=== PATIENT | female | born 1970 | race Caucasian/White ===

== ENCOUNTER 2016-12-19 22:50 | Emergency (ER) | payer MEDICAID ==
--- NOTE | 2016-12-19 23:49 | EDM.PDOC ---
ED HPI GENERAL MEDICAL PROBLEM - General Chief Complaint: General Stated Complaint: R knee pain Time Seen by Provider: 12/19/16 23:00 History Limitations: Reports: No Limitations - History of Present Illness INITIAL COMMENTS - FREE TEXT/NARRATIVE: Patient is a 46-year-old who was going to the bathroom at [facility] when she slipped and fell she can't remember what happened maybe had transient loss of consciousness but did state that she had severe pain in the inner aspect of her right knee there was an ecchymotic area around the knee with tenderness to palpation she has limited range of motion secondary to the pain and ecchymosis x -rays obtained reveal multiple fractures no dislocations Onset: Today Duration: Hour(s):, Other (Right knee pain) Location: Reports: Lower Extremity, Right Right Knee Pain Score (Numeric/FACES): 10 - Related Data Allergies Allergy/AdvReac Type Severity Reaction Status Date / Time hydrocodone Allergy Tachycardia Verified 02/26/13 20:16 Home Meds: Home Meds Lisinopril [Prinivil] 20 mg PO DAILY 02/26/13 [History] Cetirizine HCl 10 mg PO DAILY 04/29/13 [History] Propranolol HCl [Propranolol] 60 mg PO DAILY 04/29/13 [History] Triamterene/Hydrochlorothiazid [Triamterene-HCTZ 37.5-25 MG] 1 each PO 04/29/13 [History] Fluticasone Propionate [Fluticasone Propionate [place]] 1 - 2 sprays NASBOTH DAILY #1 bottle 05/22/13 [Rx] Furosemide [Furosemide] 20 mg PO DAILY 12/19/16 [History] LORazepam [LORazepam] 1 tab PO TID 12/19/16 [History] Past Medical History - Past Health History Medical/Surgical History: Denies Medical/Surgical History Cardiovascular History: Reports: Hypertension Psychiatric History: Reports: Anxiety, Depression Social & Family History - Tobacco Use Second Hand Smoke Exposure: Yes - Alcohol Use Days Per Week of Alcohol Use: 0 - Recreational Drug Use Recreational Drug Use: No ED ROS GENERAL - Review of Systems Review Of Systems: See Below Constitutional: Reports: No Symptoms HEENT: Reports: No Symptoms, Other (Headache about 4 out of 5 is middle-aged) Respiratory: Reports: No Symptoms Cardiovascular: Reports: No Symptoms Endocrine: Reports: No Symptoms GI/Abdominal: Reports: No Symptoms : Reports: No Symptoms Musculoskeletal: Reports: Other (Right knee pain with ecchymosis inner aspect and tenderness on both the medial and lateral aspects) Skin: Reports: No Symptoms, Change in Color, Other (Ecchymosis right knee inner and outer aspect) Neurological: Reports: No Symptoms Psychiatric: Reports: Anxiety, Depression ED EXAM, GENERAL - Physical Exam Exam: See Below Exam Limited By: No Limitations General Appearance: Alert, WD/WN, No Apparent Distress Ears: Normal External Exam, Normal Canal, Hearing Grossly Normal, Normal TMs Ear Exam: Bilateral Ear: Auricle Normal, Canal Normal, TM normal Nose: Normal Inspection, Normal Mucosa, No Blood Throat/Mouth: Normal Inspection, Normal Lips, Normal Teeth, Normal Gums, Normal Oropharynx, Normal Voice, No Airway Compromise Head: Atraumatic, Normocephalic, Other (Headaches possible loss of consciousness after falling neurologically appears intact) Neck: Normal Inspection, Supple, Non-Tender, Full Range of Motion Respiratory/Chest: No Respiratory Distress, Lungs Clear, Normal Breath Sounds, No Accessory Muscle Use, Chest Non-Tender Cardiovascular: Normal Peripheral Pulses, Regular Rate, Rhythm, No Edema, No Gallop, No JVD, No Murmur, No Rub GI/Abdominal: Normal Bowel Sounds, Soft, Non-Tender, No Organomegaly, No Distention, No Abnormal Bruit, No Mass Back Exam: Normal Inspection, Full Range of Motion, NT Extremities: Other (Right leg pain with flexion and extension x-ray negative for fractures ecchymotic area on the inner and outer aspect of the right knee secondary to fall) Neurological: Alert, Oriented, CN II-XII Intact, Normal Cognition, Normal Gait, Normal Reflexes, No Motor/Sensory Deficits Course - Orders/Labs/Meds Orders: Active Orders 24 hr Category Date Time Status Knee 1V or 2V Rt [CR] Stat Exams 12/19/16 23:08 Taken Departure - Departure Time of Disposition: 23:56 Disposition: Home, Self-Care 01 Condition: Good Clinical Impression: Right knee pain Qualifiers: Chronicity: acute Qualified Code(s): M25.561 - Pain in right knee - Discharge Information Referrals: Flex Singh MD [Primary Care Provider] - Care Plan Goals: Patient is to wear ice and keep the immobilizer for about a month follow-up in a month with primary care - My Orders Last 24 Hours: My Active Orders 12/19/16 23:08 Knee 1V or 2V Rt [CR] Stat - Assessment/Plan Last 24 Hours: My Active Orders 12/19/16 23:08 Knee 1V or 2V Rt [CR] Stat
== END 2016-12-19 23:55 | disposition home or self-care (01) ==
LOC: LL.ED 22:50
DX: S80.01XA Contusion of right knee, initial encounter (principal); F32.9 Major depressive disorder, single episode, unspecified; F41.9 Anxiety disorder, unspecified; I10 Essential (primary) hypertension; Z88.5 Allergy status to narcotic agent; Z79.899 Other long term (current) drug therapy
CPT/HCPCS: 73560-RT; 99283

== ENCOUNTER 2017-04-23 18:18 | Emergency (ER) | payer BC, MEDICAID, OTHER ==
[2017-04-23 18:33] VITALS: BP 143/90
--- NOTE | 2017-04-23 18:58 | EDM.PDOC ---
ED HPI GENERAL MEDICAL PROBLEM - General Chief Complaint: Abdominal Pain Stated Complaint: abd pain Time Seen by Provider: 04/23/17 18:40 Source of Information: Reports: Patient History Limitations: Reports: No Limitations - History of Present Illness INITIAL COMMENTS - FREE TEXT/NARRATIVE: Patient's 47-year-old female complained of right CVA tenderness radiating around her back into her groin pain is about an 8 out of 10 Onset: Gradual Duration: Day(s): (3 days), Getting Worse Location: Reports: Abdomen Quality: Reports: Sharp, Throbbing Severity: Moderate Improves with: Reports: None Worsens with: Reports: Other (Standing) Context: Reports: Other (Sick) Associated Symptoms: Reports: Nausea/Vomiting Treatments [employer] C[employer] AND EDGER: Reports: Acetaminophen Right Flank Pain Score (Numeric/FACES): 7 - Related Data Allergies Allergy/AdvReac Type Severity Reaction Status Date / Time hydrocodone Allergy Tachycardia Verified 04/23/17 19:13 Home Meds: Home Meds Lisinopril [Prinivil] 20 mg PO DAILY 02/26/13 [History] Triamterene/Hydrochlorothiazid [Triamterene-HCTZ 37.5-25 MG] 1 each PO DAILY [History] Fluticasone Propionate [Fluticasone Propionate [place]] 1 - 2 sprays NASBOTH DAILY #1 bottle 05/22/13 [Rx] Furosemide [Furosemide] 20 mg PO DAILY 12/19/16 [History] Sulfamethoxazole/Trimethoprim [Septra DS] 1 tab PO BID 10 Days #12 tablet [Rx] traMADol HCl [Ultram] 50 mg PO QID 5 Days #20 tablet 04/23/17 [Rx] Past Medical History - Past Health History Medical/Surgical History: Denies Medical/Surgical History Cardiovascular History: Reports: Hypertension Psychiatric History: Reports: Anxiety, Depression Social & Family History - Tobacco Use Smoking Status *Q: Unknown Ever Smoked Second Hand Smoke Exposure: Yes - Alcohol Use Days Per Week of Alcohol Use: 0 - Recreational Drug Use Recreational Drug Use: No ED ROS GENERAL - Review of Systems Review Of Systems: See Below Constitutional: Reports: Chills, Diaphoresis HEENT: Reports: No Symptoms Respiratory: Reports: No Symptoms Cardiovascular: Reports: No Symptoms Endocrine: Reports: No Symptoms GI/Abdominal: Reports: Abdominal Pain : Reports: Flank Pain Skin: Reports: No Symptoms Neurological: Reports: No Symptoms Psychiatric: Reports: No Symptoms Hematologic/Lymphatic: Reports: No Symptoms ED EXAM, GI/ABD - Physical Exam Exam: See Below Exam Limited By: No Limitations General Appearance: Alert, WD/WN, No Apparent Distress Eyes: Bilateral: Normal Appearance, EOMI Ears: Normal External Exam, Normal Canal, Hearing Grossly Normal, Normal TMs Nose: Normal Inspection, Normal Mucosa, No Blood Throat/Mouth: Normal Inspection, Normal Lips, Normal Teeth, Normal Gums, Normal Oropharynx, Normal Voice, No Airway Compromise Head: Atraumatic, Normocephalic Neck: Normal Inspection, Supple, Non-Tender, Full Range of Motion Respiratory/Chest: No Respiratory Distress, Lungs Clear, Normal Breath Sounds, No Accessory Muscle Use, Chest Non-Tender Cardiovascular: Normal Peripheral Pulses, Regular Rate, Rhythm, No Edema, No Gallop, No JVD, No Murmur, No Rub GI/Abdominal Exam: Tender (Left CVA tenderness radiating towards the hypo- gastric area) Back Exam: Normal Inspection, Full Range of Motion, NT Extremities: Normal Inspection, Normal Range of Motion, Non-Tender, Normal Capillary Refill, No Pedal Edema Neurological: Alert, Oriented, CN II-XII Intact, Normal Cognition, Normal Gait, Normal Reflexes, No Motor/Sensory Deficits Psychiatric: Normal Affect, Normal Mood Skin Exam: Warm, Dry, Intact, Normal Color, No Rash Course - Vital Signs Last Recorded V/S: Last Vital Signs Temp 98.4 F 04/23/17 18:21 Pulse 107 H 04/23/17 18:21 Resp 18 04/23/17 18:21 BP 143/90 H 04/23/17 18:21 Pulse Ox 100 04/23/17 18:21 - Orders/Labs/Meds Labs: Laboratory Tests 04/23/17 04/23/17 Range/Units 18:34 18:39 WBC 11.1 H (4.0-10.2) K/uL RBC 5.06 (3.77-5.09) M/uL Hgb 13.2 (11.7-15.5) g/dL Hct 39.2 (34.0-46.0) % MCV 77.5 L (84.0-98.0) fL MCH 26.1 L (28.2-33.3) pg MCHC 33.7 (31.7-36.0) g/dL RDW 15.1 H (11.2-14.1) % Plt Count 196 D (150-350) K/uL Neut % (Auto) 75.1 (45.0-80.0) % Lymph % (Auto) 13.3 (10.0-50.0) % [place] % (Auto) 9.0 (2.0-14.0) % Eos % (Auto) 2.4 (0.0-5.0) % Baso % (Auto) 0.2 (0.0-2.0) % Neut # (Auto) 8.31 H (1.40-7.00) K/uL Lymph # (Auto) 1.47 (0.50-3.50) K/uL [place] # (Auto) 1.00 (0.00-1.00) K/uL Eos # (Auto) 0.27 (0.00-0.50) K/uL Baso # (Auto) 0.02 (0.00-0.20) K/uL Specimen Type Urincc Urine Color Yellow Urine Appearance Clear Urine pH 5.0 (5.0-9.0) Ur Specific [place] >= 1.030 (1.005-1.030) Urine Protein Negative (NEGATIVE) mg/dL Urine Glucose (UA) Negative (NEGATIVE) mg/dL Urine Ketones Negative (NEGATIVE) mg/dL Urine Occult Blood Trace-lysed H (NEGATIVE) Urine Nitrite Negative (NEGATIVE) Urine Bilirubin Negative (NEGATIVE) Urine Urobilinogen 0.2 (0.2-1.0) E.U./dL Ur Leukocyte Esterase Negative (NEGATIVE) Urine RBC 0-5 /HPF Urine WBC 0-5 /HPF Ur Epithelial Cells Many H /LPF Urine Bacteria Moderate H (NONE TO FEW) /HPF Meds: Medications Discontinued Medications Generic Name Dose Route Start Last Admin Trade Name Freq PRN Reason Stop Dose Admin Ketorolac Tromethamine 60 mg 04/23/17 19:37 04/23/17 19:41 Toradol IM 04/23/17 19:38 60 mg ONETIME ONE Administration Ondansetron HCl 4 mg 04/23/17 20:00 04/23/17 20:03 Zofran Odt PO 04/23/17 20:01 4 mg ONETIME ONE Administration Tamsulosin HCl 0.4 mg 04/23/17 19:38 04/23/17 19:41 Flomax PO 04/23/17 19:39 0.4 mg ONETIME ONE Administration Departure - Departure Time of Disposition: 20:10 Disposition: Home, Self-Care 01 Condition: Fair Clinical Impression: UTI (urinary tract infection) Abdominal pain Qualifiers: Abdominal location: right lower quadrant Qualified Code(s): R10.31 - Right lower quadrant pain - Discharge Information Prescriptions: Sulfamethoxazole/Trimethoprim [Septra DS] 1 tab PO BID 10 Days #12 tablet traMADol HCl [Ultram] 50 mg PO QID 5 Days #20 tablet Instructions: Ondansetron oral dissolving tablet, Ketorolac injection, Tramadol tablets, Urinary Tract Infection, Adult, Tamsulosin capsules, Sulfamethoxazole; Trimethoprim, SMX-TMP tablets Referrals: PCP,Unknown [Ordering Only Provider] - Forms: ED Department Discharge Care Plan Goals: Patient was evaluated in the ER UA showed bacteria's in the urine will go ahead and treat her for UTI ultrasound also revealed left ovarian cyst 5 cm this is a possible cause of the pain I explained this to the patient she will take Motrin as needed for pain
[2017-04-23] MEDS ORDERED: Ketorolac 60 MG/2 ML SDV IM ONE (19:37)
[2017-04-23] MEDS ORDERED: Tamsulosin 0.4 MG Cap.ER PO ONE (19:38)
[2017-04-23] MEDS ORDERED: Ondansetron 4 MG Tab.DIS PO ONE (20:00)
== END 2017-04-23 20:20 | disposition home or self-care (01) ==
LOC: LL.ED 18:18
DX: N39.0 Urinary tract infection, site not specified (principal); I10 Essential (primary) hypertension; Z88.5 Allergy status to narcotic agent; Z79.899 Other long term (current) drug therapy
CPT/HCPCS: 36415; 74176; 81001; 85025; 87086; 96372; 99284; A9270; J1885

== ENCOUNTER 2017-05-27 22:42 | Emergency (ER) | payer SELFPAY ==
[2017-05-27 23:53] LABS: CHLORIDE,CL 102 mmol/L (98-107); SODIUM,NA 139 mmol/L (136-145)
--- NOTE | 2017-05-28 00:04 | EDM.PDOC ---
ED HPI GENERAL MEDICAL PROBLEM - General Chief Complaint: General Stated Complaint: chest pain Time Seen by Provider: 05/27/17 23:11 Source of Information: Reports: Patient History Limitations: Reports: No Limitations - History of Present Illness INITIAL COMMENTS - FREE TEXT/NARRATIVE: Patient complains of not feeling well since last night. Described sensation as feeling "weird". No other specific descriptions or symptoms. Today when she woke she says she felt dizzy at times. Noted that she became a bit SOB going up stairs. Took a nap. This evening noted that she had bilateral anterior chest achiness that was worse with direct pressure over her chest and with deep breaths. Pain does not radiate anywhere. Denies HEENT changes suggestive on new URI. Has had resolving recent cough which has not worsened. Was diagnosed with pneumonia by CT scan while being worked up for abdominal pain in April. Took course of antibiotics, suspects it was likely Zithromax. No fevers. No GI changes. No changes. ROS otherwise negative except for worsening fatigue today. is smoker, smokes in house. - Related Data Allergies Allergy/AdvReac Type Severity Reaction Status Date / Time hydrocodone Allergy Tachycardia Verified 05/27/17 23:00 Home Meds: Home Meds Lisinopril [Prinivil] 20 mg PO DAILY 02/26/13 [History] Fluticasone Propionate [Flonase] 1 - 2 sprays NASBOTH DAILY #1 bottle 05/22/13 [ Rx] Furosemide 20 mg PO DAILY 12/19/16 [History] Venlafaxine HCl [Venlafaxine ER] 150 mg PO DAILY 05/27/17 [History] hydrOXYzine HCl [hydrOXYzine] 1 tab PO Q12H PRN 05/27/17 [History] Doxycycline [Vibramycin] 100 mg PO BID #20 cap 05/28/17 [Rx] Past Medical History - Past Health History Medical/Surgical History: Denies Medical/Surgical History Cardiovascular History: Reports: Hypertension Respiratory History: Reports: Asthma Gastrointestinal History: Reports: Hiatal Hernia Genitourinary History: Reports: None CUT[employer] MACHINE History: Reports: Endometriosis, Musculoskeletal History: Reports: None Neurological History: Reports: Concussion Psychiatric History: Reports: Anxiety, Depression Endocrine/Metabolic History: Reports: Obesity/BMI 30+ Hematologic History: Reports: Anemia, Blood Transfusion(s) Dermatologic History: Reports: Eczema - Infectious Disease History Infectious Disease History: Reports: Chicken Pox, Influenza - Past Surgical History GI Surgical History: Reports: Cholecystectomy, Hernia, Abdominal Female Surgical History: Reports: Hysterectomy, Oophorectomy, Other (See Below) Other Female Surgeries/Procedures: only ovary remaining Neurological Surgical History: Reports: None Musculoskeletal Surgical History: Reports: None Dermatological Surgical History: Reports: None Social & Family History - Family History Endocrine/Metabolic: Reports: Diabetes, type II Oncologic: Reports: Breast Other Oncologic Family History: Mom had breast cancer - Tobacco Use Smoking Status *Q: Never Smoker Second Hand Smoke Exposure: Yes - Caffeine Use Caffeine Use: Reports: Soda Other Caffeine Use: occasionally - Alcohol Use Days Per Week of Alcohol Use: 0 - Recreational Drug Use Recreational Drug Use: No ED ROS GENERAL - Review of Systems Review Of Systems: See Below Constitutional: Reports: Fatigue. Denies: Fever, Chills, Malaise, Weakness, Night Sweats, Diaphoresis, Decreased Appetite, Weight Loss, Weight Gain HEENT: Reports: No Symptoms Respiratory: Reports: Shortness of Breath, Pleuritic Chest Pain, Cough. Denies : Wheezing, Sputum, Hemoptysis Cardiovascular: Reports: Chest Pain, Dyspnea on Exertion, Lightheadedness. Denies: Edema, Palpitations, Syncope GI/Abdominal: Reports: No Symptoms : Reports: No Symptoms Musculoskeletal: Reports: No Symptoms Skin: Reports: No Symptoms Neurological: Reports: Dizziness. Denies: Confusion, Headache, Syncope, Tingling, Trouble Speaking, Change in Speech Psychiatric: Reports: Anxiety (worse today, friend went to inpatient psych bai) Hematologic/Lymphatic: Reports: No Symptoms Immunologic: Reports: No Symptoms ED EXAM, GENERAL - Physical Exam Exam: See Below Exam Limited By: No Limitations General Appearance: Alert, WD/WN, Anxious Eye Exam: Bilateral Eye: EOMI, PERRL Ears: Normal External Exam, Normal Canal, Hearing Grossly Normal, Normal TMs Nose: Normal Inspection Throat/Mouth: Normal Inspection, Normal Lips, Normal Gums, Normal Oropharynx, Normal Voice, No Airway Compromise, Other (poor teeth, some missing) Head: Atraumatic, Normocephalic Neck: Normal Inspection, Supple, Non-Tender, Full Range of Motion. No: Lymphadenopathy (L), Lymphadenopathy (R) Respiratory/Chest: No Respiratory Distress, Lungs Clear, Normal Breath Sounds, No Accessory Muscle Use, Other (some tenderness noted with palpation pectoral areas bilaterally, partially reproduces pain complaint. ) Cardiovascular: Normal Peripheral Pulses, Regular Rate, Rhythm, No Murmur Peripheral Pulses: 2+: Radial (L) GI/Abdominal: Normal Bowel Sounds, Soft, Non-Tender, No Distention (Female) Exam: Deferred Rectal (Female) Exam: Deferred Back Exam: Normal Inspection. No: CVA Tenderness (L), CVA Tenderness (R), Muscle Spasm, Paraspinal Tenderness, Vertebral Tenderness Extremities: Normal Inspection, Normal Range of Motion, Non-Tender, No Pedal Edema, Normal Capillary Refill Neurological: Alert, Oriented, Normal Cognition, Normal Gait, No Motor/Sensory Deficits Psychiatric: Anxious Skin Exam: Warm, Dry, Intact, Normal Color EKG INTERPRETATION EKG Date: 05/27/17 Time: 22:47 Rhythm: NSR Rate (Beats/Min): 96 [place]: Normal P-Wave: Present QRS: Normal ST-T: Normal QT: Normal EKG Interpretation Comments: unremarkable EKG Course - Vital Signs Last Recorded V/S: Last Vital Signs Temp 36.7 C 05/27/17 22:45 Pulse 101 H 05/27/17 22:45 Resp 16 05/27/17 22:45 BP 154/96 H 05/27/17 22:45 Pulse Ox 98 05/27/17 22:45 - Orders/Labs/Meds Orders: Active Orders 24 hr Category Date Time Status EKG Documentation Completion [RC] ASDIRECTED Care 05/27/17 22:44 Active Chest 2V [CR] Stat Exams 05/27/17 23:13 Taken Labs: Laboratory Tests 05/27/17 05/27/17 05/27/17 Range/Units 23:13 23:35 23:35 WBC 13.4 H (4.0-10.2) K/uL RBC 5.20 H (3.77-5.09) M/uL Hgb 13.4 (11.7-15.5) g/dL Hct 39.7 (34.0-46.0) % MCV 76.3 L (84.0-98.0) fL MCH 25.8 L (28.2-33.3) pg MCHC 33.8 (31.7-36.0) g/dL RDW 14.8 H (11.2-14.1) % Plt Count 227 (150-350) K/uL Neut % (Auto) 67.5 (45.0-80.0) % Lymph % (Auto) 22.5 (10.0-50.0) % [place] % (Auto) 7.4 (2.0-14.0) % Eos % (Auto) 2.4 (0.0-5.0) % Baso % (Auto) 0.2 (0.0-2.0) % Neut # (Auto) 9.08 H (1.40-7.00) K/uL Lymph # (Auto) 3.02 (0.50-3.50) K/uL [place] # (Auto) 0.99 (0.00-1.00) K/uL Eos # (Auto) 0.32 (0.00-0.50) K/uL Baso # (Auto) 0.03 (0.00-0.20) K/uL D-Dimer, Quantitative (0-400) ng/mL Sodium 139 (136-145) mmol/L Potassium 3.5 (3.5-5.1) mmol/L Chloride 102 (98-107) mmol/L Carbon Dioxide 28.1 (21.0-32.0) mmol/L BUN 19 H (7-18) mg/dL Creatinine 0.82 (0.51-1.17) mg/dL Est Cr Clr Drug Dosing 65.54 mL/min Estimated GFR (MDRD) > 60 mL/min Glucose 139 H (74-106) mg/dL Calcium 8.6 (8.5-10.1) mg/dL Total Bilirubin 0.3 (0.2-1.0) mg/dL AST 12 L (15-37) U/L ALT 26 (12-78) U/L Alkaline Phosphatase 85 (46-116) IU/L Troponin I 0.000 (0.000-0.056) ng/mL Total Protein 7.5 (6.4-8.2) g/dL Albumin 3.7 (3.4-5.0) g/dL Specimen Type Urinblad Urine Color Yellow Urine Appearance Clear Urine pH 6.0 (5.0-9.0) Ur Specific [place] >= 1.030 (1.005-1.030) Urine Protein Negative (NEGATIVE) mg/dL Urine Glucose (UA) Negative (NEGATIVE) mg/dL Urine Ketones Trace H (NEGATIVE) mg/dL Urine Occult Blood Negative (NEGATIVE) Urine Nitrite Negative (NEGATIVE) Urine Bilirubin Negative (NEGATIVE) Urine Urobilinogen 1.0 (0.2-1.0) E.U./dL Ur Leukocyte Esterase Negative (NEGATIVE) Urine RBC Not seen /HPF Urine WBC 0-5 /HPF Ur Epithelial Cells Many H /LPF Urine Bacteria Moderate H (NONE TO FEW) /HPF Urinalysis Comment 05/27/17 Range/Units 23:35 WBC (4.0-10.2) K/uL RBC (3.77-5.09) M/uL Hgb (11.7-15.5) g/dL Hct (34.0-46.0) % MCV (84.0-98.0) fL MCH (28.2-33.3) pg MCHC (31.7-36.0) g/dL RDW (11.2-14.1) % Plt Count (150-350) K/uL Neut % (Auto) (45.0-80.0) % Lymph % (Auto) (10.0-50.0) % [place] % (Auto) (2.0-14.0) % Eos % (Auto) (0.0-5.0) % Baso % (Auto) (0.0-2.0) % Neut # (Auto) (1.40-7.00) K/uL Lymph # (Auto) (0.50-3.50) K/uL [place] # (Auto) (0.00-1.00) K/uL Eos # (Auto) (0.00-0.50) K/uL Baso # (Auto) (0.00-0.20) K/uL D-Dimer, Quantitative < 100 (0-400) ng/mL Sodium (136-145) mmol/L Potassium (3.5-5.1) mmol/L Chloride (98-107) mmol/L Carbon Dioxide (21.0-32.0) mmol/L BUN (7-18) mg/dL Creatinine (0.51-1.17) mg/dL Est Cr Clr Drug Dosing mL/min Estimated GFR (MDRD) mL/min Glucose (74-106) mg/dL Calcium (8.5-10.1) mg/dL Total Bilirubin (0.2-1.0) mg/dL AST (15-37) U/L ALT (12-78) U/L Alkaline Phosphatase (46-116) IU/L Troponin I (0.000-0.056) ng/mL Total Protein (6.4-8.2) g/dL Albumin (3.4-5.0) g/dL Specimen Type Urine Color Urine Appearance Urine pH (5.0-9.0) Ur Specific [place] (1.005-1.030) Urine Protein (NEGATIVE) mg/dL Urine Glucose (UA) (NEGATIVE) mg/dL Urine Ketones (NEGATIVE) mg/dL Urine Occult Blood (NEGATIVE) Urine Nitrite (NEGATIVE) Urine Bilirubin (NEGATIVE) Urine Urobilinogen (0.2-1.0) E.U./dL Ur Leukocyte Esterase (NEGATIVE) Urine RBC /HPF Urine WBC /HPF Ur Epithelial Cells /LPF Urine Bacteria (NONE TO FEW) /HPF Urinalysis Comment - Radiology Interpretation Free Text/Narrative:: No obvious infiltrate on Chest xray. No pneumothorax or other acute changes. - Re-Assessments/Exams Free Text/Narrative Re-Assessment/Exam: 05/28/17 00:19 WBC elevated. Troponin and DDimer normal. Discussed possible explanations of symptoms with patient. Certainly could be a stress/anxiety component. Given the recent pneumonia, elevated WBC, and new SOB going up stairs, cannot rule out recurring infection. May be new onset viral illness. Decision to cover patient for potential bacterial involvement made, she will take Doxy 100mg BID for 10 days. She is to continue to follow up as needed, including regular BP checks. Her BP was elevated tonight but she was anxious. Improving at time of discharge. Departure - Departure Time of Disposition: 00:04 Disposition: Home, Self-Care 01 Condition: Good Clinical Impression: General ill feeling - Discharge Information Prescriptions: Doxycycline [Vibramycin] 100 mg PO BID #20 cap Instructions: Community-Acquired Pneumonia, Adult, [id number] Forms: ED Department Discharge Additional Instructions: Take Doxy every 12 hours for 10 days. Watch for any other changes. Follow up with your primary provider as needed if you have problems or if symptoms have not improved within 4-5 days. - My Orders Last 24 Hours: My Active Orders 05/27/17 22:44 EKG Documentation Completion [RC] ASDIRECTED 05/27/17 23:13 Chest 2V [CR] Stat - Assessment/Plan Last 24 Hours: My Active Orders 05/27/17 22:44 EKG Documentation Completion [RC] ASDIRECTED 05/27/17 23:13 Chest 2V [CR] Stat
[2017-05-28 00:45] VITALS: BP 143/90
== END 2017-05-28 00:35 | disposition home or self-care (01) ==
LOC: LL.ED 22:42
DX: R69 Illness, unspecified (principal); F17.200 Nicotine dependence, unspecified, uncomplicated; I10 Essential (primary) hypertension; F32.9 Major depressive disorder, single episode, unspecified; E66.9 Obesity, unspecified; Z88.5 Allergy status to narcotic agent; Z79.899 Other long term (current) drug therapy
CPT/HCPCS: 36415; 71046; 80053; 81001; 84484; 85025; 85379; 93005; 99285

== ENCOUNTER 2017-06-30 18:19 | Emergency (ER) | payer BC ==
[2017-06-30] MEDS ORDERED: Famotidine 20 MG/2 ML SDV IVPUSH ONE (18:26)
[2017-06-30] MEDS ORDERED: Sodium Chloride 0.9% 10 ML Syringe FLUSH PRN (18:26)
[2017-06-30] MEDS ORDERED: Pantoprazole 40 MG Vial IVPUSH ONE (18:26)
--- NOTE | 2017-06-30 18:26 | EDM.PDOC ---
ED HPI GENERAL MEDICAL PROBLEM - General Chief Complaint: Gastrointestinal Problem Stated Complaint: RLQ pain 9 out of 10 Time Seen by Provider: 06/30/17 18:20 Source of Information: Reports: Patient, Old Records ([facility] EMR. No paper hospital chart available.) History Limitations: Reports: No Limitations - History of Present Illness INITIAL COMMENTS - FREE TEXT/NARRATIVE: The patient was brought to the emergency room via private automobile by her friend for evaluation of a one hour history of right lower quadrant abdominal pain, which she describes as 9/10 cramping sensation. Symptoms started shortly after she had a walk earlier today with no history of fall, injury, etc. She apparently had a normal bowel movement about one hour prior to arrival. She has had similar symptoms in the past, including negative CT scan in April 2017 as below. No recent history of other abdominal pain, heartburn, nausea, diarrhea , constipation, melena, gross hematochezia, or any food intolerance, including fatty foods, etc.. She has not taken any medications for her symptoms to this point. The patient denies any gross hematuria, colic, or other UTI symptoms. The patient denies any chest pain/pressure, heart flutter, dizziness, orthostasis, orthopnea, diaphoresis, paresthesias, recent decreased exercise tolerance, or any other anginal-type symptoms. The patient also denies any recent fever, cough, wheezing, dyspnea, etc.. Onset: Today, Sudden Onset Date: 06/30/17 Onset Time: 17:15 Duration: Constant, Getting Worse Location: Reports: Abdomen. Denies: Head, Face, Neck, Back, Pelvis, Upper Extremity, Left, Upper Extremity, Right, Lower Extremity, Left, Lower Extremity , Right, Generalized, Radiates to Quality: Reports: Ache, Pressure, Same as Previous Episode, Sharp Severity: Severe Improves with: Reports: None Worsens with: Reports: None Context: Reports: Other (As above) Associated Symptoms: Denies: Confusion, Chest Pain, Cough, Diaphoresis, Fever/ Chills, Headaches, Loss of Appetite, Malaise, Nausea/Vomiting, Shortness of Breath, Syncope, Weakness Treatments CLIENT RELATIONSHIP CONSULTANT: Reports: Other (see below) (None) Right Lower Abdominal Pain Score (Numeric/FACES): 9 - Related Data Allergies Allergy/AdvReac Type Severity Reaction Status Date / Time hydrocodone Allergy Tachycardia Verified 06/30/17 18:21 Home Meds: Home Meds Lisinopril [Prinivil] 20 mg PO DAILY 02/26/13 [History] Fluticasone Propionate [Flonase] 1 - 2 sprays NASBOTH DAILY #1 bottle 05/22/13 [ Rx] Furosemide 20 mg PO DAILY 12/19/16 [History] Venlafaxine HCl [Venlafaxine ER] 150 mg PO DAILY 05/27/17 [History] hydrOXYzine HCl [hydrOXYzine] 1 tab PO Q12H PRN 05/27/17 [History] Doxycycline [Vibramycin] 100 mg PO BID #20 cap 05/28/17 [Rx] Past Medical History HEENT History: Reports: Allergic Rhinitis Cardiovascular History: Reports: Arrhythmia, High Cholesterol, Hypertension, Other (See Below) Other Cardiovascular History: Fatty liver secondary to her hyperlipidemia Respiratory History: Reports: Asthma Gastrointestinal History: Reports: Hiatal Hernia, Other (See Below) Other Gastrointestinal History: Fatty liver secondary to her hyperlipidemia. Recurrent abdominal pain of unknown etiology. Genitourinary History: Reports: None FLY WINDER History: Reports: Endometriosis, : 6 LMP (Approximate): Other (See Below) Other OB/BYN History: Full term without complications during pregnancies or deliveries although she did have a borderline placental abruption and required bedrest in one of her pregnancies. Surgical menopause as below. Benign left adnexal cyst by CT scan on 04/23/17. Musculoskeletal History: Reports: Back Pain, Chronic, Osteoarthritis, Other ( See Below) Other Musculoskeletal History: Chronic low back pain with mild disc prolapse by MRI in 2017 as below Neurological History: Reports: Concussion Psychiatric History: Reports: Anxiety, Depression Endocrine/Metabolic History: Reports: Obesity/BMI 30+ Hematologic History: Reports: Anemia, Blood Transfusion(s) Dermatologic History: Reports: Eczema - Infectious Disease History Infectious Disease History: Reports: Chicken Pox, Influenza - Past Surgical History GI Surgical History: Reports: Cholecystectomy, Hernia, Abdominal, Other (See Below) Other GI Surgeries/Procedures: Umbilical hernia repair in May 2013. Laparoscopic cholecystectomy in 2015. Female Surgical History: Reports: Hysterectomy, Oophorectomy, Other (See Below) Other Female Surgeries/Procedures: Complete hysterectomy with right-sided salpingo-oophorectomy in her 40s secondary to endometriosis. Neurological Surgical History: Reports: None Musculoskeletal Surgical History: Reports: None Dermatological Surgical History: Reports: None - Past Imaging History Past Imaging History: Reports: CAT Scan (CT scan of the abdomen and pelvis on 04/23/17), MRI (MRI of the lumbar spine on 09/08/16), Venous Doppler (Negative venous Doppler studies of the right leg on 07/17/16) Social & Family History - Family History Endocrine/Metabolic: Reports: Diabetes, type II Oncologic: Reports: Breast Other Oncologic Family History: Mom had breast cancer - Tobacco Use Smoking Status *Q: Never Smoker Used Tobacco, but Quit: No Smoking Cessation Information Provided To Patient: No Second Hand Smoke Exposure: Yes Source of Second Hand Smoke Exposure: smokes Second Hand Smoke Education Provided: Yes - Caffeine Use Caffeine Use: Reports: Soda Other Caffeine Use: occasionally - Alcohol Use Days Per Week of Alcohol Use: 0 - Recreational Drug Use Recreational Drug Use: No - Living Situation & Occupation Living situation: Reports: , with Family Occupation: Unemployed ED ROS GENERAL - Review of Systems Review Of Systems: ROS reveals no pertinent complaints other than HPI. ED EXAM, GI/ABD - Physical Exam Exam: See Below Exam Limited By: No Limitations General Appearance: Alert, WD/WN, No Apparent Distress, Anxious (Moderate) Eyes: Bilateral: Normal Appearance (No nystagmus), EOMI (PERRLA) Ears: Normal External Exam, Normal Canal, Hearing Grossly Normal, Normal TMs Nose: Normal Inspection, Normal Mucosa, No Blood Throat/Mouth: Normal Lips. No: Normal Teeth (Multiple missing teeth and caries) , Normal Gums, Normal Oropharynx, Normal Voice Head: Atraumatic, Normocephalic. No: Facial Swelling, Facial Tenderness, Sinus Tenderness Neck: Normal Inspection, Supple, Non-Tender, Full Range of Motion. No: Lymphadenopathy (L), Lymphadenopathy (R), Thyromegaly Respiratory/Chest: No Respiratory Distress, Lungs Clear, Normal Breath Sounds, No Accessory Muscle Use, Chest Non-Tender. No: Pleural Rub, Retractions Cardiovascular: Normal Peripheral Pulses, Regular Rate, Rhythm, No Edema, No Gallop, No JVD, No Murmur, No Rub. No: Gallop/S3, Gallop/S4, Friction Rub GI/Abdominal Exam: Normal Bowel Sounds, Soft, No Organomegaly, No Distention, No Abnormal Bruit, No Mass, Tender (Borderline right lower quadrant palpation pain). No: Guarding, Rebound, Hernia (Female) Exam: Deferred Rectal (Female) Exam: Deferred Back Exam: Normal Inspection, Full Range of Motion. No: CVA Tenderness (L), CVA Tenderness (R), Muscle Spasm Extremities: Normal Inspection, Normal Range of Motion, Non-Tender, No Pedal Edema, Normal Capillary Refill. No: Juliet's Sign Neurological: Alert, Oriented, CN II-XII Intact, Normal Cognition, Normal Gait, No Motor/Sensory Deficits Psychiatric: Anxious (Moderate). No: Depressed Mood (Adequate eye contact) Skin Exam: Warm, Dry, Intact, Normal Color, No Rash. No: Diaphoretic, Jaundice , Pallor, Wound/Incision Lymphatic: No Adenopathy Course - Vital Signs Last Recorded V/S: Last Vital Signs Temp 36.6 C 06/30/17 18:20 Pulse 94 06/30/17 18:20 Resp 20 06/30/17 18:20 BP 183/106 H 06/30/17 18:20 Pulse Ox 98 06/30/17 18:20 Vital Signs - 24 hr 06/30/17 18:20 Temperature [ 36.6 C Oral] Pulse, 94 Peripheral [ Left Pulse Oximetry] Respiratory 20 Rate Blood Pressure 183/106 H [Left Upper Arm ] O2 Sat by Pulse 98 Oximetry - Orders/Labs/Meds Orders: Active Orders 24 hr Category Date Time Status Peripheral IV Care [RC] . DIRECTED Care 06/30/17 18:27 Active Nothing Per Oral Diet [DIET] Diet 06/30/17 Breakfast Active Abdomen Series w Chest 1V [CR] Stat Exams 06/30/17 18:26 Taken CULTURE URINE [RM] Stat Lab 06/30/17 18:30 Received Sodium Chloride 0.9% [Saline Flush] Med 06/30/17 18:26 Active 10 ml FLUSH ASDIRECTED PRN Obtain Past Medical Record [OM.PC] Urgent Oth 06/30/17 18:26 Active Peripheral IV Insertion Adult [OM.PC] Stat Oth 06/30/17 18:26 Ordered Resuscitation Status Stat Resus Stat 06/30/17 18:26 Ordered Medication Orders Sodium Chloride (Saline Flush) 10 ml FLUSH ASDIRECTED PRN PRN Reason: Keep Vein Open Labs: Laboratory Tests 06/30/17 06/30/1718 Range/Units 18:30 18:45 18:45 WBC 12.2 H (4.0-10.2) K/uL RBC 4.70 (3.77-5.09) M/uL Hgb 12.2 (11.7-15.5) g/dL Hct 36.4 (34.0-46.0) % MCV 77.4 L (84.0-98.0) fL MCH 26.0 L (28.2-33.3) pg MCHC 33.5 (31.7-36.0) g/dL RDW 15.4 H (11.2-14.1) % Plt Count 239 (150-350) K/uL Neut % (Auto) 67.5 (45.0-80.0) % Lymph % (Auto) 20.7 (10.0-50.0) % Hughes % (Auto) 8.6 (2.0-14.0) % Eos % (Auto) 3.0 (0.0-5.0) % Baso % (Auto) 0.2 (0.0-2.0) % Neut # (Auto) 8.20 H (1.40-7.00) K/uL Lymph # (Auto) 2.52 (0.50-3.50) K/uL Hughes # (Auto) 1.04 H (0.00-1.00) K/uL Eos # (Auto) 0.36 (0.00-0.50) K/uL Baso # (Auto) 0.03 (0.00-0.20) K/uL PT (9.8-11.7) SEC INR APTT (22.1-29.8) SEC Sodium (136-145) mmol/L Potassium (3.5-5.1) mmol/L Chloride (98-107) mmol/L Carbon Dioxide (21.0-32.0) mmol/L BUN (7-18) mg/dL Creatinine (0.51-1.17) mg/dL Est Cr Clr Drug Dosing Estimated GFR (MDRD) mL/min Glucose (74-106) mg/dL Lactic Acid (0.4-2.0) mmol/L Uric Acid (2.6-7.2) mg/dL Calcium (8.5-10.1) mg/dL Magnesium (1.8-2.4) mg/dL Total Bilirubin (0.2-1.0) mg/dL AST (15-37) U/L ALT (12-78) U/L Alkaline Phosphatase (46-116) IU/L Total Protein (6.4-8.2) g/dL Albumin (3.4-5.0) g/dL Amylase 39 (25-115) U/L Lipase (73-393) U/L Specimen Type Urincc Urine Color Yellow Urine Appearance Clear Urine pH 5.0 (5.0-9.0) Ur Specific [place] 1.020 (1.005-1.030) Urine Protein Negative (NEGATIVE) mg/dL Urine Glucose (UA) Negative (NEGATIVE) mg/dL Urine Ketones Negative (NEGATIVE) mg/dL Urine Occult Blood Negative (NEGATIVE) Urine Nitrite Negative (NEGATIVE) Urine Bilirubin Negative (NEGATIVE) Urine Urobilinogen 0.2 (0.2-1.0) E.U./dL Ur Leukocyte Esterase Negative (NEGATIVE) Urine RBC 0-5 /HPF Urine WBC 0-5 /HPF Ur Epithelial Cells Many H /LPF Urine Bacteria Few (NONE TO FEW) /HPF Urinalysis Comment 06/30/17 06/30/17 06/30/17 Range/Units 18:45 18:45 18:45 WBC (4.0-10.2) K/uL RBC (3.77-5.09) M/uL Hgb (11.7-15.5) g/dL Hct (34.0-46.0) % MCV (84.0-98.0) fL MCH (28.2-33.3) pg MCHC (31.7-36.0) g/dL RDW (11.2-14.1) % Plt Count (150-350) K/uL Neut % (Auto) (45.0-80.0) % Lymph % (Auto) (10.0-50.0) % Hughes % (Auto) (2.0-14.0) % Eos % (Auto) (0.0-5.0) % Baso % (Auto) (0.0-2.0) % Neut # (Auto) (1.40-7.00) K/uL Lymph # (Auto) (0.50-3.50) K/uL Hughes # (Auto) (0.00-1.00) K/uL Eos # (Auto) (0.00-0.50) K/uL Baso # (Auto) (0.00-0.20) K/uL PT 10.0 (9.8-11.7) SEC INR 0.9 APTT 24.2 (22.1-29.8) SEC Sodium 138 (136-145) mmol/L Potassium 3.7 (3.5-5.1) mmol/L Chloride 102 (98-107) mmol/L Carbon Dioxide 28.0 (21.0-32.0) mmol/L BUN 20 H (7-18) mg/dL Creatinine 0.82 (0.51-1.17) mg/dL Est Cr Clr Drug Dosing TNP Estimated GFR (MDRD) > 60 mL/min Glucose 123 H (74-106) mg/dL Lactic Acid 1.0 (0.4-2.0) mmol/L Uric Acid 4.7 (2.6-7.2) mg/dL Calcium 8.4 L (8.5-10.1) mg/dL Magnesium 1.6 L (1.8-2.4) mg/dL Total Bilirubin 0.3 (0.2-1.0) mg/dL AST 15 (15-37) U/L ALT 19 (12-78) U/L Alkaline Phosphatase 80 (46-116) IU/L Total Protein 6.8 (6.4-8.2) g/dL Albumin 3.2 L (3.4-5.0) g/dL Amylase (25-115) U/L Lipase 205 (73-393) U/L Specimen Type Urine Color Urine Appearance Urine pH (5.0-9.0) Ur Specific [place] (1.005-1.030) Urine Protein (NEGATIVE) mg/dL Urine Glucose (UA) (NEGATIVE) mg/dL Urine Ketones (NEGATIVE) mg/dL Urine Occult Blood (NEGATIVE) Urine Nitrite (NEGATIVE) Urine Bilirubin (NEGATIVE) Urine Urobilinogen (0.2-1.0) E.U./dL Ur Leukocyte Esterase (NEGATIVE) Urine RBC /HPF Urine WBC /HPF Ur Epithelial Cells /LPF Urine Bacteria (NONE TO FEW) /HPF Urinalysis Comment Urine specimen set up for culture and sensitivity Meds: Medications Generic Name Dose Route Start Last Admin Trade Name Freq PRN Reason Stop Dose Admin Sodium Chloride 10 ml 06/30/17 18:26 Saline Flush FLUSH ASDIRECTED PRN Keep Vein Open Discontinued Medications Generic Name Dose Route Start Last Admin Trade Name Freq PRN Reason Stop Dose Admin Famotidine 40 mg 06/30/17 18:26 06/30/17 18:50 Pepcid IVPUSH 06/30/17 18:27 40 mg ONETIME ONE Administration Pantoprazole Sodium 40 mg 06/30/17 18:26 06/30/17 18:50 Protonix Iv IVPUSH 06/30/17 18:27 40 mg ONETIME ONE Administration - Radiology Interpretation Free Text/Narrative:: Acute abdominal x-rays showed evidence of moderate diffuse stool with nonspecific bowel gaseous pattern, however no free air, ileus, obstruction, fluid levels, megaly, CHF, pulmonary infiltrates, etc. Surgical clips noted. Note history of asthma and likely stable pulmonary obstructive disease. Departure - Departure Time of Disposition: 19:50 Disposition: Home, Self-Care 01 Condition: Good Clinical Impression: Abdominal pain, Hypomagnesemia, Hypoalbuminemia, Tobacco abuse counseling, Mixed anxiety depressive disorder, Caries Hypertension Qualifiers: Hypertension type: essential hypertension Qualified Code(s): I10 - Essential ( primary) hypertension Asthma Qualifiers: Asthma severity: mild Asthma persistence: intermittent Asthma complication type : uncomplicated Qualified Code(s): J45.20 - Mild intermittent asthma, uncomplicated - Discharge Information Instructions: Pantoprazole injection, Abdominal Pain, Adult, [id number], Famotidine injection Forms: ED Department Discharge Additional Instructions: 1. Follow up with your regular provider in 2 days for reevaluation and recommended repeat CBC and magnesium level with further blood work and x-rays depending on your symptoms at that time 2. Tylenol 650 mg by mouth every 4 hours when necessary as directed. 3. Gladys diet including encouragement of oral fluids such as sports drinks, etc. for 24-48 hours as directed. Advance to heart healthy, high-fiber diet as tolerated thereafter. 4. Stop all tobacco exposure LUISITO as directed with counselling, information, etc. given - Problem List & Annotations (1) Abdominal pain SNOMED Code(s): 98938710 Code(s): R10.9 - UNSPECIFIED ABDOMINAL PAIN Status: Acute Priority: High Current Visit: Yes Onset Date: 06/30/17 Annotation/Comment:: Long history of intermittent nonspecific abdominal pain as above. Various therapeutic options were discussed with the patient, who agrees that CT scan of the abdomen and pelvis should not be repeated at this time secondary to recent evaluation on 04/23/17. No direct indication of appendicitis at this time despite mild leukocytosis with extensive precautions given to the patient. Very close follow-up by her regular provider as per discharge instructions. Significant stool and today's x-rays. She plans to take a laxative at home shortly after discharge. Further GI workup depending on her clinical course, including possible colonoscopy, EGD, repeat CT scans, etc.. Note microcytosis without anemia with consideration of iron studies depending on her clinical course. In addition, note no fever today. (2) Hypertension SNOMED Code(s): 49533876 Code(s): I10 - ESSENTIAL (PRIMARY) HYPERTENSION Status: Chronic Priority : Medium Current Visit: Yes Annotation/Comment:: Blood pressure somewhat elevated initially on arrival likely secondary to her significant anxiety. Unfortunately repeat blood pressures were not taken today. Close follow-up by her regular provider with next visit in 2 days as per discharge instructions. Qualifiers: Hypertension type: essential hypertension Qualified Code(s): I10 - Essential (primary) hypertension (3) Hypomagnesemia SNOMED Code(s): 369243437 Code(s): E83.42 - HYPOMAGNESEMIA Status: Acute Priority: Medium Current Visit: Yes Onset Date: 06/30/17 Annotation/Comment:: Patient wishes to consider magnesium oxide therapy (4) Hypoalbuminemia SNOMED Code(s): 155699281 Code(s): E88.09 - OTH DISORDERS OF PLASMA-PROTEIN METABOLISM, NEC Status: Acute Priority: Medium Current Visit: Yes Onset Date: 06/30/17 Annotation/Comment:: Consider high-protein Glucerna supplements as snacks (5) Tobacco abuse counseling SNOMED Code(s): 469082046, 113800945, 860797930 Code(s): Z71.6 - TOBACCO ABUSE COUNSELING Status: Chronic Priority: Medium Current Visit: Yes Annotation/Comment:: Tobacco cessation strongly encouraged with information provided at discharge (6) Mixed anxiety depressive disorder SNOMED Code(s): 395835980 Code(s): F41.8 - OTHER SPECIFIED ANXIETY DISORDERS Status: Chronic Priority: Medium Current Visit: Yes Annotation/Comment:: Moderate control by today's evaluation. Continue to observe closely by her regular provider. (7) Asthma SNOMED Code(s): 842950705 Code(s): J45.909 - UNSPECIFIED ASTHMA, UNCOMPLICATED Status: Chronic Priority: Medium Current Visit: Yes Annotation/Comment:: Stable by patient history with no recent fever or bronchitic type symptoms. Qualifiers: Asthma severity: mild Asthma persistence: intermittent Asthma complication type: uncomplicated Qualified Code(s): J45.20 - Mild intermittent asthma, uncomplicated (8) Caries SNOMED Code(s): 68133869 Code(s): K02.9 - DENTAL CARIES, UNSPECIFIED Status: Chronic Priority: Medium Current Visit: Yes Annotation/Comment:: Patient once again strongly encouraged to follow-up with her dentist LUISITO - Problem List Review Problem List Initiated/Reviewed/Updated: Yes - My Orders Last 24 Hours: My Active Orders 06/30/17 18:26 Abdomen Series w Chest 1V [CR] Stat Sodium Chloride 0.9% [Saline Flush] 10 ml FLUSH ASDIRECTED PRN Obtain Past Medical Record [OM.PC] Urgent Peripheral IV Insertion Adult [OM.PC] Stat Resuscitation Status Stat 06/30/17 18:27 Peripheral IV Care [RC] . DIRECTED 06/30/17 18:30 CULTURE URINE [RM] Stat 06/30/17 Breakfast Nothing Per Oral Diet [DIET] - Assessment/Plan Last 24 Hours: My Active Orders 06/30/17 18:26 Abdomen Series w Chest 1V [CR] Stat Sodium Chloride 0.9% [Saline Flush] 10 ml FLUSH ASDIRECTED PRN Obtain Past Medical Record [OM.PC] Urgent Peripheral IV Insertion Adult [OM.PC] Stat Resuscitation Status Stat 06/30/17 18:27 Peripheral IV Care [RC] . DIRECTED 06/30/17 18:30 CULTURE URINE [RM] Stat 06/30/17 Breakfast Nothing Per Oral Diet [DIET] Assessment:: As above Plan: As above. Extensive precautions were given to the patient, who is in agreement with the treatment plan. See Patient Instructions for further treatment and plan.
[2017-06-30 19:04] LABS: CHLORIDE,CL 102 mmol/L (98-107); SODIUM,NA 138 mmol/L (136-145)
[2017-06-30 19:08] VITALS: BP 183/106
== END 2017-06-30 19:50 | disposition home or self-care (01) ==
LOC: LL.ED 18:19
DX: R10.31 Right lower quadrant pain (principal); E83.42 Hypomagnesemia; F41.8 Other specified anxiety disorders; K02.9 Dental caries, unspecified; J45.20 Mild intermittent asthma, uncomplicated; E78.00 Pure hypercholesterolemia, unspecified; I10 Essential (primary) hypertension; Z88.5 Allergy status to narcotic agent; Z79.899 Other long term (current) drug therapy; Z71.6 Tobacco abuse counseling
CPT/HCPCS: 36415; 74022; 80053; 81001; 82150; 83605; 83690; 83735; 84550; 85025; 85610; 85730; 87086; 96374; 96375; 99284; C9113; S0028

== ENCOUNTER 2018-04-06 19:51 | Emergency (ER) | payer BC ==
--- NOTE | 2018-04-06 21:05 | EDM.PDOC ---
ED HPI GENERAL MEDICAL PROBLEM - General Chief Complaint: Gastrointestinal Problem Stated Complaint: left to right abd pain, right flank pain Time Seen by Provider: 04/06/18 20:00 Source of Information: Reports: Patient History Limitations: Reports: No Limitations - History of Present Illness INITIAL COMMENTS - FREE TEXT/NARRATIVE: Patient is a 47-year-old who came into the ER with chief complaint of abdominal pain pain started yesterday and progressively got worse came in for evaluation patient describes the pain as periumbilical going denies diarrhea feels nauseous but no vomiting Onset: Sudden Duration: Hour(s):, Getting Worse Location: Reports: Abdomen Quality: Reports: Burning Severity: Moderate Improves with: Reports: None Worsens with: Reports: Rest, Movement Context: Reports: Other (Abdominal pain) Associated Symptoms: Reports: Nausea/Vomiting lower/mid abd pain, right flank Pain Score (Numeric/FACES): 9 - Related Data Allergies Allergy/AdvReac Type Severity Reaction Status Date / Time hydrocodone Allergy Tachycardia Verified 04/06/18 20:00 Home Meds: Home Meds Lisinopril [Prinivil] 20 mg PO DAILY 02/26/13 [History] Fluticasone Propionate [Flonase] 1 - 2 sprays NASBOTH DAILY #1 bottle 05/22/13 [ Rx] Furosemide 20 mg PO DAILY 12/19/16 [History] Venlafaxine HCl [Venlafaxine ER] 150 mg PO DAILY 05/27/17 [History] hydrOXYzine HCl [hydrOXYzine] 1 tab PO Q12H PRN 05/27/17 [History] Doxycycline [Vibramycin] 100 mg PO BID #20 cap 05/28/17 [Rx] Gabapentin [Neurontin] 300 mg PO BEDTIME 04/06/18 [History] Metoprolol Tartrate 25 mg PO DAILY 04/06/18 [History] Past Medical History - Past Health History Medical/Surgical History: Denies Medical/Surgical History HEENT History: Reports: Allergic Rhinitis Cardiovascular History: Reports: Arrhythmia, High Cholesterol, Hypertension, Other (See Below) Other Cardiovascular History: Fatty liver secondary to her hyperlipidemia Respiratory History: Reports: Asthma Gastrointestinal History: Reports: Hiatal Hernia, Other (See Below) Other Gastrointestinal History: Fatty liver secondary to her hyperlipidemia. Recurrent abdominal pain of unknown etiology. Genitourinary History: Reports: None [employer] History: Reports: Endometriosis, Other [employer]PER[employer]OR History: Full term without complications during pregnancies or deliveries although she did have a borderline placental abruption and required bedrest in one of her pregnancies. Surgical menopause as below. Benign left adnexal cyst by CT scan on 04/23/17. Musculoskeletal History: Reports: Back Pain, Chronic, Osteoarthritis, Other ( See Below) Other Musculoskeletal History: Chronic low back pain with mild disc prolapse by MRI in 2017 as below Neurological History: Reports: Concussion Psychiatric History: Reports: Anxiety, Depression Endocrine/Metabolic History: Reports: Obesity/BMI 30+ Hematologic History: Reports: Anemia, Blood Transfusion(s) Dermatologic History: Reports: Eczema - Infectious Disease History Infectious Disease History: Reports: Chicken Pox, Influenza - Past Surgical History GI Surgical History: Reports: Cholecystectomy, Hernia, Abdominal, Other (See Below) Other GI Surgeries/Procedures: Umbilical hernia repair in May 2013. Laparoscopic cholecystectomy in 2015. Female Surgical History: Reports: Hysterectomy, Oophorectomy, Other (See Below) Other Female Surgeries/Procedures: Complete hysterectomy with right-sided salpingo-oophorectomy in her 40s secondary to endometriosis. Neurological Surgical History: Reports: None Musculoskeletal Surgical History: Reports: None Dermatological Surgical History: Reports: None - Past Imaging History Past Imaging History: Reports: CAT Scan (CT scan of the abdomen and pelvis on 04/23/17), MRI (MRI of the lumbar spine on 09/08/16), Venous Doppler (Negative venous Doppler studies of the right leg on 07/17/16) Social & Family History - Family History Endocrine/Metabolic: Reports: Diabetes, type II Oncologic: Reports: Breast Other Oncologic Family History: Mom had breast cancer - Caffeine Use Caffeine Use: Reports: Soda Other Caffeine Use: occasionally - Living Situation & Occupation Living situation: Reports: , with Family Occupation: Unemployed ED ROS GENERAL - Review of Systems Review Of Systems: See Below Constitutional: Reports: No Symptoms HEENT: Reports: No Symptoms Respiratory: Reports: No Symptoms Cardiovascular: Reports: No Symptoms Endocrine: Reports: No Symptoms GI/Abdominal: Reports: Abdominal Pain, Nausea : Reports: No Symptoms Musculoskeletal: Reports: No Symptoms Skin: Reports: No Symptoms Neurological: Reports: No Symptoms Psychiatric: Reports: No Symptoms Hematologic/Lymphatic: Reports: No Symptoms Immunologic: Reports: No Symptoms ED EXAM, GENERAL - Physical Exam Exam: See Below Exam Limited By: No Limitations General Appearance: Alert, WD/WN, Mild Distress Ears: Normal External Exam, Normal Canal, Hearing Grossly Normal, Normal TMs Nose: Normal Inspection, Normal Mucosa, No Blood Throat/Mouth: Normal Inspection, Normal Lips, Normal Teeth, Normal Gums, Normal Oropharynx, Normal Voice, No Airway Compromise Head: Atraumatic, Normocephalic Neck: Normal Inspection, Supple, Non-Tender, Full Range of Motion Respiratory/Chest: No Respiratory Distress, Lungs Clear, Normal Breath Sounds, No Accessory Muscle Use, Chest Non-Tender Cardiovascular: Normal Peripheral Pulses, Regular Rate, Rhythm, No Edema, No Gallop, No JVD, No Murmur, No Rub GI/Abdominal: Soft, No Organomegaly, No Distention, No Mass, Abnormal Bowel Sounds (Hyperactive) (Female) Exam: Normal External Exam, Normal Speculum Exam, Normal Bimanual Exam Rectal (Female) Exam: Deferred Extremities: Normal Inspection, Normal Range of Motion, Non-Tender, Normal Capillary Refill, No Pedal Edema Psychiatric: Normal Affect, Normal Mood Skin Exam: Warm, Dry, Intact, Normal Color, No Rash Lymphatic: No Adenopathy Course - Vital Signs Last Recorded V/S: Last Vital Signs Temp 98.0 F 04/06/18 20:08 Pulse 88 04/06/18 20:08 Resp 14 04/06/18 20:08 BP 171/89 H 04/06/18 20:08 Pulse Ox 98 04/06/18 20:08 - Orders/Labs/Meds Orders: Active Orders 24 hr Category Date Time Status Pantoprazole [ProTONIX IV] Med 04/06/18 22:00 Active 40 mg IVPUSH DAILY Sodium Chloride 0.9% [Saline Flush] Med 04/06/18 20:40 Active 10 ml FLUSH ASDIRECTED PRN Saline Lock Insert [OM.PC] Stat Oth 04/06/18 20:40 Ordered Medication Orders Pantoprazole Sodium (Protonix Iv) 40 mg IVPUSH DAILY [facility] Last Admin: 04/06/18 21:55 Dose: 40 mg Sodium Chloride (Saline Flush) 10 ml FLUSH ASDIRECTED PRN PRN Reason: Keep Vein Open Last Admin: 04/06/18 21:55 Dose: 10 ml Labs: Laboratory Tests 04/06/18 04/06/18 04/06/18 Range/Units 20:00 20:50 20:50 WBC 12.8 H (4.0-10.2) K/uL RBC 5.39 H (3.77-5.09) M/uL Hgb 13.7 D (11.7-15.5) g/dL Hct 40.9 (34.0-46.0) % MCV 75.9 L (84.0-98.0) fL MCH 25.4 L (28.2-33.3) pg MCHC 33.5 (31.7-36.0) g/dL RDW 15.2 H (11.2-14.1) % Plt Count 235 (150-350) K/uL Neut % (Auto) 70.8 (45.0-80.0) % Lymph % (Auto) 19.2 (10.0-50.0) % [place] % (Auto) 7.7 (2.0-14.0) % Eos % (Auto) 2.0 (0.0-5.0) % Baso % (Auto) 0.3 (0.0-2.0) % Neut # (Auto) 9.05 H (1.40-7.00) K/uL Lymph # (Auto) 2.45 (0.50-3.50) K/uL [place] # (Auto) 0.98 (0.00-1.00) K/uL Eos # (Auto) 0.26 (0.00-0.50) K/uL Baso # (Auto) 0.04 (0.00-0.20) K/uL Sodium 135 L (136-145) mmol/L Potassium 4.5 (3.5-5.1) mmol/L Chloride 100 (98-107) mmol/L Carbon Dioxide 28.1 (21.0-32.0) mmol/L BUN 18 (7-18) mg/dL Creatinine 0.82 (0.51-1.17) mg/dL Est Cr Clr Drug Dosing 65.54 mL/min Estimated GFR (MDRD) > 60 mL/min Glucose 144 H (74-106) mg/dL Calcium 8.8 (8.5-10.1) mg/dL Total Bilirubin 0.5 (0.2-1.0) mg/dL AST 44 H (15-37) U/L ALT 37 (12-78) U/L Alkaline Phosphatase 83 (46-116) IU/L Total Protein 7.5 (6.4-8.2) g/dL Albumin 3.7 (3.4-5.0) g/dL Amylase 36 (25-115) U/L Lipase 208 (73-393) U/L Specimen Type Urinvoid Urine Color Yellow Urine Appearance Clear Urine pH 5.5 (5.0-9.0) Ur Specific [place] 1.010 (1.005-1.030) Urine Protein Negative (NEGATIVE) mg/dL Urine Glucose (UA) Negative (NEGATIVE) mg/dL Urine Ketones Negative (NEGATIVE) mg/dL Urine Occult Blood Trace-intact H (NEGATIVE) Urine Nitrite Negative (NEGATIVE) Urine Bilirubin Negative (NEGATIVE) Urine Urobilinogen 0.2 (0.2-1.0) E.U./dL Ur Leukocyte Esterase Trace H (NEGATIVE) Urine RBC 0-5 /HPF Urine WBC 0-5 /HPF Ur Epithelial Cells Moderate H /LPF Urine Bacteria Few (NONE TO FEW) /HPF Meds: Medications Generic Name Dose Route Start Last Admin Trade Name Freq PRN Reason Stop Dose Admin Pantoprazole Sodium 40 mg 04/06/18 22:00 04/06/18 21:55 Protonix Iv IVPUSH 40 mg DAILY TRAN Administration Sodium Chloride 10 ml 04/06/18 20:40 04/06/18 21:55 Saline Flush FLUSH 10 ml ASDIRECTED PRN Administration Keep Vein Open Discontinued Medications Generic Name Dose Route Start Last Admin Trade Name Freq PRN Reason Stop Dose Admin Ondansetron HCl 4 mg 04/06/18 21:45 04/06/18 21:55 Zofran IVPUSH 04/06/18 21:46 4 mg ONETIME ONE Administration Departure - Departure Time of Disposition: 22:36 Disposition: Home, Self-Care 01 Condition: Good, Fair Clinical Impression: Gastroenteritis - Discharge Information Instructions: Viral Gastroenteritis, Adult Forms: ED Department Discharge Care Plan Goals: Patient is to return if not better to the clinic or ER she will be sent home on Zofran 4 mg by mouth every 6 hours plus omeprazole 20 mg twice a day - My Orders Last 24 Hours: My Active Orders 04/06/18 20:40 Sodium Chloride 0.9% [Saline Flush] 10 ml FLUSH ASDIRECTED PRN Saline Lock Insert [OM.PC] Stat 04/06/18 22:00 Pantoprazole [ProTONIX IV] 40 mg IVPUSH DAILY - Assessment/Plan Last 24 Hours: My Active Orders 04/06/18 20:40 Sodium Chloride 0.9% [Saline Flush] 10 ml FLUSH ASDIRECTED PRN Saline Lock Insert [OM.PC] Stat 04/06/18 22:00 Pantoprazole [ProTONIX IV] 40 mg IVPUSH DAILY
[2018-04-06 21:06] LABS: CHLORIDE,CL 100 mmol/L (98-107); SODIUM,NA 135 mmol/L (136-145)
[2018-04-06] MEDS: Pantoprazole 40 MG Vial IVPUSH SCH (21:55)
[2018-04-06] MEDS: Sodium Chloride 0.9% 10 ML Syringe FLUSH PRN (21:55)
[2018-04-06] MEDS: Ondansetron 4 MG/2 ML SDV IVPUSH ONE (21:55)
[2018-04-07 17:04] VITALS: BP 143/88
== END 2018-04-06 22:45 | disposition home or self-care (01) ==
LOC: LL.ED 19:51
DX: K52.9 Noninfective gastroenteritis and colitis, unspecified (principal); E78.00 Pure hypercholesterolemia, unspecified; I10 Essential (primary) hypertension; J45.909 Unspecified asthma, uncomplicated; F41.9 Anxiety disorder, unspecified; F32.9 Major depressive disorder, single episode, unspecified; Z88.5 Allergy status to narcotic agent; Z79.899 Other long term (current) drug therapy
CPT/HCPCS: 36000; 36415; 80053; 81001; 82150; 83690; 85025; 99284; C9113; J2405

== ENCOUNTER 2018-10-09 19:05 | Inpatient (IN) | payer BC, MEDICAID, OTHER ==
[2018-10-09] MEDS ORDERED: Sodium Chloride 0.9% 10 ML Syringe FLUSH PRN (19:11)
[2018-10-09 19:51] LABS: CHLORIDE,CL 96 mmol/L (98-107); SODIUM,NA 135 mmol/L (136-145)
[2018-10-09] MEDS ORDERED: Sodium Chloride 0.9% 1,000 ML IV ONE (20:03)
[2018-10-09] MEDS ORDERED: Potassium Chloride 20 MEQ Tab.ER PO ONE (20:04)
[2018-10-09] MEDS ORDERED: LORazepam 1 MG Tab PO ONE (20:05)
--- NOTE | 2018-10-09 20:08 | EDM.PDOC ---
ED HPI GENERAL MEDICAL PROBLEM - General Chief Complaint: Chest Pain Stated Complaint: Chest Pain Time Seen by Provider: 10/09/18 19:08 Source of Information: Reports: Patient History Limitations: Reports: No Limitations - History of Present Illness INITIAL COMMENTS - FREE TEXT/NARRATIVE: Patient comes to ER with main complaint of "not feeling good". Symptoms started today. They include having a mild headache, achy chest and right shoulder, tingly fingers, decreased appetite, mild lightheadedness, and fatigue. She ran out of her Metoprolol a few days ago, but reports no other recent med change or supplement change. Is also anxious and has history of anxiety. Denies fevers/chills. No URI complaints such as ear pain, runny nose/sore throat. She felt short of breath with activity today. No cough/wheezing. Chest discomfort is not made worse with breathing or movement. Denies nausea/emesis/stool changes. No constipation/diarrhea. Denies UTI symptoms/hematuria. No focal weakness in arms/legs. No other tingling other than fingers reported. Chest Pain Score (Numeric/FACES): 8 - Related Data Allergies Allergy/AdvReac Type Severity Reaction Status Date / Time hydrocodone Allergy Tachycardia Verified 10/09/18 19:24 Iodinated Contrast- Oral and Allergy Other Verified 10/09/18 19:24 IV Dye Home Meds: Home Meds Lisinopril [Prinivil] 40 mg PO DAILY 02/26/13 [History] Furosemide 20 mg PO DAILY 12/19/16 [History] hydrOXYzine HCl [hydrOXYzine] 1 tab PO Q12H PRN 05/27/17 [History] Gabapentin [Neurontin] 300 mg PO BEDTIME PRN 04/06/18 [History] Metoprolol Tartrate 25 mg PO DAILY 04/06/18 [History] Escitalopram Oxalate 1 tab PO DAILY 10/09/18 [History] Fluticasone Propionate [Flonase] 1 - 2 sprays NASBOTH DAILY PRN 10/09/18 [ History] Past Medical History HEENT History: Reports: Allergic Rhinitis Cardiovascular History: Reports: Arrhythmia, High Cholesterol, Hypertension, Other (See Below) Other Cardiovascular History: Fatty liver secondary to her hyperlipidemia Respiratory History: Reports: Asthma Gastrointestinal History: Reports: Hiatal Hernia, Other (See Below) Other Gastrointestinal History: Fatty liver secondary to her hyperlipidemia. Recurrent abdominal pain of unknown etiology. 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 Surgical menopause as below. Benign left adnexal cyst by CT scan on 04/23/17. Musculoskeletal History: Reports: Back Pain, Chronic, Osteoarthritis, Other ( See Below) Other Musculoskeletal History: Chronic low back pain with mild disc prolapse by MRI in 2017 as below Neurological History: Reports: Concussion Psychiatric History: Reports: Anxiety, Depression Endocrine/Metabolic History: Reports: Obesity/BMI 30+ Hematologic History: Reports: Anemia, Blood Transfusion(s), Other (See Below) ( chronically low magnesium) Oncologic (Cancer) History: Reports: None Dermatologic History: Reports: Eczema - Infectious Disease History Infectious Disease History: Reports: Chicken Pox, Influenza - Past Surgical History GI Surgical History: Reports: Cholecystectomy, Hernia, Abdominal, Other (See Below) Other GI Surgeries/Procedures: Umbilical hernia repair in May 2013. Laparoscopic cholecystectomy in 2015. Female Surgical History: Reports: Hysterectomy, Oophorectomy, Other (See Below) Other Female Surgeries/Procedures: Complete hysterectomy with right-sided salpingo-oophorectomy in her 40s secondary to endometriosis. Neurological Surgical History: Reports: None Musculoskeletal Surgical History: Reports: None Dermatological Surgical History: Reports: None - Past Imaging History Past Imaging History: Reports: CAT Scan (CT scan of the abdomen and pelvis on 04/23/17), MRI (MRI of the lumbar spine on 09/08/16), Venous Doppler (Negative venous Doppler studies of the right leg on 07/17/16) Social & Family History - Family History Endocrine/Metabolic: Reports: Diabetes, type II Oncologic: Reports: Breast Other Oncologic Family History: Mom had breast cancer - Tobacco Use Smoking Status *Q: Never Smoker - Caffeine Use Caffeine Use: Reports: Soda Other Caffeine Use: occasionally - Alcohol Use Alcohol Use History: No - Recreational Drug Use Recreational Drug Use: No - Living Situation & Occupation Living situation: Reports: , with Family Occupation: Unemployed ED ROS GENERAL - Review of Systems Review Of Systems: ROS reveals no pertinent complaints other than HPI. ED EXAM, GENERAL - Physical Exam Exam: See Below Exam Limited By: No Limitations General Appearance: Alert, No Apparent Distress, Obese Eye Exam: Bilateral Eye: EOMI, PERRL Ears: Normal External Exam Nose: Normal Inspection Throat/Mouth: Normal Lips, Normal Voice, No Airway Compromise Head: Atraumatic, Normocephalic Neck: Normal Inspection, Supple, Non-Tender, Full Range of Motion Respiratory/Chest: No Respiratory Distress, Lungs Clear, Normal Breath Sounds, No Accessory Muscle Use, Other (mild tenderness with palpation of entire anterior chest) Cardiovascular: No Murmur, Tachycardia Peripheral Pulses: 2+: Radial (L), Radial (R) GI/Abdominal: Normal Bowel Sounds, Soft, No Distention, Tender (mild diffuse tenderness with palpation of abdomen, non-focal, in addition to noted mild chest tenderness. ) (Female) Exam: Deferred Rectal (Female) Exam: Deferred Back Exam: Normal Inspection. No: CVA Tenderness (L), Muscle Spasm, Paraspinal Tenderness, Vertebral Tenderness Extremities: Normal Inspection, Normal Range of Motion, Non-Tender, No Pedal Edema, Normal Capillary Refill Neurological: Alert, Oriented, Normal Cognition, Normal Gait, Other (equal tone and strength bilaterally) Psychiatric: Normal Affect, Normal Mood Skin Exam: Warm, Dry, Intact, Normal Color EKG INTERPRETATION EKG Date: 10/09/18 Time: 19:10 Rhythm: Other (Sinus Tach) Rate (Beats/Min): 109 [place]: Normal P-Wave: Present QRS: Normal ST-T: Normal QT: Normal Comparison: No Change Course - Vital Signs Last Recorded V/S: Last Vital Signs Temp 36.9 C 10/09/18 19:14 Pulse 104 H 10/09/18 19:37 Resp 18 10/09/18 19:37 BP 110/78 10/09/18 19:37 Pulse Ox 96 10/09/18 19:37 - Orders/Labs/Meds Orders: Active Orders 24 hr Category Date Time Status Cardiac Monitoring [RC] . DIRECTED Care 10/09/18 19:08 Active EKG Documentation Completion [RC] ASDIRECTED Care 10/09/18 19:08 Active Lab Instructions for Nurse [RC] Click to Edit Care 10/09/18 20:08 Ordered Chest 2V [CR] Stat Exams 10/09/18 19:09 Taken Magnesium Sulfate/D5W [Magnesium Sulfate in D5W 100 Med 10/09/18 20:03 Ordered Premix] 1 gm Premix Bag 1 bag IV ONETIME Sodium Chloride 0.9% [Normal Saline] 1,000 ml Med 10/09/18 20:03 Ordered IV .BOLUS Sodium Chloride 0.9% [Saline Flush] Med 10/09/18 19:11 Active 10 ml FLUSH ASDIRECTED PRN Saline Lock Insert [OM.PC] Routine Oth 10/09/18 19:11 Ordered Medication Orders Magnesium Sulfate/Dextrose 1 (gm/ Premix) 100 mls @ 100 mls/hr IV ONETIME ONE Stop: 10/09/18 21:02 Sodium Chloride (Normal Saline) 1,000 mls @ 250 mls/hr IV .BOLUS ONE Stop: 10/10/18 00:02 Sodium Chloride (Saline Flush) 10 ml FLUSH ASDIRECTED PRN PRN Reason: Keep Vein Open Labs: Laboratory Tests 10/09/18 10/09/18 10/09/18 Range/Units 19:20 19:20 19:20 WBC 15.9 H (4.0-10.2) K/uL RBC 5.15 H (3.77-5.09) M/uL Hgb 13.7 (11.7-15.5) g/dL Hct 39.8 (34.0-46.0) % MCV 77.3 L (84.0-98.0) fL MCH 26.6 L (28.2-33.3) pg MCHC 34.4 (31.7-36.0) g/dL RDW 15.4 H (11.2-14.1) % Plt Count 249 (150-350) K/uL Neut % (Auto) 78.2 (45.0-80.0) % Lymph % (Auto) 14.2 (10.0-50.0) % [place] % (Auto) 6.3 (2.0-14.0) % Eos % (Auto) 1.1 (0.0-5.0) % Baso % (Auto) 0.2 (0.0-2.0) % Neut # (Auto) 12.43 H (1.40-7.00) K/uL Lymph # (Auto) 2.26 (0.50-3.50) K/uL [place] # (Auto) 1.00 (0.00-1.00) K/uL Eos # (Auto) 0.18 (0.00-0.50) K/uL Baso # (Auto) 0.03 (0.00-0.20) K/uL PT (9.5-12.0) SEC INR APTT (21.0-31.3) SEC D-Dimer, Quantitative (0-400) ng/mL Sodium 135 L (136-145) mmol/L Potassium 3.2 L (3.5-5.1) mmol/L Chloride 96 L (98-107) mmol/L Carbon Dioxide 26.5 (21.0-32.0) mmol/L BUN 20 H (7-18) mg/dL Creatinine 0.87 (0.51-1.17) mg/dL Est Cr Clr Drug Dosing 59.67 mL/min Estimated GFR (MDRD) > 60 mL/min Glucose 186 H (74-106) mg/dL Lactic Acid 2.9 H (0.4-2.0) mmol/L Calcium 8.7 (8.5-10.1) mg/dL Magnesium 1.3 L (1.8-2.4) mg/dL Total Bilirubin 0.6 (0.2-1.0) mg/dL AST 28 (15-37) U/L ALT 37 (12-78) U/L Alkaline Phosphatase 76 (46-116) IU/L Creatine Kinase 38 (26-308) U/L Creatine Kinase Index 0.5 (0.0-2.5) % CK-MB (CK-2) 0.20 (0.00-3.60) ng/mL Troponin I 0.008 (0.000-0.056) ng/mL NT-Pro-B Natriuret Pep 86 (0-125) pg/mL Total Protein 7.4 (6.4-8.2) g/dL Albumin 3.7 (3.4-5.0) g/dL TSH, Ultra Sensitive 2.336 (0.358-3.740) mIU/mL Specimen Type Urine Color Urine Appearance Urine pH (5.0-9.0) Ur Specific [place] (1.005-1.030) Urine Protein (NEGATIVE) mg/dL Urine Glucose (UA) (NEGATIVE) mg/dL Urine Ketones (NEGATIVE) mg/dL Urine Occult Blood (NEGATIVE) Urine Nitrite (NEGATIVE) Urine Bilirubin (NEGATIVE) Urine Urobilinogen (0.2-1.0) E.U./dL Ur Leukocyte Esterase (NEGATIVE) Urine RBC Urine WBC Ur Epithelial Cells Other Crystals Amorphous Sediment Urine Bacteria Hyaline Casts Granular Casts Urine Mucus Urine Other Urine Yeast Urinalysis Comment 10/09/18 10/09/18 10/09/18 Range/Units 19:20 19:20 19:20 WBC (4.0-10.2) K/uL RBC (3.77-5.09) M/uL Hgb (11.7-15.5) g/dL Hct (34.0-46.0) % MCV (84.0-98.0) fL MCH (28.2-33.3) pg MCHC (31.7-36.0) g/dL RDW (11.2-14.1) % Plt Count (150-350) K/uL Neut % (Auto) (45.0-80.0) % Lymph % (Auto) (10.0-50.0) % [place] % (Auto) (2.0-14.0) % Eos % (Auto) (0.0-5.0) % Baso % (Auto) (0.0-2.0) % Neut # (Auto) (1.40-7.00) K/uL Lymph # (Auto) (0.50-3.50) K/uL [place] # (Auto) (0.00-1.00) K/uL Eos # (Auto) (0.00-0.50) K/uL Baso # (Auto) (0.00-0.20) K/uL PT 10.7 (9.5-12.0) SEC INR 1.0 APTT 26.7 (21.0-31.3) SEC D-Dimer, Quantitative < 100 (0-400) ng/mL Sodium (136-145) mmol/L Potassium (3.5-5.1) mmol/L Chloride (98-107) mmol/L Carbon Dioxide (21.0-32.0) mmol/L BUN (7-18) mg/dL Creatinine (0.51-1.17) mg/dL Est Cr Clr Drug Dosing mL/min Estimated GFR (MDRD) mL/min Glucose (74-106) mg/dL Lactic Acid (0.4-2.0) mmol/L Calcium (8.5-10.1) mg/dL Magnesium (1.8-2.4) mg/dL Total Bilirubin (0.2-1.0) mg/dL AST (15-37) U/L ALT (12-78) U/L Alkaline Phosphatase (46-116) IU/L Creatine Kinase (26-308) U/L Creatine Kinase Index (0.0-2.5) % CK-MB (CK-2) (0.00-3.60) ng/mL Troponin I (0.000-0.056) ng/mL NT-Pro-B Natriuret Pep (0-125) pg/mL Total Protein (6.4-8.2) g/dL Albumin (3.4-5.0) g/dL TSH, Ultra Sensitive (0.358-3.740) mIU/mL Specimen Type Urinvoid Urine Color Yellow Urine Appearance Clear Urine pH 5.0 (5.0-9.0) Ur Specific [place] >= 1.030 (1.005-1.030) Urine Protein Negative (NEGATIVE) mg/dL Urine Glucose (UA) Negative (NEGATIVE) mg/dL Urine Ketones Negative (NEGATIVE) mg/dL Urine Occult Blood Negative (NEGATIVE) Urine Nitrite Negative (NEGATIVE) Urine Bilirubin Small H (NEGATIVE) Urine Urobilinogen 0.2 (0.2-1.0) E.U./dL Ur Leukocyte Esterase Negative (NEGATIVE) Urine RBC Cancelled Urine WBC Cancelled Ur Epithelial Cells Cancelled Other Crystals Cancelled Amorphous Sediment Cancelled Urine Bacteria Cancelled Hyaline Casts Cancelled Granular Casts Cancelled Urine Mucus Cancelled Urine Other Cancelled Urine Yeast Cancelled Urinalysis Comment Cancelled Meds: Medications Generic Name Dose Route Start Last Admin Trade Name Freq PRN Reason Stop Dose Admin Magnesium Sulfate/Dextrose 1 100 mls @ 100 mls/hr 10/09/18 20:03 gm/ Premix IV 10/09/18 21:02 ONETIME ONE Sodium Chloride 1,000 mls @ 250 mls/hr 10/09/18 20:03 Normal Saline IV 10/10/18 00:02 .BOLUS ONE Sodium Chloride 10 ml 10/09/18 19:11 Saline Flush FLUSH ASDIRECTED PRN Keep Vein Open Discontinued Medications Generic Name Dose Route Start Last Admin Trade Name Lopez PRN Reason Stop Dose Admin Lorazepam 1 mg 10/09/18 20:05 Ativan PO 10/09/18 20:06 ONETIME ONE Potassium Chloride 40 meq 10/09/18 20:04 Klor-Con M20 PO 10/09/18 20:05 ONETIME ONE - Radiology Interpretation Free Text/Narrative:: Chest xray unremarkable for acute changes - Re-Assessments/Exams Free Text/Narrative Re-Assessment/Exam: 10/09/18 20:20 Exam revealed mild diffuse tenderness across patient's chest muscles in addition to diffuse mild discomfort with palpation of general abdomen. EKG and chest xray unremarkable. Given the variety of symptoms reported by patient, this was felt to be unlikely due to [facility], however chest pain protocol requested for formal rule given the complaint of chest discomfort. Troponin negative as was DDimer. WBC elevated at 15.9 It was noted upon chart review that WBC has always been elevated when patient has had blood work performed, uncertain as to usual baseline level. Na 135, Cl 96, slightly decreased. K 3.2 Patient is on Lasix. Mag was significantly low at 1.3 Patient noted to be low in past and was recommended to take a magnesium supplement, however she not taking one at this time. UA did not reveal signs of UTI, however specific gravity was elevated which likely reflects dehydration. Lactic acid also increased at 2.9 It was elected to admit the patient to the floor for rehydration, Magnesium replacement, and serial troponins to more fully rule out any involvement of cardiac ischemia. Departure - Departure Time of Disposition: 20:45 Disposition: Admitted As Inpatient 66 Condition: Good Clinical Impression: General ill feeling, Hypomagnesemia, Dehydration - Discharge Information *PRESCRIPTION DRUG MONITORING PROGRAM REVIEWED*: Not Applicable *COPY OF PRESCRIPTION DRUG MONITORING REPORT IN PATIENT CHANNING: Not Applicable Referrals: Jose Ramon Merino PA-C [Primary Care Provider] - Forms: ED Department Discharge - Problem List & Annotations (1) General ill feeling SNOMED Code(s): 896039871 Code(s): R68.89 - OTHER GENERAL SYMPTOMS AND SIGNS Status: Acute Priority : High Onset Date: 10/09/18 Annotation/Comment:: Uncertain as to specific cause. May be combination of dehydration/low magnesium. Cannot rule out viral component or other infectious cause. (2) Hypomagnesemia SNOMED Code(s): 179777779 Code(s): E83.42 - HYPOMAGNESEMIA Status: Chronic Priority: High Onset Date: 06/30/17 Annotation/Comment:: Significantly low Magnesium level. Has been low in past. Patient will need to be continued on Magnesium supplementation after discharge. (3) Hypokalemia SNOMED Code(s): 80012801 Code(s): E87.6 - HYPOKALEMIA Status: Acute Priority: Medium Annotation/ Comment:: Potassium level 3.2 Replacement potassium given. Recheck level in AM. (4) Dehydration SNOMED Code(s): 40669265 Code(s): E86.0 - DEHYDRATION Status: Acute Priority: High Annotation/ Comment:: Suspect mild dehydration. IV NS ordered. (5) Lactic acid increased SNOMED Code(s): 45846052 Code(s): E87.2 - ACIDOSIS Status: Acute Priority: Medium Annotation/ Comment:: Lactic acid level increased to 2.9 No focal infection identified, however cannot rule out viral syndrome given patient's generalized complaints in addition to mild dehydration and magnesium deficiency. Recheck level in AM (6) Mixed anxiety depressive disorder SNOMED Code(s): 886630116 Code(s): F41.8 - OTHER SPECIFIED ANXIETY DISORDERS Status: Chronic Priority: Medium Annotation/Comment:: Moderate control by today's evaluation. Continue to observe closely by her regular provider. (7) Hypertension SNOMED Code(s): 29502156 Code(s): I10 - ESSENTIAL (PRIMARY) HYPERTENSION Status: Chronic Priority : Medium Annotation/Comment:: Has been stable per patient. Will monitor for trends. Qualifiers: Hypertension type: essential hypertension Qualified Code(s): I10 - Essential (primary) hypertension (8) Asthma SNOMED Code(s): 696697323 Code(s): J45.909 - UNSPECIFIED ASTHMA, UNCOMPLICATED Status: Chronic Priority: Medium Annotation/Comment:: Stable by patient history with no recent fever or bronchitic type symptoms. Qualifiers: Asthma severity: mild Asthma persistence: intermittent Asthma complication type: uncomplicated Qualified Code(s): J45.20 - Mild intermittent asthma, uncomplicated - Problem List Review Problem List Initiated/Reviewed/Updated: Yes - My Orders Last 24 Hours: My Active Orders 10/09/18 19:08 Cardiac Monitoring [RC] . DIRECTED EKG Documentation Completion [RC] ASDIRECTED 10/09/18 19:09 Chest 2V [CR] Stat 10/09/18 19:11 Sodium Chloride 0.9% [Saline Flush] 10 ml FLUSH ASDIRECTED PRN Saline Lock Insert [OM.PC] Routine 10/09/18 20:03 Magnesium Sulfate/D5W [Magnesium Sulfate in D5W 100 Premix] 1 gm Premix Bag 1 bag IV ONETIME Sodium Chloride 0.9% [Normal Saline] 1,000 ml IV .BOLUS 10/09/18 20:08 Lab Instructions for Nurse [RC] Click to Edit - Assessment/Plan Admission H&P: Please use this note as an admission H&P Last 24 Hours: My Active Orders 10/09/18 19:08 Cardiac Monitoring [RC] . DIRECTED EKG Documentation Completion [RC] ASDIRECTED 10/09/18 19:09 Chest 2V [CR] Stat 10/09/18 19:11 Sodium Chloride 0.9% [Saline Flush] 10 ml FLUSH ASDIRECTED PRN Saline Lock Insert [OM.PC] Routine 10/09/18 20:03 Magnesium Sulfate/D5W [Magnesium Sulfate in D5W 100 Premix] 1 gm Premix Bag 1 bag IV ONETIME Sodium Chloride 0.9% [Normal Saline] 1,000 ml IV .BOLUS 10/09/18 20:08 Lab Instructions for Nurse [RC] Click to Edit Assessment:: as above Plan: as above
[2018-10-09] MEDS ORDERED: Gabapentin 300 MG Cap PO PRN (21:45)
[2018-10-09] MEDS ORDERED: hydrOXYzine HCl 25 MG Tab PO PRN (21:45)
[2018-10-09] MEDS ORDERED: LORazepam 2 MG/ML SDV IVPUSH PRN (23:26)
[2018-10-10] MEDS ORDERED: Potassium Chloride 10 MEQ Tab.ER PO ONE (01:00)
[2018-10-10] MEDS ORDERED: Sodium Chloride 0.9% 1,000 ML IV SCH (01:00)
[2018-10-10] MEDS ORDERED: Escitalopram 20 MG Tab PO SCH (08:00)
[2018-10-10] MEDS ORDERED: Furosemide 20 MG Tab PO SCH (08:00)
[2018-10-10] MEDS ORDERED: Metoprolol Tartrate 25 MG Tab PO SCH (08:00)
[2018-10-10] MEDS ORDERED: Lisinopril 10 MG Tab PO SCH (08:00)
[2018-10-10 09:42] LABS: CHLORIDE,CL 104 mmol/L (98-107); SODIUM,NA 137 mmol/L (136-145)
[2018-10-10 09:44] LABS: HEMOGLOBIN A1C 6.9 % (4.3-5.7)
[2018-10-10 12:32] VITALS: BP 126/69; PULSE 69
[2018-10-10] MEDS ORDERED: Benzonatate 100 MG Cap PO ONE (13:38)
--- NOTE | 2018-10-10 13:50 | PCM.DCSUM1 ---
Discharge Summary - Hospital Course Brief History: Patient admitted for chest pain rule out and treatment of dehydration/hypomagnesemia/hypokalemia/tachycardia/anxiety and elevated lactic acid after presenting to the ER with vague generalized complain of not feeling well that included chest discomfort. Diagnosis: Stroke: No - Discharge Data Discharge Date: 10/10/18 Discharge Disposition: Home, Self-Care 01 Condition: Good - Discharge Diagnosis/Problem(s) (1) General ill feeling SNOMED Code(s): 157681695 ICD Code: R68.89 - OTHER GENERAL SYMPTOMS AND SIGNS Status: Acute Priority: High Current Visit: Yes Onset Date: 10/09/18 Problem Details: Uncertain as to specific cause. May be combination of dehydration/low magnesium. These were corrected overnight. Cannot rule out viral component or other infectious cause. Patient reports feeling much improved today and says that yesterday's complaints have resolved. Serial troponins negative. (2) Hypomagnesemia SNOMED Code(s): 756311320 ICD Code: E83.42 - HYPOMAGNESEMIA Status: Chronic Priority: High Current Visit: Yes Onset Date: 06/30/17 Problem Details: Significantly low Magnesium level. Has been low in past. Corrected overnight. Patient will need to be continued on Magnesium supplementation after discharge. (3) Hypokalemia SNOMED Code(s): 70249891 ICD Code: E87.6 - HYPOKALEMIA Status: Acute Priority: Medium Current Visit: Yes Problem Details: Potassium level 3.2 Replacement potassium given. Normalized level noted on this mornings labs. May need to initiate replacement therapy with primary provider. (4) Diabetes SNOMED Code(s): 69549056 ICD Code: E11.9 - TYPE 2 DIABETES MELLITUS WITHOUT COMPLICATIONS Status: Chronic Priority: Medium Current Visit: Yes Problem Details: Patient noted to have elevated blood sugars during stay. A1c 6.0 today. To follow up with primary provider and be started on therapy. 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 Tachycardia noted yesterday, which may have reflected dehydration (in addition to concentrated urine), has now resolved. (6) Lactic acid increased SNOMED Code(s): 72374295 ICD Code: E87.2 - ACIDOSIS Status: Acute Priority: Medium Current Visit : Yes Problem Details: Lactic acid level increased to 2.9 No focal infection identified during initial evaluation. Has now normalized to 1.1 since receiving IV fluids. (7) Mixed anxiety depressive disorder SNOMED Code(s): 170416311 ICD Code: F41.8 - OTHER SPECIFIED ANXIETY DISORDERS Status: Chronic Priority: Medium Current Visit: No Problem Details: Moderate control. Patient became very anxious last night after admission and wanted her evening "anxiety meds" of Gabapentin and Hydroxizine. Wanted her "pillow pet" to be delivered to her by family members so that she could sleep better. (8) Hypertension SNOMED Code(s): 99480229 ICD Code: I10 - ESSENTIAL (PRIMARY) HYPERTENSION Status: Chronic Priority : Medium Current Visit: No Problem Details: Has been stable per patient and during admission Qualifiers: Hypertension type: essential hypertension Qualified Code(s): I10 - Essential (primary) hypertension (9) Asthma SNOMED Code(s): 117432826 ICD Code: J45.909 - UNSPECIFIED ASTHMA, UNCOMPLICATED Status: Chronic Priority: Medium Current Visit: No Problem Details: Stable by patient history with no recent fever or bronchitic type symptoms. Qualifiers: Asthma severity: mild Asthma persistence: intermittent Asthma complication type: uncomplicated Qualified Code(s): J45.20 - Mild intermittent asthma, uncomplicated - Patient Summary/Data Complications: none Hospital Course: Patient admitted to inpatient given the multiple complaints, elevated lactic acid, and findings of low Mg, Na, CL, K, and dehydration. As of this morning she has been noted to quickly respond to the above interventions given overnight. Morning labs show that the above levels have normalized. Tachycardia resolved as did elevated lactic acid. Patient says that all of her symptoms have resolved, and is asking to go home. Suspect anxiety component also after patient observed by staff to become extremely unhappy and agitated last night when she wanted her anxiety meds and her 'pillow pet' that she normally sleeps with. She is noted to have an immature level of conversation and understanding when having conversations with staff. Uncertain if this is purely psychiatric in nature or if patient has some form of developmental delay. Also noted to have elevated glycosylated HGB A1C in addition to elevated bedside glucose checks which indicated diabetes. Given the quick turnaround of the above complaints, discharge home is reasonable. Precautions reviewed with patient. She is to follow up this week with her primary provider and discuss being started on therapy for her diabetes , and also initiate Magnesium replacement therapy. She needs a recheck of Mag level in about 1 week. - Patient Instructions Diet: Diabetic Diet Activity: As Tolerated Showering/Bathing: May Shower Other/Special Instructions: Make an appointment to see your primary provider this week. You need to discuss treatment for diabetes. You need to have your magnesium level rechecked. 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 Stay hydrated! You may also need to be taking supplmental potassium as it was also low. Do not take the magnesium within two hours of your gabapentin. - Discharge Plan *PRESCRIPTION DRUG MONITORING PROGRAM REVIEWED*: Not Applicable *COPY OF PRESCRIPTION DRUG MONITORING REPORT IN PATIENT CHANNING: Not Applicable Prescriptions/Med Rec: Magnesium Oxide [Magnesium] 500 mg PO DAILY #90 capsule Home Medications: Home Meds Lisinopril [Prinivil] 40 mg PO DAILY 02/26/13 [History] Furosemide 20 mg PO DAILY 12/19/16 [History] hydrOXYzine HCl [hydrOXYzine] 1 tab PO Q12H PRN 05/27/17 [History] Gabapentin [Neurontin] 300 mg PO BEDTIME PRN 04/06/18 [History] Metoprolol Tartrate 25 mg PO DAILY 04/06/18 [History] Escitalopram Oxalate 1 tab PO DAILY 10/09/18 [History] Fluticasone Propionate [Flonase] 1 - 2 sprays NASBOTH DAILY PRN 10/09/18 [ History] Magnesium Oxide [Magnesium] 500 mg PO DAILY #90 capsule 10/10/18 [Rx] Patient Handouts: Hypomagnesemia, Diabetes Mellitus and Nutrition, Adult Forms: ED Department Discharge Referrals: Jose Ramon Merino PA-C [Primary Care Provider] - - Discharge Summary/Plan Comment DC Time >30 min.: No - General Info Date of Service: 10/10/18 Admission Dx/Problem (Free Text: Multiple complaints, incuding chest pain. Noted to have dehydration, low Mg/K/ Na/Cl, elevated Lactic Acid and blood sugar, anxiety. Subjective Update: Patient says she feels tired, but otherwise feels like normal self. Functional Status: Reports: Pain Controlled, Tolerating Diet, Ambulating, Urinating. Denies: New Symptoms - Review of Systems General: Reports: Fatigue. Denies: Fever, Weakness, Malaise, Chills, Night Sweats HEENT: Denies: Headaches, Post Nasal Drip, Sinus Congestion, Sore Throat, Rhinitis, Visual Changes Pulmonary: Reports: No Symptoms. Denies: Shortness of Breath, Cough Cardiovascular: Reports: No Symptoms. Denies: Chest Pain, Palpitations Gastrointestinal: Reports: No Symptoms. Denies: Abdominal Pain, Nausea, Vomiting Genitourinary: Reports: No Symptoms Musculoskeletal: Reports: Other (no acute changes from baseline) Skin: Reports: No Symptoms Neurological: Reports: No Symptoms. Denies: Dizziness, Headache, Gait Disturbance Psychiatric: Reports: No Symptoms - Patient Data Vitals - Most Recent: Last Vital Signs Temp 36.3 C 10/10/18 12:00 Pulse 69 10/10/18 12:00 Resp 15 10/10/18 12:00 BP 126/69 10/10/18 12:00 Pulse Ox 99 10/10/18 12:00 Weight - Most Recent: 71.577 kg I&O - Last 24 hours: Intake & Output 10/09/18 10/10/18 10/10/18 22:59 06:59 14:59 Intake Total 1525 520 Balance 1525 520 Lab Results - Last 24 hrs: Laboratory Results - last 24 hr 10/09/18 10/09/18 10/09/18 Range/Units 19:20 19:20 19:20 WBC 15.9 H (4.0-10.2) K/uL RBC 5.15 H (3.77-5.09) M/uL Hgb 13.7 (11.7-15.5) g/dL Hct 39.8 (34.0-46.0) % MCV 77.3 L (84.0-98.0) fL MCH 26.6 L (28.2-33.3) pg MCHC 34.4 (31.7-36.0) g/dL RDW 15.4 H (11.2-14.1) % Plt Count 249 (150-350) K/uL Neut % (Auto) 78.2 (45.0-80.0) % Lymph % (Auto) 14.2 (10.0-50.0) % [place] % (Auto) 6.3 (2.0-14.0) % Eos % (Auto) 1.1 (0.0-5.0) % Baso % (Auto) 0.2 (0.0-2.0) % Neut # (Auto) 12.43 H (1.40-7.00) K/uL Lymph # (Auto) 2.26 (0.50-3.50) K/uL [place] # (Auto) 1.00 (0.00-1.00) K/uL Eos # (Auto) 0.18 (0.00-0.50) K/uL Baso # (Auto) 0.03 (0.00-0.20) K/uL PT (9.5-12.0) SEC INR APTT (21.0-31.3) SEC D-Dimer, Quantitative (0-400) ng/mL Sodium 135 L (136-145) mmol/L Potassium 3.2 L (3.5-5.1) mmol/L Chloride 96 L (98-107) mmol/L Carbon Dioxide 26.5 (21.0-32.0) mmol/L BUN 20 H (7-18) mg/dL Creatinine 0.87 (0.51-1.17) mg/dL Est Cr Clr Drug Dosing 59.67 mL/min Estimated GFR (MDRD) > 60 mL/min Glucose 186 H (74-106) mg/dL POC Glucose (65-110) mg/dl Hemoglobin A1c (4.3-5.7) % Lactic Acid 2.9 H (0.4-2.0) mmol/L Calcium 8.7 (8.5-10.1) mg/dL Magnesium 1.3 L (1.8-2.4) mg/dL Total Bilirubin 0.6 (0.2-1.0) mg/dL AST 28 (15-37) U/L ALT 37 (12-78) U/L Alkaline Phosphatase 76 (46-116) IU/L Creatine Kinase 38 (26-308) U/L Creatine Kinase Index 0.5 (0.0-2.5) % CK-MB (CK-2) 0.20 (0.00-3.60) ng/mL Troponin I 0.008 (0.000-0.056) ng/mL NT-Pro-B Natriuret Pep 86 (0-125) pg/mL Total Protein 7.4 (6.4-8.2) g/dL Albumin 3.7 (3.4-5.0) g/dL TSH, Ultra Sensitive 2.336 (0.358-3.740) mIU/mL Specimen Type Urine Color Urine Appearance Urine pH (5.0-9.0) Ur Specific [place] (1.005-1.030) Urine Protein (NEGATIVE) mg/dL Urine Glucose (UA) (NEGATIVE) mg/dL Urine Ketones (NEGATIVE) mg/dL Urine Occult Blood (NEGATIVE) Urine Nitrite (NEGATIVE) Urine Bilirubin (NEGATIVE) Urine Urobilinogen (0.2-1.0) E.U./dL Ur Leukocyte Esterase (NEGATIVE) Urine RBC Urine WBC Ur Epithelial Cells Other Crystals Amorphous Sediment Urine Bacteria Hyaline Casts Granular Casts Urine Mucus Urine Other Urine Yeast Urinalysis Comment 10/09/18 10/09/18 10/09/18 Range/Units 19:20 19:20 19:20 WBC (4.0-10.2) K/uL RBC (3.77-5.09) M/uL Hgb (11.7-15.5) g/dL Hct (34.0-46.0) % MCV (84.0-98.0) fL MCH (28.2-33.3) pg MCHC (31.7-36.0) g/dL RDW (11.2-14.1) % Plt Count (150-350) K/uL Neut % (Auto) (45.0-80.0) % Lymph % (Auto) (10.0-50.0) % [place] % (Auto) (2.0-14.0) % Eos % (Auto) (0.0-5.0) % Baso % (Auto) (0.0-2.0) % Neut # (Auto) (1.40-7.00) K/uL Lymph # (Auto) (0.50-3.50) K/uL [place] # (Auto) (0.00-1.00) K/uL Eos # (Auto) (0.00-0.50) K/uL Baso # (Auto) (0.00-0.20) K/uL PT 10.7 (9.5-12.0) SEC INR 1.0 APTT 26.7 (21.0-31.3) SEC D-Dimer, Quantitative < 100 (0-400) ng/mL Sodium (136-145) mmol/L Potassium (3.5-5.1) mmol/L Chloride (98-107) mmol/L Carbon Dioxide (21.0-32.0) mmol/L BUN (7-18) mg/dL Creatinine (0.51-1.17) mg/dL Est Cr Clr Drug Dosing mL/min Estimated GFR (MDRD) mL/min Glucose (74-106) mg/dL POC Glucose (65-110) mg/dl Hemoglobin A1c (4.3-5.7) % Lactic Acid (0.4-2.0) mmol/L Calcium (8.5-10.1) mg/dL Magnesium (1.8-2.4) mg/dL Total Bilirubin (0.2-1.0) mg/dL AST (15-37) U/L ALT (12-78) U/L Alkaline Phosphatase (46-116) IU/L Creatine Kinase (26-308) U/L Creatine Kinase Index (0.0-2.5) % CK-MB (CK-2) (0.00-3.60) ng/mL Troponin I (0.000-0.056) ng/mL NT-Pro-B Natriuret Pep (0-125) pg/mL Total Protein (6.4-8.2) g/dL Albumin (3.4-5.0) g/dL TSH, Ultra Sensitive (0.358-3.740) mIU/mL Specimen Type Urinvoid Urine Color Yellow Urine Appearance Clear Urine pH 5.0 (5.0-9.0) Ur Specific [place] >= 1.030 (1.005-1.030) Urine Protein Negative (NEGATIVE) mg/dL Urine Glucose (UA) Negative (NEGATIVE) mg/dL Urine Ketones Negative (NEGATIVE) mg/dL Urine Occult Blood Negative (NEGATIVE) Urine Nitrite Negative (NEGATIVE) Urine Bilirubin Small H (NEGATIVE) Urine Urobilinogen 0.2 (0.2-1.0) E.U./dL Ur Leukocyte Esterase Negative (NEGATIVE) Urine RBC Cancelled Urine WBC Cancelled Ur Epithelial Cells Cancelled Other Crystals Cancelled Amorphous Sediment Cancelled Urine Bacteria Cancelled Hyaline Casts Cancelled Granular Casts Cancelled Urine Mucus Cancelled Urine Other Cancelled Urine Yeast Cancelled Urinalysis Comment Cancelled 10/09/18 10/10/18 10/10/18 Range/Units 23:37 03:08 07:29 WBC (4.0-10.2) K/uL RBC (3.77-5.09) M/uL Hgb (11.7-15.5) g/dL Hct (34.0-46.0) % MCV (84.0-98.0) fL MCH (28.2-33.3) pg MCHC (31.7-36.0) g/dL RDW (11.2-14.1) % Plt Count (150-350) K/uL Neut % (Auto) (45.0-80.0) % Lymph % (Auto) (10.0-50.0) % [place] % (Auto) (2.0-14.0) % Eos % (Auto) (0.0-5.0) % Baso % (Auto) (0.0-2.0) % Neut # (Auto) (1.40-7.00) K/uL Lymph # (Auto) (0.50-3.50) K/uL [place] # (Auto) (0.00-1.00) K/uL Eos # (Auto) (0.00-0.50) K/uL Baso # (Auto) (0.00-0.20) K/uL PT (9.5-12.0) SEC INR APTT (21.0-31.3) SEC D-Dimer, Quantitative (0-400) ng/mL Sodium (136-145) mmol/L Potassium (3.5-5.1) mmol/L Chloride (98-107) mmol/L Carbon Dioxide (21.0-32.0) mmol/L BUN (7-18) mg/dL Creatinine (0.51-1.17) mg/dL Est Cr Clr Drug Dosing mL/min Estimated GFR (MDRD) mL/min Glucose (74-106) mg/dL POC Glucose 165 H 143 H (65-110) mg/dl Hemoglobin A1c (4.3-5.7) % Lactic Acid (0.4-2.0) mmol/L Calcium (8.5-10.1) mg/dL Magnesium (1.8-2.4) mg/dL Total Bilirubin (0.2-1.0) mg/dL AST (15-37) U/L ALT (12-78) U/L Alkaline Phosphatase (46-116) IU/L Creatine Kinase (26-308) U/L Creatine Kinase Index (0.0-2.5) % CK-MB (CK-2) (0.00-3.60) ng/mL Troponin I 0.011 (0.000-0.056) ng/mL NT-Pro-B Natriuret Pep (0-125) pg/mL Total Protein (6.4-8.2) g/dL Albumin (3.4-5.0) g/dL TSH, Ultra Sensitive (0.358-3.740) mIU/mL Specimen Type Urine Color Urine Appearance Urine pH (5.0-9.0) Ur Specific [place] (1.005-1.030) Urine Protein (NEGATIVE) mg/dL Urine Glucose (UA) (NEGATIVE) mg/dL Urine Ketones (NEGATIVE) mg/dL Urine Occult Blood (NEGATIVE) Urine Nitrite (NEGATIVE) Urine Bilirubin (NEGATIVE) Urine Urobilinogen (0.2-1.0) E.U./dL Ur Leukocyte Esterase (NEGATIVE) Urine RBC Urine WBC Ur Epithelial Cells Other Crystals Amorphous Sediment Urine Bacteria Hyaline Casts Granular Casts Urine Mucus Urine Other Urine Yeast Urinalysis Comment 10/10/18 10/10/18 10/10/18 Range/Units 09:10 09:10 09:10 WBC 11.2 H (4.0-10.2) K/uL RBC 4.60 (3.77-5.09) M/uL Hgb 12.1 D (11.7-15.5) g/dL Hct 36.3 (34.0-46.0) % MCV 78.9 L (84.0-98.0) fL MCH 26.3 L (28.2-33.3) pg MCHC 33.3 (31.7-36.0) g/dL RDW 15.5 H (11.2-14.1) % Plt Count 221 (150-350) K/uL Neut % (Auto) 74.1 (45.0-80.0) % Lymph % (Auto) 16.4 (10.0-50.0) % [place] % (Auto) 7.3 (2.0-14.0) % Eos % (Auto) 1.9 (0.0-5.0) % Baso % (Auto) 0.3 (0.0-2.0) % Neut # (Auto) 8.31 H (1.40-7.00) K/uL Lymph # (Auto) 1.84 (0.50-3.50) K/uL [place] # (Auto) 0.82 (0.00-1.00) K/uL Eos # (Auto) 0.21 (0.00-0.50) K/uL Baso # (Auto) 0.03 (0.00-0.20) K/uL PT (9.5-12.0) SEC INR APTT (21.0-31.3) SEC D-Dimer, Quantitative (0-400) ng/mL Sodium (136-145) mmol/L Potassium (3.5-5.1) mmol/L Chloride (98-107) mmol/L Carbon Dioxide (21.0-32.0) mmol/L BUN (7-18) mg/dL Creatinine (0.51-1.17) mg/dL Est Cr Clr Drug Dosing mL/min Estimated GFR (MDRD) mL/min Glucose (74-106) mg/dL POC Glucose (65-110) mg/dl Hemoglobin A1c (4.3-5.7) % Lactic Acid 1.1 (0.4-2.0) mmol/L Calcium (8.5-10.1) mg/dL Magnesium 2.5 H (1.8-2.4) mg/dL Total Bilirubin (0.2-1.0) mg/dL AST (15-37) U/L ALT (12-78) U/L Alkaline Phosphatase (46-116) IU/L Creatine Kinase (26-308) U/L Creatine Kinase Index (0.0-2.5) % CK-MB (CK-2) (0.00-3.60) ng/mL Troponin I 0.001 (0.000-0.056) ng/mL NT-Pro-B Natriuret Pep (0-125) pg/mL Total Protein (6.4-8.2) g/dL Albumin (3.4-5.0) g/dL TSH, Ultra Sensitive (0.358-3.740) mIU/mL Specimen Type Urine Color Urine Appearance Urine pH (5.0-9.0) Ur Specific [place] (1.005-1.030) Urine Protein (NEGATIVE) mg/dL Urine Glucose (UA) (NEGATIVE) mg/dL Urine Ketones (NEGATIVE) mg/dL Urine Occult Blood (NEGATIVE) Urine Nitrite (NEGATIVE) Urine Bilirubin (NEGATIVE) Urine Urobilinogen (0.2-1.0) E.U./dL Ur Leukocyte Esterase (NEGATIVE) Urine RBC Urine WBC Ur Epithelial Cells Other Crystals Amorphous Sediment Urine Bacteria Hyaline Casts Granular Casts Urine Mucus Urine Other Urine Yeast Urinalysis Comment 10/10/18 10/10/18 10/10/18 Range/Units 09:10 09:10 11:24 WBC (4.0-10.2) K/uL RBC (3.77-5.09) M/uL Hgb (11.7-15.5) g/dL Hct (34.0-46.0) % MCV (84.0-98.0) fL MCH (28.2-33.3) pg MCHC (31.7-36.0) g/dL RDW (11.2-14.1) % Plt Count (150-350) K/uL Neut % (Auto) (45.0-80.0) % Lymph % (Auto) (10.0-50.0) % [place] % (Auto) (2.0-14.0) % Eos % (Auto) (0.0-5.0) % Baso % (Auto) (0.0-2.0) % Neut # (Auto) (1.40-7.00) K/uL Lymph # (Auto) (0.50-3.50) K/uL [place] # (Auto) (0.00-1.00) K/uL Eos # (Auto) (0.00-0.50) K/uL Baso # (Auto) (0.00-0.20) K/uL PT (9.5-12.0) SEC INR APTT (21.0-31.3) SEC D-Dimer, Quantitative (0-400) ng/mL Sodium 137 (136-145) mmol/L Potassium 4.3 (3.5-5.1) mmol/L Chloride 104 (98-107) mmol/L Carbon Dioxide 26.7 (21.0-32.0) mmol/L BUN 18 (7-18) mg/dL Creatinine 0.73 (0.51-1.17) mg/dL Est Cr Clr Drug Dosing 72.83 mL/min Estimated GFR (MDRD) > 60 mL/min Glucose 148 H (74-106) mg/dL POC Glucose 150 H (65-110) mg/dl Hemoglobin A1c 6.9 H (4.3-5.7) % Lactic Acid (0.4-2.0) mmol/L Calcium 7.7 L (8.5-10.1) mg/dL Magnesium (1.8-2.4) mg/dL Total Bilirubin (0.2-1.0) mg/dL AST (15-37) U/L ALT (12-78) U/L Alkaline Phosphatase (46-116) IU/L Creatine Kinase (26-308) U/L Creatine Kinase Index (0.0-2.5) % CK-MB (CK-2) (0.00-3.60) ng/mL Troponin I (0.000-0.056) ng/mL NT-Pro-B Natriuret Pep (0-125) pg/mL Total Protein (6.4-8.2) g/dL Albumin (3.4-5.0) g/dL TSH, Ultra Sensitive (0.358-3.740) mIU/mL Specimen Type Urine Color Urine Appearance Urine pH (5.0-9.0) Ur Specific [place] (1.005-1.030) Urine Protein (NEGATIVE) mg/dL Urine Glucose (UA) (NEGATIVE) mg/dL Urine Ketones (NEGATIVE) mg/dL Urine Occult Blood (NEGATIVE) Urine Nitrite (NEGATIVE) Urine Bilirubin (NEGATIVE) Urine Urobilinogen (0.2-1.0) E.U./dL Ur Leukocyte Esterase (NEGATIVE) Urine RBC Urine WBC Ur Epithelial Cells Other Crystals Amorphous Sediment Urine Bacteria Hyaline Casts Granular Casts Urine Mucus Urine Other Urine Yeast Urinalysis Comment Med Orders - Current: Current Medications Escitalopram Oxalate (Lexapro) 20 mg PO DAILY [facility] Last Admin: 10/10/18 07:55 Dose: 20 mg Furosemide (Lasix) 20 mg PO DAILY [facility] Last Admin: 10/10/18 07:55 Dose: 20 mg Gabapentin (Neurontin) 300 mg PO BEDTIME PRN PRN Reason: Pain Last Admin: 10/09/18 23:22 Dose: 300 mg Hydroxyzine HCl (Atarax) 25 mg PO Q12H PRN PRN Reason: Anxiety Last Admin: 10/10/18 12:14 Dose: 25 mg Sodium Chloride (Normal Saline) 1,000 mls @ 125 mls/hr IV ASDIRECTED [facility] Last Admin: 10/10/18 02:45 Dose: 125 mls/hr Lisinopril (Prinivil) 40 mg PO DAILY [facility] Last Admin: 10/10/18 07:55 Dose: 40 mg Lorazepam (Ativan) 1 mg IVPUSH Q8H PRN PRN Reason: Anxiety Metoprolol Tartrate (Lopressor) 25 mg PO DAILY [facility] Last Admin: 10/10/18 07:55 Dose: 25 mg Sodium Chloride (Saline Flush) 10 ml FLUSH ASDIRECTED PRN PRN Reason: Keep Vein Open Discontinued Medications Benzonatate (Tessalon Perles) 200 mg PO ONETIME ONE Stop: 10/10/18 13:39 Magnesium Sulfate/Dextrose 1 (gm/ Premix) 100 mls @ 100 mls/hr IV ONETIME ONE Stop: 10/09/18 21:02 Last Admin: 10/09/18 20:28 Dose: 100 mls/hr Sodium Chloride (Normal Saline) 1,000 mls @ 250 mls/hr IV .BOLUS ONE Stop: 10/10/18 00:02 Last Admin: 10/09/18 20:26 Dose: 250 mls/hr Magnesium Sulfate/Dextrose 1 (gm/ Premix) 100 mls @ 100 mls/hr IV ONETIME ONE Stop: 10/09/18 23:59 Last Admin: 10/09/18 23:22 Dose: 100 mls/hr Magnesium Sulfate/Dextrose 1 (gm/ Premix) 100 mls @ 100 mls/hr IV ONETIME ONE Stop: 10/10/18 04:59 Last Admin: 10/10/18 03:15 Dose: 100 mls/hr Lorazepam (Ativan) 1 mg PO ONETIME ONE Stop: 10/09/18 20:06 Last Admin: 10/09/18 20:33 Dose: 1 mg Potassium Chloride (Klor-Con M20) 40 meq PO ONETIME ONE Stop: 10/09/18 20:05 Last Admin: 10/09/18 20:31 Dose: 40 meq Potassium Chloride (Klor-Con 10) 20 meq PO ONETIME ONE Stop: 10/10/18 01:01 Last Admin: 10/10/18 00:32 Dose: 20 meq - Exam General: Reports: Alert, Oriented, Cooperative, No Acute Distress HEENT: Reports: Pupils Equal, Pupils Reactive, EOMI, Mucous Membr. Moist/Ava Neck: Reports: Supple Lungs: Reports: Clear to Auscultation, Normal Respiratory Effort Cardiovascular: Reports: Regular Rate, Regular Rhythm GI/Abdominal Exam: Normal Bowel Sounds, Soft, Non-Tender, No Distention (Female) Exam: Deferred Rectal (Female) Exam: Deferred Back Exam: Denies: CVA Tenderness (L), CVA Tenderness (R), Muscle Spasm Extremities: Non-Tender, Normal Capillary Refill Skin: Reports: Warm, Dry Neurological: Reports: No New Focal Deficit Psy/Mental Status: Reports: Alert, Normal Affect, Normal Mood EKG INTERPRETATION EKG Date: 10/10/18 Time: 13:51 Rhythm: NSR Rate (Beats/Min): 66 [place]: Normal P-Wave: Present QRS: Normal ST-T: Normal QT: Normal Comparison: Change From Previous EKG (no longer tachycardic)
== END 2018-10-10 17:40 | disposition home or self-care (01) | DRG 422 ==
LOC: LL.ED 19:05 → LL.MS 20:00
PROVIDERS: ADMIT Emergency Medicine; ATTEND Emergency Medicine
DX: E86.0 Dehydration (principal); E87.2 Acidosis; E11.65 Type 2 diabetes mellitus with hyperglycemia; K76.0 Fatty (change of) liver, not elsewhere classified; E83.42 Hypomagnesemia; E87.6 Hypokalemia; F41.8 Other specified anxiety disorders; J45.20 Mild intermittent asthma, uncomplicated; E78.00 Pure hypercholesterolemia, unspecified; E78.5 Hyperlipidemia, unspecified; G89.29 Other chronic pain; M51.26 Other intervertebral disc displacement, lumbar region; E66.9 Obesity, unspecified; Z90.49 Acquired absence of other specified parts of digestive tract; Z90.710 Acquired absence of both cervix and uterus; Z68.29 Body mass index [BMI] 29.0-29.9, adult; Z91.041 Radiographic dye allergy status; Z88.5 Allergy status to narcotic agent; Z79.899 Other long term (current) drug therapy
CPT/HCPCS: 36415; 71046; 80048; 80053; 81003; 82550; 82553; 82962; 83036; 83605; 83735; 83880; 84443; 84484; 85025; 85379; 85610; 85730; 93005; 96365; 99285-25; A9270-GY; J3475; J7030

== ENCOUNTER 2018-11-24 23:07 | Observation (INO) | payer BC ==
[2018-11-24] MEDS ORDERED: Ticagrelor 90 MG Tab PO ONE (23:11)
[2018-11-24] MEDS ORDERED: Famotidine 20 MG/2 ML SDV IVPUSH ONE (23:11)
--- NOTE | 2018-11-24 23:11 | EDM.PDOC ---
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 Patient apparently ran out of lisinopril this morning and did not take this medication today. Secondary to her anxiety, medication noncompliance, etc. 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 Continue to observe closely by her provider with medication compliance strongly encouraged. Qualifiers: Hypertension type: essential hypertension Qualified Code(s): I10 - Essential (primary) hypertension (4) Fe deficiency anemia SNOMED Code(s): 87119735 Code(s): D50.9 - IRON DEFICIENCY ANEMIA, UNSPECIFIED Status: Chronic Priority: Medium Current Visit: Yes Annotation/Comment:: Known history of chronic iron deficiency with patient apparently not tolerating iron tablets. No significant anemia at this time with TIBC/iron panel conducted on 11/23/18 by her regular provider with results in our system. Continue to observe closely by her regular provider. Qualifiers: Iron deficiency anemia type: other iron deficiency Qualified Code(s): D50.8 - Other iron deficiency anemias (5) Hyperlipidemia SNOMED Code(s): 89852085 Code(s): E78.5 - HYPERLIPIDEMIA, UNSPECIFIED Status: Chronic Priority: Medium Current Visit: Yes Annotation/Comment:: Currently diet controlled. Lipid panel will not be repeated since recently conducted on 11/23/18 with results in our system. Qualifiers: Hyperlipidemia type: mixed hyperlipidemia Qualified Code(s): E78.2 - Mixed hyperlipidemia (6) Peptic reflux disease SNOMED Code(s): 125263141 Code(s): K21.9 - GASTRO-ESOPHAGEAL REFLUX DISEASE WITHOUT ESOPHAGITIS Status: Chronic Priority: Medium Current Visit: Yes Annotation/Comment:: Recent initiation of Carafate by her regular provider, Suzan Marks PA-C, at [facility] in [place]. High-dose IV Pepcid given as GI prophylaxis. Her regular provider is apparently planning an EGD after her cardiac status has been determined as above. (7) Asthma SNOMED Code(s): 253364727 Code(s): J45.909 - UNSPECIFIED ASTHMA, UNCOMPLICATED Status: Chronic Priority: Medium Current Visit: Yes Annotation/Comment:: Stable by patient history with no recent fever or bronchitic type symptoms. Qualifiers: Asthma severity: mild Asthma persistence: intermittent Asthma complication type: uncomplicated Qualified Code(s): J45.20 - Mild intermittent asthma, uncomplicated (8) Caries SNOMED Code(s): 44584424 Code(s): K02.9 - DENTAL CARIES, UNSPECIFIED Status: Chronic Priority: Medium Current Visit: Yes Annotation/Comment:: Patient once again strongly encouraged to follow-up with her dentist LUISITO (9) Hypomagnesemia SNOMED Code(s): 748852414 Code(s): E83.42 - HYPOMAGNESEMIA Status: Chronic Priority: High Current Visit: Yes Onset Date: 06/30/17 Annotation/Comment:: Significantly low Magnesium level once again today, although this has been closely followed by her regular provider with apparent recent discontinuation of her magnesium oxide by patient history. IV magnesium sulfate to be given on admission with additional close observation by her regular provider on an outpatient basis. (10) Mixed anxiety depressive disorder SNOMED Code(s): 818010936 Code(s): F41.8 - OTHER SPECIFIED ANXIETY DISORDERS Status: Chronic Priority: Medium Current Visit: Yes Annotation/Comment:: Moderate control. Note current stressors as per history of present illness. Continue to observe closely by her regular provider. (11) Tobacco abuse counseling SNOMED Code(s): 232121958, 694479645, 970813804 Code(s): Z71.6 - TOBACCO ABUSE COUNSELING Status: Chronic Priority: Medium Current Visit: Yes Annotation/Comment:: Tobacco exposure once again discussed with the patient with tobacco cessation information provided at discharge - Problem List Review Problem List Initiated/Reviewed/Updated: Yes - My Orders Last 24 Hours: My Active Orders 11/24/18 23:11 Cardiac Monitoring [RC] . DIRECTED EKG Documentation Completion [RC] ASDIRECTED Oxygen Therapy, ED [RC] CONTINUOUS Peripheral IV Care [RC] . DIRECTED Pulse Oximetry [RC] CONTINUOUS Up With Assistance [RC] PFP Vital Signs [RC] PFP Chest 1V Frontal [CR] Stat Sodium Chloride 0.9% [Saline Flush] 10 ml FLUSH ASDIRECTED PRN Obtain Past Medical Record [OM.PC] Urgent Peripheral IV Insertion Adult [OM.PC] Stat Resuscitation Status Stat 11/24/18 Breakfast Nothing per Oral Now Diet [DIET] - Assessment/Plan Admission H&P: Please use this note as an admission H&P Last 24 Hours: My Active Orders 11/24/18 23:11 Cardiac Monitoring [RC] . DIRECTED EKG Documentation Completion [RC] ASDIRECTED Oxygen Therapy, ED [RC] CONTINUOUS Peripheral IV Care [RC] . DIRECTED Pulse Oximetry [RC] CONTINUOUS Up With Assistance [RC] PFP Vital Signs [RC] PFP Chest 1V Frontal [CR] Stat Sodium Chloride 0.9% [Saline Flush] 10 ml FLUSH ASDIRECTED PRN Obtain Past Medical Record [OM.PC] Urgent Peripheral IV Insertion Adult [OM.PC] Stat Resuscitation Status Stat 11/24/18 Breakfast Nothing per Oral Now Diet [DIET] Assessment:: As above Plan: As above. Extensive precautions were given to the patient and her , who are in agreement with the treatment plan. The patient's condition is stable enough for observation status and general supervision.
[2018-11-24] MEDS ORDERED: Aspirin 81 MG Tab.Chew CHEW ONE (23:35)
[2018-11-25] MEDS ORDERED: Furosemide 40 MG/4 ML VIAL IVPUSH ONE (01:11)
[2018-11-25] MEDS ORDERED: Potassium Chloride 20 MEQ Tab.ER PO ONE (01:12)
[2018-11-25] MEDS ORDERED: Magnesium Sulfate/Water 2 GM in Premix Bag 1 BAG IV ONE (01:12)
[2018-11-25] MEDS ORDERED: Sodium Chloride 0.9% 10 ML Syringe FLUSH PRN (01:13)
[2018-11-25] MEDS ORDERED: Temazepam 15 MG Cap PO PRN (01:13)
[2018-11-25] MEDS ORDERED: Acetaminophen 325 MG Tab PO PRN (01:13)
[2018-11-25] MEDS ORDERED: Gabapentin 300 MG Cap PO SCH ×2 (01:18→20:00)
[2018-11-25] MEDS: Sodium Chloride 0.9% 10 ML Syringe FLUSH PRN ×2 (01:56→03:34)
[2018-11-25] MEDS ORDERED: Ondansetron 4 MG/2 ML SDV IVPUSH PRN (03:20)
[2018-11-25 06:33] LABS: HEMOGLOBIN A1C 6.7 % (4.3-5.7)
[2018-11-25] MEDS ORDERED: Lisinopril 10 MG Tab PO SCH (08:00)
[2018-11-25] MEDS ORDERED: Escitalopram 20 MG Tab PO SCH (08:00)
[2018-11-25] MEDS ORDERED: Metoprolol Tartrate 25 MG Tab PO SCH (08:00)
[2018-11-25] MEDS: busPIRone 15 MG Tab PO SCH ×2 (08:47→12:04)
--- NOTE | 2018-11-25 08:47 | PCM.DCSUM1 ---
Discharge Summary - Hospital Course HPI Initial Comments: See emergency room note/admission H&P Brief History: See emergency room note/admission H&P Diagnosis: Stroke: No Modified Sherrill Scale: No Symptoms at All Modified Sherrill Scale Score: 0 - Discharge Data Discharge Date: 11/25/18 Discharge Disposition: Home, Self-Care 01 Condition: Good - Referral to Home Health Primary Care Physician: Suzan Leung PA-C - Discharge Diagnosis/Problem(s) (1) Chest pain SNOMED Code(s): 37828737 ICD Code: R07.9 - CHEST PAIN, UNSPECIFIED Status: Acute Priority: High Current Visit: Yes Onset Date: 11/24/18 Problem Details: No return of patient's chest pain throughout this hospitalization. Vital signs and clinical exam also stable at time of discharge. Telephone consultation at 12:[address] Smiley, charge histotechnologist at [facility] in [place], discussing patient's admission in our facility today. No further instructions given. She is in agreement with discharge of the patient from our facility today with private automobile transferred to [facility] for scheduled stress echocardiogram with her in their facility at 15:00 hours later today. Chest pain protocol initiated by the furnace liner and also upon arrival of the patient in the emergency room. Note an additional baby aspirin was given secondary to only 3 tablets administered by the furnace liner. The patient apparently already has a stress echocardiogram test scheduled at [facility] in [place] on 11/25 at 15:00 hours. Initiated standard rule out DC orders on admission with negative workup for acute DC. Note chest pain completely resolved on admission without any additional therapy required. In addition, mild stable leukocytosis at time of discharge likely secondary to stress reaction. No fever or clinical symptoms of infection. Close follow-up by regular provider as per discharge instructions. Qualifiers: Chest pain type: precordial pain Qualified Code(s): R07.2 - Precordial pain (2) CHF (congestive heart failure) SNOMED Code(s): 55438692 ICD Code: I50.9 - HEART FAILURE, UNSPECIFIED Status: Acute Priority: High Current Visit: Yes Onset Date: 11/24/18 Problem Details: Note noncompliance with her lisinopril on 11/24 secondary to running out of medications today. IV Lasix and additional potassium chloride given on admission. Stress echocardiogram already scheduled as above with more detailed echocardiogram per the discretion of the charge histotechnologist. BNP mildly elevated on admission with no significant CHF by clinical exam and/or chest x-ray. Mild change in troponin I secondary to her CHF with otherwise normal EKGs and cardiac enzymes. BNP significantly improved at discharge after only one dose of IV Lasix as above. No further change in medical therapy for the time being with continuation of previous oral Lasix therapy. Qualifiers: Heart failure type: unspecified Heart failure chronicity: acute Qualified Code(s): I50.9 - Heart failure, unspecified (3) Hypertension SNOMED Code(s): 62486093 ICD Code: I10 - ESSENTIAL (PRIMARY) HYPERTENSION Status: Chronic Priority : Medium Current Visit: Yes Problem Details: Blood pressure still somewhat elevated during this hospitalization. Continue to observe blood pressures closely by her regular provider. Patient apparently ran out of lisinopril on and did not take this medication on that morning. She is somewhat certain about her current medical therapy with medication list given at time of discharge and medication compliance strongly encouraged. Secondary to her anxiety, medication noncompliance, etc. her blood pressures were significantly elevated at time of arrival of the furnace liner, although blood pressures were under good control on arrival and in the emergency room likely secondary to previously given sublingual nitroglycerin tablet. Qualifiers: Hypertension type: essential hypertension Qualified Code(s): I10 - Essential (primary) hypertension (4) Fe deficiency anemia SNOMED Code(s): 81342236 ICD Code: D50.9 - IRON DEFICIENCY ANEMIA, UNSPECIFIED Status: Chronic Priority: Medium Current Visit: Yes Problem Details: Known history of chronic iron deficiency with patient apparently not tolerating iron tablets. No significant anemia at this time with TIBC/iron panel conducted on 11/23/18 by her regular provider with results in our system. Continue to observe closely by her regular provider. Qualifiers: Iron deficiency anemia type: other iron deficiency Qualified Code(s): D50.8 - Other iron deficiency anemias (5) Hyperlipidemia SNOMED Code(s): 00494179 ICD Code: E78.5 - HYPERLIPIDEMIA, UNSPECIFIED Status: Chronic Priority: Medium Current Visit: Yes Problem Details: Currently diet controlled. Lipid panel will not be repeated since recently conducted on 11/23/18 with results in our system. Weight loss in moderation advised. Patient placed on a fluid restricted, ADA, heart healthy diet this morning. Continue to observe closely by her regular provider with consideration of statin therapy depending on her cardiology workup, success with weight loss, etc. Qualifiers: Hyperlipidemia type: mixed hyperlipidemia Qualified Code(s): E78.2 - Mixed hyperlipidemia (6) Peptic reflux disease SNOMED Code(s): 735590990 ICD Code: K21.9 - GASTRO-ESOPHAGEAL REFLUX DISEASE WITHOUT ESOPHAGITIS Status: Chronic Priority: Medium Current Visit: Yes Problem Details: Recent initiation of Carafate by her regular provider, Suzan Marks PA-C, at [facility] in [place]. High-dose IV Pepcid given as GI prophylaxis in the ER. Her regular provider is apparently already planning an EGD after her cardiac status has been determined as above. (7) Asthma SNOMED Code(s): 037162964 ICD Code: J45.909 - UNSPECIFIED ASTHMA, UNCOMPLICATED Status: Chronic Priority: Medium Current Visit: Yes Problem Details: Stable by patient history with no recent fever or bronchitic type symptoms. Qualifiers: Asthma severity: mild Asthma persistence: intermittent Asthma complication type: uncomplicated Qualified Code(s): J45.20 - Mild intermittent asthma, uncomplicated (8) Caries SNOMED Code(s): 15052812 ICD Code: K02.9 - DENTAL CARIES, UNSPECIFIED Status: Chronic Priority: Medium Current Visit: Yes Problem Details: Patient once again strongly encouraged to follow-up with her dentist [place] (9) Hypomagnesemia SNOMED Code(s): 268375832 ICD Code: E83.42 - HYPOMAGNESEMIA Status: Chronic Priority: High Current Visit: Yes Onset Date: 06/30/17 Problem Details: Normal magnesium level today after loading with 2 g of IV magnesium sulfate. Significantly low Magnesium level once again on admission, although this has been closely followed by her regular provider with apparent recent discontinuation of her magnesium oxide by patient history secondary to some mild hypermagnesemia. Resume her previous magnesium oxide therapy at a lower dose at discharge with additional close observation by her regular provider on an outpatient basis as per discharge instructions. (10) Mixed anxiety depressive disorder SNOMED Code(s): 021045324 ICD Code: F41.8 - OTHER SPECIFIED ANXIETY DISORDERS Status: Chronic Priority: Medium Current Visit: Yes Problem Details: Moderate control. Note current stressors as per emergency room note. Continue to observe closely by her regular provider. Emotional support provided. (11) Tobacco abuse counseling SNOMED Code(s): 192947525, 970808202, 313167010 ICD Code: Z71.6 - TOBACCO ABUSE COUNSELING Status: Chronic Priority: Medium Current Visit: Yes Problem Details: Tobacco exposure once again discussed with the patient with tobacco cessation information provided at discharge (12) Diabetes mellitus SNOMED Code(s): 99989055 ICD Code: E11.9 - TYPE 2 DIABETES MELLITUS WITHOUT COMPLICATIONS Status: Chronic Priority: High Current Visit: Yes Problem Details: Prediabetes versus beginning AODM with glycosylated hemoglobin still borderline high at 6.7 % today. Weight loss and dietary changes as above with dietary information provided at discharge. 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 Note stool specimen could not be collected for ordered Hemoccult and H. pylori antigen Recommended Follow-up Testing/Procedures: As per discharge instructions Planned Operative Procedure(s) after DC: None Hospital Course: The patient was placed in observation status on telemetry with negative workup for acute DC as above. Note cardiology consultation prior to discharge with further cardiac workup already scheduled at [facility] later today. Otherwise therapy as above with no complications during this hospitalization. - Patient Instructions Diet: Fluid Restriction Diet, Other: 1500-calorie ADA, heart healthy Fluid Restriction: 2000 mL Activity: No Strenuous Activities (50% maximum exercise restriction until released by your regular providers) Driving: May Drive Today Showering/Bathing: May Shower Notify Provider of: Increased Pain, Nausea and/or Vomiting Other/Special Instructions: 1. Follow-up at the cardiology clinic at [facility] in [place] as already scheduled at 15:00 hours this afternoon for scheduled stress echocardiogram. 2. Otherwise, Followup with your regular provider in 7 days as directed for reevaluation and recommended repeat CBC, basic metabolic panel, BNP, troponin I, CK, and magnesium level. Bring these discharge instructions with you to that visit. 3. Discuss possible future EGD and/or further GI/cardiac workup with your regular provider at the above follow- up visit. 4. Strict compliance with all medical therapy and diet with weight loss in moderation as discussed. 5. Stop all tobacco exposure [place] as directed /per provided information and consider contacting [employer], etc.. 6. Immediately after this visit verify that your cellular telephone's voicemail has been activated and is empty. Also verify that your home telephone's answering machine is operating properly and has space to receive messages. Note that it is sometimes necessary for us to be able to contact you at a later date to discuss your medical care. 7. Please remember that we are ALWAYS here for you and want to answer any questions you may have. Feel free to call the hospital any time and we call you back [place]. - Discharge Plan *PRESCRIPTION DRUG MONITORING PROGRAM REVIEWED*: Not Applicable *COPY OF PRESCRIPTION DRUG MONITORING REPORT IN PATIENT CHANNING: Not Applicable Prescriptions/Med Rec: Magnesium Oxide 250 mg PO DAILY #30 tablet Home Medications: Home Meds Lisinopril [Prinivil] 40 mg PO DAILY 02/26/13 [History] Furosemide 40 mg PO DAILY 12/19/16 [History] hydrOXYzine HCl [hydrOXYzine] 25 mg PO Q12HR PRN 05/27/17 [History] Escitalopram Oxalate 20 mg PO DAILY 10/09/18 [History] Fluticasone Propionate [Flonase] 1 - 2 sprays NASBOTH DAILY PRN 10/09/18 [ History] Acetaminophen [Tylenol] 650 mg PO Q4H PRN 11/25/18 [History] Albuterol [Proventil HFA] 2 puff INH Q4H PRN 11/25/18 [History] Aspirin [Halfprin] 81 mg PO DAILY 11/25/18 [History] Gabapentin [Neurontin] 300 mg PO BEDTIME 11/25/18 [History] Magnesium Oxide 250 mg PO DAILY #30 tablet 11/25/18 [Rx] Metoprolol Tartrate 25 mg PO DAILY 11/25/18 [History] Sucralfate 1 gm PO QID 11/25/18 [History] busPIRone HCl [Buspirone HCl] 15 mg PO TID 11/25/18 [History] Oxygen Therapy Mode: Room Air Patient Handouts: Prediabetes, Heart-Healthy Eating Plan, Ivmh-[id number], Nonspecific Chest Pain, Gastroesophageal Reflux Disease, Adult, [id number], Heart Failure, [id number], Type 2 Diabetes Mellitus, Diagnosis, Adult, Easy-to -Read, Diabetes Mellitus and Nutrition, Adult, Health Risks of Smoking, Smoking Tobacco Information, Adult Forms: ED Department Discharge Referrals: PCP,Unknown [Ordering Only Provider] - - Discharge Summary/Plan Comment DC Time >30 min.: Yes (Coordination of care ) Discharge Summary/Plan Comment: As above. Extensive precautions were given to the patient, who is in agreement with the treatment plan. See Patient Instructions for further treatment and plan. - General Info Date of Service: 11/25/18 Functional Status: Reports: Pain Controlled, Tolerating Diet, Ambulating, Urinating. Denies: New Symptoms, Incentive Spirometry Numeric/FACES Score: 0 - Review of Systems General: Reports: No Symptoms. Denies: Fever, Weakness, Fatigue, Malaise, Chills, Night Sweats, Appetite (Good) HEENT: Denies: Dysphasia, Ear Pain, Eye Pain, Glasses, Headaches, Post Nasal Drip, Sinus Congestion, Sore Throat, Rhinitis, Visual Changes Pulmonary: Reports: No Symptoms. Denies: Shortness of Breath, Pleuritic Chest Pain, Cough, Sputum, Hemoptysis, Wheezing Cardiovascular: Reports: No Symptoms. Denies: Chest Pain, Palpitations, Dyspnea on Exertion, Orthopnea, PND, Edema, Lightheadedness Gastrointestinal: Reports: No Symptoms, Other (No bowel movement during this hospitalization). Denies: Abdominal Pain, Constipation, Decreased Appetite, Diarrhea, Flatus, Hematochezia, Melena, Nausea, Vomiting Genitourinary: Reports: No Symptoms. Denies: Dysuria, Frequency, Burning, Pain , Urgency, Incontinence, Hematuria, Retention, Flank Pain Musculoskeletal: Reports: No Symptoms. Denies: Neck Pain, Shoulder Pain, Arm Pain, Back Pain, Leg Pain Skin: Reports: No Symptoms. Denies: Diaphoresis, Bruising Neurological: Reports: No Symptoms. Denies: Confusion, Dizziness, Headache, Numbness, Paresthesia, Syncope, Tingling, Weakness Psychiatric: Reports: Depression (Mild), Anxiety (Moderate but stable). Denies : Agitation, Cravings, Hallucinations, Suicidal Ideation, Homicidal Ideation - Patient Data Vitals - Most Recent: Last Vital Signs Temp 36.3 C 11/25/18 07:37 Pulse 65 11/25/18 07:37 Resp 12 11/25/18 07:37 BP 140/84 11/25/18 07:37 Pulse Ox 98 11/25/18 07:37 Weight - Most Recent: 70.171 kg I&O - Last 24 hours: Intake & Output 11/24/18 11/25/18 11/25/18 22:59 06:59 14:59 Intake Total 250 Output Total 1050 Balance -800 Imaging Impressions - Last 24 hrs: telemetry monitor shows normal sinus rhythm in the 70s with no ectopy or arrhythmia. Chest X-ray, portable, on 11/24/18 shows no evidence of cardiomegaly, CHF, pulmonary infiltrates, pneumothorax, etc. Borderline pulmonary obstructive disease with mildly prominent proximal aortic arch. Lab Results - Last 24 hrs: Laboratory Results - last 24 hr 11/24/18 11/24/18 11/24/18 Range/Units 23:25 23:25 23:25 WBC 11.8 H (4.0-10.2) K/uL RBC 4.99 (3.77-5.09) M/uL Hgb 12.9 (11.7-15.5) g/dL Hct 38.4 (34.0-46.0) % MCV 77.0 L (84.0-98.0) fL MCH 25.9 L (28.2-33.3) pg MCHC 33.6 (31.7-36.0) g/dL RDW 14.7 H (11.2-14.1) % Plt Count 265 (150-350) K/uL Neut % (Auto) 63.8 (45.0-80.0) % Lymph % (Auto) 24.7 (10.0-50.0) % [place] % (Auto) 8.2 (2.0-14.0) % Eos % (Auto) 3.0 (0.0-5.0) % Baso % (Auto) 0.3 (0.0-2.0) % Neut # (Auto) 7.53 H (1.40-7.00) K/uL Lymph # (Auto) 2.91 (0.50-3.50) K/uL [place] # (Auto) 0.97 (0.00-1.00) K/uL Eos # (Auto) 0.35 (0.00-0.50) K/uL Baso # (Auto) 0.03 (0.00-0.20) K/uL PT 10.1 (9.5-12.0) SEC INR 0.9 APTT 27.1 (21.0-31.3) SEC D-Dimer, Quantitative < 100 (0-400) ng/mL Sodium (136-145) mmol/L Potassium (3.5-5.1) mmol/L Chloride (98-107) mmol/L Carbon Dioxide (21.0-32.0) mmol/L BUN (7-18) mg/dL Creatinine (0.51-1.17) mg/dL Est Cr Clr Drug Dosing mL/min Estimated GFR (MDRD) mL/min Glucose (74-106) mg/dL Hemoglobin A1c (4.3-5.7) % Lactic Acid (0.4-2.0) mmol/L Uric Acid (2.6-7.2) mg/dL Calcium (8.5-10.1) mg/dL Magnesium (1.8-2.4) mg/dL Total Bilirubin (0.2-1.0) mg/dL AST (15-37) U/L ALT (12-78) U/L Alkaline Phosphatase (46-116) IU/L Creatine Kinase (26-308) U/L Creatine Kinase Index (0.0-2.5) % CK-MB (CK-2) (0.00-3.60) ng/mL Troponin I (0.000-0.056) ng/mL NT-Pro-B Natriuret Pep (0-125) pg/mL Total Protein (6.4-8.2) g/dL Albumin (3.4-5.0) g/dL TSH, Ultra Sensitive (0.358-3.740) mIU/mL 11/24/18 11/24/18 11/25/18 Range/Units 23:25 23:25 06:20 WBC (4.0-10.2) K/uL RBC (3.77-5.09) M/uL Hgb (11.7-15.5) g/dL Hct (34.0-46.0) % MCV (84.0-98.0) fL MCH (28.2-33.3) pg MCHC (31.7-36.0) g/dL RDW (11.2-14.1) % Plt Count (150-350) K/uL Neut % (Auto) (45.0-80.0) % Lymph % (Auto) (10.0-50.0) % [place] % (Auto) (2.0-14.0) % Eos % (Auto) (0.0-5.0) % Baso % (Auto) (0.0-2.0) % Neut # (Auto) (1.40-7.00) K/uL Lymph # (Auto) (0.50-3.50) K/uL [place] # (Auto) (0.00-1.00) K/uL Eos # (Auto) (0.00-0.50) K/uL Baso # (Auto) (0.00-0.20) K/uL PT (9.5-12.0) SEC INR APTT (21.0-31.3) SEC D-Dimer, Quantitative (0-400) ng/mL Sodium 141 (136-145) mmol/L Potassium 3.5 (3.5-5.1) mmol/L Chloride 103 (98-107) mmol/L Carbon Dioxide 25.8 (21.0-32.0) mmol/L BUN 18 (7-18) mg/dL Creatinine 1.04 (0.51-1.17) mg/dL Est Cr Clr Drug Dosing 49.92 mL/min Estimated GFR (MDRD) 57 mL/min Glucose 165 H (74-106) mg/dL Hemoglobin A1c (4.3-5.7) % Lactic Acid 1.5 (0.4-2.0) mmol/L Uric Acid 6.1 (2.6-7.2) mg/dL Calcium 8.8 (8.5-10.1) mg/dL Magnesium 1.5 L 2.2 (1.8-2.4) mg/dL Total Bilirubin 0.4 (0.2-1.0) mg/dL AST 17 (15-37) U/L ALT 29 (12-78) U/L Alkaline Phosphatase 74 (46-116) IU/L Creatine Kinase 63 62 (26-308) U/L Creatine Kinase Index 0.3 0.5 (0.0-2.5) % CK-MB (CK-2) 0.20 0.30 (0.00-3.60) ng/mL Troponin I 0.010 0.003 (0.000-0.056) ng/mL NT-Pro-B Natriuret Pep 466 H (0-125) pg/mL Total Protein 7.1 (6.4-8.2) g/dL Albumin 3.5 (3.4-5.0) g/dL TSH, Ultra Sensitive 3.429 (0.358-3.740) mIU/mL 11/25/18 Range/Units 06:20 WBC (4.0-10.2) K/uL RBC (3.77-5.09) M/uL Hgb (11.7-15.5) g/dL Hct (34.0-46.0) % MCV (84.0-98.0) fL MCH (28.2-33.3) pg MCHC (31.7-36.0) g/dL RDW (11.2-14.1) % Plt Count (150-350) K/uL Neut % (Auto) (45.0-80.0) % Lymph % (Auto) (10.0-50.0) % [place] % (Auto) (2.0-14.0) % Eos % (Auto) (0.0-5.0) % Baso % (Auto) (0.0-2.0) % Neut # (Auto) (1.40-7.00) K/uL Lymph # (Auto) (0.50-3.50) K/uL [place] # (Auto) (0.00-1.00) K/uL Eos # (Auto) (0.00-0.50) K/uL Baso # (Auto) (0.00-0.20) K/uL PT (9.5-12.0) SEC INR APTT (21.0-31.3) SEC D-Dimer, Quantitative (0-400) ng/mL Sodium (136-145) mmol/L Potassium (3.5-5.1) mmol/L Chloride (98-107) mmol/L Carbon Dioxide (21.0-32.0) mmol/L BUN (7-18) mg/dL Creatinine (0.51-1.17) mg/dL Est Cr Clr Drug Dosing mL/min Estimated GFR (MDRD) mL/min Glucose (74-106) mg/dL Hemoglobin A1c 6.7 H (4.3-5.7) % Lactic Acid (0.4-2.0) mmol/L Uric Acid (2.6-7.2) mg/dL Calcium (8.5-10.1) mg/dL Magnesium (1.8-2.4) mg/dL Total Bilirubin (0.2-1.0) mg/dL AST (15-37) U/L ALT (12-78) U/L Alkaline Phosphatase (46-116) IU/L Creatine Kinase (26-308) U/L Creatine Kinase Index (0.0-2.5) % CK-MB (CK-2) (0.00-3.60) ng/mL Troponin I (0.000-0.056) ng/mL NT-Pro-B Natriuret Pep (0-125) pg/mL Total Protein (6.4-8.2) g/dL Albumin (3.4-5.0) g/dL TSH, Ultra Sensitive (0.358-3.740) mIU/mL JUAN Results - Last 24 hrs: None Med Orders - Current: Current Medications Acetaminophen (Tylenol) 650 mg PO Q4H PRN PRN Reason: Pain Buspirone HCl (Buspar) 15 mg PO TID [facility] Escitalopram Oxalate (Lexapro) 20 mg PO DAILY [facility] Gabapentin (Neurontin) 300 mg PO BEDTIME TRAN Last Admin: 11/25/18 02:04 Dose: 300 mg Lisinopril (Prinivil) 40 mg PO DAILY [facility] Metoprolol Tartrate (Lopressor) 25 mg PO DAILY [facility] Ondansetron HCl (Zofran) 4 mg IVPUSH Q4H PRN PRN Reason: Nausea/Vomiting Last Admin: 11/25/18 03:34 Dose: 4 mg Sodium Chloride (Saline Flush) 10 ml FLUSH ASDIRECTED PRN PRN Reason: Keep Vein Open Last Admin: 11/25/18 03:34 Dose: 10 ml Sodium Chloride (Saline Flush) 10 ml FLUSH Q12HR PRN PRN Reason: Keep Vein Open Sucralfate (Carafate) 1 gm PO QID TRAN Temazepam (Restoril) 15 mg PO BEDTIME PRN PRN Reason: Insomnia Last Admin: 11/25/18 02:05 Dose: 15 mg Discontinued Medications Aspirin (Aspirin) 81 mg CHEW ONETIME ONE Stop: 11/24/18 23:36 Last Admin: 11/24/18 23:38 Dose: 81 mg Famotidine (Pepcid) 40 mg IVPUSH ONETIME ONE Stop: 11/24/18 23:12 Last Admin: 11/24/18 23:33 Dose: 40 mg Furosemide (Lasix) 60 mg IVPUSH NOW ONE Stop: 11/25/18 01:12 Last Admin: 11/25/18 01:50 Dose: 60 mg Gabapentin (Neurontin) 300 mg PO BEDTIME TRAN Magnesium Sulfate 2 gm/ Premix 50 mls @ 50 mls/hr IV ONETIME ONE Stop: 11/25/18 02:11 Last Admin: 11/25/18 01:59 Dose: 50 mls/hr Potassium Chloride (Klor-Con M20) 40 meq PO ONETIME ONE Stop: 11/25/18 01:13 Last Admin: 11/25/18 02:03 Dose: 40 meq Ticagrelor (Brilinta) 180 mg PO ONETIME ONE Stop: 11/24/18 23:12 Last Admin: 11/24/18 23:33 Dose: 180 mg - Exam Quality Assessment: Reports: DVT Prophylaxis. Denies: Supplemental Oxygen, Central Line/PICC, Urine Catheter, Skin Breakdown, Restraints General: Reports: Alert, Oriented, Cooperative, No Acute Distress HEENT: Reports: Pupils Equal, Pupils Reactive, EOMI, Mucous Membr. Moist/[place], Other (Dentition in poor repair with multiple caries and broken teeth but no acute abscesses or drainage) Neck: Reports: Supple, Trachea Midline, No JVD, No Thyromegaly, +2 Carotid Pulse wo Bruit. Denies: Lymphadenopathy Lungs: Reports: Clear to Auscultation, Normal Respiratory Effort. Denies: Rub Cardiovascular: Reports: Regular Rate, Regular Rhythm, No Murmurs. Denies: Gallops, Rubs GI/Abdominal Exam: Normal Bowel Sounds, Soft, Non-Tender, No Organomegaly, No Distention, No Abnormal Bruit, No Mass, Other (Obese). No: Guarding (Female) Exam: Deferred Rectal (Female) Exam: Deferred Back Exam: Reports: Normal Inspection, Full Range of Motion. Denies: CVA Tenderness (L), CVA Tenderness (R), Muscle Spasm Extremities: Normal Inspection, Normal Range of Motion, Non-Tender, No Pedal Edema, Normal Capillary Refill. No: Juliet's Sign Skin: Reports: Warm, Dry, Intact. Denies: Ecchymosis Neurological: Reports: No New Focal Deficit Psy/Mental Status: Reports: Alert, Anxious (Moderatestable), Depressed (Mild). Denies: Agitated, Suicidal Ideation, Homicidal Ideation, Hallucinations, Withdrawal Symptoms EKG INTERPRETATION EKG Date: 11/25/18 Time: 07:09 Rhythm: NSR Rate (Beats/Min): 73 [place]: Normal (Left) P-Wave: Present (Mild diffuse biphasic P waves with poor R-wave progression in the anterior leads) QRS: Normal (0.08 seconds with stable T-wave inversion in leads 3 and V1) ST-T: Normal QT: Normal GA/PQ Interval: 0.15 seconds Comparison: No Change (Since 11/24/18)
[2018-11-25] MEDS: Sucralfate 1 GM Tab PO SCH ×2 (08:48→12:04)
[2018-11-25 12:03] VITALS: BP 106/54; PULSE 68
== END 2018-11-25 14:27 | disposition home or self-care (01) ==
LOC: LL.ED 23:07 → LL.MS 11-25 00:25 → UNDOADMOB 11-25 00:25
PROVIDERS: ADMIT Family Medicine; ATTEND Family Medicine
DX: R07.2 Precordial pain (principal); I11.0 Hypertensive heart disease with heart failure; I50.9 Heart failure, unspecified; E11.9 Type 2 diabetes mellitus without complications; E78.2 Mixed hyperlipidemia; E83.42 Hypomagnesemia; D50.8 Other iron deficiency anemias; J45.20 Mild intermittent asthma, uncomplicated; F41.8 Other specified anxiety disorders; K21.9 Gastro-esophageal reflux disease without esophagitis; K02.9 Dental caries, unspecified; Z88.0 Allergy status to penicillin; Z88.1 Allergy status to other antibiotic agents; Z88.5 Allergy status to narcotic agent; Z88.8 Allergy status to other drugs, medicaments and biological substances; Z91.041 Radiographic dye allergy status; Z91.14 Patient's other noncompliance with medication regimen; Z79.51 Long term (current) use of inhaled steroids; Z79.82 Long term (current) use of aspirin; Z79.899 Other long term (current) drug therapy
CPT/HCPCS: 36415; 71045; 80048; 80053; 82550; 82553; 83036; 83605; 83735; 83880; 84443; 84484; 84550; 85025; 85379; 85610; 85730; 93005; 96365; 96374; 96375; 99285-25; A9270-GY; G0378; J1940; J2405; J3475; J3490

== ENCOUNTER 2019-01-10 14:55 | Emergency (ER) | payer BC ==
[2019-01-10] MEDS ORDERED: Sodium Chloride 0.9% 1,000 ML IV ONE ×2 (15:32→16:33)
[2019-01-10] MEDS ORDERED: Albuterol/Ipratropium 3.0-0.5 MG/3 ML Neb Soln NEB ONE ×2 (15:32→18:30)
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
[2019-01-10 15:54] LABS: CHLORIDE,CL 99 mmol/L (98-107); SODIUM,NA 138 mmol/L (136-145)
[2019-01-10] MEDS ORDERED: Ketorolac 30 MG/ML SDV IVPUSH ONE (16:07)
[2019-01-10] MEDS ORDERED: traMADol 50 MG Tab PO ONE ×2 (16:17→20:12)
[2019-01-10] MEDS ORDERED: predniSONE 20 MG Tab PO ONE (16:32)
[2019-01-10] MEDS ORDERED: Benzonatate 100 MG Cap PO ONE (20:12)
[2019-01-10 20:44] VITALS: BP 133/76; PULSE 98
== END 2019-01-10 20:30 | disposition home or self-care (01) ==
LOC: LL.ED 14:55
DX: J98.8 Other specified respiratory disorders (principal); M94.0 Chondrocostal junction syndrome [Tietze]; E83.42 Hypomagnesemia; I10 Essential (primary) hypertension; J45.909 Unspecified asthma, uncomplicated; E11.9 Type 2 diabetes mellitus without complications; E66.9 Obesity, unspecified; Z88.8 Allergy status to other drugs, medicaments and biological substances; Z88.1 Allergy status to other antibiotic agents; Z88.5 Allergy status to narcotic agent; Z91.041 Radiographic dye allergy status; Z79.899 Other long term (current) drug therapy; Z79.82 Long term (current) use of aspirin; Z79.51 Long term (current) use of inhaled steroids; Z79.84 Long term (current) use of oral hypoglycemic drugs; Z68.29 Body mass index [BMI] 29.0-29.9, adult
CPT/HCPCS: 36415; 71046; 80053; 81001; 82550; 82553; 83605; 83735; 83880; 84484; 85025; 85379; 85610; 85730; 87804; 93005; 96361; 96365; 96375; 99284-25; A9270-GY; J1885; J3475; J7030; J7620-GY

== ENCOUNTER 2019-05-12 20:19 | Emergency (ER) | payer BC ==
[2019-05-12 20:30] VITALS: BP 164/87; PULSE 68
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
== END 2019-05-12 20:55 | disposition home or self-care (01) ==
LOC: LL.ED 20:19
DX: H57.11 Ocular pain, right eye (principal); I10 Essential (primary) hypertension; J45.909 Unspecified asthma, uncomplicated; K21.9 Gastro-esophageal reflux disease without esophagitis; M19.90 Unspecified osteoarthritis, unspecified site; E11.9 Type 2 diabetes mellitus without complications; E78.5 Hyperlipidemia, unspecified; E13.9 Other specified diabetes mellitus without complications; E66.9 Obesity, unspecified; G25.81 Restless legs syndrome; Z79.82 Long term (current) use of aspirin; Z79.84 Long term (current) use of oral hypoglycemic drugs; Z79.899 Other long term (current) drug therapy; Z88.5 Allergy status to narcotic agent; Z91.041 Radiographic dye allergy status; Z88.0 Allergy status to penicillin; Z88.8 Allergy status to other drugs, medicaments and biological substances
CPT/HCPCS: 99283

== ENCOUNTER 2019-09-05 20:30 | Observation (INO) | payer BC ==
[2019-09-05] MEDS ORDERED: Nitroglycerin 0.4 MG Tab.SL SL ONE (20:36)
[2019-09-05] MEDS ORDERED: LORazepam 0.5 MG Tab PO ONE (21:17)
[2019-09-05 21:20] LABS: CHLORIDE,CL 103 mmol/L (98-107); SODIUM,NA 138 mmol/L (136-145)
[2019-09-05 21:22] LABS: PTT,PARTIAL THROMBOPLSTIN TIME 25.4 SEC (24.5-32.8)
[2019-09-05] MEDS ORDERED: Pantoprazole 40 MG Vial IVPUSH ONE (22:08)
[2019-09-05] MEDS ORDERED: Famotidine 20 MG/2 ML SDV IVPUSH ONE (22:09)
--- NOTE | 2019-09-05 22:21 | EDM.PDOC ---
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 ASDIRECTED PRN Peripheral IV Insertion Adult [OM.PC] Routine 09/05/19 22:06 Patient Status [ADT] Routine Height and Weight [RC] DAILY Up ad Nata [RC] ASDIRECTED Vital Signs [RC] Q4H 09/05/19 22:07 Intake and Output [RC] QSHIFT Pulse Oximetry [RC] PRN 09/05/19 22:08 Magnesium Sulfate/D5W [Magnesium Sulfate in D5W 100 Premix] 1 gm Premix Bag 1 bag IV ONETIME Pantoprazole [ProTONIX IV] 40 mg IVPUSH ONETIME ONE Code Status [Resuscitation Status] Routine 09/05/19 22:09 Famotidine [Pepcid] 20 mg IVPUSH ONETIME ONE 09/05/19 22:12 EKG Documentation Completion [RC] ASDIRECTED 09/05/19 22:15 Sodium Chloride 0.9% [Normal Saline] 1,000 ml IV ASDIRECTED 09/06/19 01:00 Magnesium Sulfate/D5W [Magnesium Sulfate in D5W 100 Premix] 1 gm Premix Bag 1 bag IV ONETIME 09/06/19 07:00 Famotidine [Pepcid] 20 mg IVPUSH ONETIME ONE Pantoprazole [ProTONIX IV] 40 mg IVPUSH ONETIME ONE 09/06/19 08:00 BASIC METABOLIC PANEL,BMP [CHEM] Timed CBC WITH AUTO DIFF [HEME] Timed LACTIC ACID [CHEM] Timed MAGNESIUM [CHEM] Timed TROPONIN I [CHEM] Timed 09/06/19 09:00 EKG 12 Lead [EK] Routine Assessment:: as above. Stable and suitable for general supervision Plan: As above. Anticipate discharge home tomorrow if morning labs unremarkable and pain remains improved. to take over patient's care in AM
[2019-09-05] MEDS ORDERED: Acetaminophen 325 MG Tab PO PRN (22:44)
[2019-09-05] MEDS: Sodium Chloride 0.9% 1,000 ML IV SCH (22:47)
[2019-09-05] MEDS: Sodium Chloride 0.9% 10 ML Syringe FLUSH PRN (22:48)
[2019-09-05] MEDS ORDERED: hydrOXYzine Pamoate 25 MG Cap PO SCH (23:00)
[2019-09-05] MEDS ORDERED: busPIRone 15 MG Tab PO SCH (23:00)
[2019-09-06] MEDS ORDERED: Metoprolol Tartrate 25 MG Tab PO ONE (00:03)
[2019-09-06] MEDS ORDERED: hydrOXYzine Pamoate 25 MG Cap PO PRN (00:06)
[2019-09-06] MEDS: Sodium Chloride 0.9% 1,000 ML IV SCH (06:51)
[2019-09-06] MEDS ORDERED: Famotidine 20 MG/2 ML SDV IVPUSH ONE (07:00)
[2019-09-06] MEDS ORDERED: Pantoprazole 40 MG Vial IVPUSH ONE (07:00)
[2019-09-06] MEDS: Sucralfate 1 GM Tab PO SCH ×4 (07:56→20:12)
[2019-09-06] MEDS: busPIRone 15 MG Tab PO SCH ×3 (07:56→20:12)
[2019-09-06] MEDS: metFORMIN 500 MG Tab PO SCH ×2 (07:57→17:41)
[2019-09-06] MEDS: Metoprolol Tartrate 25 MG Tab PO SCH ×2 (07:57→20:11)
[2019-09-06] MEDS: Escitalopram 20 MG Tab PO SCH (07:58)
[2019-09-06] MEDS: Sodium Chloride 0.9% 10 ML Syringe FLUSH PRN ×5 (07:59→23:12)
[2019-09-06 08:00] LABS: CHLORIDE,CL 107 mmol/L (98-107); SODIUM,NA 140 mmol/L (136-145)
[2019-09-06] MEDS ORDERED: Furosemide 20 MG Tab PO SCH (08:00)
[2019-09-06] MEDS ORDERED: Metoprolol Tartrate 25 MG Tab PO SCH (08:00)
[2019-09-06] MEDS ORDERED: Lisinopril 10 MG Tab PO SCH (08:00)
[2019-09-06] MEDS ORDERED: Sodium Chloride 0.9% 10 ML Syringe FLUSH PRN (09:18)
[2019-09-06] MEDS ORDERED: Temazepam 15 MG Cap PO PRN (09:18)
[2019-09-06] MEDS: Magnesium Oxide 400 MG Tab PO SCH ×2 (10:27→17:40)
[2019-09-06] MEDS: Furosemide 40 MG/4 ML VIAL IVPUSH SCH ×2 (10:27→17:41)
--- NOTE | 2019-09-06 10:52 | PCM.PN ---
- General Info Date of Service: 09/06/19 Admission Dx/Problem (Free Text): Chest pain Functional Status: Reports: Pain Controlled, Tolerating Diet, Ambulating, Urinating, New Symptoms Pain Score: 3 (Right calf) - Review of Systems General: Reports: No Symptoms. Denies: Fever, Weakness, Fatigue, Malaise, Chills, Night Sweats, Appetite HEENT: Reports: No Symptoms. Denies: Dysphasia, Ear Pain, Eye Pain, Headaches, Post Nasal Drip, Sinus Congestion, Sore Throat, Rhinitis, Visual Changes Pulmonary: Reports: No Symptoms. Denies: Shortness of Breath, Pleuritic Chest Pain, Cough, Sputum, Hemoptysis, Wheezing Cardiovascular: Reports: No Symptoms. Denies: Chest Pain, Palpitations, Dyspnea on Exertion, Orthopnea, PND, Edema Gastrointestinal: Reports: No Symptoms, Other (Normal bowel movement today). Denies: Abdominal Pain, Constipation, Decreased Appetite, Diarrhea, Difficulty Swallowing, Flatus, Hematochezia, Melena, Nausea, Vomiting Genitourinary: Reports: No Symptoms. Denies: Dysuria, Frequency, Burning, Pain, Urgency, Incontinence, Hematuria, Retention, Flank Pain Musculoskeletal: Reports: Leg Pain (Right calf). Denies: Neck Pain, Shoulder Pain, Arm Pain, Hand Pain, Back Pain, Foot Pain, Joint Pain, Joint Swelling Skin: Reports: No Symptoms. Denies: Diaphoresis, Bruising, Pruritis, Rash Neurological: Reports: No Symptoms. Denies: Confusion, Dizziness, Headache, Numbness, Paresthesia, Syncope, Tingling, Difficulty Walking, Weakness Psychiatric: Reports: Depression (Mild), Anxiety (Moderate). Denies: Confusion, Mood Lability, Agitation, Cravings, Hallucinations, Suicidal Ideation - Patient Data Vitals - Most Recent: Last Vital Signs Temp 37.1 C 09/06/19 08:00 Pulse 68 09/06/19 08:00 Resp 16 09/06/19 08:00 BP 156/92 H 09/06/19 08:00 Pulse Ox 98 09/06/19 08:00 Vital Signs - 24 hr 09/05/19 09/05/19 09/05/19 20:32 20:38 20:45 Temperature [ Oral] Temperature [ 36.8 C Temporal] Pulse, Peripheral Pulse, 82 74 Peripheral [ Pulse Oximetry] Respiratory 18 18 Rate Blood Pressure 169/108 H Blood Pressure 169/108 H 152/85 H [Left Upper Arm ] O2 Sat by Pulse 96 96 Oximetry 09/05/19 09/05/19 09/05/19 21:00 21:15 21:30 Temperature [ Oral] Temperature [ Temporal] Pulse, Peripheral Pulse, 78 75 74 Peripheral [ Pulse Oximetry] Respiratory 18 16 16 Rate Blood Pressure Blood Pressure 146/81 H 159/84 H 146/74 H [Left Upper Arm ] O2 Sat by Pulse 96 98 98 Oximetry 09/05/19 09/05/19 09/05/19 21:45 22:07 23:51 Temperature [ 36.7 C Oral] Temperature [ 36.7 C Temporal] Pulse, Peripheral Pulse, 75 73 Peripheral [ Pulse Oximetry] Respiratory 20 18 Rate Blood Pressure Blood Pressure 166/99 H [Left Upper Arm ] O2 Sat by Pulse 98 98 98 Oximetry 09/06/19 09/06/19 09/06/19 00:41 04:00 07:56 Temperature [ 36.9 C Oral] Temperature [ Temporal] Pulse, 73 Peripheral Pulse, 65 Peripheral [ Pulse Oximetry] Respiratory 16 Rate Blood Pressure 166/99 H 181/96 H Blood Pressure 146/81 H [Left Upper Arm ] O2 Sat by Pulse 99 Oximetry 09/06/19 09/06/19 07:57 08:00 Temperature [ Oral] Temperature [ 37.1 C Temporal] Pulse, 68 Peripheral Pulse, 68 Peripheral [ Pulse Oximetry] Respiratory 16 Rate Blood Pressure 181/96 H Blood Pressure 156/92 H [Left Upper Arm ] O2 Sat by Pulse 98 Oximetry Weight - Most Recent: 72.575 kg I&O - Last 24 Hours: Intake & Output 09/05/19 09/06/19 09/06/19 22:59 06:59 14:59 Intake Total 1225 Output Total 300 900 Balance 925 -900 Imaging Impressions - Last 24 Hours: Review Engineer shows normal sinus rhythm in the 60s with no ectopy or arrhythmia. Chest x-ray report, PA and lateral, from 09/05/19 with no evidence of CHF, pneumonia, pneumothorax, etc. Lab Results Last 24 Hours: Laboratory Results - last 24 hr 09/05/19 09/05/19 09/05/19 Range/Units 20:43 20:43 20:43 WBC 10.0 (4.0-10.2) K/uL RBC 5.07 (3.77-5.09) M/uL Hgb 12.5 (11.7-15.5) g/dL Hct 38.0 (34.0-46.0) % MCV 75.0 L (84.0-98.0) fL MCH 24.7 L (28.2-33.3) pg MCHC 32.9 (31.7-36.0) g/dL RDW 15.5 H (11.2-14.1) % Plt Count 205 (150-350) K/uL Neut % (Auto) 70.4 (45.0-80.0) % Lymph % (Auto) 20.7 (10.0-50.0) % [place] % (Auto) 7.3 (2.0-14.0) % Eos % (Auto) 1.4 (0.0-5.0) % Baso % (Auto) 0.2 (0.0-2.0) % Neut # (Auto) 7.02 H (1.40-7.00) K/uL Lymph # (Auto) 2.06 (0.50-3.50) K/uL [place] # (Auto) 0.73 (0.00-1.00) K/uL Eos # (Auto) 0.14 (0.00-0.50) K/uL Baso # (Auto) 0.02 (0.00-0.20) K/uL PT 9.5 (9.5-12.0) SEC INR 0.9 APTT 25.4 (24.5-32.8) SEC D-Dimer, Quantitative (0-400) ng/mL Sodium 138 (136-145) mmol/L Potassium 4.0 (3.5-5.1) mmol/L Chloride 103 (98-107) mmol/L Carbon Dioxide 24.7 (21.0-32.0) mmol/L BUN 14 (7-18) mg/dL Creatinine 0.73 (0.51-1.17) mg/dL Est Cr Clr Drug Dosing 72.04 mL/min Estimated GFR (MDRD) > 60 mL/min Glucose 196 H (74-106) mg/dL Lactic Acid (0.4-2.0) mmol/L Calcium 8.5 (8.5-10.1) mg/dL Magnesium 1.5 L (1.8-2.4) mg/dL Total Bilirubin 0.4 (0.2-1.0) mg/dL AST 28 (15-37) U/L ALT 31 (12-78) U/L Alkaline Phosphatase 59 (46-116) IU/L Creatine Kinase 52 (26-308) U/L Creatine Kinase Index 0.2 (0.0-2.5) % CK-MB (CK-2) 0.10 (0.00-3.60) ng/mL Troponin I 0.000 (0.000-0.056) ng/mL NT-Pro-B Natriuret Pep 502 H (0-125) pg/mL Total Protein 6.5 (6.4-8.2) g/dL Albumin 3.2 L (3.4-5.0) g/dL TSH, Ultra Sensitive 2.226 (0.358-3.740) mIU/mL 09/05/19 09/05/19 09/06/19 Range/Units 20:43 20:43 07:35 WBC (4.0-10.2) K/uL RBC (3.77-5.09) M/uL Hgb (11.7-15.5) g/dL Hct (34.0-46.0) % MCV (84.0-98.0) fL MCH (28.2-33.3) pg MCHC (31.7-36.0) g/dL RDW (11.2-14.1) % Plt Count (150-350) K/uL Neut % (Auto) (45.0-80.0) % Lymph % (Auto) (10.0-50.0) % [place] % (Auto) (2.0-14.0) % Eos % (Auto) (0.0-5.0) % Baso % (Auto) (0.0-2.0) % Neut # (Auto) (1.40-7.00) K/uL Lymph # (Auto) (0.50-3.50) K/uL [place] # (Auto) (0.00-1.00) K/uL Eos # (Auto) (0.00-0.50) K/uL Baso # (Auto) (0.00-0.20) K/uL PT (9.5-12.0) SEC INR APTT (24.5-32.8) SEC D-Dimer, Quantitative < 100 (0-400) ng/mL Sodium 140 (136-145) mmol/L Potassium 3.8 (3.5-5.1) mmol/L Chloride 107 (98-107) mmol/L Carbon Dioxide 26.1 (21.0-32.0) mmol/L BUN 12 (7-18) mg/dL Creatinine 0.75 (0.51-1.17) mg/dL Est Cr Clr Drug Dosing 70.12 mL/min Estimated GFR (MDRD) > 60 mL/min Glucose 137 H (74-106) mg/dL Lactic Acid 2.5 H (0.4-2.0) mmol/L Calcium 7.8 L (8.5-10.1) mg/dL Magnesium 2.1 (1.8-2.4) mg/dL Total Bilirubin (0.2-1.0) mg/dL AST (15-37) U/L ALT (12-78) U/L Alkaline Phosphatase (46-116) IU/L Creatine Kinase (26-308) U/L Creatine Kinase Index (0.0-2.5) % CK-MB (CK-2) (0.00-3.60) ng/mL Troponin I 0.000 (0.000-0.056) ng/mL NT-Pro-B Natriuret Pep (0-125) pg/mL Total Protein (6.4-8.2) g/dL Albumin (3.4-5.0) g/dL TSH, Ultra Sensitive (0.358-3.740) mIU/mL 09/06/19 09/06/19 Range/Units 07:35 07:35 WBC 9.1 (4.0-10.2) K/uL RBC 4.45 (3.77-5.09) M/uL Hgb 11.1 L (11.7-15.5) g/dL Hct 33.6 L (34.0-46.0) % MCV 75.5 L (84.0-98.0) fL MCH 24.9 L (28.2-33.3) pg MCHC 33.0 (31.7-36.0) g/dL RDW 15.5 H (11.2-14.1) % Plt Count 194 (150-350) K/uL Neut % (Auto) 62.6 (45.0-80.0) % Lymph % (Auto) 26.7 (10.0-50.0) % [place] % (Auto) 8.6 (2.0-14.0) % Eos % (Auto) 1.9 (0.0-5.0) % Baso % (Auto) 0.2 (0.0-2.0) % Neut # (Auto) 5.68 (1.40-7.00) K/uL Lymph # (Auto) 2.42 (0.50-3.50) K/uL [place] # (Auto) 0.78 (0.00-1.00) K/uL Eos # (Auto) 0.17 (0.00-0.50) K/uL Baso # (Auto) 0.02 (0.00-0.20) K/uL PT (9.5-12.0) SEC INR APTT (24.5-32.8) SEC D-Dimer, Quantitative (0-400) ng/mL Sodium (136-145) mmol/L Potassium (3.5-5.1) mmol/L Chloride (98-107) mmol/L Carbon Dioxide (21.0-32.0) mmol/L BUN (7-18) mg/dL Creatinine (0.51-1.17) mg/dL Est Cr Clr Drug Dosing mL/min Estimated GFR (MDRD) mL/min Glucose (74-106) mg/dL Lactic Acid 1.3 (0.4-2.0) mmol/L Calcium (8.5-10.1) mg/dL Magnesium (1.8-2.4) mg/dL Total Bilirubin (0.2-1.0) mg/dL AST (15-37) U/L ALT (12-78) U/L Alkaline Phosphatase (46-116) IU/L Creatine Kinase (26-308) U/L Creatine Kinase Index (0.0-2.5) % CK-MB (CK-2) (0.00-3.60) ng/mL Troponin I (0.000-0.056) ng/mL NT-Pro-B Natriuret Pep (0-125) pg/mL Total Protein (6.4-8.2) g/dL Albumin (3.4-5.0) g/dL TSH, Ultra Sensitive (0.358-3.740) mIU/mL Med Orders - Current: Current Medications Acetaminophen (Tylenol) 650 mg PO Q4H PRN PRN Reason: Pain/Fever Buspirone HCl (Buspar) 15 mg PO TID@08,,20 [facility] Last Admin: 09/06/19 07:56 Dose: 15 mg Documented by: Escitalopram Oxalate (Lexapro) 20 mg PO DAILY [facility] Last Admin: 09/06/19 07:58 Dose: 20 mg Documented by: Furosemide (Lasix) 20 mg PO DAILY [facility] Last Admin: 09/06/19 07:58 Dose: 20 mg Documented by: Furosemide (Lasix) 40 mg IVPUSH Q8H [facility] Last Admin: 09/06/19 10:27 Dose: 40 mg Documented by: Hydroxyzine Pamoate (Vistaril) 50 mg PO Q12HR PRN PRN Reason: Anxiety Lisinopril (Prinivil) 40 mg PO DAILY [facility] Last Admin: 09/06/19 07:56 Dose: 40 mg Documented by: Magnesium Oxide (Magnesium Oxide) 400 mg PO BID [facility] Last Admin: 09/06/19 10:27 Dose: 400 mg Documented by: Metformin HCl (Glucophage) 500 mg PO BID [facility] Last Admin: 09/06/19 07:57 Dose: 500 mg Documented by: Metoprolol Tartrate (Lopressor) 25 mg PO Q12HR [facility] Last Admin: 09/06/19 07:57 Dose: 25 mg Documented by: Potassium Chloride (Klor-Con M20) 20 meq PO TID [facility] Sodium Chloride (Saline Flush) 10 ml FLUSH ASDIRECTED PRN PRN Reason: Keep Vein Open Last Admin: 09/06/19 10:27 Dose: 10 ml Documented by: Sodium Chloride (Saline Flush) 10 ml FLUSH Q12HR PRN PRN Reason: Keep Vein Open Sucralfate (Carafate) 1 gm PO QID [facility] Last Admin: 09/06/19 07:56 Dose: 1 gm Documented by: Temazepam (Restoril) 15 mg PO BEDTIME PRN PRN Reason: Insomnia Discontinued Medications Buspirone HCl (Buspar) 15 mg PO TID [facility] Last Admin: 09/05/19 23:48 Dose: 15 mg Documented by: Famotidine (Pepcid) 20 mg IVPUSH ONETIME ONE Stop: 09/05/19 22:10 Last Admin: 09/05/19 22:48 Dose: 20 mg Documented by: Famotidine (Pepcid) 20 mg IVPUSH ONETIME ONE Stop: 09/06/19 07:01 Last Admin: 09/06/19 07:59 Dose: 20 mg Documented by: Hydroxyzine Pamoate (Vistaril) 50 mg PO Q12HR [facility] Last Admin: 09/05/19 23:48 Dose: 50 mg Documented by: Magnesium Sulfate/Dextrose 1 (gm/ Premix) 100 mls @ 100 mls/hr IV ONETIME ONE Stop: 09/05/19 23:07 Last Admin: 09/05/19 22:47 Dose: 100 mls/hr Documented by: Magnesium Sulfate/Dextrose 1 (gm/ Premix) 100 mls @ 100 mls/hr IV ONETIME ONE Stop: 09/06/19 01:59 Last Admin: 09/06/19 00:42 Dose: 100 mls/hr Documented by: Sodium Chloride (Normal Saline) 1,000 mls @ 125 mls/hr IV ASDIRECTED [facility] Last Admin: 09/06/19 06:51 Dose: 125 mls/hr Documented by: Lorazepam (Ativan) 0.25 mg PO ONETIME ONE Stop: 09/05/19 21:18 Last Admin: 09/05/19 21:46 Dose: 0.25 mg Documented by: Metoprolol Tartrate (Lopressor) 25 mg PO DAILY [facility] Metoprolol Tartrate (Lopressor) 25 mg PO ONETIME ONE Stop: 09/06/19 00:04 Last Admin: 09/06/19 00:41 Dose: 25 mg Documented by: Nitroglycerin (Nitrostat) 0.4 mg SL ONETIME ONE Stop: 09/05/19 20:37 Last Admin: 09/05/19 20:38 Dose: 0.4 mg Documented by: Pantoprazole Sodium (Protonix Iv) 40 mg IVPUSH ONETIME ONE Stop: 09/05/19 22:09 Last Admin: 09/05/19 22:48 Dose: 40 mg Documented by: Pantoprazole Sodium (Protonix Iv) 40 mg IVPUSH ONETIME ONE Stop: 09/06/19 07:01 Last Admin: 09/06/19 07:58 Dose: 40 mg Documented by: - Exam Quality Assessment: DVT Prophylaxis. No: Supplemental Oxygen, Central Line/PICC, Urine Catheter, Skin Breakdown, Restraints General: Alert, Oriented, Cooperative, No Acute Distress HEENT: Pupils Equal, Pupils Reactive, EOMI, Mucous Membr. Moist/[place], Scleral Icterus, Other (Dentition in somewhat poor repair) Neck: Supple, Trachea Midline, No JVD, No Thyromegaly, +2 Carotid Pulse wo Bruit. No: Lymphadenopathy Lungs: Clear to Auscultation, Normal Respiratory Effort. No: Rales Cardiovascular: Regular Rate, Regular Rhythm, No Murmurs. No: Gallops, Rubs GI/Abdominal Exam: Normal Bowel Sounds, Soft, Non-Tender, No Organomegaly, No Distention, No Abnormal Bruit, No Mass. No: Guarding (Female) Exam: Deferred Back Exam: Normal Inspection, Full Range of Motion. No: CVA Tenderness (L), CVA Tenderness (R), Muscle Spasm Extremities: Normal Inspection, Normal Range of Motion, Non-Tender, No Pedal Edema, Normal Capillary Refill. No: Juliet's Sign Peripheral Pulses: 2+: Radial (L), Radial (R), Dorsalis Pedis (L), Dorsalis Pedis (R) Skin: Warm, Dry, Intact. No: Ecchymosis Neurological: No New Focal Deficit Psy/Mental Status: Anxious (Moderate), Depressed (Mild). No: Agitated, Hallucinations, Withdrawal Symptoms EKG INTERPRETATION EKG Date: 09/06/19 Time: 09:50 Rhythm: NSR Rate (Beats/Min): 63 [place]: Normal (Left) P-Wave: Present (Mild Diffuse biphasic P waves with poor R-wave progression in the anterior leads) QRS: Normal (0.07 seconds) ST-T: Other (T-wave inversion in leads 3, V1 and new T wave inversions in V4 through V6 consistent with possible lateral wall cardiac ischemia) QT: Normal [place]/PQ Interval: 0.16 seconds Comparison: Change From Previous EKG (As above since last EKG on 09/05/19) EKG Interpretation Comments: 1. Possible new lateral wall cardiac ischemia 2. Left atrial enlargement Sepsis Event Note - Evaluation Sepsis Screening Result: No Definite Risk - Focused Exam Vital Signs: Vital Signs Temp Temp Pulse Pulse Resp BP BP 09/06/19 08:00 37.1 C 68 16 156/92 H 09/06/19 07:57 68 181/96 H 09/06/19 07:56 181/96 H 09/06/19 04:00 36.9 C 65 16 146/81 H 09/06/19 00:41 73 166/99 H 09/05/19 23:51 36.7 C 73 18 166/99 H Pulse Ox 09/06/19 08:00 98 09/06/19 07:57 09/06/19 07:56 09/06/19 04:00 99 09/06/19 00:41 09/05/19 23:51 98 Date Exam was Performed: 09/06/19 Time Exam was Performed: 11:17 - Problem List & Annotations (1) Chest pain SNOMED Code(s): 66508023 Code(s): R07.9 - CHEST PAIN, UNSPECIFIED Status: Acute Priority: High Current Visit: Yes Onset Date: 09/05/19 Qualifiers: Chest pain type: other chest pain Qualified Code(s): R07.89 - Other chest pain; R07.8 - Other chest pain Annotation/Comment:: Chest pain resolved at this time with nonspecific right calf pain with no clinical evidence of DVT or PE with normal d-dimer on admission.. Note new borderline lateral wall cardiac ischemia today. Patient did have a suboptimal relates stress test with me in this facility on 12/30/18 with no evidence of cardiac ischemia by Cardiolite scan with no ejection fraction calculated secondary to suboptimal Ongoing issues with frequent substernal nonradiating chest pain. She has been noncompliant with previously recommended cardiology follow-up evaluations. She will remain in observation status for now with repeat EKG and cardiac enzymes in the a.m.. Consider dobutamine Cardiolite stress test versus cardiology referral on an outpatient basis secondary to patient's anxiety and inability of tolerating the treadmill. workups in past. Suspect may be anxiety component in addition to possible GI contribution from PUD. H. Pylori testing has been ordered, however the patient was noncompliant with previously recommended EGD and possible additional colonoscopy. requested. GI referral once her cardiac status has been determined. (2) CHF (congestive heart failure) SNOMED Code(s): 87615087 Code(s): I50.9 - HEART FAILURE, UNSPECIFIED Status: Acute Priority: High Current Visit: Yes Onset Date: 11/24/18 Qualifiers: Heart failure type: unspecified Heart failure chronicity: acute Qualified Code(s): I50.9 - Heart failure, unspecified Annotation/Comment:: No clinical evidence of CHF or chest x-ray, although elevated BNP. Increased IV Lasix therapy on 09/05. Continue to observe closely by her regular providers. Recent cardiac echo per patient, although repeat evaluation, cardiology referral, etc. may be warranted as above. IV fluids discontinued on 09/05. (3) Peptic reflux disease SNOMED Code(s): 028393237 Code(s): K21.9 - GASTRO-ESOPHAGEAL REFLUX DISEASE WITHOUT ESOPHAGITIS Status: Chronic Priority: Medium Current Visit: Yes Annotation/Comment:: May be factor in patient's frequent chest pain complaints as above. Further workup recommended as above. (4) Hypertension SNOMED Code(s): 83083592 Code(s): I10 - ESSENTIAL (PRIMARY) HYPERTENSION Status: Chronic Priority: Medium Current Visit: Yes Qualifiers: Hypertension type: essential hypertension Qualified Code(s): I10 - Essential (primary) hypertension Annotation/Comment:: Elevated at time of presentation to ER and during initial phases of this hospitalization.. Improved after sublingual glycerin in the emergency room. Oral Imdur to be added for blood pressure control and as cardiac prophylaxis. Continue to observe closely by her regular providers. (5) Hypomagnesemia SNOMED Code(s): 847447152 Code(s): E83.42 - HYPOMAGNESEMIA Status: Chronic Priority: High Current Visit: Yes Onset Date: 06/30/17 Annotation/Comment:: Chronic issue with low Mag despite oral supplementation. Says she has been taking her supplements as directed although history of noncompliance in the past. 2 g of IV magnesium sulfate given shortly after admission. Continue to observe closely secondary to her increased IV Lasix therapy. (6) Hypoalbuminemia SNOMED Code(s): 341062591 Code(s): E88.09 - OTH DISORDERS OF PLASMA-PROTEIN METABOLISM, NEC Status: Acute Priority: Medium Current Visit: Yes Onset Date: 06/30/17 Annotation/Comment:: Consider high-protein Glucerna supplements as snacks (7) Asthma SNOMED Code(s): 005103347 Code(s): J45.909 - UNSPECIFIED ASTHMA, UNCOMPLICATED Status: Chronic Priority: Medium Current Visit: Yes Qualifiers: Asthma severity: mild Asthma persistence: intermittent Asthma complication type: uncomplicated Qualified Code(s): J45.20 - Mild intermittent asthma, uncomplicated Annotation/Comment:: Stable by patient history with no recent fever or bronchitic type symptoms. (8) Fe deficiency anemia SNOMED Code(s): 76587869 Code(s): D50.9 - IRON DEFICIENCY ANEMIA, UNSPECIFIED Status: Chronic Priority: Medium Current Visit: Yes Qualifiers: Iron deficiency anemia type: other iron deficiency Qualified Code(s): D50.8 - Other iron deficiency anemias Annotation/Comment:: Mild returned anemia on 09/05 with no evidence of acute GI bleed, etc. Known history of chronic iron deficiency with patient apparently not tolerating iron tablets. Vitamin B-12 level, TIBC panel and iron level in the a.m. Continue to observe closely by her regular provider. (9) Mixed anxiety depressive disorder SNOMED Code(s): 272873960 Code(s): F41.8 - OTHER SPECIFIED ANXIETY DISORDERS Status: Chronic Priority: Medium Current Visit: Yes Annotation/Comment:: May be contributing to ongoing chest pain issue. Continue to observe closely by her regular provider. Poor control based on this hospitalization. Additional oral Ativan required 09/05. (10) Diabetes mellitus SNOMED Code(s): 81293272 Code(s): E11.9 - TYPE 2 DIABETES MELLITUS WITHOUT COMPLICATIONS Status: Chronic Priority: Medium Current Visit: Yes Qualifiers: Diabetes mellitus type: type 2 Diabetes mellitus termination clerk insulin use: without snf use Diabetes mellitus complication status: without complication Qualified Code(s): E11.9 - Type 2 diabetes mellitus without complications Annotation/Comment:: Currently on metformin therapy. Repeat glycosylated hemoglobin on 09/05. Prediabetes versus beginning AODM with glycosylated hemoglobin still borderline high at 6.7% on 11/25. Weight loss and dietary changes advisable with dietary information once again to be provided to the patient at discharge from this facility. Continue to observe closely by her regular provider. (11) Hyperlipidemia SNOMED Code(s): 32123436 Code(s): E78.5 - HYPERLIPIDEMIA, UNSPECIFIED Status: Chronic Priority: Medium Current Visit: Yes Qualifiers: Hyperlipidemia type: mixed hyperlipidemia Qualified Code(s): E78.2 - Mixed hyperlipidemia Annotation/Comment:: Lipid panel on 09/06/19. Currently diet controlled. Close follow-up by her primary provider. - Problem List Review Problem List Initiated/Reviewed/Updated: Yes - My Orders Last 24 Hours: My Active Orders 09/06/19 09:18 EKG Documentation Completion [RC] ASDIRECTED Sodium Chloride 0.9% [Saline Flush] 10 ml FLUSH Q12HR PRN Temazepam [Restoril] 15 mg PO BEDTIME PRN EKG 12 Lead [EK] Stat 09/06/19 09:19 Antiembolic Devices [RC] .Routine Antiembolic Devices [RC] PER UNIT ROUTINE Communication Order [RC] PER UNIT ROUTINE Communication, Vaccine [RC] PER UNIT ROUTINE Height and Weight [RC] DAILY Intake and Output Strict [RC] ASDIRECTED Oxygen Therapy [RC] PRN Pulse Oximetry [RC] ASDIRECTED Up With Assistance [RC] ASDIRECTED VTE Risk Score [RC] UPON VTE/DVT Education [RC] PER UNIT ROUTINE Vaccines to be Administered [RC] PER UNIT ROUTINE OCCULT BLOOD DIAGNOSTIC [OP] Stat Antiembolic Hose [OM.PC] Routine DVT/VTE Prophylaxis Reflex [OM.PC] Routine GM Immunization Reflex [OM.PC] Click to Edit 09/06/19 09:45 Magnesium Oxide 400 mg PO BID 09/06/19 09:57 CULTURE URINE [RM] Routine 09/06/19 10:00 Furosemide [Lasix] 40 mg IVPUSH Q8H 09/06/19 Lunch Fluid Restriction [DIET] 09/06/19 12:00 CK W CKMB [CHEM] 1200 TROPONIN I [CHEM] Q6H Potassium Chloride [Klor-Con M20] 20 meq PO TID 09/06/19 Dinner Nothing per Oral Now Diet [DIET] 09/07/19 05:11 EKG Documentation Completion [RC] ASDIRECTED CBC WITH AUTO DIFF [HEME] Routine CK W CKMB [CHEM] Routine COMPREHENSIVE METABOLIC PN,CMP [CHEM] Routine D-DIMER QUANTITATIVE [COAG] Routine GLYCOSYLATED HEMOGLOBIN,HGBA1C [CHEM] Routine LIPID PANEL [CHEM] Routine MAGNESIUM [CHEM] Routine PRO B-TYPE NATRIUR PEPT,BNPPRO [CHEM] Routine TROPONIN I [CHEM] Routine EKG 12 Lead [EK] Routine - Assessment Assessment:: As above - Plan Plan:: As above. Extensive precautions were given to the patient, who is in agreement with the treatment plan. Likely discharge to home tomorrow with further workup on an outpatient basis as above.
[2019-09-06] MEDS: Potassium Chloride 20 MEQ Tab.ER PO SCH ×2 (11:23→17:40)
[2019-09-06] MEDS ORDERED: Isosorbide Mononitrate 30 MG Tab.ER PO SCH (18:00)
[2019-09-06] MEDS: Ondansetron 4 MG/2 ML SDV IVPUSH PRN (21:44)
[2019-09-06] MEDS ORDERED: LORazepam 2 MG/ML SDV IVPUSH ONE (22:54)
[2019-09-07] MEDS: Sodium Chloride 0.9% 10 ML Syringe FLUSH PRN ×4 (01:07→11:32)
[2019-09-07] MEDS: Furosemide 40 MG/4 ML VIAL IVPUSH SCH ×2 (01:07→09:29)
[2019-09-07] MEDS: LORazepam 0.5 MG Tab PO PRN ×2 (05:02→14:44)
[2019-09-07] MEDS: Ondansetron 4 MG/2 ML SDV IVPUSH PRN ×2 (05:02→11:30)
[2019-09-07] MEDS ORDERED: Lisinopril 20 MG Tab PO SCH (08:00)
[2019-09-07 08:01] LABS: HEMOGLOBIN A1C 6.9 % (4.3-5.7)
[2019-09-07 08:48] LABS: CHLORIDE,CL 99 mmol/L (98-107); SODIUM,NA 139 mmol/L (136-145)
[2019-09-07] MEDS: Potassium Chloride 20 MEQ Tab.ER PO SCH ×2 (09:29→13:22)
[2019-09-07] MEDS: busPIRone 15 MG Tab PO SCH (09:29)
[2019-09-07] MEDS: Sucralfate 1 GM Tab PO SCH ×2 (09:29→13:21)
[2019-09-07] MEDS: Escitalopram 20 MG Tab PO SCH (09:29)
[2019-09-07] MEDS: Magnesium Oxide 400 MG Tab PO SCH (09:30)
[2019-09-07] MEDS: metFORMIN 500 MG Tab PO SCH (09:30)
[2019-09-07] MEDS: Metoprolol Tartrate 25 MG Tab PO SCH (09:34)
[2019-09-07] MEDS ORDERED: Levofloxacin/Dextrose 5%-Water 500 MG in Premix Bag 1 BAG IV SCH (10:00)
[2019-09-07] MEDS ORDERED: Lactated Ringers 1,000 ML IV ONE (10:56)
[2019-09-07] MEDS ORDERED: Lactated Ringers 1,000 ML IV SCH (11:00)
[2019-09-07] MEDS ORDERED: Diatrizoate Meglumine/Diatrizoate Sodium 37% 30 ML Bottle PO ONE (12:00)
[2019-09-07] MEDS ORDERED: Iopamidol 612 MG/ML 100 ML Bottle IVPUSH ONE (12:00)
--- NOTE | 2019-09-07 13:35 | PCM.DCSUM1 ---
Discharge Summary - Hospital Course HPI Initial Comments: See emergency room note/admission H&P Brief History: See emergency room note/admission H&P Diagnosis: Stroke: No - Discharge Data Discharge Date: 09/07/19 Discharge Disposition: DC/Tfer to Acute Hospital 02 Condition: Good - Referral to Home Health Primary Care Physician: Suzan Leung PA-C - Discharge Diagnosis/Problem(s) (1) Chest pain SNOMED Code(s): 61652581 ICD Code: R07.9 - CHEST PAIN, UNSPECIFIED Status: Acute Priority: High Current Visit: Yes Onset Date: 09/05/19 Problem Details: Chest pain resolved on 09/06/19 despite verbal EKG changes as below. Cardiac enzymes remain normal with negative workup for acute MS at this time. BNP significantly improved with IV Lasix therapy as below no clinical evidence of CHF either by today's x-rays or clinical exam. Resolution of previous nonspecific right calf pain, which was noted on 09/05, with no clinical evidence of DVT or PE with normal d-dimer on admission. Note new borderline lateral wall cardiac ischemia on 09/05 with anterior wall cardiac ischemia by today's EKG. Patient did have a suboptimal Cardiolite stress test with me in this facility on 12/30/18 with no evidence of cardiac ischemia by Cardiolite scan with no ejection fraction calculated secondary to suboptimal exam. Ongoing issues with frequent substernal nonradiating chest pain. She has been noncompliant with previously recommended cardiology follow-up evaluations. Telephone consultation at 13:[address] Argueta, the hospitalist at [facility] in [place], who does accept the patient for direct admission, with no further treatment recommendations given. She has multiple health issues were discussed including her verbal chest pain, new nausea/emesis, returned lactic acid elevation, etc. Recommend cardiology consultation with consideration of possible further cardiac workup. Note patient's anxiety and inability of tolerating the treadmill another type of Cardiolite workup and/or heart catheterization may be required. Suspect may be anxiety component in addition to possible GI contribution from PUD. H. Pylori testing has been ordered, however no specimen could not be obtained. The patient was noncompliant with previously recommended EGD and possible additional colonoscopy. GI referral once her cardiac status has been determined. Ambulance transfer to [place] with public health advisor accompaniment. Qualifiers: Chest pain type: other chest pain Qualified Code(s): R07.89 - Other chest pain; R07.8 - Other chest pain (2) CHF (congestive heart failure) SNOMED Code(s): 10626257 ICD Code: I50.9 - HEART FAILURE, UNSPECIFIED Status: Acute Priority: High Current Visit: Yes Onset Date: 11/24/18 Problem Details: As above. Increased IV Lasix therapy on 09/05. Recent cardiac echo per patient, although repeat evaluation, cardiology referral, etc. may be warranted as above. IV fluids discontinued on 09/05, although a 1 L IV bolus of lactated Ringer's and additional subsequent IV fluids were initiated on 09/06 secondary to returned lactic acid elevation as below. Qualifiers: Heart failure type: unspecified Heart failure chronicity: acute Qualified Code(s): I50.9 - Heart failure, unspecified (3) Lactic acid increased SNOMED Code(s): 70776260 ICD Code: E87.2 - ACIDOSIS Status: Acute Priority: Medium Current Visit: Yes Problem Details: Lactic acid level increased to 2.5 on admission then normalized thereafter. Returned mild lactic acid elevation on 09/06 with additional significant leukocytosis, however no identifiable source of focal infection. The patient remains afebrile. No clinical evidence of sepsis or fever. Since protocol was initiated including 1 L bolus of lactated Ringer's and initiation of IV Levaquin. Accepting provider does agree to repeat lactic acid level at time of her arrival to that facility. Blood cultures 2 were drawn. UA was negative with urine set up for culture and sensitivity. (4) Nausea and vomiting SNOMED Code(s): 58546887 ICD Code: R11.2 - NAUSEA WITH VOMITING, UNSPECIFIED Status: Acute Priority: High Current Visit: Yes Onset Date: 09/06/19 Problem Details: Strong anxiety component with no abdominal pain, etc. at this time. Note negative CT scan of the abdomen and pelvis above. Further GI workup depending on her clinical course. Qualifiers: Vomiting type: unspecified Vomiting Intractability: non-intractable Qualified Code(s): R11.2 - Nausea with vomiting, unspecified (5) Peptic reflux disease SNOMED Code(s): 476478595 ICD Code: K21.9 - GASTRO-ESOPHAGEAL REFLUX DISEASE WITHOUT ESOPHAGITIS Status: Chronic Priority: Medium Current Visit: Yes Problem Details: May be factor in patient's frequent chest pain complaints as above. Further workup recommended as above. (6) Hypertension SNOMED Code(s): 40561344 ICD Code: I10 - ESSENTIAL (PRIMARY) HYPERTENSION Status: Chronic Priority: Medium Current Visit: Yes Problem Details: Blood pressures are significantly improved with initiation of oral Imdur in the p.m. of 09/05. Significantly elevated blood pressures at time of presentation to ER and during initial phases of this hospitalization. Improved after sublingual nitroglycerin in the emergency room. Oral Imdur was added for blood pressure control and as cardiac prophylaxis as above. Continue to observe closely by accepting physician and her regular providers. Qualifiers: Hypertension type: essential hypertension Qualified Code(s): I10 - Essential (primary) hypertension (7) Hypomagnesemia SNOMED Code(s): 002431416 ICD Code: E83.42 - HYPOMAGNESEMIA Status: Chronic Priority: High Current Visit: Yes Onset Date: 06/30/17 Problem Details: Chronic issue with low Mag despite oral supplementation. Says she has been taking her supplements as directed although history of noncompliance in the past. 2 g of IV magnesium sulfate given shortly after admission. Continue to observe closely secondary to her increased IV Lasix therapy. (8) Hypoalbuminemia SNOMED Code(s): 011311933 ICD Code: E88.09 - OTH DISORDERS OF PLASMA-PROTEIN METABOLISM, NEC Status: Acute Priority: Medium Current Visit: Yes Onset Date: 06/30/17 Problem Details: Consider high-protein Glucerna supplements as snacks (9) Asthma SNOMED Code(s): 200768005 ICD Code: J45.909 - UNSPECIFIED ASTHMA, UNCOMPLICATED Status: Chronic Priority: Medium Current Visit: Yes Problem Details: Stable by patient history with no recent fever or bronchitic type symptoms despite significant leukocytosis today. Note normal acute abdominal x-rays today as below. Qualifiers: Asthma severity: mild Asthma persistence: intermittent Asthma complication type: uncomplicated Qualified Code(s): J45.20 - Mild intermittent asthma, uncomplicated (10) Fe deficiency anemia SNOMED Code(s): 22532155 ICD Code: D50.9 - IRON DEFICIENCY ANEMIA, UNSPECIFIED Status: Chronic Priority: Medium Current Visit: Yes Problem Details: Normal hemoglobin on 09/06. Previous returned anemia on 09/05 with no evidence of acute GI bleed, etc. Known history of chronic iron deficiency with patient apparently not tolerating iron tablets. Only mildly decreased iron level with otherwise normal by vitamin B 12 level and TIBC panel. Note persistent microcytosis, Continue to observe closely by her regular provider. Qualifiers: Iron deficiency anemia type: other iron deficiency Qualified Code(s): D50.8 - Other iron deficiency anemias (11) Mixed anxiety depressive disorder SNOMED Code(s): 346579094 ICD Code: F41.8 - OTHER SPECIFIED ANXIETY DISORDERS Status: Chronic Priority: Medium Current Visit: Yes Problem Details: Poor control during this hospitalization with patient needing both IV and oral Ativan supplementation. This may be a significant contributing to ongoing symptoms as above/below. (12) Diabetes mellitus SNOMED Code(s): 02987297 ICD Code: E11.9 - TYPE 2 DIABETES MELLITUS WITHOUT COMPLICATIONS Status: Chronic Priority: Medium Current Visit: Yes Problem Details: Currently on metformin therapy. Glycosylated hemoglobin on 09/06 was 6.9% with prediabetes versus beginning AODM with glycosylated hemoglobin still borderline high at 6.7% on 11/25. Weight loss and dietary changes advisable with dietary information once again to be provided to the patient at discharge from accepting facility. Continue to observe closely by her regular provider. Qualifiers: Diabetes mellitus type: type 2 Diabetes mellitus usp insulin use: without usp use Diabetes mellitus complication status: without complication Qualified Code(s): E11.9 - Type 2 diabetes mellitus without complications (13) Hyperlipidemia SNOMED Code(s): 47194752 ICD Code: E78.5 - HYPERLIPIDEMIA, UNSPECIFIED Status: Chronic Priority: Medium Current Visit: Yes Problem Details: Lipid panel on 09/07/19 was normal. Currently diet controlled. Close follow-up by her primary provider. Qualifiers: Hyperlipidemia type: mixed hyperlipidemia Qualified Code(s): E78.2 - Mixed hyperlipidemia - Patient Summary/Data Operative Procedure(s) Performed: None Complications: None Consults: Hospitalist as above Labs Pending at D/C: 1. Blood Cultures 2 collected on 09/07/19 2. Urine culture and sensitivity collected on 09/07/19 3. Final acute abdominal x-rays report from 09/07/19 Recommended Follow-up Testing/Procedures: As above Planned Operative Procedure(s) after DC: Per accepting providers Hospital Course: She was placed in observation status with negative workup for acute MS as above. Note CHF clinically improved prior to patient's transfer. Intermittent elevated lactic acid levels with no evidence of sepsis as above. Further workup by variable specialists is needed as above - Patient Instructions Diet: NPO Activity: Bedrest, May Use Bathroom Driving: Do Not Drive Showering/Bathing: No Showering Notify Provider of: Fever, Increased Pain, Nausea and/or Vomiting - Discharge Plan *PRESCRIPTION DRUG MONITORING PROGRAM REVIEWED*: Not Applicable *COPY OF PRESCRIPTION DRUG MONITORING REPORT IN PATIENT CHANNING: Not Applicable Home Medications: Home Meds lisinopriL [Prinivil] 40 mg PO DAILY 02/26/13 [History] Furosemide 20 mg PO DAILY 12/19/16 [History] Escitalopram Oxalate 20 mg PO DAILY 10/09/18 [History] Fluticasone Propionate [Flonase] 1 - 2 sprays NASBOTH DAILY PRN 10/09/18 [History] Acetaminophen [Tylenol] 650 mg PO Q4H PRN 11/25/18 [History] Albuterol [Proventil HFA] 2 puff INH Q4H PRN 11/25/18 [History] Aspirin [Halfprin] 81 mg PO DAILY 11/25/18 [History] Metoprolol Tartrate 25 mg PO BID 11/25/18 [History] Sucralfate 1 gm PO QID 11/25/18 [History] busPIRone HCl [Buspirone HCl] 15 mg PO TID 11/25/18 [History] Benzonatate [Tessalon Perle] 100 mg PO TID PRN #30 capsule 01/10/19 [Rx] metFORMIN HCl [Metformin HCl] 500 mg PO BID 01/10/19 [History] predniSONE 20 mg PO DAILY #4 tab 01/10/19 [Rx] Magnesium Oxide 250 mg PO BID 09/05/19 [History] hydrOXYzine pamoate [Hydroxyzine Pamoate] 50 mg PO Q12HR PRN 09/05/19 [History] Oxygen Therapy Mode: Room Air Forms: ED Department Discharge, Interfacility Transfer EMTALA Referrals: Suzan Leung PA-C [Primary Care Provider] - - Discharge Summary/Plan Comment DC Time >30 min.: Yes (Coordination of care ) Discharge Summary/Plan Comment: As above. Extensive precautions were given to the patient, who is in agreement with the treatment plan. Ambulance transfer to [place] via ambulance with public health advisor accompaniment as above. - General Info Date of Service: 09/07/19 Admission Dx/Problem (Free Text: Chest pain Functional Status: Reports: Pain Controlled, Tolerating Diet, Ambulating, Urinating, New Symptoms (Nausea and emesis). Denies: Incentive Spirometry Numeric/FACES Score: 0 - Review of Systems General: Reports: Fatigue (Secondary to Ativan therapy). Denies: Fever, Weakness, Malaise, Chills, Night Sweats, Appetite (Acceptable) HEENT: Reports: No Symptoms. Denies: Dysphasia, Ear Pain, Eye Pain, Headaches, Post Nasal Drip, Sinus Congestion, Sore Throat, Rhinitis, Visual Changes Pulmonary: Reports: No Symptoms. Denies: Shortness of Breath, Pleuritic Chest Pain, Cough, Sputum, Hemoptysis, Wheezing Cardiovascular: Reports: No Symptoms. Denies: Chest Pain, Palpitations, Dyspnea on Exertion, Orthopnea, PND, Edema, Lightheadedness Gastrointestinal: Reports: Nausea, Vomiting. Denies: Abdominal Pain, Constipation, Decreased Appetite, Diarrhea, Difficulty Swallowing, Flatus, Hem atochezia, Melena Genitourinary: Reports: No Symptoms. Denies: Dysuria, Frequency, Burning, Pain, Urgency, Incontinence, Hematuria, Retention, Flank Pain Musculoskeletal: Reports: No Symptoms. Denies: Neck Pain, Shoulder Pain, Arm Pain, Back Pain, Leg Pain Skin: Reports: No Symptoms. Denies: Diaphoresis, Bruising, Pruritis, Rash Neurological: Reports: No Symptoms. Denies: Confusion, Dizziness, Headache, Numbness, Paresthesia, Tingling, Weakness, Change in Speech Psychiatric: Reports: Depression (Mild to moderate), Anxiety (Moderate). Denies: Confusion, Agitation, Cravings, Hallucinations - Patient Data Vitals - Most Recent: Last Vital Signs Temp 36.4 C 09/07/19 06:00 Pulse 101 H 09/07/19 09:34 Resp 16 09/07/19 06:00 BP 140/87 09/07/19 09:34 Pulse Ox 98 09/07/19 06:00 Vital Signs - 24 hr 09/06/19 09/06/19 09/06/19 17:40 18:00 20:11 Temperature [ 36.6 C Oral] Temperature [ Temporal] Pulse, 74 Peripheral Pulse, 74 Peripheral [ Pulse Oximetry] Respiratory 18 Rate Blood Pressure 156/92 H 131/92 H Blood Pressure 131/92 H [Left Upper Arm ] O2 Sat by Pulse 96 Oximetry 09/06/19 09/07/19 09/07/19 23:16 06:00 09:34 Temperature [ Oral] Temperature [ 36.6 C 36.4 C Temporal] Pulse, 101 H Peripheral Pulse, 83 101 H Peripheral [ Pulse Oximetry] Respiratory 16 16 Rate Blood Pressure 140/87 Blood Pressure 145/89 H 140/87 [Left Upper Arm ] O2 Sat by Pulse 96 98 Oximetry Weight - Most Recent: 69.717 kg I&O - Last 24 hours: Intake & Output 09/06/19 09/07/19 09/07/19 22:59 06:59 14:59 Intake Total 50 Output Total 1000 500 Balance -950 -500 Imaging Impressions - Last 24 hrs: 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 Abdominal x-rays on 09/07/19 shows no evidence of cardiomegaly, CHF, pulmonary infiltrates, pneumothorax, fluid levels, ileus, obstruction, free air, etc. Note status post laparoscopic cholecystectomy with surgical clips in right upper quadrant. CT scan of the abdomen and pelvis with IV and oral contrast on 09/07/19 shows probable severe fatty liver with benign left adnexal cystic lesion. Requested Preliminary verbal report from the radiology department at [facility] in [place] was not received. Lab Results - Last 24 hrs: Laboratory Results - last 24 hr 09/07/19 09/07/19 09/07/19 Range/Units 07:11 07:11 07:11 WBC 17.1 H (4.0-10.2) K/uL RBC 5.24 H (3.77-5.09) M/uL Hgb 13.0 D (11.7-15.5) g/dL Hct 39.2 (34.0-46.0) % MCV 74.8 L (84.0-98.0) fL MCH 24.8 L (28.2-33.3) pg MCHC 33.2 (31.7-36.0) g/dL RDW 16.1 H (11.2-14.1) % Plt Count 267 (150-350) K/uL Neut % (Auto) 88.3 H (45.0-80.0) % Lymph % (Auto) 6.7 L (10.0-50.0) % Trigg % (Auto) 4.9 (2.0-14.0) % Eos % (Auto) 0.0 (0.0-5.0) % Baso % (Auto) 0.1 (0.0-2.0) % Neut # (Auto) 15.04 H (1.40-7.00) K/uL Lymph # (Auto) 1.15 (0.50-3.50) K/uL Trigg # (Auto) 0.84 (0.00-1.00) K/uL Eos # (Auto) 0.00 (0.00-0.50) K/uL Baso # (Auto) 0.02 (0.00-0.20) K/uL D-Dimer, Quantitative < 100 (0-400) ng/mL Sodium 139 (136-145) mmol/L Potassium 3.9 (3.5-5.1) mmol/L Chloride 99 (98-107) mmol/L Carbon Dioxide 29.0 (21.0-32.0) mmol/L BUN 20 H (7-18) mg/dL Creatinine 0.98 (0.51-1.17) mg/dL Est Cr Clr Drug Dosing 53.66 mL/min Estimated GFR (MDRD) > 60 mL/min Glucose 235 H (74-106) mg/dL Hemoglobin A1c (4.3-5.7) % Lactic Acid (0.4-2.0) mmol/L Calcium 8.9 (8.5-10.1) mg/dL Magnesium 1.9 (1.8-2.4) mg/dL Iron (50-175) ug/dL TIBC (250-450) ug/dL % Saturation Ferritin (8-388) ng/mL Total Bilirubin 0.6 (0.2-1.0) mg/dL AST 31 (15-37) U/L ALT 34 (12-78) U/L Alkaline Phosphatase 62 (46-116) IU/L Creatine Kinase 33 (26-308) U/L Creatine Kinase Index 0.6 (0.0-2.5) % CK-MB (CK-2) 0.20 (0.00-3.60) ng/mL Troponin I 0.000 (0.000-0.056) ng/mL NT-Pro-B Natriuret Pep 174 H (0-125) pg/mL Total Protein 7.6 (6.4-8.2) g/dL Albumin 3.8 (3.4-5.0) g/dL Triglycerides 107 (30-150) mg/dL Cholesterol 200 (100-200) mg/dL LDL Cholesterol, Calc 125 H (0-100) mg/dL HDL Cholesterol 54 (40-60) mg/dL Amylase 24 L (25-115) U/L Lipase 86 (73-393) U/L Vitamin B12 546 (193-986) pg/mL Specimen Type Urine Color Urine Appearance Urine pH (5.0-9.0) Ur Specific [place] (1.005-1.030) Urine Protein (NEGATIVE) mg/dL Urine Glucose (UA) (NEGATIVE) mg/dL Urine Ketones (NEGATIVE) mg/dL Urine Occult Blood (NEGATIVE) Urine Nitrite (NEGATIVE) Urine Bilirubin (NEGATIVE) Urine Urobilinogen (0.2-1.0) E.U./dL Ur Leukocyte Esterase (NEGATIVE) Urine RBC /HPF Urine WBC /HPF Ur Epithelial Cells /LPF Urine Bacteria (NONE TO FEW) /HPF 09/07/19 09/07/19 09/07/19 Range/Units 07:11 07:12 08:26 WBC (4.0-10.2) K/uL RBC (3.77-5.09) M/uL Hgb (11.7-15.5) g/dL Hct (34.0-46.0) % MCV (84.0-98.0) fL MCH (28.2-33.3) pg MCHC (31.7-36.0) g/dL RDW (11.2-14.1) % Plt Count (150-350) K/uL Neut % (Auto) (45.0-80.0) % Lymph % (Auto) (10.0-50.0) % Trigg % (Auto) (2.0-14.0) % Eos % (Auto) (0.0-5.0) % Baso % (Auto) (0.0-2.0) % Neut # (Auto) (1.40-7.00) K/uL Lymph # (Auto) (0.50-3.50) K/uL Trigg # (Auto) (0.00-1.00) K/uL Eos # (Auto) (0.00-0.50) K/uL Baso # (Auto) (0.00-0.20) K/uL D-Dimer, Quantitative (0-400) ng/mL Sodium (136-145) mmol/L Potassium (3.5-5.1) mmol/L Chloride (98-107) mmol/L Carbon Dioxide (21.0-32.0) mmol/L BUN (7-18) mg/dL Creatinine (0.51-1.17) mg/dL Est Cr Clr Drug Dosing mL/min Estimated GFR (MDRD) mL/min Glucose (74-106) mg/dL Hemoglobin A1c 6.9 H (4.3-5.7) % Lactic Acid 2.7 H (0.4-2.0) mmol/L Calcium (8.5-10.1) mg/dL Magnesium (1.8-2.4) mg/dL Iron 32 L (50-175) ug/dL TIBC 433 (250-450) ug/dL % Saturation [id number] Ferritin 24 (8-388) ng/mL Total Bilirubin (0.2-1.0) mg/dL AST (15-37) U/L ALT (12-78) U/L Alkaline Phosphatase (46-116) IU/L Creatine Kinase (26-308) U/L Creatine Kinase Index (0.0-2.5) % CK-MB (CK-2) (0.00-3.60) ng/mL Troponin I (0.000-0.056) ng/mL NT-Pro-B Natriuret Pep (0-125) pg/mL Total Protein (6.4-8.2) g/dL Albumin (3.4-5.0) g/dL Triglycerides (30-150) mg/dL Cholesterol (100-200) mg/dL LDL Cholesterol, Calc (0-100) mg/dL HDL Cholesterol (40-60) mg/dL Amylase (25-115) U/L Lipase (73-393) U/L Vitamin B12 (193-986) pg/mL Specimen Type Urine Color Urine Appearance Urine pH (5.0-9.0) Ur Specific [place] (1.005-1.030) Urine Protein (NEGATIVE) mg/dL Urine Glucose (UA) (NEGATIVE) mg/dL Urine Ketones (NEGATIVE) mg/dL Urine Occult Blood (NEGATIVE) Urine Nitrite (NEGATIVE) Urine Bilirubin (NEGATIVE) Urine Urobilinogen (0.2-1.0) E.U./dL Ur Leukocyte Esterase (NEGATIVE) Urine RBC /HPF Urine WBC /HPF Ur Epithelial Cells /LPF Urine Bacteria (NONE TO FEW) /HPF 09/07/19 Range/Units 12:05 WBC (4.0-10.2) K/uL RBC (3.77-5.09) M/uL Hgb (11.7-15.5) g/dL Hct (34.0-46.0) % MCV (84.0-98.0) fL MCH (28.2-33.3) pg MCHC (31.7-36.0) g/dL RDW (11.2-14.1) % Plt Count (150-350) K/uL Neut % (Auto) (45.0-80.0) % Lymph % (Auto) (10.0-50.0) % Trigg % (Auto) (2.0-14.0) % Eos % (Auto) (0.0-5.0) % Baso % (Auto) (0.0-2.0) % Neut # (Auto) (1.40-7.00) K/uL Lymph # (Auto) (0.50-3.50) K/uL [place]igg # (Auto) (0.00-1.00) K/uL Eos # (Auto) (0.00-0.50) K/uL Baso # (Auto) (0.00-0.20) K/uL D-Dimer, Quantitative (0-400) ng/mL Sodium (136-145) mmol/L Potassium (3.5-5.1) mmol/L Chloride (98-107) mmol/L Carbon Dioxide (21.0-32.0) mmol/L BUN (7-18) mg/dL Creatinine (0.51-1.17) mg/dL Est Cr Clr Drug Dosing mL/min Estimated GFR (MDRD) mL/min Glucose (74-106) mg/dL Hemoglobin A1c (4.3-5.7) % Lactic Acid (0.4-2.0) mmol/L Calcium (8.5-10.1) mg/dL Magnesium (1.8-2.4) mg/dL Iron (50-175) ug/dL TIBC (250-450) ug/dL % Saturation Ferritin (8-388) ng/mL Total Bilirubin (0.2-1.0) mg/dL AST (15-37) U/L ALT (12-78) U/L Alkaline Phosphatase (46-116) IU/L Creatine Kinase (26-308) U/L Creatine Kinase Index (0.0-2.5) % CK-MB (CK-2) (0.00-3.60) ng/mL Troponin I (0.000-0.056) ng/mL NT-Pro-B Natriuret Pep (0-125) pg/mL Total Protein (6.4-8.2) g/dL Albumin (3.4-5.0) g/dL Triglycerides (30-150) mg/dL Cholesterol (100-200) mg/dL LDL Cholesterol, Calc (0-100) mg/dL HDL Cholesterol (40-60) mg/dL Amylase (25-115) U/L Lipase (73-393) U/L Vitamin B12 (193-986) pg/mL Specimen Type Urincc Urine Color Yellow Urine Appearance Clear Urine pH 5.0 (5.0-9.0) Ur Specific [place] 1.020 (1.005-1.030) Urine Protein Negative (NEGATIVE) mg/dL Urine Glucose (UA) Negative (NEGATIVE) mg/dL Urine Ketones Negative (NEGATIVE) mg/dL Urine Occult Blood Negative (NEGATIVE) Urine Nitrite Negative (NEGATIVE) Urine Bilirubin Negative (NEGATIVE) Urine Urobilinogen 0.2 (0.2-1.0) E.U./dL Ur Leukocyte Esterase Negative (NEGATIVE) Urine RBC Not seen /HPF Urine WBC 0-5 /HPF Ur Epithelial Cells Few /LPF Urine Bacteria Few (NONE TO FEW) /HPF Laboratory Tests 09/05/19 09/05/19 09/05/19 Range/Units 20:43 20:43 20:43 WBC 10.0 (4.0-10.2) K/uL RBC 5.07 (3.77-5.09) M/uL Hgb 12.5 (11.7-15.5) g/dL Hct 38.0 (34.0-46.0) % MCV 75.0 L (84.0-98.0) fL MCH 24.7 L (28.2-33.3) pg MCHC 32.9 (31.7-36.0) g/dL RDW 15.5 H (11.2-14.1) % Plt Count 205 (150-350) K/uL Neut % (Auto) 70.4 (45.0-80.0) % Lymph % (Auto) 20.7 (10.0-50.0) % Trigg % (Auto) 7.3 (2.0-14.0) % Eos % (Auto) 1.4 (0.0-5.0) % Baso % (Auto) 0.2 (0.0-2.0) % Neut # (Auto) 7.02 H (1.40-7.00) K/uL Lymph # (Auto) 2.06 (0.50-3.50) K/uL [place]igg # (Auto) 0.73 (0.00-1.00) K/uL Eos # (Auto) 0.14 (0.00-0.50) K/uL Baso # (Auto) 0.02 (0.00-0.20) K/uL PT 9.5 (9.5-12.0) SEC INR 0.9 APTT 25.4 (24.5-32.8) SEC D-Dimer, Quantitative (0-400) ng/mL Sodium 138 (136-145) mmol/L Potassium 4.0 (3.5-5.1) mmol/L Chloride 103 (98-107) mmol/L Carbon Dioxide 24.7 (21.0-32.0) mmol/L BUN 14 (7-18) mg/dL Creatinine 0.73 (0.51-1.17) mg/dL Est Cr Clr Drug Dosing 72.04 mL/min Estimated GFR (MDRD) > 60 mL/min Glucose 196 H (74-106) mg/dL Hemoglobin A1c (4.3-5.7) % Lactic Acid (0.4-2.0) mmol/L Calcium 8.5 (8.5-10.1) mg/dL Magnesium 1.5 L (1.8-2.4) mg/dL Iron (50-175) ug/dL TIBC (250-450) ug/dL % Saturation Ferritin (8-388) ng/mL Total Bilirubin 0.4 (0.2-1.0) mg/dL AST 28 (15-37) U/L ALT 31 (12-78) U/L Alkaline Phosphatase 59 (46-116) IU/L Creatine Kinase 52 (26-308) U/L Creatine Kinase Index 0.2 (0.0-2.5) % CK-MB (CK-2) 0.10 (0.00-3.60) ng/mL Troponin I 0.000 (0.000-0.056) ng/mL NT-Pro-B Natriuret Pep 502 H (0-125) pg/mL Total Protein 6.5 (6.4-8.2) g/dL Albumin 3.2 L (3.4-5.0) g/dL Triglycerides (30-150) mg/dL Cholesterol (100-200) mg/dL LDL Cholesterol, Calc (0-100) mg/dL HDL Cholesterol (40-60) mg/dL Amylase (25-115) U/L Lipase (73-393) U/L Vitamin B12 (193-986) pg/mL TSH, Ultra Sensitive 2.226 (0.358-3.740) mIU/mL Specimen Type Urine Color Urine Appearance Urine pH (5.0-9.0) Ur Specific [place] (1.005-1.030) Urine Protein (NEGATIVE) mg/dL Urine Glucose (UA) (NEGATIVE) mg/dL Urine Ketones (NEGATIVE) mg/dL Urine Occult Blood (NEGATIVE) Urine Nitrite (NEGATIVE) Urine Bilirubin (NEGATIVE) Urine Urobilinogen (0.2-1.0) E.U./dL Ur Leukocyte Esterase (NEGATIVE) Urine RBC /HPF Urine WBC /HPF Ur Epithelial Cells /LPF Urine Bacteria (NONE TO FEW) /HPF 09/05/19 09/05/19 09/06/19 Range/Units 20:43 20:43 07:35 WBC (4.0-10.2) K/uL RBC (3.77-5.09) M/uL Hgb (11.7-15.5) g/dL Hct (34.0-46.0) % MCV (84.0-98.0) fL MCH (28.2-33.3) pg MCHC (31.7-36.0) g/dL RDW (11.2-14.1) % Plt Count (150-350) K/uL Neut % (Auto) (45.0-80.0) % Lymph % (Auto) (10.0-50.0) % [place] % (Auto) (2.0-14.0) % Eos % (Auto) (0.0-5.0) % Baso % (Auto) (0.0-2.0) % Neut # (Auto) (1.40-7.00) K/uL Lymph # (Auto) (0.50-3.50) K/uL Trigg # (Auto) (0.00-1.00) K/uL Eos # (Auto) (0.00-0.50) K/uL Baso # (Auto) (0.00-0.20) K/uL PT (9.5-12.0) SEC INR APTT (24.5-32.8) SEC D-Dimer, Quantitative < 100 (0-400) ng/mL Sodium 140 (136-145) mmol/L Potassium 3.8 (3.5-5.1) mmol/L Chloride 107 (98-107) mmol/L Carbon Dioxide 26.1 (21.0-32.0) mmol/L BUN 12 (7-18) mg/dL Creatinine 0.75 (0.51-1.17) mg/dL Est Cr Clr Drug Dosing 70.12 mL/min Estimated GFR (MDRD) > 60 mL/min Glucose 137 H (74-106) mg/dL Hemoglobin A1c (4.3-5.7) % Lactic Acid 2.5 H (0.4-2.0) mmol/L Calcium 7.8 L (8.5-10.1) mg/dL Magnesium 2.1 (1.8-2.4) mg/dL Iron (50-175) ug/dL TIBC (250-450) ug/dL % Saturation Ferritin (8-388) ng/mL Total Bilirubin (0.2-1.0) mg/dL AST (15-37) U/L ALT (12-78) U/L Alkaline Phosphatase (46-116) IU/L Creatine Kinase (26-308) U/L Creatine Kinase Index (0.0-2.5) % CK-MB (CK-2) (0.00-3.60) ng/mL Troponin I 0.000 (0.000-0.056) ng/mL NT-Pro-B Natriuret Pep (0-125) pg/mL Total Protein (6.4-8.2) g/dL Albumin (3.4-5.0) g/dL Triglycerides (30-150) mg/dL Cholesterol (100-200) mg/dL LDL Cholesterol, Calc (0-100) mg/dL HDL Cholesterol (40-60) mg/dL Amylase (25-115) U/L Lipase (73-393) U/L Vitamin B12 (193-986) pg/mL TSH, Ultra Sensitive (0.358-3.740) mIU/mL Specimen Type Urine Color Urine Appearance Urine pH (5.0-9.0) Ur Specific [place] (1.005-1.030) Urine Protein (NEGATIVE) mg/dL Urine Glucose (UA) (NEGATIVE) mg/dL Urine Ketones (NEGATIVE) mg/dL Urine Occult Blood (NEGATIVE) Urine Nitrite (NEGATIVE) Urine Bilirubin (NEGATIVE) Urine Urobilinogen (0.2-1.0) E.U./dL Ur Leukocyte Esterase (NEGATIVE) Urine RBC /HPF Urine WBC /HPF Ur Epithelial Cells /LPF Urine Bacteria (NONE TO FEW) /HPF 09/06/19 09/06/19 09/06/19 Range/Units 07:35 07:35 12:18 WBC 9.1 (4.0-10.2) K/uL RBC 4.45 (3.77-5.09) M/uL Hgb 11.1 L (11.7-15.5) g/dL Hct 33.6 L (34.0-46.0) % MCV 75.5 L (84.0-98.0) fL MCH 24.9 L (28.2-33.3) pg MCHC 33.0 (31.7-36.0) g/dL RDW 15.5 H (11.2-14.1) % Plt Count 194 (150-350) K/uL Neut % (Auto) 62.6 (45.0-80.0) % Lymph % (Auto) 26.7 (10.0-50.0) % [place] % (Auto) 8.6 (2.0-14.0) % Eos % (Auto) 1.9 (0.0-5.0) % Baso % (Auto) 0.2 (0.0-2.0) % Neut # (Auto) 5.68 (1.40-7.00) K/uL Lymph # (Auto) 2.42 (0.50-3.50) K/uL [place] # (Auto) 0.78 (0.00-1.00) K/uL Eos # (Auto) 0.17 (0.00-0.50) K/uL Baso # (Auto) 0.02 (0.00-0.20) K/uL PT (9.5-12.0) SEC INR APTT (24.5-32.8) SEC D-Dimer, Quantitative (0-400) ng/mL Sodium (136-145) mmol/L Potassium (3.5-5.1) mmol/L Chloride (98-107) mmol/L Carbon Dioxide (21.0-32.0) mmol/L BUN (7-18) mg/dL Creatinine (0.51-1.17) mg/dL Est Cr Clr Drug Dosing mL/min Estimated GFR (MDRD) mL/min Glucose (74-106) mg/dL Hemoglobin A1c (4.3-5.7) % Lactic Acid 1.3 (0.4-2.0) mmol/L Calcium (8.5-10.1) mg/dL Magnesium (1.8-2.4) mg/dL Iron (50-175) ug/dL TIBC (250-450) ug/dL % Saturation Ferritin (8-388) ng/mL Total Bilirubin (0.2-1.0) mg/dL AST (15-37) U/L ALT (12-78) U/L Alkaline Phosphatase (46-116) IU/L Creatine Kinase 56 (26-308) U/L Creatine Kinase Index 0.4 (0.0-2.5) % CK-MB (CK-2) 0.20 (0.00-3.60) ng/mL Troponin I 0.000 (0.000-0.056) ng/mL NT-Pro-B Natriuret Pep (0-125) pg/mL Total Protein (6.4-8.2) g/dL Albumin (3.4-5.0) g/dL Triglycerides (30-150) mg/dL Cholesterol (100-200) mg/dL LDL Cholesterol, Calc (0-100) mg/dL HDL Cholesterol (40-60) mg/dL Amylase (25-115) U/L Lipase (73-393) U/L Vitamin B12 (193-986) pg/mL TSH, Ultra Sensitive (0.358-3.740) mIU/mL Specimen Type Urine Color Urine Appearance Urine pH (5.0-9.0) Ur Specific [place] (1.005-1.030) Urine Protein (NEGATIVE) mg/dL Urine Glucose (UA) (NEGATIVE) mg/dL Urine Ketones (NEGATIVE) mg/dL Urine Occult Blood (NEGATIVE) Urine Nitrite (NEGATIVE) Urine Bilirubin (NEGATIVE) Urine Urobilinogen (0.2-1.0) E.U./dL Ur Leukocyte Esterase (NEGATIVE) Urine RBC /HPF Urine WBC /HPF Ur Epithelial Cells /LPF Urine Bacteria (NONE TO FEW) /HPF 09/07/19 09/07/19 09/07/19 Range/Units 07:11 07:11 07:11 WBC 17.1 H (4.0-10.2) K/uL RBC 5.24 H (3.77-5.09) M/uL Hgb 13.0 D (11.7-15.5) g/dL Hct 39.2 (34.0-46.0) % MCV 74.8 L (84.0-98.0) fL MCH 24.8 L (28.2-33.3) pg MCHC 33.2 (31.7-36.0) g/dL RDW 16.1 H (11.2-14.1) % Plt Count 267 (150-350) K/uL Neut % (Auto) 88.3 H (45.0-80.0) % Lymph % (Auto) 6.7 L (10.0-50.0) % [place] % (Auto) 4.9 (2.0-14.0) % Eos % (Auto) 0.0 (0.0-5.0) % Baso % (Auto) 0.1 (0.0-2.0) % Neut # (Auto) 15.04 H (1.40-7.00) K/uL Lymph # (Auto) 1.15 (0.50-3.50) K/uL [place] # (Auto) 0.84 (0.00-1.00) K/uL Eos # (Auto) 0.00 (0.00-0.50) K/uL Baso # (Auto) 0.02 (0.00-0.20) K/uL PT (9.5-12.0) SEC INR APTT (24.5-32.8) SEC D-Dimer, Quantitative < 100 (0-400) ng/mL Sodium 139 (136-145) mmol/L Potassium 3.9 (3.5-5.1) mmol/L Chloride 99 (98-107) mmol/L Carbon Dioxide 29.0 (21.0-32.0) mmol/L BUN 20 H (7-18) mg/dL Creatinine 0.98 (0.51-1.17) mg/dL Est Cr Clr Drug Dosing 53.66 mL/min Estimated GFR (MDRD) > 60 mL/min Glucose 235 H (74-106) mg/dL Hemoglobin A1c (4.3-5.7) % Lactic Acid (0.4-2.0) mmol/L Calcium 8.9 (8.5-10.1) mg/dL Magnesium 1.9 (1.8-2.4) mg/dL Iron (50-175) ug/dL TIBC (250-450) ug/dL % Saturation Ferritin (8-388) ng/mL Total Bilirubin 0.6 (0.2-1.0) mg/dL AST 31 (15-37) U/L ALT 34 (12-78) U/L Alkaline Phosphatase 62 (46-116) IU/L Creatine Kinase 33 (26-308) U/L Creatine Kinase Index 0.6 (0.0-2.5) % CK-MB (CK-2) 0.20 (0.00-3.60) ng/mL Troponin I 0.000 (0.000-0.056) ng/mL NT-Pro-B Natriuret Pep 174 H (0-125) pg/mL Total Protein 7.6 (6.4-8.2) g/dL Albumin 3.8 (3.4-5.0) g/dL Triglycerides 107 (30-150) mg/dL Cholesterol 200 (100-200) mg/dL LDL Cholesterol, Calc 125 H (0-100) mg/dL HDL Cholesterol 54 (40-60) mg/dL Amylase 24 L (25-115) U/L Lipase 86 (73-393) U/L Vitamin B12 546 (193-986) pg/mL TSH, Ultra Sensitive (0.358-3.740) mIU/mL Specimen Type Urine Color Urine Appearance Urine pH (5.0-9.0) Ur Specific [place] (1.005-1.030) Urine Protein (NEGATIVE) mg/dL Urine Glucose (UA) (NEGATIVE) mg/dL Urine Ketones (NEGATIVE) mg/dL Urine Occult Blood (NEGATIVE) Urine Nitrite (NEGATIVE) Urine Bilirubin (NEGATIVE) Urine Urobilinogen (0.2-1.0) E.U./dL Ur Leukocyte Esterase (NEGATIVE) Urine RBC /HPF Urine WBC /HPF Ur Epithelial Cells /LPF Urine Bacteria (NONE TO FEW) /HPF 09/07/19 09/07/19 09/07/19 Range/Units 07:11 07:12 08:26 WBC (4.0-10.2) K/uL RBC (3.77-5.09) M/uL Hgb (11.7-15.5) g/dL Hct (34.0-46.0) % MCV (84.0-98.0) fL MCH (28.2-33.3) pg MCHC (31.7-36.0) g/dL RDW (11.2-14.1) % Plt Count (150-350) K/uL Neut % (Auto) (45.0-80.0) % Lymph % (Auto) (10.0-50.0) % [place] % (Auto) (2.0-14.0) % Eos % (Auto) (0.0-5.0) % Baso % (Auto) (0.0-2.0) % Neut # (Auto) (1.40-7.00) K/uL Lymph # (Auto) (0.50-3.50) K/uL [place] # (Auto) (0.00-1.00) K/uL Eos # (Auto) (0.00-0.50) K/uL Baso # (Auto) (0.00-0.20) K/uL PT (9.5-12.0) SEC INR APTT (24.5-32.8) SEC D-Dimer, Quantitative (0-400) ng/mL Sodium (136-145) mmol/L Potassium (3.5-5.1) mmol/L Chloride (98-107) mmol/L Carbon Dioxide (21.0-32.0) mmol/L BUN (7-18) mg/dL Creatinine (0.51-1.17) mg/dL Est Cr Clr Drug Dosing mL/min Estimated GFR (MDRD) mL/min Glucose (74-106) mg/dL Hemoglobin A1c 6.9 H (4.3-5.7) % Lactic Acid 2.7 H (0.4-2.0) mmol/L Calcium (8.5-10.1) mg/dL Magnesium (1.8-2.4) mg/dL Iron 32 L (50-175) ug/dL TIBC 433 (250-450) ug/dL % Saturation [id number] Ferritin 24 (8-388) ng/mL Total Bilirubin (0.2-1.0) mg/dL AST (15-37) U/L ALT (12-78) U/L Alkaline Phosphatase (46-116) IU/L Creatine Kinase (26-308) U/L Creatine Kinase Index (0.0-2.5) % CK-MB (CK-2) (0.00-3.60) ng/mL Troponin I (0.000-0.056) ng/mL NT-Pro-B Natriuret Pep (0-125) pg/mL Total Protein (6.4-8.2) g/dL Albumin (3.4-5.0) g/dL Triglycerides (30-150) mg/dL Cholesterol (100-200) mg/dL LDL Cholesterol, Calc (0-100) mg/dL HDL Cholesterol (40-60) mg/dL Amylase (25-115) U/L Lipase (73-393) U/L Vitamin B12 (193-986) pg/mL TSH, Ultra Sensitive (0.358-3.740) mIU/mL Specimen Type Urine Color Urine Appearance Urine pH (5.0-9.0) Ur Specific [place] (1.005-1.030) Urine Protein (NEGATIVE) mg/dL Urine Glucose (UA) (NEGATIVE) mg/dL Urine Ketones (NEGATIVE) mg/dL Urine Occult Blood (NEGATIVE) Urine Nitrite (NEGATIVE) Urine Bilirubin (NEGATIVE) Urine Urobilinogen (0.2-1.0) E.U./dL Ur Leukocyte Esterase (NEGATIVE) Urine RBC /HPF Urine WBC /HPF Ur Epithelial Cells /LPF Urine Bacteria (NONE TO FEW) /HPF 09/07/19 Range/Units 12:05 WBC (4.0-10.2) K/uL RBC (3.77-5.09) M/uL Hgb (11.7-15.5) g/dL Hct (34.0-46.0) % MCV (84.0-98.0) fL MCH (28.2-33.3) pg MCHC (31.7-36.0) g/dL RDW (11.2-14.1) % Plt Count (150-350) K/uL Neut % (Auto) (45.0-80.0) % Lymph % (Auto) (10.0-50.0) % [place] % (Auto) (2.0-14.0) % Eos % (Auto) (0.0-5.0) % Baso % (Auto) (0.0-2.0) % Neut # (Auto) (1.40-7.00) K/uL Lymph # (Auto) (0.50-3.50) K/uL [place] # (Auto) (0.00-1.00) K/uL Eos # (Auto) (0.00-0.50) K/uL Baso # (Auto) (0.00-0.20) K/uL PT (9.5-12.0) SEC INR APTT (24.5-32.8) SEC D-Dimer, Quantitative (0-400) ng/mL Sodium (136-145) mmol/L Potassium (3.5-5.1) mmol/L Chloride (98-107) mmol/L Carbon Dioxide (21.0-32.0) mmol/L BUN (7-18) mg/dL Creatinine (0.51-1.17) mg/dL Est Cr Clr Drug Dosing mL/min Estimated GFR (MDRD) mL/min Glucose (74-106) mg/dL Hemoglobin A1c (4.3-5.7) % Lactic Acid (0.4-2.0) mmol/L Calcium (8.5-10.1) mg/dL Magnesium (1.8-2.4) mg/dL Iron (50-175) ug/dL TIBC (250-450) ug/dL % Saturation Ferritin (8-388) ng/mL Total Bilirubin (0.2-1.0) mg/dL AST (15-37) U/L ALT (12-78) U/L Alkaline Phosphatase (46-116) IU/L Creatine Kinase (26-308) U/L Creatine Kinase Index (0.0-2.5) % CK-MB (CK-2) (0.00-3.60) ng/mL Troponin I (0.000-0.056) ng/mL NT-Pro-B Natriuret Pep (0-125) pg/mL Total Protein (6.4-8.2) g/dL Albumin (3.4-5.0) g/dL Triglycerides (30-150) mg/dL Cholesterol (100-200) mg/dL LDL Cholesterol, Calc (0-100) mg/dL HDL Cholesterol (40-60) mg/dL Amylase (25-115) U/L Lipase (73-393) U/L Vitamin B12 (193-986) pg/mL TSH, Ultra Sensitive (0.358-3.740) mIU/mL Specimen Type Urin[place] Urine Color Yellow Urine Appearance Clear Urine pH 5.0 (5.0-9.0) Ur Specific [place] 1.020 (1.005-1.030) Urine Protein Negative (NEGATIVE) mg/dL Urine Glucose (UA) Negative (NEGATIVE) mg/dL Urine Ketones Negative (NEGATIVE) mg/dL Urine Occult Blood Negative (NEGATIVE) Urine Nitrite Negative (NEGATIVE) Urine Bilirubin Negative (NEGATIVE) Urine Urobilinogen 0.2 (0.2-1.0) E.U./dL Ur Leukocyte Esterase Negative (NEGATIVE) Urine RBC Not seen /HPF Urine WBC 0-5 /HPF Ur Epithelial Cells Few /LPF Urine Bacteria Few (NONE TO FEW) /HPF JUAN Results - Last 24 hrs: UA culture and sensitivity is pending. Med Orders - Current: Current Medications Acetaminophen (Tylenol) 650 mg PO Q4H PRN PRN Reason: Pain/Fever Last Admin: 09/06/19 20:12 Dose: 650 mg Documented by: Buspirone HCl (Buspar) 15 mg PO TID@08,14,20 [facility] Last Admin: 09/07/19 09:29 Dose: 15 mg Documented by: Escitalopram Oxalate (Lexapro) 20 mg PO DAILY [facility] Last Admin: 09/07/19 09:29 Dose: 20 mg Documented by: Furosemide (Lasix) 40 mg IVPUSH Q8H [facility] Last Admin: 09/07/19 09:29 Dose: 40 mg Documented by: Hydroxyzine Pamoate (Vistaril) 50 mg PO Q12HR PRN PRN Reason: Anxiety Last Admin: 09/06/19 20:22 Dose: 50 mg Documented by: Levofloxacin/Dextrose 500 mg/ (Premix) 100 mls @ 100 mls/hr IV Q24H [facility] Last Admin: 09/07/19 11:26 Dose: 100 mls/hr Documented by: Lactated Ringer's (Ringers, Lactated) 1,000 mls @ 100 mls/hr IV ASDIRECTED [facility] Isosorbide Mononitrate (Imdur) 30 mg PO QPM [facility] Last Admin: 09/06/19 17:40 Dose: 30 mg Documented by: Lisinopril (Prinivil) 40 mg PO DAILY [facility] Last Admin: 09/07/19 09:34 Dose: 40 mg Documented by: Lorazepam (Ativan) 0.5 mg PO Q6H PRN PRN Reason: Anxiety Last Admin: 09/07/19 05:02 Dose: 0.5 mg Documented by: Magnesium Oxide (Magnesium Oxide) 400 mg PO BID [facility] Last Admin: 09/07/19 09:30 Dose: 400 mg Documented by: Metformin HCl (Glucophage) 500 mg PO BID [facility] Last Admin: 09/07/19 09:30 Dose: 500 mg Documented by: Metoprolol Tartrate (Lopressor) 25 mg PO Q12HR [facility] Last Admin: 09/07/19 09:34 Dose: 25 mg Documented by: Ondansetron HCl (Zofran) 4 mg IVPUSH Q6H PRN PRN Reason: Nausea/Vomiting Last Admin: 09/07/19 11:30 Dose: 4 mg Documented by: Potassium Chloride (Klor-Con M20) 20 meq PO TID [facility] Last Admin: 09/07/19 13:22 Dose: Not Given Documented by: Sodium Chloride (Saline Flush) 10 ml FLUSH ASDIRECTED PRN PRN Reason: Keep Vein Open Last Admin: 09/07/19 11:32 Dose: 10 ml Documented by: Sodium Chloride (Saline Flush) 10 ml FLUSH Q12HR PRN PRN Reason: Keep Vein Open Sucralfate (Carafate) 1 gm PO QID [facility] Last Admin: 09/07/19 13:21 Dose: Not Given Documented by: Discontinued Medications Buspirone HCl (Buspar) 15 mg PO TID [facility] Last Admin: 09/05/19 23:48 Dose: 15 mg Documented by: Diatrizoate Meglum/Diatrizoate Sod (Gastrografin 37%) 30 ml PO ONETIME ONE Stop: 09/07/19 12:01 Famotidine (Pepcid) 20 mg IVPUSH ONETIME ONE Stop: 09/05/19 22:10 Last Admin: 09/05/19 22:48 Dose: 20 mg Documented by: Famotidine (Pepcid) 20 mg IVPUSH ONETIME ONE Stop: 09/06/19 07:01 Last Admin: 09/06/19 07:59 Dose: 20 mg Documented by: Furosemide (Lasix) 20 mg PO DAILY [facility] Last Admin: 09/06/19 07:58 Dose: 20 mg Documented by: Hydroxyzine Pamoate (Vistaril) 50 mg PO Q12HR [facility] Last Admin: 09/05/19 23:48 Dose: 50 mg Documented by: Magnesium Sulfate/Dextrose 1 (gm/ Premix) 100 mls @ 100 mls/hr IV ONETIME ONE Stop: 09/05/19 23:07 Last Admin: 09/05/19 22:47 Dose: 100 mls/hr Documented by: Magnesium Sulfate/Dextrose 1 (gm/ Premix) 100 mls @ 100 mls/hr IV ONETIME ONE Stop: 09/06/19 01:59 Last Admin: 09/06/19 00:42 Dose: 100 mls/hr Documented by: Sodium Chloride (Normal Saline) 1,000 mls @ 125 mls/hr IV ASDIRECTED TRAN Last Admin: 09/06/19 06:51 Dose: 125 mls/hr Documented by: Lactated Ringer's (Ringers, Lactated) 1,000 mls @ 999 mls/hr IV .BOLUS ONE Stop: 09/07/19 11:56 Last Admin: 09/07/19 11:27 Dose: 999 mls/hr Documented by: Iopamidol (Isovue-300 (61%)) 100 ml IVPUSH ONETIME ONE Stop: 09/07/19 12:01 Lisinopril (Prinivil) 40 mg PO DAILY [facility] Last Admin: 09/06/19 07:56 Dose: 40 mg Documented by: Lorazepam (Ativan) 0.25 mg PO ONETIME ONE Stop: 09/05/19 21:18 Last Admin: 09/05/19 21:46 Dose: 0.25 mg Documented by: Lorazepam (Ativan) 1 mg IVPUSH ONETIME ONE Stop: 09/06/19 22:55 Last Admin: 09/06/19 23:11 Dose: 1 mg Documented by: Metoprolol Tartrate (Lopressor) 25 mg PO DAILY [facility] Metoprolol Tartrate (Lopressor) 25 mg PO ONETIME ONE Stop: 09/06/19 00:04 Last Admin: 09/06/19 00:41 Dose: 25 mg Documented by: Nitroglycerin (Nitrostat) 0.4 mg SL ONETIME ONE Stop: 09/05/19 20:37 Last Admin: 09/05/19 20:38 Dose: 0.4 mg Documented by: Pantoprazole Sodium (Protonix Iv) 40 mg IVPUSH ONETIME ONE Stop: 09/05/19 22:09 Last Admin: 09/05/19 22:48 Dose: 40 mg Documented by: Pantoprazole Sodium (Protonix Iv) 40 mg IVPUSH ONETIME ONE Stop: 09/06/19 07:01 Last Admin: 09/06/19 07:58 Dose: 40 mg Documented by: Temazepam (Restoril) 15 mg PO BEDTIME PRN PRN Reason: Insomnia - Exam Quality Assessment: Reports: DVT Prophylaxis. Denies: Supplemental Oxygen, Central Line/PICC, Urine Catheter, Skin Breakdown General: Reports: Alert, Oriented, Cooperative, No Acute Distress HEENT: Reports: Pupils Equal, Pupils Reactive, EOMI, Mucous Membr. Moist/[place], Other ([place] in poor repair). Denies: Scleral Icterus Neck: Reports: Supple, Trachea Midline, No JVD, No Thyromegaly, +2 Carotid Pulse wo Bruit. Denies: Lymphadenopathy Lungs: Reports: Clear to Auscultation, Normal Respiratory Effort. Denies: Rub Cardiovascular: Reports: Regular Rate, Regular Rhythm, No Murmurs. Denies: Gallops, Rubs GI/Abdominal Exam: Normal Bowel Sounds, Soft, Non-Tender, No Organomegaly, No Distention, No Abnormal Bruit, No Mass, Other (Obese). No: Guarding (Female) Exam: Deferred Rectal (Female) Exam: Deferred Back Exam: Reports: Normal Inspection, Full Range of Motion. Denies: CVA Tenderness (L), CVA Tenderness (R), Muscle Spasm Extremities: Normal Inspection, Normal Range of Motion, Non-Tender, No Pedal Edema, Normal Capillary Refill. No: Juliet's Sign Skin: Reports: Warm, Dry, Intact. Denies: Ecchymosis Neurological: Reports: No New Focal Deficit Psy/Mental Status: Reports: Labile Mood, Anxious (Moderate), Depressed (Mild). Denies: Agitated, Hallucinations, Withdrawal Symptoms EKG INTERPRETATION EKG Date: 09/07/19 Time: 07:35 Rhythm: NSR Rate (Beats/Min): 84 [place]: Normal (Left cardiac axis) P-Wave: Present QRS: Normal (0.08 seconds) ST-T: Other (Table T-wave inversions in leads 3 and V1 with resolution of previous T-wave inversions in leads V4 through V6, however new T wave inversions in leads V2 and V3) QT: Normal [place]/PQ Interval: 0.14 seconds representing borderline short [place] interval with no delta waves noted. Poor R-wave progression in the anterior leads Comparison: Change From Previous EKG (As above since 09/06/19) EKG Interpretation Comments: 1. New Anterior wall cardiac ischemia with resolution of previous lateral ischemia-? 2. Short [place] interval
[2019-09-07 14:53] VITALS: BP 168/96; PULSE 85
== END 2019-09-07 13:01 ==
LOC: LL.ED 20:30 → LL.MS 21:50 → UNDOADMOB 21:50 → LL.MS 22:06
PROVIDERS: ADMIT Emergency Medicine; ATTEND Family Medicine
DX: R07.89 Other chest pain (principal); I11.0 Hypertensive heart disease with heart failure; I50.9 Heart failure, unspecified; R79.89 Other specified abnormal findings of blood chemistry; K21.9 Gastro-esophageal reflux disease without esophagitis; E83.42 Hypomagnesemia; J45.20 Mild intermittent asthma, uncomplicated; D50.8 Other iron deficiency anemias; E11.9 Type 2 diabetes mellitus without complications; E78.2 Mixed hyperlipidemia; Z79.899 Other long term (current) drug therapy; Z88.0 Allergy status to penicillin; Z88.8 Allergy status to other drugs, medicaments and biological substances; Z88.5 Allergy status to narcotic agent; Z79.82 Long term (current) use of aspirin; Z77.22 Contact with and (suspected) exposure to environmental tobacco smoke (acute) (chronic)
CPT/HCPCS: 36415; 71046; 74022; 74177; 80048; 80053; 80061; 81001; 82150; 82550; 82553; 82607; 82728; 83036; 83540; 83550; 83605; 83690; 83735; 83880; 84443; 84484; 85025; 85379; 85610; 85730; 87040; 87086; 87088; 87186; 93005; 96361; 96365; 96366; 96375; 96376; 99285-25; A9270-GY; C9113; G0378; J1940; J1956; J2060; J2405; J3475; J3490; J7030; J7120; Q0177; Q9963; Q9967

== ENCOUNTER 2020-01-17 20:31 | Inpatient (IN) | payer BC ==
[2020-01-17] MEDS ORDERED: Famotidine 20 MG/2 ML SDV IVPUSH ONE (20:55)
--- NOTE | 2020-01-17 20:55 | EDM.PDOC ---
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 Event Note (ED) - Evaluation Sepsis Screening Result: Possible Sepsis Risk - Focused Exam Vital Signs: Vital Signs Temp Pulse Resp BP Pulse Ox 01/17/20 20:55 38.2 C H 100 14 150/84 H 98 01/17/20 20:39 38.7 C H 103 H 14 184/100 H 97 - Problem List & Annotations (1) Lactic acid increased SNOMED Code(s): 58205829 Code(s): E87.2 - ACIDOSIS Status: Acute Priority: Medium Annotation/Comment:: No leukocytosis with mildly elevated lactic acid level with patient having a similar history of this in the past. Sepsis order set to be initiated shortly after patient's admission. No direct clinical evidence of sepsis despite patient's fever and mild tachycardia secondary to her fever. Note elevated blood pressures as above/below. Blood cultures x2 have been collected. Attempt to obtain sputum for culture and sensitivity. UA has been collected with urine culture set up for sensitivity. (2) Asthma SNOMED Code(s): 681548236 Code(s): J45.909 - UNSPECIFIED ASTHMA, UNCOMPLICATED Status: Chronic Priority: Medium Annotation/Comment:: No evidence of asthma exacerbation by clinical exam today. Note probable viral bronchitis however elevated lactic acid level with sepsis protocol initiated as above. Qualifiers: Asthma severity: mild Asthma persistence: intermittent Asthma complication type: uncomplicated Qualified Code(s): J45.20 - Mild intermittent asthma, uncomplicated (3) PAC (premature atrial contraction) SNOMED Code(s): 381330601 Code(s): I49.1 - ATRIAL PREMATURE DEPOLARIZATION Status: Acute Priority: Medium Onset Date: 01/17/20 Annotation/Comment:: Very occasional PACs with no chest pain or anginal type symptoms negative cardiac work-up as below. Observe for now. (4) Hypertension SNOMED Code(s): 02455793 Code(s): I10 - ESSENTIAL (PRIMARY) HYPERTENSION Status: Chronic Priority: Medium Annotation/Comment:: Blood pressure somewhat elevated in the emergency room. Patient did take her medications shortly prior to arrival. Continue to observe closely during this hospitalization. Previous problems with labile blood pressures in the past. Qualifiers: Hypertension type: essential hypertension Qualified Code(s): I10 - Essential (primary) hypertension (5) Mixed anxiety depressive disorder SNOMED Code(s): 054215122 Code(s): F41.8 - OTHER SPECIFIED ANXIETY DISORDERS Status: Chronic Priority: Medium Annotation/Comment:: Moderate control based on today's exam. Continue to observe closely by her regular providers. (6) Peptic reflux disease SNOMED Code(s): 201379531 Code(s): K21.9 - GASTRO-ESOPHAGEAL REFLUX DISEASE WITHOUT ESOPHAGITIS Status: Chronic Priority: Medium Annotation/Comment:: Nonsymptomatic. High- dose IV Pepcid given as GI prophylaxis. (7) Tobacco abuse counseling SNOMED Code(s): 348155046, 471112765, 931416499 Code(s): Z71.6 - TOBACCO ABUSE COUNSELING Status: Chronic Priority: Medium Annotation/Comment:: Tobacco exposure once again strongly encouraged for her and was discussed during the emergency room visit. Tobacco cessation information to be provided at discharge. (8) Hypoalbuminemia SNOMED Code(s): 449161293 Code(s): E88.09 - OTH DISORDERS OF PLASMA-PROTEIN METABOLISM, NEC Status: Acute Priority: Medium Onset Date: 06/30/17 Annotation/Comment:: Consider high-protein Glucerna supplements as snacks (9) Hyponatremia SNOMED Code(s): 83938332 Code(s): E87.1 - HYPO-OSMOLALITY AND HYPONATREMIA Status: Acute Priority: Medium Onset Date: 01/17/20 Annotation/Comment:: Mild hyponatremia possibly secondary to fever. Lactated Ringer's IV bolus to be given shortly after admission. (10) Diabetes mellitus SNOMED Code(s): 60852274 Code(s): E11.9 - TYPE 2 DIABETES MELLITUS WITHOUT COMPLICATIONS Status: Chronic Priority: Medium Annotation/Comment:: Glycosylated hemoglobin in the AM. Elevated random blood sugar on admission. 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 History of medication noncompliance. Consider IV magnesium sulfate supplementation, however magnesium oxide therapy for now secondary to lactic acid elevation as above. - Problem List Review Problem List Initiated/Reviewed/Updated: Yes - My Orders Last 24 Hours: My Active Orders 01/17/20 Breakfast Nothing per Oral Now Diet [DIET] 01/17/20 20:55 Cardiac Monitoring [RC] . DIRECTED EKG Documentation Completion [RC] ASDIRECTED Oxygen Therapy, ED [RC] PRN Peripheral IV Care [RC] . DIRECTED Pulse Oximetry [RC] CONTINUOUS Up With Assistance [RC] PFP Vital Signs [RC] PFP Chest 1V Frontal [CR] Stat Sodium Chloride 0.9% [Saline Flush] 10 ml FLUSH ASDIRECTED PRN Obtain Past Medical Record [OM.PC] Urgent Peripheral IV Insertion Adult [OM.PC] Stat Resuscitation Status Stat 01/17/20 20:57 Blood Culture x2 Reflex Set [OM.PC] Urgent 01/17/20 20:58 Isolation [COMM] Routine 01/17/20 21:05 CULTURE BLOOD [BC] Stat D-DIMER QUANTITATIVE [COAG] Stat 01/17/20 21:15 CULTURE BLOOD [BC] Stat 01/17/20 21:30 CORONAVIRUS COVID-19 MOLLY [MOLEC] Stat CULTURE STREP A CONFIRMATION [RM] Stat CULTURE URINE [RM] Routine STREP SCRN A RAPID W CULT CONF [RM] Stat 01/17/20 22:20 Lactated Ringers [Ringers, Lactated] 1,000 ml IV .BOLUS - Assessment/Plan Admission H&P: Please use this note as an admission H&P Last 24 Hours: My Active Orders 01/17/20 Breakfast Nothing per Oral Now Diet [DIET] 01/17/20 20:55 Cardiac Monitoring [RC] . DIRECTED EKG Documentation Completion [RC] ASDIRECTED Oxygen Therapy, ED [RC] PRN Peripheral IV Care [RC] . DIRECTED Pulse Oximetry [RC] CONTINUOUS Up With Assistance [RC] PFP Vital Signs [RC] PFP Chest 1V Frontal [CR] Stat Sodium Chloride 0.9% [Saline Flush] 10 ml FLUSH ASDIRECTED PRN Obtain Past Medical Record [OM.PC] Urgent Peripheral IV Insertion Adult [OM.PC] Stat Resuscitation Status Stat 01/17/20 20:57 Blood Culture x2 Reflex Set [OM.PC] Urgent 01/17/20 20:58 Isolation [COMM] Routine 01/17/20 21:05 CULTURE BLOOD [BC] Stat D-DIMER QUANTITATIVE [COAG] Stat 01/17/20 21:15 CULTURE BLOOD [BC] Stat 01/17/20 21:30 CORONAVIRUS COVID-19 MOLLY [MOLEC] Stat CULTURE STREP A CONFIRMATION [RM] Stat CULTURE URINE [RM] Routine STREP SCRN A RAPID W CULT CONF [RM] Stat 01/17/20 22:20 Lactated Ringers [Ringers, Lactated] 1,000 ml IV .BOLUS Assessment:: As above Plan: As above. Extensive precautions were given to the patient, who is in agreement with the treatment plan. The patient's condition is stable enough for observation status and general supervision.
[2020-01-17] MEDS ORDERED: Ketorolac 30 MG/ML SDV IVPUSH ONE (21:03)
[2020-01-17] MEDS: Sodium Chloride 0.9% 10 ML Syringe FLUSH PRN (21:07)
[2020-01-17 22:00] LABS: CHLORIDE,CL 97 mmol/L (98-107); SODIUM,NA 134 mmol/L (136-145)
[2020-01-17 22:01] LABS: PTT,PARTIAL THROMBOPLSTIN TIME 23.4 SEC (24.5-32.8)
[2020-01-17] MEDS ORDERED: Lactated Ringers 1,000 ML IV ONE (22:20)
[2020-01-17] MEDS ORDERED: Temazepam 15 MG Cap PO PRN (22:58)
[2020-01-17] MEDS ORDERED: Magnesium Oxide 400 MG Tab PO ONE (23:02)
[2020-01-17] MEDS ORDERED: hydrOXYzine HCl 50 MG Tab PO PRN (23:08)
[2020-01-17] MEDS ORDERED: hydrOXYzine Pamoate 25 MG Cap PO PRN (23:41)
[2020-01-18] MEDS: Sodium Chloride 0.9% 10 ML Syringe FLUSH PRN ×4 (00:35→11:41)
[2020-01-18] MEDS: cefTRIAXone 1 GM in Sodium Chloride 0.9% 100 ML IV SCH ×2 (00:35→11:37)
[2020-01-18] MEDS: Doxycycline Monohydrate 100 MG Cap PO SCH ×3 (00:37→17:46)
[2020-01-18 07:58] LABS: HEMOGLOBIN A1C 8.9 % (4.3-5.7)
[2020-01-18] MEDS ORDERED: Lisinopril 10 MG Tab PO SCH (08:00)
[2020-01-18] MEDS: Metoprolol Tartrate 25 MG Tab PO SCH (08:03)
[2020-01-18] MEDS: metFORMIN 500 MG Tab PO SCH ×2 (08:03→17:46)
[2020-01-18] MEDS: Acetaminophen 325 MG Tab PO PRN ×2 (08:06→19:36)
[2020-01-18 08:08] LABS: CHLORIDE,CL 101 mmol/L (98-107); SODIUM,NA 136 mmol/L (136-145)
[2020-01-18] MEDS: Escitalopram 20 MG Tab PO SCH (08:08)
[2020-01-18] MEDS: Ondansetron 4 MG/2 ML SDV IVPUSH PRN ×2 (09:01→17:46)
--- NOTE | 2020-01-18 11:21 | PCM.PN ---
- General Info Date of Service: 01/18/20 Admission Dx/Problem (Free Text): 1. Pneumonia with possible COVID-19 2. Lactic acid elevation 3. Asthma Functional Status: Reports: Pain Controlled, Tolerating Diet, Ambulating, Urinating, Incentive Spirometry. Denies: New Symptoms Pain Score: 3 (Occasional bilateral frontal headache relieved with Tylenol) - Review of Systems General: Reports: Fever, Weakness (Mild), Fatigue (Mild), Chills, Night Sweats. Denies: Appetite (Adequate) HEENT: Reports: Headaches, Post Nasal Drip, Sinus Congestion, Rhinitis. Denies: Dysphasia, Ear Pain, Eye Pain, Sore Throat, Visual Changes Pulmonary: Reports: Cough. Denies: Shortness of Breath, Pleuritic Chest Pain, Sputum, Hemoptysis, Wheezing Cardiovascular: Reports: Dyspnea on Exertion. Denies: Chest Pain, Palpitations, Orthopnea, PND, Edema, Lightheadedness Gastrointestinal: Reports: Nausea (This morning possibly secondary to oral doxycycline). Denies: Abdominal Pain, Constipation (No bowel movement since admission), Decreased Appetite, Diarrhea, Difficulty Swallowing, Flatus, Hematochezia, Melena, Vomiting Genitourinary: Reports: No Symptoms. Denies: Dysuria, Frequency, Burning, Urgency, Incontinence, Hematuria, Retention, Flank Pain Musculoskeletal: Reports: No Symptoms. Denies: Neck Pain, Shoulder Pain, Arm Pain, Back Pain, Leg Pain Skin: Reports: No Symptoms. Denies: Diaphoresis, Bruising, Rash Neurological: Reports: Headache, Weakness (Nonspecific mild generalized). Denies: Confusion, Numbness, Paresthesia, Tingling, Difficulty Walking, Change in Speech, Gait Disturbance Psychiatric: Reports: Anxiety (Mild). Denies: Confusion, Depression, Agitation, Cravings, Hallucinations - Patient Data Vitals - Most Recent: Last Vital Signs Temp 37.4 C 01/18/20 09:37 Pulse 84 01/18/20 09:37 Resp 20 01/18/20 09:37 BP 144/84 H 01/18/20 09:37 Pulse Ox 97 01/18/20 09:37 Vital Signs - 24 hr 01/17/20 01/17/20 01/18/20 20:39 20:55 00:00 Temperature [ 38.7 C H 38.2 C H 37.2 C Temporal] Pulse, Peripheral Pulse, 103 H 100 100 Peripheral [ Right Pulse Oximetry] Respiratory 14 14 18 Rate Blood Pressure Blood Pressure 184/100 H 150/84 H [Left Upper Arm ] Blood Pressure 143/93 H [Right Upper Arm] O2 Sat by Pulse 97 98 98 Oximetry 01/18/20 01/18/20 01/18/20 02:00 03:33 06:00 Temperature [ 37.1 C 37.3 C 37.9 C Temporal] Pulse, Peripheral Pulse, 84 88 95 Peripheral [ Right Pulse Oximetry] Respiratory 14 14 20 Rate Blood Pressure Blood Pressure [Left Upper Arm ] Blood Pressure 136/64 156/72 H 126/68 [Right Upper Arm] O2 Sat by Pulse 96 97 97 Oximetry 01/18/20 01/18/20 01/18/20 08:00 08:03 08:08 Temperature [ 37.4 C Temporal] Pulse, 102 H Peripheral Pulse, 102 H Peripheral [ Right Pulse Oximetry] Respiratory 20 Rate Blood Pressure 136/80 136/80 Blood Pressure [Left Upper Arm ] Blood Pressure 136/80 [Right Upper Arm] O2 Sat by Pulse 94 L Oximetry 01/18/20 09:37 Temperature [ 37.4 C Temporal] Pulse, Peripheral Pulse, 84 Peripheral [ Right Pulse Oximetry] Respiratory 20 Rate Blood Pressure Blood Pressure 144/84 H [Left Upper Arm ] Blood Pressure [Right Upper Arm] O2 Sat by Pulse 97 Oximetry Weight - Most Recent: 71.668 kg I&O - Last 24 Hours: Intake & Output 01/17/20 01/18/20 01/18/20 22:59 06:59 14:59 Intake Total 1200 120 Output Total 250 Balance 950 120 Imaging Impressions - Last 24 Hours: 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 No ectopy or arrhythmia. Lab Results Last 24 Hours: Laboratory Results - last 24 hr 01/17/20 01/17/20 01/17/20 Range/Units 21:05 21:05 21:05 WBC 8.3 (4.0-10.2) K/uL RBC 5.18 H (3.77-5.09) M/uL Hgb 13.0 (11.7-15.5) g/dL Hct 38.9 (34.0-46.0) % MCV 75.1 L (84.0-98.0) fL MCH 25.1 L (28.2-33.3) pg MCHC 33.4 (31.7-36.0) g/dL RDW 15.6 H (11.2-14.1) % Plt Count 165 D (150-350) K/uL Neut % (Auto) 81.1 H (45.0-80.0) % Lymph % (Auto) 7.2 L (10.0-50.0) % [place] % (Auto) 9.7 (2.0-14.0) % Eos % (Auto) 1.8 (0.0-5.0) % Baso % (Auto) 0.2 (0.0-2.0) % Neut # (Auto) 6.74 (1.40-7.00) K/uL Lymph # (Auto) 0.60 (0.50-3.50) K/uL [place] # (Auto) 0.81 (0.00-1.00) K/uL Eos # (Auto) 0.15 (0.00-0.50) K/uL Baso # (Auto) 0.02 (0.00-0.20) K/uL PT 10.0 (9.5-12.0) SEC INR 1.0 APTT 23.4 L (24.5-32.8) SEC D-Dimer, Quantitative < 100 (0-400) ng/mL Sodium (136-145) mmol/L Potassium (3.5-5.1) mmol/L Chloride (98-107) mmol/L Carbon Dioxide (21.0-32.0) mmol/L BUN (7-18) mg/dL Creatinine (0.51-1.17) mg/dL Est Cr Clr Drug Dosing Estimated GFR (MDRD) mL/min Glucose (74-106) mg/dL Hemoglobin A1c (4.3-5.7) % Lactic Acid (0.4-2.0) mmol/L Uric Acid (2.6-7.2) mg/dL Calcium (8.5-10.1) mg/dL Magnesium (1.8-2.4) mg/dL Total Bilirubin (0.2-1.0) mg/dL AST (15-37) U/L ALT (12-78) U/L Alkaline Phosphatase (46-116) IU/L Creatine Kinase (26-308) U/L Creatine Kinase Index (0.0-2.5) % CK-MB (CK-2) (0.00-3.60) ng/mL Troponin I (0.000-0.056) ng/mL NT-Pro-B Natriuret Pep (0-125) pg/mL Total Protein (6.4-8.2) g/dL Albumin (3.4-5.0) g/dL TSH, Ultra Sensitive (0.358-3.740) mIU/mL Specimen Type Urine Color Urine Appearance Urine pH (5.0-9.0) Ur Specific [place] (1.005-1.030) Urine Protein (NEGATIVE) mg/dL Urine Glucose (UA) (NEGATIVE) mg/dL Urine Ketones (NEGATIVE) mg/dL Urine Occult Blood (NEGATIVE) Urine Nitrite (NEGATIVE) Urine Bilirubin (NEGATIVE) Urine Urobilinogen (0.2-1.0) E.U./dL Ur Leukocyte Esterase (NEGATIVE) Urine RBC /HPF Urine WBC /HPF Ur Epithelial Cells /LPF Urine Bacteria (NONE TO FEW) /HPF SARS-CoV-2 RNA (MOLLY) (NEGATIVE) 01/17/20 01/17/20 01/17/20 Range/Units 21:05 21:05 21:30 WBC (4.0-10.2) K/uL RBC (3.77-5.09) M/uL Hgb (11.7-15.5) g/dL Hct (34.0-46.0) % MCV (84.0-98.0) fL MCH (28.2-33.3) pg MCHC (31.7-36.0) g/dL RDW (11.2-14.1) % Plt Count (150-350) K/uL Neut % (Auto) (45.0-80.0) % Lymph % (Auto) (10.0-50.0) % [place] % (Auto) (2.0-14.0) % Eos % (Auto) (0.0-5.0) % Baso % (Auto) (0.0-2.0) % Neut # (Auto) (1.40-7.00) K/uL Lymph # (Auto) (0.50-3.50) K/uL [place] # (Auto) (0.00-1.00) K/uL Eos # (Auto) (0.00-0.50) K/uL Baso # (Auto) (0.00-0.20) K/uL PT (9.5-12.0) SEC INR APTT (24.5-32.8) SEC D-Dimer, Quantitative (0-400) ng/mL Sodium 134 L (136-145) mmol/L Potassium 4.2 (3.5-5.1) mmol/L Chloride 97 L (98-107) mmol/L Carbon Dioxide 26.3 (21.0-32.0) mmol/L BUN 23 H (7-18) mg/dL Creatinine 0.88 (0.51-1.17) mg/dL Est Cr Clr Drug Dosing TNP Estimated GFR (MDRD) > 60 mL/min Glucose 271 H (74-106) mg/dL Hemoglobin A1c (4.3-5.7) % Lactic Acid 2.5 H (0.4-2.0) mmol/L Uric Acid 4.3 (2.6-7.2) mg/dL Calcium 8.7 (8.5-10.1) mg/dL Magnesium 1.5 L (1.8-2.4) mg/dL Total Bilirubin 0.4 (0.2-1.0) mg/dL AST 78 H (15-37) U/L ALT 58 (12-78) U/L Alkaline Phosphatase 70 (46-116) IU/L Creatine Kinase 59 (26-308) U/L Creatine Kinase Index 0.2 (0.0-2.5) % CK-MB (CK-2) 0.10 (0.00-3.60) ng/mL Troponin I 0.000 (0.000-0.056) ng/mL NT-Pro-B Natriuret Pep 104 (0-125) pg/mL Total Protein 7.0 (6.4-8.2) g/dL Albumin 3.6 (3.4-5.0) g/dL TSH, Ultra Sensitive 1.182 (0.358-3.740) mIU/mL Specimen Type Urine Color Urine Appearance Urine pH (5.0-9.0) Ur Specific [place] (1.005-1.030) Urine Protein (NEGATIVE) mg/dL Urine Glucose (UA) (NEGATIVE) mg/dL Urine Ketones (NEGATIVE) mg/dL Urine Occult Blood (NEGATIVE) Urine Nitrite (NEGATIVE) Urine Bilirubin (NEGATIVE) Urine Urobilinogen (0.2-1.0) E.U./dL Ur Leukocyte Esterase (NEGATIVE) Urine RBC /HPF Urine WBC /HPF Ur Epithelial Cells /LPF Urine Bacteria (NONE TO FEW) /HPF SARS-CoV-2 RNA (MOLLY) Positive H (NEGATIVE) 01/17/20 01/18/20 01/18/20 Range/Units 21:30 01:10 07:17 WBC 6.1 (4.0-10.2) K/uL RBC 4.56 (3.77-5.09) M/uL Hgb 11.5 L D (11.7-15.5) g/dL Hct 34.4 (34.0-46.0) % MCV 75.4 L (84.0-98.0) fL MCH 25.2 L (28.2-33.3) pg MCHC 33.4 (31.7-36.0) g/dL RDW 15.6 H (11.2-14.1) % Plt Count 143 L (150-350) K/uL Neut % (Auto) 72.5 (45.0-80.0) % Lymph % (Auto) 12.2 (10.0-50.0) % [place] % (Auto) 14.1 H (2.0-14.0) % Eos % (Auto) 1.0 (0.0-5.0) % Baso % (Auto) 0.2 (0.0-2.0) % Neut # (Auto) 4.41 (1.40-7.00) K/uL Lymph # (Auto) 0.74 (0.50-3.50) K/uL [place] # (Auto) 0.86 (0.00-1.00) K/uL Eos # (Auto) 0.06 (0.00-0.50) K/uL Baso # (Auto) 0.01 (0.00-0.20) K/uL PT (9.5-12.0) SEC INR APTT (24.5-32.8) SEC D-Dimer, Quantitative (0-400) ng/mL Sodium (136-145) mmol/L Potassium (3.5-5.1) mmol/L Chloride (98-107) mmol/L Carbon Dioxide (21.0-32.0) mmol/L BUN (7-18) mg/dL Creatinine (0.51-1.17) mg/dL Est Cr Clr Drug Dosing Estimated GFR (MDRD) mL/min Glucose (74-106) mg/dL Hemoglobin A1c (4.3-5.7) % Lactic Acid 1.9 (0.4-2.0) mmol/L Uric Acid (2.6-7.2) mg/dL Calcium (8.5-10.1) mg/dL Magnesium (1.8-2.4) mg/dL Total Bilirubin (0.2-1.0) mg/dL AST (15-37) U/L ALT (12-78) U/L Alkaline Phosphatase (46-116) IU/L Creatine Kinase (26-308) U/L Creatine Kinase Index (0.0-2.5) % CK-MB (CK-2) (0.00-3.60) ng/mL Troponin I (0.000-0.056) ng/mL NT-Pro-B Natriuret Pep (0-125) pg/mL Total Protein (6.4-8.2) g/dL Albumin (3.4-5.0) g/dL TSH, Ultra Sensitive (0.358-3.740) mIU/mL Specimen Type Urincc Urine Color Yellow Urine Appearance Clear Urine pH 6.0 (5.0-9.0) Ur Specific [place] 1.020 (1.005-1.030) Urine Protein Negative (NEGATIVE) mg/dL Urine Glucose (UA) 500 H (NEGATIVE) mg/dL Urine Ketones Trace H (NEGATIVE) mg/dL Urine Occult Blood Trace-intact H (NEGATIVE) Urine Nitrite Negative (NEGATIVE) Urine Bilirubin Negative (NEGATIVE) Urine Urobilinogen 0.2 (0.2-1.0) E.U./dL Ur Leukocyte Esterase Negative (NEGATIVE) Urine RBC 0-5 /HPF Urine WBC 0-5 /HPF Ur Epithelial Cells Few /LPF Urine Bacteria Moderate H (NONE TO FEW) /HPF SARS-CoV-2 RNA (MOLLY) (NEGATIVE) 01/18/20 01/18/20 Range/Units 07:17 07:17 WBC (4.0-10.2) K/uL RBC (3.77-5.09) M/uL Hgb (11.7-15.5) g/dL Hct (34.0-46.0) % MCV (84.0-98.0) fL MCH (28.2-33.3) pg MCHC (31.7-36.0) g/dL RDW (11.2-14.1) % Plt Count (150-350) K/uL Neut % (Auto) (45.0-80.0) % Lymph % (Auto) (10.0-50.0) % [place] % (Auto) (2.0-14.0) % Eos % (Auto) (0.0-5.0) % Baso % (Auto) (0.0-2.0) % Neut # (Auto) (1.40-7.00) K/uL Lymph # (Auto) (0.50-3.50) K/uL [place] # (Auto) (0.00-1.00) K/uL Eos # (Auto) (0.00-0.50) K/uL Baso # (Auto) (0.00-0.20) K/uL PT (9.5-12.0) SEC INR APTT (24.5-32.8) SEC D-Dimer, Quantitative (0-400) ng/mL Sodium 136 (136-145) mmol/L Potassium 3.8 (3.5-5.1) mmol/L Chloride 101 (98-107) mmol/L Carbon Dioxide 25.4 (21.0-32.0) mmol/L BUN 23 H (7-18) mg/dL Creatinine 0.84 (0.51-1.17) mg/dL Est Cr Clr Drug Dosing 69.96 Estimated GFR (MDRD) > 60 mL/min Glucose 227 H (74-106) mg/dL Hemoglobin A1c 8.9 H (4.3-5.7) % Lactic Acid (0.4-2.0) mmol/L Uric Acid (2.6-7.2) mg/dL Calcium 8.2 L (8.5-10.1) mg/dL Magnesium (1.8-2.4) mg/dL Total Bilirubin 0.5 (0.2-1.0) mg/dL AST 80 H (15-37) U/L ALT 60 (12-78) U/L Alkaline Phosphatase 56 (46-116) IU/L Creatine Kinase 36 (26-308) U/L Creatine Kinase Index 0.3 (0.0-2.5) % CK-MB (CK-2) 0.10 (0.00-3.60) ng/mL Troponin I 0.000 (0.000-0.056) ng/mL NT-Pro-B Natriuret Pep 118 (0-125) pg/mL Total Protein 5.9 L (6.4-8.2) g/dL Albumin 3.1 L (3.4-5.0) g/dL TSH, Ultra Sensitive (0.358-3.740) mIU/mL Specimen Type Urine Color Urine Appearance Urine pH (5.0-9.0) Ur Specific [place] (1.005-1.030) Urine Protein (NEGATIVE) mg/dL Urine Glucose (UA) (NEGATIVE) mg/dL Urine Ketones (NEGATIVE) mg/dL Urine Occult Blood (NEGATIVE) Urine Nitrite (NEGATIVE) Urine Bilirubin (NEGATIVE) Urine Urobilinogen (0.2-1.0) E.U./dL Ur Leukocyte Esterase (NEGATIVE) Urine RBC /HPF Urine WBC /HPF Ur Epithelial Cells /LPF Urine Bacteria (NONE TO FEW) /HPF SARS-CoV-2 RNA (MOLLY) (NEGATIVE) Gagandeep Results Last 24 Hours: Microbiology 01/17/20 21:30 Influenza Type A Antigen Screen - Final Nasal, Unspecified NEGATIVE INFLUENZA A VIRUS AG REFERENCE RANGE: NEGATIVE Influenza Type B Antigen Screen - Final NEGATIVE INFLUENZA B VIRUS AG REFERENCE RANGE: NEGATIVE 01/17/20 21:30 Group A Streptococcus Rapid Screen - Final Throat NEGATIVE STREP A SCREEN REFERENCE RANGE: NEGATIVE Med Orders - Current: Current Medications Acetaminophen (Tylenol) 650 mg PO Q4H PRN PRN Reason: Pain Last Admin: 01/18/20 08:06 Dose: 650 mg Documented by: Doxycycline Monohydrate (Doxycycline Monohydrate) 100 mg PO BID [facility] Last Admin: 01/18/20 08:07 Dose: 100 mg Documented by: Escitalopram Oxalate (Lexapro) 20 mg PO DAILY [facility] Last Admin: 01/18/20 08:08 Dose: 20 mg Documented by: Famotidine (Pepcid) 20 mg IVPUSH Q12H [facility] Hydroxyzine Pamoate (Vistaril) 50 mg PO Q12HR PRN PRN Reason: Anxiety Ceftriaxone Sodium 1 gm/ (Sodium Chloride) 100 mls @ 200 mls/hr IV Q12H [facility] Last Admin: 01/18/20 00:35 Dose: 200 mls/hr Documented by: Lisinopril (Prinivil) 20 mg PO BID [facility] Magnesium Oxide (Magnesium Oxide) 400 mg PO QPM [facility] Metformin HCl (Glucophage) 500 mg PO BID [facility] Last Admin: 01/18/20 08:03 Dose: 500 mg Documented by: Metoprolol Tartrate (Lopressor) 12.5 mg PO DAILY [facility] Last Admin: 01/18/20 08:03 Dose: 12.5 mg Documented by: Ondansetron HCl (Zofran) 4 mg IVPUSH Q6H PRN PRN Reason: Nausea/Vomiting Last Admin: 01/18/20 09:01 Dose: 4 mg Documented by: Sodium Chloride (Saline Flush) 10 ml FLUSH ASDIRECTED PRN PRN Reason: Keep Vein Open Last Admin: 01/18/20 08:00 Dose: 10 ml Documented by: Sodium Chloride (Saline Flush) 10 ml FLUSH Q12HR PRN PRN Reason: Keep Vein Open Last Admin: 01/18/20 09:01 Dose: 10 ml Documented by: Temazepam (Restoril) 15 mg PO BEDTIME PRN PRN Reason: Insomnia Discontinued Medications Famotidine (Pepcid) 40 mg IVPUSH ONETIME ONE Stop: 01/17/20 20:56 Last Admin: 01/17/20 21:06 Dose: 40 mg Documented by: Lactated Ringer's (Ringers, Lactated) 1,000 mls @ 999 mls/hr IV .BOLUS ONE Stop: 01/17/20 23:20 Last Admin: 01/18/20 01:09 Dose: 999 mls/hr Documented by: Ketorolac Tromethamine (Toradol) 30 mg IVPUSH ONETIME ONE Stop: 01/17/20 21:04 Last Admin: 01/17/20 21:06 Dose: 30 mg Documented by: Lisinopril (Prinivil) 40 mg PO DAILY [facility] Last Admin: 01/18/20 08:08 Dose: 40 mg Documented by: Magnesium Oxide (Magnesium Oxide) 800 mg PO ONETIME ONE Stop: 01/17/20 23:03 Last Admin: 01/18/20 00:37 Dose: 800 mg Documented by: - Exam Quality Assessment: DVT Prophylaxis (Subcutaneous heparin). No: Supplemental Oxygen, Central Line/PICC, Urine Catheter, Restraints General: Alert, Oriented, Cooperative, No Acute Distress HEENT: Pupils Equal, Pupils Reactive, EOMI. No: Scleral Icterus Neck: Supple, Trachea Midline, No JVD, No Thyromegaly. No: +2 Carotid Pulse wo Bruit, Carotid Bruit Lungs: Normal Respiratory Effort, Rales (Mild bilateral basal rales particularly on the basis). No: Rhonchi, Rub, Stridor, Wheezing Cardiovascular: Regular Rate, Regular Rhythm, No Murmurs, Tachycardia (Very occa sional). No: Gallops, Rubs GI/Abdominal Exam: Normal Bowel Sounds, Soft, Non-Tender, No Organomegaly, No Distention, No Abnormal Bruit, No Mass, Other (Obese). No: Guarding (Female) Exam: Deferred Back Exam: Normal Inspection, Full Range of Motion. No: CVA Tenderness (L), CVA Tenderness (R), Muscle Spasm Extremities: Normal Inspection, Normal Range of Motion, Non-Tender, No Pedal Edema, Normal Capillary Refill. No: Juliet's Sign Peripheral Pulses: 2+: Radial (L), Radial (R), Dorsalis Pedis (L), Dorsalis Pedis (R) Skin: Warm, Dry, Intact. No: Rash, Ecchymosis Neurological: No New Focal Deficit Psy/Mental Status: Alert, Anxious (Mild). No: Depressed, Agitated, Hallucinations, Withdrawal Symptoms #1 Interpretation EKG Date: 01/18/20 Time: 10:23 Rhythm: NSR Rate (Beats/Min): 83 (Resolution of previous mild tachycardia) [place]: Normal (Left cardiac axis which is a change from a neutral cardiac axis) P-Wave: Present QRS: Normal (0.08 seconds with new T wave inversion in leads III and possibly V3) MS/PQ Interval: 0.15 seconds showing improved short MS interval with poor R wave progression in the anterior leads Comparison: Change From Previous EKG (As above since 01/17/2020) EKG Interpretation Comments: 1. No acute ischemic changes 2. Short MS interval Sepsis Event Note - Evaluation Sepsis Screening Result: No Definite Risk - Focused Exam Vital Signs: Vital Signs Temp Pulse Pulse Resp BP BP BP 01/18/20 09:37 37.4 C 84 20 144/84 H 01/18/20 08:08 136/80 01/18/20 08:03 102 H 136/80 01/18/20 08:00 37.4 C 102 H 20 136/80 01/18/20 06:00 37.9 C 95 20 126/68 01/18/20 03:33 37.3 C 88 14 156/72 H 01/18/20 02:00 37.1 C 84 14 136/64 01/18/20 00:00 37.2 C 100 18 143/93 H Pulse Ox 01/18/20 09:37 97 01/18/20 08:08 01/18/20 08:03 01/18/20 08:00 94 L 01/18/20 06:00 97 01/18/20 03:33 97 01/18/20 02:00 96 01/18/20 00:00 98 - Problem List & Annotations (1) Pneumonia SNOMED Code(s): 092383651 Code(s): J18.9 - PNEUMONIA, UNSPECIFIED ORGANISM Status: Acute Priority: High Current Visit: Yes Onset Date: 01/17/20 Qualifiers: Pneumonia type: due to unspecified organism Laterality: bilateral Lung location: unspecified part of lung Qualified Code(s): J18.9 - Pneumonia, unspecified organism Annotation/Comment:: Likely progressive bilateral bronchitis to bilateral pneumonia based on today's clinical exam. Note COVID-19 infection. (2) COVID-19 SNOMED Code(s): 551029066 Code(s): U07.1 - COVID-19 Status: Acute Priority: High Current Visit: Yes Onset Date: 01/17/20 Annotation/Comment:: Mild bilateral pneumonia as above. No oxygen is required at this time with patient not a candidate for IV Decadron or IV remdesivir. She will be changed from observation to acute care status likely secondary to required extended hospitalization. Isolation precautions initiated. Low-dose subcutaneous sodium heparin therapy secondary to her COVID-19 as an anti-inflammatory agent. No D-dimer elevation to this point. (3) Lactic acid increased SNOMED Code(s): 70176539 Code(s): E87.2 - ACIDOSIS Status: Acute Priority: Medium Current Visit: Yes Annotation/Comment:: No leukocytosis with mildly elevated lactic acid level with subsequent follow-up normal lactic acid level. The patient does have a similar history of this in the past. Sepsis order set was initiated shortly after patient's admission. No direct clinical evidence of sepsis despite patient's fever and mild tachycardia secondary to her fever. Note elevated blood pressures as above/below. Blood cultures x2 have been collected. Attempt to obtain sputum for culture and sensitivity. UA has been collected with urine culture set up for sensitivity. (4) Asthma SNOMED Code(s): 359469408 Code(s): J45.909 - UNSPECIFIED ASTHMA, UNCOMPLICATED Status: Chronic Priority: Medium Current Visit: Yes Qualifiers: Asthma severity: mild Asthma persistence: intermittent Asthma complication type: uncomplicated Qualified Code(s): J45.20 - Mild intermittent asthma, uncomplicated Annotation/Comment:: No evidence of asthma exacerbation by clinical exam today. Note positive COVID-19. Repeat chest x-ray in the a.m. Incentive spirometry was initiated. (5) PAC (premature atrial contraction) SNOMED Code(s): 169360139 Code(s): I49.1 - ATRIAL PREMATURE DEPOLARIZATION Status: Acute Priority: Medium Current Visit: Yes Onset Date: 01/17/20 Annotation/Comment:: Very occasional PACs with no chest pain or anginal type symptoms negative cardiac work-up as below. Observe for now. (6) Hypertension SNOMED Code(s): 34932072 Code(s): I10 - ESSENTIAL (PRIMARY) HYPERTENSION Status: Chronic Priority: Medium Current Visit: Yes Qualifiers: Hypertension type: essential hypertension Qualified Code(s): I10 - Essential (primary) hypertension Annotation/Comment:: Blood pressure somewhat elevated in the emergency room. Patient did take her medications shortly prior to arrival. Continue to observe closely during this hospitalization. Previous problems with labile blood pressures in the past. With patient's daily 40 mg a.m. lisinopril therapy to be changed to 20 mg p.o. twice daily for better 24-hour blood pressure control. This is also beneficial for her current COVID-19. (7) Mixed anxiety depressive disorder SNOMED Code(s): 714499234 Code(s): F41.8 - OTHER SPECIFIED ANXIETY DISORDERS Status: Chronic Priority: Medium Current Visit: Yes Annotation/Comment:: Moderate control based on exams during this hospitalization. Continue to observe closely by her regular providers. (8) Peptic reflux disease SNOMED Code(s): 459145789 Code(s): K21.9 - GASTRO-ESOPHAGEAL REFLUX DISEASE WITHOUT ESOPHAGITIS Status: Chronic Priority: Medium Current Visit: Yes Annotation/Comment:: Nonsymptomatic. High-dose IV Pepcid given as GI prophylaxis in the emergency room with continuation during this hospitalization as treatment for her COVID- 19, etc. (9) Tobacco abuse counseling SNOMED Code(s): 353875792, 270569639, 741219489 Code(s): Z71.6 - TOBACCO ABUSE COUNSELING Status: Chronic Priority: Medium Current Visit: Yes Annotation/Comment:: Tobacco exposure once again strongly encouraged for her and was discussed during the emergency room visit. Tobacco cessation information to be provided at discharge. (10) Hypoalbuminemia SNOMED Code(s): 406350698 Code(s): E88.09 - [facility] DISORDERS OF PLASMA-PROTEIN METABOLISM, NEC Status: Acute Priority: Medium Current Visit: Yes Onset Date: 06/30/17 Annotation/Comment:: Consider high-protein Glucerna supplements as snacks (11) Hyponatremia SNOMED Code(s): 09806572 Code(s): E87.1 - HYPO-OSMOLALITY AND HYPONATREMIA Status: Acute Priority: Medium Current Visit: Yes Onset Date: 01/17/20 Annotation/Comment:: Mild hyponatremia possibly secondary to fever on admission, however resolved on 01/18/2020. Lactated Ringer's IV bolus to be given shortly after admission. (12) Diabetes mellitus SNOMED Code(s): 95746029 Code(s): E11.9 - TYPE 2 DIABETES MELLITUS WITHOUT COMPLICATIONS Status: Chronic Priority: Medium Current Visit: Yes Qualifiers: Diabetes mellitus type: type 2 Diabetes mellitus long-term insulin use: without long-term use Diabetes mellitus complication status: without complication Qualified Code(s): E11.9 - Type 2 diabetes mellitus without complications Annotation/Comment:: Glycosylated hemoglobin on 01/17 was elevated at 8.9%. Initiate Humalog 70/30 sliding scale. Elevated random blood sugar on admission and during the early phases of this hospitalization. Further medication adjustment by accepting providers after discharge. (13) Hypomagnesemia SNOMED Code(s): 372843629 Code(s): E83.42 - HYPOMAGNESEMIA Status: Chronic Priority: High Current Visit: No Onset Date: 06/30/17 Annotation/Comment:: Chronic issue with low magnesium level on admission. History of medication noncompliance. Consider IV magnesium sulfate supplementation, however magnesium oxide therapy for now secondary to lactic acid elevation as above. (14) Fe deficiency anemia SNOMED Code(s): 11549739 Code(s): D50.9 - IRON DEFICIENCY ANEMIA, UNSPECIFIED Status: Chronic Priority: Medium Current Visit: Yes Qualifiers: Iron deficiency anemia type: other iron deficiency Qualified Code(s): D50.8 - Other iron deficiency anemias Annotation/Comment:: Progressive anemia on 01/17 with hemoglobin of 11.5. No evidence of acute GI bleed, etc. Known history of chronic iron deficiency with patient apparently not tolerating iron tablets. Vitamin B 12 level, ferritin level, and TIBC panel ordered for 01/18. Note persistent microcytosis, Continue to observe closely by her regular provider after discharge.. (15) Elevated LFTs SNOMED Code(s): 394169512, 030518221 Code(s): R79.89 - OTHER SPECIFIED ABNORMAL FINDINGS OF BLOOD CHEMISTRY Status: Acute Priority: Medium Current Visit: Yes Onset Date: 01/17/20 Annotation/Comment:: Likely secondary to her fatty liver. Lipid panel on 01/18. (16) Hypocalcemia SNOMED Code(s): 1844014 Code(s): E83.51 - HYPOCALCEMIA Status: Acute Priority: Medium Current Visit: Yes Onset Date: 01/18/20 Annotation/Comment:: Normal on admission. Observe for now. - Problem List Review Problem List Initiated/Reviewed/Updated: Yes - My Orders Last 24 Hours: My Active Orders 01/17/20 Dinner Heart Healthy Diet [DIET] 01/17/20 20:55 Cardiac Monitoring [RC] Q2HR Peripheral IV Care [RC] 08,20 Chest 1V Frontal [CR] Stat Sodium Chloride 0.9% [Saline Flush] 10 ml FLUSH ASDIRECTED PRN Peripheral IV Insertion Adult [OM.PC] Stat Resuscitation Status Stat 01/17/20 20:57 Blood Culture x2 Reflex Set [OM.PC] Urgent 01/17/20 20:58 Isolation [COMM] Routine 01/17/20 21:05 CULTURE BLOOD [BC] Stat 01/17/20 21:15 CULTURE BLOOD [BC] Stat 01/17/20 21:30 CULTURE STREP A CONFIRMATION [RM] Stat CULTURE URINE [RM] Routine STREP SCRN A RAPID W CULT CONF [] Stat 01/17/20 22:56 CULTURE SPUTUM + SMEAR [RM] Stat Severe Sepsis Onset Time [OM.PC] Stat 01/17/20 22:58 Communication Order [RC] PER UNIT ROUTINE Height and Weight [RC] DAILY Intake and Output Strict [RC] 06,18 Oxygen Therapy [RC] .PRN Pulse Oximetry [RC] .PRN Up With Assistance [RC] ASDIRECTED Acetaminophen [TylenoL] 650 mg PO Q4H PRN Sodium Chloride 0.9% [Saline Flush] 10 ml FLUSH Q12HR PRN Temazepam [Restoril] 15 mg PO BEDTIME PRN Antiembolic Hose [OM.PC] Routine DVT/VTE Prophylaxis Reflex [OM.PC] Routine GM Immunization Reflex [OM.PC] Click to Edit 01/17/20 23:00 Antiembolic Devices [RC] 08,20 Communication, Vaccine [RC] 08,20 Vaccines to be Administered [RC] .DISCHARGE 01/17/20 23:15 Doxycycline Monohydrate 100 mg PO BID 01/17/20 23:41 hydrOXYzine pamoate [Vistaril] 50 mg PO Q12HR PRN 01/18/20 00:00 cefTRIAXone [Rocephin] 1 gm Sodium Chloride 0.9% [Normal Saline] 100 ml IV Q12H 01/18/20 05:11 EKG Documentation Completion [RC] ASDIRECTED 01/18/20 08:00 Escitalopram [Lexapro] 20 mg PO DAILY Metoprolol Tartrate [Lopressor] 12.5 mg PO DAILY metFORMIN [Glucophage] 500 mg PO BID 01/18/20 09:00 Ondansetron [Zofran] 4 mg IVPUSH Q6H PRN 01/18/20 18:00 Magnesium Oxide 400 mg PO QPM 01/18/20 20:00 Famotidine [Pepcid] 20 mg IVPUSH Q12H 01/19/20 05:11 CBC WITH AUTO DIFF [HEME] Routine COMPREHENSIVE METABOLIC PN,CMP [CHEM] Routine FERRITIN [CHEM] Routine IRON/TIBC [CHEM] Routine MAGNESIUM [CHEM] Routine VITAMIN B12 [CHEM] Routine 01/19/20 08:00 lisinopriL [Prinivil] 20 mg PO BID - Assessment Assessment:: As above - Plan Plan:: As above. Extensive precautions were given to the patient, who is in agreement with the treatment plan. The patient will require about 3-4 days of inpatient/acute care secondary to multiple health problems as above.
[2020-01-18] MEDS ORDERED: 50% Dextrose in Water 50 ML Syringe IV PRN (12:05)
[2020-01-18] MEDS ORDERED: Glucagon,Human Recombinant 1 MG Vial IM PRN (12:05)
[2020-01-18] MEDS: Heparin Sodium 5,000 Units/ML Vial SUBCUT SCH (14:07)
[2020-01-18] MEDS: Insulin Lispro Protamine/Lispro 75-25 100 Units/ML 10 ML Vial SUBCUT SCH (17:45)
[2020-01-18] MEDS ORDERED: Magnesium Oxide 400 MG Tab PO SCH (18:00)
[2020-01-18] MEDS ORDERED: Ibuprofen 400 MG Tab PO PRN (22:38)
[2020-01-19] MEDS: Famotidine 20 MG/2 ML SDV IVPUSH SCH ×2 (00:57→13:15)
[2020-01-19] MEDS: Sodium Chloride 0.9% 10 ML Syringe FLUSH PRN ×5 (00:57→18:47)
[2020-01-19] MEDS: cefTRIAXone 1 GM in Sodium Chloride 0.9% 100 ML IV SCH ×2 (00:57→13:15)
[2020-01-19] MEDS: Heparin Sodium 5,000 Units/ML Vial SUBCUT SCH ×2 (00:57→13:15)
[2020-01-19] MEDS: Acetaminophen 325 MG Tab PO PRN (05:36)
[2020-01-19] MEDS: Ondansetron 4 MG/2 ML SDV IVPUSH PRN ×2 (07:57→18:53)
[2020-01-19] MEDS: metFORMIN 500 MG Tab PO SCH ×2 (07:59→18:57)
[2020-01-19] MEDS: Escitalopram 20 MG Tab PO SCH (07:59)
[2020-01-19] MEDS: Lisinopril 20 MG Tab PO SCH ×2 (07:59→18:56)
[2020-01-19] MEDS: Doxycycline Monohydrate 100 MG Cap PO SCH ×2 (08:00→18:56)
[2020-01-19] MEDS: Metoprolol Tartrate 25 MG Tab PO SCH ×2 (08:00→18:58)
[2020-01-19] MEDS: Insulin Lispro Protamine/Lispro 75-25 100 Units/ML 10 ML Vial SUBCUT SCH ×2 (08:02→19:04)
[2020-01-19 08:51] LABS: CHLORIDE,CL 101 mmol/L (98-107); SODIUM,NA 136 mmol/L (136-145)
[2020-01-19] MEDS ORDERED: Albuterol/Ipratropium 4 GM Inhalation Spray INH PRN (09:30)
--- NOTE | 2020-01-19 10:23 | PCM.PN ---
- General Info Date of Service: 01/19/20 Admission Dx/Problem (Free Text): 1. Pneumonia with possible COVID-19 2. Lactic acid elevation 3. Asthma Subjective Update: Patient is a poor story and secondary to her baseline mental status. Functional Status: Reports: Pain Controlled, Tolerating Diet, Ambulating, Urinating, Incentive Spirometry. Denies: New Symptoms Pain Score: 0 - Review of Systems General: Reports: Fever, Weakness (Mild), Fatigue (Mild), Chills, Night Sweats. Denies: Malaise, Appetite (Adequate) HEENT: Reports: Post Nasal Drip, Rhinitis. Denies: Dysphasia, Eye Pain, Headaches, Sinus Congestion, Sore Throat, Visual Changes Pulmonary: Reports: Shortness of Breath, Cough, Sputum. Denies: Pleuritic Chest Pain, Hemoptysis, Wheezing Cardiovascular: Reports: No Symptoms, Dyspnea on Exertion. Denies: Chest Pain, Palpitations, Orthopnea, PND, Edema, Lightheadedness Gastrointestinal: Reports: Nausea (Occasional nonspecific, however improved). Denies: Abdominal Pain, Constipation, Decreased Appetite, Diarrhea, Difficulty Swallowing, Flatus, Hematochezia, Melena Genitourinary: Denies: Dysuria, Frequency, Burning, Pain, Urgency, Incontinence, Hematuria, Retention, Flank Pain Musculoskeletal: Reports: No Symptoms. Denies: Neck Pain, Shoulder Pain, Arm Pain, Back Pain, Leg Pain Skin: Reports: No Symptoms. Denies: Diaphoresis, Bruising Neurological: Reports: No Symptoms, Weakness (Mild). Denies: Confusion, Headache, Paresthesia, Tingling, Trouble Speaking, Difficulty Walking Psychiatric: Reports: Anxiety (Mild), Other (Baseline childlike behavior). Denies: Confusion, Depression, Agitation, Cravings, Hallucinations - Patient Data Vitals - Most Recent: Last Vital Signs Temp 38.2 C H 01/19/20 04:00 Pulse 86 01/19/20 08:00 Resp 18 01/19/20 04:00 BP 130/88 01/19/20 08:00 Pulse Ox 97 01/19/20 04:00 Vital Signs - 24 hr 01/18/20 01/18/20 01/18/20 11:51 14:08 15:50 Temperature [ Oral] Temperature [ 36.9 C 36.9 C 37.1 C Temporal] Pulse, Peripheral Pulse, 74 80 74 Peripheral [ Right Pulse Oximetry] Respiratory 18 18 18 Rate Blood Pressure Blood Pressure 142/82 H 148/91 H [Left Upper Arm ] Blood Pressure 151/82 H [Right Upper Arm] O2 Sat by Pulse 97 95 97 Oximetry 01/18/20 01/18/20 01/19/20 19:33 21:02 00:00 Temperature [ 39.1 C H 37.3 C 37.3 C Oral] Temperature [ Temporal] Pulse, Peripheral Pulse, 89 73 Peripheral [ Right Pulse Oximetry] Respiratory 20 18 Rate Blood Pressure Blood Pressure [Left Upper Arm ] Blood Pressure 152/70 H 159/80 H [Right Upper Arm] O2 Sat by Pulse 95 96 Oximetry 01/19/20 01/19/20 01/19/20 04:00 07:59 08:00 Temperature [ 38.2 C H Oral] Temperature [ Temporal] Pulse, 86 Peripheral Pulse, 89 Peripheral [ Right Pulse Oximetry] Respiratory 18 Rate Blood Pressure 130/88 130/88 Blood Pressure 149/92 H [Left Upper Arm ] Blood Pressure [Right Upper Arm] O2 Sat by Pulse 97 Oximetry Weight - Most Recent: 72.575 kg I&O - Last 24 Hours: Intake & Output 01/18/20 01/19/20 01/19/20 22:59 06:59 14:59 Intake Total 100 400 180 Output Total 200 400 Balance -100 0 180 Imaging Impressions - Last 24 Hours: high risk ob shows normal sinus rhythm in the 90s with no ectopy or arrhythmia Chest x-ray, portable, shows somewhat poor inspiratory film with possible mild fine bilateral pulmonary infiltrates. Moderate pulmonary obstructive changes with no pneumothorax. Cardiomegaly, CHF, etc. are difficult to assess secondary to poor inspiration. Lab Results Last 24 Hours: Laboratory Results - last 24 hr 01/17/20 01/18/20 01/19/20 Range/Units 21:30 17:23 05:11 WBC (4.0-10.2) K/uL RBC (3.77-5.09) M/uL Hgb (11.7-15.5) g/dL Hct (34.0-46.0) % MCV (84.0-98.0) fL MCH (28.2-33.3) pg MCHC (31.7-36.0) g/dL RDW (11.2-14.1) % Plt Count (150-350) K/uL Neut % (Auto) (45.0-80.0) % Lymph % (Auto) (10.0-50.0) % Ford % (Auto) (2.0-14.0) % Eos % (Auto) (0.0-5.0) % Baso % (Auto) (0.0-2.0) % Neut # (Auto) (1.40-7.00) K/uL Lymph # (Auto) (0.50-3.50) K/uL Ford # (Auto) (0.00-1.00) K/uL Eos # (Auto) (0.00-0.50) K/uL Baso # (Auto) (0.00-0.20) K/uL D-Dimer, Quantitative (0-400) ng/mL Sodium (136-145) mmol/L Potassium (3.5-5.1) mmol/L Chloride (98-107) mmol/L Carbon Dioxide (21.0-32.0) mmol/L BUN (7-18) mg/dL Creatinine (0.51-1.17) mg/dL Est Cr Clr Drug Dosing mL/min Estimated GFR (MDRD) mL/min Glucose (74-106) mg/dL POC Glucose 166 H (65-110) mg/dl Lactic Acid (0.4-2.0) mmol/L Calcium (8.5-10.1) mg/dL Magnesium (1.8-2.4) mg/dL Iron 33 L (50-175) ug/dL TIBC 343 (250-450) ug/dL % Saturation [id number] Ferritin 69 (8-388) ng/mL Total Bilirubin (0.2-1.0) mg/dL AST (15-37) U/L ALT (12-78) U/L Alkaline Phosphatase (46-116) IU/L Total Protein (6.4-8.2) g/dL Albumin (3.4-5.0) g/dL Triglycerides (30-150) mg/dL Cholesterol (100-200) mg/dL LDL Cholesterol, Calc (0-100) mg/dL HDL Cholesterol (40-60) mg/dL Vitamin B12 (193-986) pg/mL SARS-CoV-2 RNA (MOLLY) Positive H (NEGATIVE) 01/19/20 01/19/20 01/19/20 Range/Units 07:15 07:15 07:15 WBC 4.7 (4.0-10.2) K/uL RBC 4.62 (3.77-5.09) M/uL Hgb 11.4 L (11.7-15.5) g/dL Hct 35.2 (34.0-46.0) % MCV 76.2 L (84.0-98.0) fL MCH 24.7 L (28.2-33.3) pg MCHC 32.4 (31.7-36.0) g/dL RDW 15.6 H (11.2-14.1) % Plt Count 121 L (150-350) K/uL Neut % (Auto) 59.4 (45.0-80.0) % Lymph % (Auto) 21.9 (10.0-50.0) % Ford % (Auto) 18.3 H (2.0-14.0) % Eos % (Auto) 0.2 (0.0-5.0) % Baso % (Auto) 0.2 (0.0-2.0) % Neut # (Auto) 2.76 (1.40-7.00) K/uL Lymph # (Auto) 1.02 (0.50-3.50) K/uL Ford # (Auto) 0.85 (0.00-1.00) K/uL Eos # (Auto) 0.01 (0.00-0.50) K/uL Baso # (Auto) 0.01 (0.00-0.20) K/uL D-Dimer, Quantitative < 100 (0-400) ng/mL Sodium 136 (136-145) mmol/L Potassium 3.9 (3.5-5.1) mmol/L Chloride 101 (98-107) mmol/L Carbon Dioxide 26.1 (21.0-32.0) mmol/L BUN 14 (7-18) mg/dL Creatinine 0.74 (0.51-1.17) mg/dL Est Cr Clr Drug Dosing 79.41 mL/min Estimated GFR (MDRD) > 60 mL/min Glucose 216 H (74-106) mg/dL POC Glucose (65-110) mg/dl Lactic Acid (0.4-2.0) mmol/L Calcium 7.9 L (8.5-10.1) mg/dL Magnesium 1.7 L (1.8-2.4) mg/dL Iron (50-175) ug/dL TIBC (250-450) ug/dL % Saturation Ferritin (8-388) ng/mL Total Bilirubin 0.4 (0.2-1.0) mg/dL AST 116 H (15-37) U/L ALT 81 H (12-78) U/L Alkaline Phosphatase 57 (46-116) IU/L Total Protein 5.8 L (6.4-8.2) g/dL Albumin 3.1 L (3.4-5.0) g/dL Triglycerides 170 H (30-150) mg/dL Cholesterol 157 (100-200) mg/dL LDL Cholesterol, Calc 93 (0-100) mg/dL HDL Cholesterol 30 L (40-60) mg/dL Vitamin B12 617 (193-986) pg/mL SARS-CoV-2 RNA (MOLLY) (NEGATIVE) 01/19/20 01/19/20 Range/Units 07:15 07:52 WBC (4.0-10.2) K/uL RBC (3.77-5.09) M/uL Hgb (11.7-15.5) g/dL Hct (34.0-46.0) % MCV (84.0-98.0) fL MCH (28.2-33.3) pg MCHC (31.7-36.0) g/dL RDW (11.2-14.1) % Plt Count (150-350) K/uL Neut % (Auto) (45.0-80.0) % Lymph % (Auto) (10.0-50.0) % Ford % (Auto) (2.0-14.0) % Eos % (Auto) (0.0-5.0) % Baso % (Auto) (0.0-2.0) % Neut # (Auto) (1.40-7.00) K/uL Lymph # (Auto) (0.50-3.50) K/uL Ford # (Auto) (0.00-1.00) K/uL Eos # (Auto) (0.00-0.50) K/uL Baso # (Auto) (0.00-0.20) K/uL D-Dimer, Quantitative (0-400) ng/mL Sodium (136-145) mmol/L Potassium (3.5-5.1) mmol/L Chloride (98-107) mmol/L Carbon Dioxide (21.0-32.0) mmol/L BUN (7-18) mg/dL Creatinine (0.51-1.17) mg/dL Est Cr Clr Drug Dosing mL/min Estimated GFR (MDRD) mL/min Glucose (74-106) mg/dL POC Glucose 200 H (65-110) mg/dl Lactic Acid 1.2 (0.4-2.0) mmol/L Calcium (8.5-10.1) mg/dL Magnesium (1.8-2.4) mg/dL Iron (50-175) ug/dL TIBC (250-450) ug/dL % Saturation Ferritin (8-388) ng/mL Total Bilirubin (0.2-1.0) mg/dL AST (15-37) U/L ALT (12-78) U/L Alkaline Phosphatase (46-116) IU/L Total Protein (6.4-8.2) g/dL Albumin (3.4-5.0) g/dL Triglycerides (30-150) mg/dL Cholesterol (100-200) mg/dL LDL Cholesterol, Calc (0-100) mg/dL HDL Cholesterol (40-60) mg/dL Vitamin B12 (193-986) pg/mL SARS-CoV-2 RNA (MOLLY) (NEGATIVE) Gagandeep Results Last 24 Hours: Microbiology 01/17/20 21:30 Quick Strep Confirmation Culture - Final Throat NO GROUP A STREP ISOLATED REFERENCE RANGE: NEGATIVE Group A Streptococcus Rapid Screen - Final NEGATIVE STREP A SCREEN REFERENCE RANGE: NEGATIVE 01/17/20 21:30 Urine Culture - Final Urine, Clean Catch MIXED POSITIVE JERRI DAY 2 01/17/20 21:15 Aerobic Blood Culture - Preliminary Blood - Venous - Lab Draw NO GROWTH AFTER 1 DAY Anaerobic Blood Culture - Preliminary NO GROWTH AFTER 1 DAY 01/17/20 21:05 Aerobic Blood Culture - Preliminary Blood - Venous NO GROWTH AFTER 1 DAY Anaerobic Blood Culture - Preliminary NO GROWTH AFTER 1 DAY 01/18/20 12:00 Stool Occult Blood (GAGANDEEP) - Final Stool / Feces NEGATIVE OCCULT BLOOD REFERENCE RANGE: NEGATIVE Med Orders - Current: Current Medications Acetaminophen (Tylenol) 650 mg PO Q4H PRN PRN Reason: Pain Last Admin: 01/19/20 05:36 Dose: 650 mg Documented by: Albuterol/Ipratropium (Combivent Respimat) 0 gm INH QID TRAN Albuterol/Ipratropium (Combivent Respimat) 0 gm INH Q4H PRN PRN Reason: Dyspnea Dextrose/Water (Dextrose 50% In Water) 50 ml IV ASDIRECTED PRN PRN Reason: Hypoglycemia Doxycycline Monohydrate (Doxycycline Monohydrate) 100 mg PO BID [facility] Last Admin: 01/19/20 08:00 Dose: 100 mg Documented by: Escitalopram Oxalate (Lexapro) 20 mg PO DAILY [facility] Last Admin: 01/19/20 07:59 Dose: 20 mg Documented by: Famotidine (Pepcid) 20 mg IVPUSH Q12H [facility] Last Admin: 01/19/20 00:57 Dose: 20 mg Documented by: Glucagon (Glucagen) 1 mg IM ASDIRECTED PRN PRN Reason: Hypoglycemia Heparin Sodium (Porcine) (Heparin Sodium) 5,000 units SUBCUT Q12H [facility] Last Admin: 01/19/20 00:57 Dose: 5,000 units Documented by: Hydroxyzine Pamoate (Vistaril) 50 mg PO Q12HR PRN PRN Reason: Anxiety Ceftriaxone Sodium 1 gm/ (Sodium Chloride) 100 mls @ 200 mls/hr IV Q12H [facility] Last Admin: 01/19/20 00:57 Dose: 200 mls/hr Documented by: Ibuprofen (Motrin) 400 mg PO Q6H PRN PRN Reason: Pain/Fever Insulin Lispro Protam/Lispro Human (Humalog Mix 75-25) 0 unit SUBCUT BIDAC [facility]; Protocol Last Admin: 01/19/20 08:02 Dose: 4 unit Documented by: Lisinopril (Prinivil) 20 mg PO BID [facility] Last Admin: 01/19/20 07:59 Dose: 20 mg Documented by: Magnesium Oxide (Magnesium Oxide) 800 mg PO QPM [facility] Metformin HCl (Glucophage) 500 mg PO BID [facility] Last Admin: 01/19/20 07:59 Dose: 500 mg Documented by: Metoprolol Tartrate (Lopressor) 12.5 mg PO BID [facility] Ondansetron HCl (Zofran) 4 mg IVPUSH Q6H PRN PRN Reason: Nausea/Vomiting Last Admin: 01/19/20 07:57 Dose: 4 mg Documented by: Sodium Chloride (Saline Flush) 10 ml FLUSH ASDIRECTED PRN PRN Reason: Keep Vein Open Last Admin: 01/19/20 00:57 Dose: 10 ml Documented by: Sodium Chloride (Saline Flush) 10 ml FLUSH Q12HR PRN PRN Reason: Keep Vein Open Last Admin: 01/19/20 08:01 Dose: 10 ml Documented by: Temazepam (Restoril) 15 mg PO BEDTIME PRN PRN Reason: Insomnia Discontinued Medications Famotidine (Pepcid) 40 mg IVPUSH ONETIME ONE Stop: 01/17/20 20:56 Last Admin: 01/17/20 21:06 Dose: 40 mg Documented by: Lactated Ringer's (Ringers, Lactated) 1,000 mls @ 999 mls/hr IV .BOLUS ONE Stop: 01/17/20 23:20 Last Admin: 01/18/20 01:09 Dose: 999 mls/hr Documented by: Ketorolac Tromethamine (Toradol) 30 mg IVPUSH ONETIME ONE Stop: 01/17/20 21:04 Last Admin: 01/17/20 21:06 Dose: 30 mg Documented by: Lisinopril (Prinivil) 40 mg PO DAILY [facility] Last Admin: 01/18/20 08:08 Dose: 40 mg Documented by: Magnesium Oxide (Magnesium Oxide) 800 mg PO ONETIME ONE Stop: 01/17/20 23:03 Last Admin: 01/18/20 00:37 Dose: 800 mg Documented by: Magnesium Oxide (Magnesium Oxide) 400 mg PO QPM [facility] Last Admin: 01/18/20 17:46 Dose: 400 mg Documented by: Metoprolol Tartrate (Lopressor) 12.5 mg PO DAILY [facility] Last Admin: 01/19/20 08:00 Dose: 12.5 mg Documented by: - Exam Quality Assessment: DVT Prophylaxis (Subcutaneous heparin). No: Supplemental Oxygen, Central Line/PICC, Urine Catheter, Skin Breakdown, Restraints General: Alert, Oriented, Cooperative, No Acute Distress HEENT: Pupils Equal, Pupils Reactive, EOMI, Mucous Membr. Moist/[place], Other (Caries noted) Neck: Supple, Trachea Midline, No JVD, No Thyromegaly, +2 Carotid Pulse wo Bruit. No: Lymphadenopathy Lungs: Normal Respiratory Effort, Rales (Mild bilateral basilar). No: Rhonchi, Rub, Wheezing Cardiovascular: Regular Rate, Regular Rhythm, No Murmurs. No: Gallops, Rubs GI/Abdominal Exam: Normal Bowel Sounds, Soft, Non-Tender, No Organomegaly, No Distention, No Abnormal Bruit, No Mass, Other (Obese). No: Guarding (Female) Exam: Deferred Back Exam: Normal Inspection, Full Range of Motion. No: CVA Tenderness (L), CVA Tenderness (R), Muscle Spasm Extremities: Normal Inspection, Normal Range of Motion, Non-Tender, No Pedal Edema, Normal Capillary Refill. No: Juliet's Sign Peripheral Pulses: 2+: Radial (L), Radial (R), Dorsalis Pedis (L), Dorsalis Pedis (R) Skin: Warm. No: Ecchymosis Neurological: No New Focal Deficit Psy/Mental Status: Anxious (Mild), Other (Stable baseline childlike behavior). No: Agitated, Hallucinations, Withdrawal Symptoms Sepsis Event Note - Evaluation Sepsis Screening Result: No Definite Risk - Focused Exam Vital Signs: Vital Signs Temp Pulse Pulse Resp BP BP BP 01/19/20 08:00 86 130/88 01/19/20 07:59 130/88 01/19/20 04:00 38.2 C H 89 18 149/92 H 01/19/20 00:00 37.3 C 73 18 159/80 H Pulse Ox 01/19/20 08:00 01/19/20 07:59 01/19/20 04:00 97 01/19/20 00:00 96 - Problem List & Annotations (1) Pneumonia SNOMED Code(s): 292174323 Code(s): J18.9 - PNEUMONIA, UNSPECIFIED ORGANISM Status: Acute Priority: High Current Visit: Yes Onset Date: 01/17/20 Qualifiers: Pneumonia type: due to unspecified organism Laterality: bilateral Lung location: unspecified part of lung Qualified Code(s): J18.9 - Pneumonia, unspecified organism Annotation/Comment:: Likely bilateral bronchitis/bilateral pneumonia based on clinical exam. Note COVID-19 infection. Continue aggressive therapy as below. (2) COVID-19 SNOMED Code(s): 585017024 Code(s): U07.1 - COVID-19 Status: Acute Priority: High Current Visit: Yes Onset Date: 01/17/20 Annotation/Comment:: Mild bilateral pneumonia as above. No oxygen is required at this time with patient not a candidate for IV Decadron or IV remdesivir. She was changed from observation to acute care status on 01/17 secondary to required extended hospitalization. Isolation precautions initiated. Low-dose subcutaneous sodium heparin therapy secondary to her COVID-19 as an anti-inflammatory agent. No D-dimer elevation to this point, although developing mild thrombocytopenia. Continue to observe closely. Patient counseling concerning possible discharge with Eliquis at time of discharge, although this may not be needed secondary to patient's lack of D- dimer elevation during this hospitalization. [facility] physician assumes care in the a.m. Discharge medications, glucometer, glucose strips, etc. were ordered today secondary to upcoming weekend and close pharmacies. (3) Lactic acid increased SNOMED Code(s): 62750508 Code(s): E87.2 - ACIDOSIS Status: Acute Priority: Medium Current Visit: Yes Annotation/Comment:: No leukocytosis with mildly elevated lactic acid level with subsequent follow-up normal lactic acid level. The patient does have a similar history of this in the past. Sepsis order set was initiated shortly after patient's admission. No direct clinical evidence of sepsis despite patient's fever and mild tachycardia secondary to her fever. Note elevated blood pressures as above/below. Blood cultures x2 have been collected. Attempt to obtain sputum for culture and sensitivity. UA has been collected with urine culture set up for sensitivity. Note persistent and refractory fever, however controlled with both Tylenol and ibuprofen. Lactic acid level to be repeated on 01/19. (4) Asthma SNOMED Code(s): 895543368 Code(s): J45.909 - UNSPECIFIED ASTHMA, UNCOMPLICATED Status: Chronic Priority: Medium Current Visit: Yes Qualifiers: Asthma severity: mild Asthma persistence: intermittent Asthma complication type: uncomplicated Qualified Code(s): J45.20 - Mild intermittent asthma, uncomplicated Annotation/Comment:: No evidence of asthma exacerbation by clinical exam today. Note positive COVID-19. Repeat chest x-ray in the a.m. Incentive spirometry and Combivent inhaler were initiated during this hospitalization. (5) PAC (premature atrial contraction) SNOMED Code(s): 390326184 Code(s): I49.1 - ATRIAL PREMATURE DEPOLARIZATION Status: Acute Priority: Medium Current Visit: Yes Onset Date: 01/17/20 Annotation/Comment:: Very occasional PACs with no chest pain or anginal type symptoms negative cardiac work-up as below. Observe for now. (6) Hypertension SNOMED Code(s): 92407783 Code(s): I10 - ESSENTIAL (PRIMARY) HYPERTENSION Status: Chronic Priority: Medium Current Visit: Yes Qualifiers: Hypertension type: essential hypertension Qualified Code(s): I10 - Essential (primary) hypertension Annotation/Comment:: Blood pressure somewhat elevated in the emergency room. Patient did take her medications shortly prior to arrival. Continue to observe closely during this hospitalization. Previous problems with labile blood pressures in the past. Patient's daily 40 mg a.m. lisinopril therapy changed to 20 mg p.o. twice daily for better 24-hour blood pressure control on 01/17 with increase of her low-dose Lopressor to a twice daily basis on 01/18. (7) Mixed anxiety depressive disorder SNOMED Code(s): 780577163 Code(s): F41.8 - OTHER SPECIFIED ANXIETY DISORDERS Status: Chronic Priority: Medium Current Visit: Yes Annotation/Comment:: Moderate control based on exams during this hospitalization. Continue to observe closely by her regular providers. Note baseline childlike behavior. (8) Peptic reflux disease SNOMED Code(s): 886768336 Code(s): K21.9 - GASTRO-ESOPHAGEAL REFLUX DISEASE WITHOUT ESOPHAGITIS Status: Chronic Priority: Medium Current Visit: Yes Annotation/Comment:: N onsymptomatic. High-dose IV Pepcid given as GI prophylaxis in the emergency room with continuation during this hospitalization as treatment for her COVID- 19, etc.. Oral Pepcid therapy ordered at discharge as above. (9) Tobacco abuse counseling SNOMED Code(s): 726518139, 292999743, 181754556 Code(s): Z71.6 - TOBACCO ABUSE COUNSELING Status: Chronic Priority: Medium Current Visit: Yes Annotation/Comment:: Tobacco exposure once again strongly encouraged for her and was discussed during the emergency room visit. Tobacco cessation information to be provided at discharge. (10) Hypoalbuminemia SNOMED Code(s): 500946634 Code(s): E88.09 - H DISORDERS OF PLASMA-PROTEIN METABOLISM, NEC Status: Acute Priority: Medium Current Visit: Yes Onset Date: 06/30/17 Annotation/Comment:: Consider high-protein Glucerna supplements as snacks, however note current obesity. Patient apparently already has a dietary consultation ordered by her regular provider. (11) Hyponatremia SNOMED Code(s): 49075689 Code(s): E87.1 - HYPO-OSMOLALITY AND HYPONATREMIA Status: Acute Priority: Medium Current Visit: Yes Onset Date: 01/17/20 Annotation/Comment:: Mild hyponatremia possibly secondary to fever on admission, however resolved on 01/18/2020. 1 L Lactated Ringer's IV bolus was given shortly after admission with no further IV fluids secondary to her COVID-19 infection. (12) Diabetes mellitus SNOMED Code(s): 54626875 Code(s): E11.9 - TYPE 2 DIABETES MELLITUS WITHOUT COMPLICATIONS Status: Chronic Priority: Medium Current Visit: Yes Qualifiers: Diabetes mellitus type: type 2 Diabetes mellitus alf insulin use: without alf use Diabetes mellitus complication status: without complication Qualified Code(s): E11.9 - Type 2 diabetes mellitus without complications Annotation/Comment:: Glycosylated hemoglobin on 01/17 was elevated at 8.9%. Initiated Humalog 70/30 sliding scale on 01/17 with diabetic teaching also i nitiated secondary to her new insulin requirement. Note that she is not receiving IV Decadron. Secondary to patient's baseline childlike behavior diabetic teaching will also be conducted in conjunction with her , who was given a [employer] work excuse yesterday for 7-10 days with quarantine precautions and recommended COVID-19 testing in the next 7-10 days. Elevated random blood sugar on admission and during the early phases of this hospitalization. Humalog 70/30 twice daily at discharge with additional sliding scale and continuation of her current Metformin therapy. Further medication adjustment by her regular providers after discharge. (13) Hypomagnesemia SNOMED Code(s): 299104489 Code(s): E83.42 - HYPOMAGNESEMIA Status: Chronic Priority: High Current Visit: No Onset Date: 06/30/17 Annotation/Comment:: Chronic issue with low magnesium level on admission. History of medication noncompliance. Low-dose magnesium oxide initiated on 01/17 with increased dose to 800 mg p.o. every afternoon on 01/18. IV magnesium sulfate 4 g infusion was also conducted on 01/18 secondary to persistent hypomagnesemia. Close follow-up by regular providers after discharge. (14) Fe deficiency anemia SNOMED Code(s): 85084917 Code(s): D50.9 - IRON DEFICIENCY ANEMIA, UNSPECIFIED Status: Chronic Priority: Medium Current Visit: Yes Qualifiers: Iron deficiency anemia type: other iron deficiency Qualified Code(s): D50.8 - Other iron deficiency anemias Annotation/Comment:: Progressive anemia on 01/17 with hemoglobin of 11.5, however stable during the remainder of the hospitalization. No evidence of acute GI bleed, etc. Known history of chronic iron deficiency with patient apparently not tolerating iron tablets. Vitamin B 12 level, ferritin level, and TIBC panel were on 01/18 with mild persistent iron deficiency. Secondary to her intolerance with iron supplements attempt dietary changes at this time with dietary consultation already ordered as above. Note persistent microcytosis, Continue to observe closely by her regular provider after discharge. (15) Elevated LFTs SNOMED Code(s): 854351161, 434533660 Code(s): R79.89 - OTHER SPECIFIED ABNORMAL FINDINGS OF BLOOD CHEMISTRY Status: Acute Priority: Medium Current Visit: Yes Onset Date: 01/17/20 Annotation/Comment:: Likely secondary to her fatty liver. Lipid panel on 01/18 showed mild to moderate dyslipidemia. Dietary changes, etc. as above/below. (16) Hypocalcemia SNOMED Code(s): 1469783 Code(s): E83.51 - HYPOCALCEMIA Status: Acute Priority: Medium Current Visit: Yes Onset Date: 01/18/20 Annotation/Comment:: Normal on admission. Observe for now. (17) Dyslipidemia SNOMED Code(s): 916642777 Code(s): E78.5 - HYPERLIPIDEMIA, UNSPECIFIED Status: Acute Priority: High Current Visit: Yes Onset Date: 01/19/20 Annotation/Comment:: Dietary changes for now, including weight loss, dietary consultation, initiation of insulin therapy as above. Close follow-up by regular provider with recommended repeat lipid profile and glycosylated hemoglobin in about 3 months. (18) Thrombocytopenia SNOMED Code(s): 792699261 Code(s): D69.6 - THROMBOCYTOPENIA, UNSPECIFIED Status: Acute Priority: High Current Visit: Yes Onset Date: 01/19/20 Annotation/Comment:: As above - Problem List Review Problem List Initiated/Reviewed/Updated: Yes - My Orders Last 24 Hours: My Active Orders 01/18/20 11:43 Admission Status [Patient Status] [ADT] Routine 01/18/20 12:00 Heparin Sodium 5,000 units SUBCUT Q12H 01/18/20 12:04 Communication Order [RC] QSHIFT 01/18/20 12:05 Dextrose 50% in Water 50 ml IV ASDIRECTED PRN Glucagon,Human Recombinant [GlucaGen] 1 mg IM ASDIRECTED PRN 01/18/20 17:30 Blood Glucose Check, Bedside [RC] BIDAC Insulin Lispro Prot/Lispro [HumaLOG Mix 75-25] See Protocol SUBCUT BIDAC 01/18/20 22:38 Ibuprofen [Motrin] 400 mg PO Q6H PRN 01/19/20 00:00 Famotidine [Pepcid] 20 mg IVPUSH Q12H 01/19/20 05:11 Chest 1V Frontal [CR] Routine 01/19/20 08:00 lisinopriL [Prinivil] 20 mg PO BID 01/19/20 08:29 Vital Signs [RC] Q6HR 01/19/20 09:29 RT Post Treatment Assessment [RC] Click to Edit RT Pre-Treatment Assessment [RC] Click to Edit 01/19/20 09:30 RT Post Treatment Assessment [RC] Click to Edit RT Pre-Treatment Assessment [RC] Click to Edit Albuterol/Ipratropium [Combivent Respimat] See Dose Instructions INH Q4H PRN 01/19/20 09:36 RT Incentive Spirometry [RC] ASDIRECTED 01/19/20 12:00 Albuterol/Ipratropium [Combivent Respimat] See Dose Instructions INH QID 01/19/20 18:00 Magnesium Oxide 800 mg PO QPM Metoprolol Tartrate [Lopressor] 12.5 mg PO BID 01/20/20 05:11 CBC WITH AUTO DIFF [HEME] Routine COMPREHENSIVE METABOLIC PN,CMP [CHEM] Routine INR,PT,PROTHROMBIN TIME [COAG] Routine PTT,PARTIAL THROMBOPLSTIN TIME [COAG] Routine - Assessment Assessment:: As above - Plan Plan:: As above. Extensive precautions were given to the patient, who is in agreement with the treatment plan. The [facility] secondary to multiple health problems as above. Jaylen estrada physician assumes care in the a.m.
[2020-01-19] MEDS ORDERED: Magnesium Sulfate/Water 4 GM in Premix Bag 1 BAG IV ONE (10:37)
[2020-01-19] MEDS: Albuterol/Ipratropium 4 GM Inhalation Spray INH SCH ×3 (13:12→21:27)
[2020-01-19] MEDS ORDERED: Loperamide 2 MG Tab PO PRN (15:00)
[2020-01-19] MEDS ORDERED: Magnesium Oxide 400 MG Tab PO SCH (18:00)
[2020-01-19] MEDS: Dextromethorphan/guaiFENesin 600-30 MG Tab.ER PO SCH (19:00)
[2020-01-20] MEDS: Sodium Chloride 0.9% 10 ML Syringe FLUSH PRN ×2 (00:26→07:51)
[2020-01-20] MEDS: Heparin Sodium 5,000 Units/ML Vial SUBCUT SCH ×2 (00:26→12:26)
[2020-01-20] MEDS: Famotidine 20 MG/2 ML SDV IVPUSH SCH ×2 (00:27→12:26)
[2020-01-20] MEDS: metFORMIN 500 MG Tab PO SCH (07:50)
[2020-01-20] MEDS: Doxycycline Monohydrate 100 MG Cap PO SCH (07:50)
[2020-01-20] MEDS: Metoprolol Tartrate 25 MG Tab PO SCH (07:50)
[2020-01-20] MEDS: Dextromethorphan/guaiFENesin 600-30 MG Tab.ER PO SCH (07:50)
[2020-01-20] MEDS: Escitalopram 20 MG Tab PO SCH (07:50)
[2020-01-20] MEDS: Lisinopril 20 MG Tab PO SCH (07:51)
[2020-01-20] MEDS: Ondansetron 4 MG/2 ML SDV IVPUSH PRN (07:51)
[2020-01-20] MEDS: Albuterol/Ipratropium 4 GM Inhalation Spray INH SCH ×2 (07:52→12:25)
[2020-01-20] MEDS: Insulin Lispro Protamine/Lispro 75-25 100 Units/ML 10 ML Vial SUBCUT SCH (07:53)
[2020-01-20 07:59] LABS: PTT,PARTIAL THROMBOPLSTIN TIME 26.7 SEC (24.5-32.8)
[2020-01-20 08:00] LABS: CHLORIDE,CL 102 mmol/L (98-107); SODIUM,NA 135 mmol/L (136-145)
[2020-01-20 12:30] VITALS: BP 155/87; PULSE 70
--- NOTE | 2020-01-20 16:41 | PCM.DCSUM1 ---
Discharge Summary - Hospital Course Brief History: Patient admitted for further evaluation and treatment of fever/symptoms linked to acute Covid infection. Also low Mag. Diagnosis: Stroke: No - Discharge Data Discharge Date: 01/20/20 Discharge Disposition: Home, Self-Care 01 Condition: Good - Referral to Home Health Primary Care Physician: Suzan Leung PA-C - Discharge Diagnosis/Problem(s) (1) COVID-19 SNOMED Code(s): 260569265 ICD Code: U07.1 - COVID-19 Status: Acute Priority: High Current Visit: Yes Onset Date: 01/17/20 Problem Details: Covid +. No oxygen required during stay. Thus patient not a candidate for IV Decadron or IV remdesivir. She was changed from observation to acute care status on 01/17 secondary to required extended hospitalization. Isolation precautions initiated. Low-dose subcutaneous sodium heparin therapy secondary to her COVID-19 as an anti- inflammatory agent. (2) Pneumonia SNOMED Code(s): 048372596 ICD Code: J18.9 - PNEUMONIA, UNSPECIFIED ORGANISM Status: Acute Priority: High Current Visit: Yes Onset Date: 01/17/20 Problem Details: Likely bilateral bronchitis/bilateral pneumonia based on clinical exam. Radiology noted no acute changes on chest film. Did receive antibiotic therapy. Note COVID-19 infection. Continue Doxy at discharge. Qualifiers: Pneumonia type: due to unspecified organism Laterality: bilateral Lung location: unspecified part of lung Qualified Code(s): J18.9 - Pneumonia, unspecified organism (3) Diabetes mellitus SNOMED Code(s): 87829538 ICD Code: E11.9 - TYPE 2 DIABETES MELLITUS WITHOUT COMPLICATIONS Status: Chronic Priority: Medium Current Visit: Yes Problem Details: Glycosylated hemoglobin on 01/17 was elevated at 8.9%. Initiated Humalog 70/30 sliding scale on 01/17 with diabetic teaching also initiated secondary to her new insulin requirement. Note that she is not receiving IV Decadron. Secondary to patient's baseline childlike behavior diabetic teaching will also be conducted in conjunction with her , who was given a [employer] work excuse yesterday for 7-10 days with quarantine precautions and recommended COVID-19 testing in the next 7-10 days. Elevated random blood sugar on admission and during the early phases of this hospitalization. Humalog 70/30 twice daily at discharge with additional sliding scale and continuation of her current Metformin therapy. Further medication adjustment by her regular providers after discharge. Qualifiers: Diabetes mellitus type: type 2 Diabetes mellitus [employer] insulin use: without alf use Diabetes mellitus complication status: without complication Qualified Code(s): E11.9 - Type 2 diabetes mellitus without complications (4) Lactic acid increased SNOMED Code(s): 44356303 ICD Code: E87.2 - ACIDOSIS Status: Acute Priority: Medium Current Visit: Yes Problem Details: No leukocytosis with mildly elevated lactic acid level with subsequent follow-up normal lactic acid level. The patient does have a similar history of this in the past. Sepsis order set was initiated shortly after patient's admission. No direct clinical evidence of sepsis. Blood cultures negative (5) Elevated LFTs SNOMED Code(s): 211811144, 605008181 ICD Code: R79.89 - OTHER SPECIFIED ABNORMAL FINDINGS OF BLOOD CHEMISTRY Status: Acute Priority: Medium Current Visit: Yes Onset Date: 01/17/20 Problem Details: Likely secondary to her fatty liver. Cannot rule out contribution from current Covid infection. Lipid panel on 01/18 showed mild to moderate dyslipidemia. Dietary changes, etc. as above/below. (6) Dyslipidemia SNOMED Code(s): 467280313 ICD Code: E78.5 - HYPERLIPIDEMIA, UNSPECIFIED Status: Chronic Priority: High Current Visit: Yes Onset Date: 01/19/20 Problem Details: Dietary changes for now, including weight loss, dietary consultation, initiation of insulin therapy as above. Close follow-up by regular provider with recommended repeat lipid profile and glycosylated hemoglobin in about 3 months. (7) Hypoalbuminemia SNOMED Code(s): 726330468 ICD Code: E88.09 - OTH DISORDERS OF PLASMA-PROTEIN METABOLISM, NEC Status: Acute Priority: Medium Current Visit: Yes Onset Date: 06/30/17 Problem Details: Consider high-protein Glucerna supplements as snacks, however note current obesity. Patient apparently already has a dietary consultation ordered by her regular provider. (8) Hypocalcemia SNOMED Code(s): 1083244 ICD Code: E83.51 - HYPOCALCEMIA Status: Acute Priority: Medium Current Visit: Yes Onset Date: 01/18/20 Problem Details: Normal on admission. Observe for now. (9) Hyponatremia SNOMED Code(s): 35520651 ICD Code: E87.1 - HYPO-OSMOLALITY AND HYPONATREMIA Status: Acute Priority: Medium Current Visit: Yes Onset Date: 01/17/20 Problem Details: Mild hyponatremia possibly secondary to fever on admission, however resolved on 01/18/2020. 1 L Lactated Ringer's IV bolus was given shortly after admission with no further IV fluids secondary to her COVID-19 infection. (10) PAC (premature atrial contraction) SNOMED Code(s): 011295114 ICD Code: I49.1 - ATRIAL PREMATURE DEPOLARIZATION Status: Acute Priority: Medium Current Visit: Yes Onset Date: 01/17/20 Problem Details: Very occasional PACs with no chest pain or anginal type symptoms negative cardiac work-up as below. Observe for now. (11) Thrombocytopenia SNOMED Code(s): 679212154 ICD Code: D69.6 - THROMBOCYTOPENIA, UNSPECIFIED Status: Acute Priority: Medium Current Visit: Yes Onset Date: 01/19/20 Problem Details: Normal DDimer. Follow up with PCP for continued monitoring (12) Asthma SNOMED Code(s): 900115223 ICD Code: J45.909 - UNSPECIFIED ASTHMA, UNCOMPLICATED Status: Chronic Priority: Medium Current Visit: Yes Problem Details: No evidence of asthma exacerbation by clinical exam today. Note positive COVID-19. Incentive spirometry and Combivent inhaler were initiated during this hospitalization. Qualifiers: Asthma severity: mild Asthma persistence: intermittent Asthma complication type: uncomplicated Qualified Code(s): J45.20 - Mild intermittent asthma, uncomplicated (13) Fe deficiency anemia SNOMED Code(s): 70318414 ICD Code: D50.9 - IRON DEFICIENCY ANEMIA, UNSPECIFIED Status: Chronic Priority: Medium Current Visit: Yes Problem Details: Progressive anemia on 01/17 with hemoglobin of 11.5, however stable during the remainder of the ho spitalization. No evidence of acute GI bleed, etc. Known history of chronic iron deficiency with patient apparently not tolerating iron tablets. Vitamin B 12 level, ferritin level, and TIBC panel were on 01/18 with mild persistent iron deficiency. Secondary to her intolerance with iron supplements attempt dietary changes at this time with dietary consultation already ordered as above. Note persistent microcytosis, Continue to observe closely by her regular provider after discharge. Qualifiers: Iron deficiency anemia type: other iron deficiency Qualified Code(s): D50.8 - Other iron deficiency anemias (14) Hypertension SNOMED Code(s): 25215816 ICD Code: I10 - ESSENTIAL (PRIMARY) HYPERTENSION Status: Chronic Priority: Medium Current Visit: Yes Problem Details: Blood pressure somewhat elevated in the emergency room. Patient did take her medications shortly prior to arrival. Previous problems with labile blood pressures in the past. Patient's daily 40 mg a.m. lisinopril therapy changed to 20 mg p.o. twice daily for better 24-hour blood pressure control on 01/17 with increase of her low-dose Lopressor to a twice daily basis on 01/18. Patient will continue to check her BPs at home and will follow up with her PCP for ongoing adjustment of meds as needed. Qualifiers: Hypertension type: essential hypertension Qualified Code(s): I10 - Essential (primary) hypertension (15) Mixed anxiety depressive disorder SNOMED Code(s): 028152981 ICD Code: F41.8 - OTHER SPECIFIED ANXIETY DISORDERS Status: Chronic Priority: Medium Current Visit: Yes Problem Details: Moderate control based on exams during this hospitalization. Continue to observe closely by her regular providers. Note baseline childlike behavior. (16) Peptic reflux disease SNOMED Code(s): 438414977 ICD Code: K21.9 - GASTRO-ESOPHAGEAL REFLUX DISEASE WITHOUT ESOPHAGITIS Status: Chronic Priority: Medium Current Visit: Yes Problem Details: Nonsymptomatic. High-dose IV Pepcid given as GI prophylaxis in the emergency room with continuation during this hospitalization as treatment for her COVID- 19, etc.. Oral Pepcid therapy ordered at discharge as above. (17) Tobacco abuse counseling SNOMED Code(s): 404299813, 123126260, 515139639 ICD Code: Z71.6 - TOBACCO ABUSE COUNSELING Status: Chronic Priority: Medium Current Visit: Yes Problem Details: Tobacco exposure once again strongly encouraged for her and was discussed during the emergency room visit. Tobacco cessation information to be provided at discharge. (18) Hypomagnesemia SNOMED Code(s): 166303126 ICD Code: E83.42 - HYPOMAGNESEMIA Status: Chronic Priority: High Current Visit: No Onset Date: 06/30/17 Problem Details: Chronic issue with low magnesium level on admission. History of medication noncompliance. Low- dose magnesium oxide initiated on 01/17 with increased dose to 800 mg p.o. every afternoon on 01/18. IV magnesium sulfate 4 g infusion was also conducted on 01/18 secondary to persistent hypomagnesemia. Close follow-up by regular providers after discharge. Patient says she cannot afford to pay for OTC magnesium supplementation at time of discharge. - Patient Summary/Data Hospital Course: Patient showed gradual improvement. Fevers eventually resolved. Diabetic teaching performed but there are concerns as to patient's level of competence in regards to safely monitoring and treating her own blood sugars. Patient's was recruited to also learn how to track and treat blood sugars prior to discharge. They declined some meds at time of discharge due to not being able to afford them. Eliquis was one of them. Patient was instead advised to start one baby ASA daily. One antibiotic/Doxycycline to be continued. It does sound as though she will be refusing to take Mag supplements. She was highly encouraged to reconsider that given the potential severe consequences of low magnesium levels. To follow up closely with her PCP. - Patient Instructions Diet: Diabetic Diet, Anti-Inflammatory Activity: As Tolerated Showering/Bathing: May Shower Other/Special Instructions: Diabetic diet and close monitoring of blood sugars/taking appropriate dose of insulin is very important and helping to avoid worsening problems. Follow up closely with your own doctor. Quarantine for 14 days at home to avoid spreading Covid. Try to start Magnesium supplementation...500-1000mg daily and keep track of level with your doctor. Low magnesium makes it harder to control blood pressure and blood sugars and is correlated with increased risk of . Follow up otherwise as needed if you have problems/concerns. - Discharge Plan *PRESCRIPTION DRUG MONITORING PROGRAM REVIEWED*: Not Applicable *COPY OF PRESCRIPTION DRUG MONITORING REPORT IN PATIENT CHANNING: Not Applicable Home Medications: Home Meds Escitalopram Oxalate 20 mg PO DAILY 10/09/18 [History] Fluticasone Propionate [Flonase] 1 - 2 sprays NASBOTH DAILY PRN 10/09/18 [History] Acetaminophen [Tylenol] 650 mg PO Q4H PRN 11/25/18 [History] Albuterol [Proventil HFA] 2 puff INH Q4H PRN 11/25/18 [History] Metoprolol Tartrate 12.5 mg PO DAILY 11/25/18 [History] metFORMIN HCl [Metformin HCl] 500 mg PO BID 01/10/19 [History] hydrOXYzine pamoate [Hydroxyzine Pamoate] 50 mg PO Q12HR PRN 09/05/19 [History] Albuterol/Ipratropium [Combivent Respimat] 1 dose INH QID inhaler 01/20/20 [Rx] Doxycycline Monohydrate 100 mg PO BID #14 cap 01/20/20 [Rx] lisinopriL [Prinivil] 20 mg PO BID tablet 01/20/20 [Rx] Patient Handouts: COVID-19, COVID-19: How to Protect Yourself and Others - [facility] Forms: ED Department Discharge Referrals: Suzan Leung PA-C [Primary Care Provider] - - Discharge Summary/Plan Comment DC Time >30 min.: No - General Info Date of Service: 01/20/20 Admission Dx/Problem (Free Text: 1. Pneumonia with possible COVID-19 2. Lactic acid elevation 3. Asthma Subjective Update: overall feels good. Wants to sleep more than usual/feels tired but no other acute concerns. Functional Status: Reports: Pain Controlled, Tolerating Diet, Ambulating, Urinating. Denies: New Symptoms - Review of Systems General: Reports: Fatigue. Denies: Fever, Weakness, Night Sweats HEENT: Denies: Headaches, Sinus Congestion, Sore Throat, Visual Changes Pulmonary: Denies: Shortness of Breath, Cough, Sputum, Hemoptysis, Wheezing Cardiovascular: Reports: No Symptoms. Denies: Chest Pain Gastrointestinal: Denies: Abdominal Pain, Diarrhea, Nausea, Vomiting Genitourinary: Reports: No Symptoms Musculoskeletal: Reports: Other (no acute changes) Skin: Reports: No Symptoms Neurological: Reports: No Symptoms Psychiatric: Reports: No Symptoms - Patient Data Vitals - Most Recent: Last Vital Signs Temp 36.7 C 01/20/20 12:00 Pulse 70 01/20/20 12:00 Resp 18 01/20/20 12:00 BP 155/87 H 01/20/20 12:00 Pulse Ox 97 01/20/20 12:00 Weight - Most Recent: 72.575 kg I&O - Last 24 hours: Intake & Output 01/20/20 01/20/20 01/20/20 06:59 14:59 22:59 Intake Total 600 Balance 600 Lab Results - Last 24 hrs: Laboratory Results - last 24 hr 11/08/0201/20/20 01/20/20 Range/Units 16:52 07:30 07:30 WBC 4.8 (4.0-10.2) K/uL RBC 4.65 (3.77-5.09) M/uL Hgb 11.6 L (11.7-15.5) g/dL Hct 35.8 (34.0-46.0) % MCV 77.0 L (84.0-98.0) fL MCH 24.9 L (28.2-33.3) pg MCHC 32.4 (31.7-36.0) g/dL RDW 16.0 H (11.2-14.1) % Plt Count 133 L (150-350) K/uL Neut % (Auto) 59.3 (45.0-80.0) % Lymph % (Auto) 25.1 (10.0-50.0) % [place] % (Auto) 14.6 H (2.0-14.0) % Eos % (Auto) 0.6 (0.0-5.0) % Baso % (Auto) 0.4 (0.0-2.0) % Neut # (Auto) 2.83 (1.40-7.00) K/uL Lymph # (Auto) 1.20 (0.50-3.50) K/uL [place] # (Auto) 0.70 (0.00-1.00) K/uL Eos # (Auto) 0.03 (0.00-0.50) K/uL Baso # (Auto) 0.02 (0.00-0.20) K/uL PT 9.8 (9.5-12.0) SEC INR 1.0 APTT 26.7 (24.5-32.8) SEC Sodium (136-145) mmol/L Potassium (3.5-5.1) mmol/L Chloride (98-107) mmol/L Carbon Dioxide (21.0-32.0) mmol/L BUN (7-18) mg/dL Creatinine (0.51-1.17) mg/dL Est Cr Clr Drug Dosing mL/min Estimated GFR (MDRD) mL/min Glucose (74-106) mg/dL POC Glucose 197 H (65-110) mg/dl Lactic Acid (0.4-2.0) mmol/L Calcium (8.5-10.1) mg/dL Magnesium (1.8-2.4) mg/dL Total Bilirubin (0.2-1.0) mg/dL AST (15-37) U/L ALT (12-78) U/L Alkaline Phosphatase (46-116) IU/L C-Reactive Protein (<=0.9) mg/dL Total Protein (6.4-8.2) g/dL Albumin (3.4-5.0) g/dL 01/20/20 01/20/20 01/20/20 Range/Units 07:30 07:30 07:36 WBC (4.0-10.2) K/uL RBC (3.77-5.09) M/uL Hgb (11.7-15.5) g/dL Hct (34.0-46.0) % MCV (84.0-98.0) fL MCH (28.2-33.3) pg MCHC (31.7-36.0) g/dL RDW (11.2-14.1) % Plt Count (150-350) K/uL Neut % (Auto) (45.0-80.0) % Lymph % (Auto) (10.0-50.0) % [place] % (Auto) (2.0-14.0) % Eos % (Auto) (0.0-5.0) % Baso % (Auto) (0.0-2.0) % Neut # (Auto) (1.40-7.00) K/uL Lymph # (Auto) (0.50-3.50) K/uL [place] # (Auto) (0.00-1.00) K/uL Eos # (Auto) (0.00-0.50) K/uL Baso # (Auto) (0.00-0.20) K/uL PT (9.5-12.0) SEC INR APTT (24.5-32.8) SEC Sodium 135 L (136-145) mmol/L Potassium 4.1 (3.5-5.1) mmol/L Chloride 102 (98-107) mmol/L Carbon Dioxide 26.0 (21.0-32.0) mmol/L BUN 16 (7-18) mg/dL Creatinine 0.73 (0.51-1.17) mg/dL Est Cr Clr Drug Dosing 80.50 mL/min Estimated GFR (MDRD) > 60 mL/min Glucose 205 H (74-106) mg/dL POC Glucose 205 H (65-110) mg/dl Lactic Acid 1.2 (0.4-2.0) mmol/L Calcium 7.8 L (8.5-10.1) mg/dL Magnesium 1.8 (1.8-2.4) mg/dL Total Bilirubin 0.3 (0.2-1.0) mg/dL AST 96 H (15-37) U/L ALT 86 H (12-78) U/L Alkaline Phosphatase 60 (46-116) IU/L C-Reactive Protein 0.4 (<=0.9) mg/dL Total Protein 6.1 L (6.4-8.2) g/dL Albumin 3.1 L (3.4-5.0) g/dL JUAN Results - Last 24 hrs: Microbiology 01/17/20 21:15 Aerobic Blood Culture - Preliminary Blood - Venous - Lab Draw NO GROWTH AFTER 2 DAYS Anaerobic Blood Culture - Preliminary NO GROWTH AFTER 2 DAYS 01/17/20 21:05 Aerobic Blood Culture - Preliminary Blood - Venous NO GROWTH AFTER 2 DAYS Anaerobic Blood Culture - Preliminary NO GROWTH AFTER 2 DAYS Med Orders - Current: Current Medications Acetaminophen (Tylenol) 650 mg PO Q4H PRN PRN Reason: Pain Last Admin: 01/19/20 05:36 Dose: 650 mg Documented by: Albuterol/Ipratropium (Combivent Respimat) 0 gm INH QID [facility] Last Admin: 01/20/20 12:25 Dose: 2 puff Documented by: Albuterol/Ipratropium (Combivent Respimat) 0 gm INH Q4H PRN PRN Reason: Dyspnea Dextrose/Water (Dextrose 50% In Water) 50 ml IV ASDIRECTED PRN PRN Reason: Hypoglycemia Doxycycline Monohydrate (Doxycycline Monohydrate) 100 mg PO BID [facility] Last Admin: 01/20/20 07:50 Dose: 100 mg Documented by: Escitalopram Oxalate (Lexapro) 20 mg PO DAILY [facility] Last Admin: 01/20/20 07:50 Dose: 20 mg Documented by: Famotidine (Pepcid) 20 mg IVPUSH Q12H [facility] Last Admin: 01/20/20 12:26 Dose: 20 mg Documented by: Glucagon (Glucagen) 1 mg IM ASDIRECTED PRN PRN Reason: Hypoglycemia Guaifenesin/Dextromethorphan (Mucinex Dm Er 600-30 Mg) 1 tab PO BID [facility] Last Admin: 01/20/20 07:50 Dose: 1 tab Documented by: Heparin Sodium (Porcine) (Heparin Sodium) 5,000 units SUBCUT Q12H [facility] Last Admin: 01/20/20 12:26 Dose: 5,000 units Documented by: Hydroxyzine Pamoate (Vistaril) 50 mg PO Q12HR PRN PRN Reason: Anxiety Vancomycin HCl 1 gm/ Sodium (Chloride) 250 mls @ 165 mls/hr IV Q24H [facility] Last Admin: 01/19/20 18:43 Dose: 165 mls/hr Documented by: Ibuprofen (Motrin) 400 mg PO Q6H PRN PRN Reason: Pain/Fever Last Admin: 01/19/20 16:55 Dose: 400 mg Documented by: Insulin Lispro Protam/Lispro Human (Humalog Mix 75-25) [facility] Last Admin: 01/20/20 07:53 Dose: 4 unit Documented by: Lisinopril (Prinivil) 20 mg PO BID [facility] Last Admin: 01/20/20 07:51 Dose: 20 mg Documented by: Loperamide HCl (Imodium Ad) 2 mg PO Q6H PRN PRN Reason: Diarrhea Last Admin: 01/19/20 18:55 Dose: 2 mg Documented by: Magnesium Oxide (Magnesium Oxide) 800 mg PO QPM [facility] Last Admin: 01/19/20 18:57 Dose: 800 mg Documented by: Metformin HCl (Glucophage) 500 mg PO BID [facility] Last Admin: 01/20/20 07:50 Dose: 500 mg Documented by: Metoprolol Tartrate (Lopressor) 12.5 mg PO BID [facility] Last Admin: 01/20/20 07:50 Dose: 12.5 mg Documented by: Ondansetron HCl (Zofran) 4 mg IVPUSH Q6H PRN PRN Reason: Nausea/Vomiting Last Admin: 01/20/20 07:51 Dose: 4 mg Documented by: Sodium Chloride (Saline Flush) 10 ml FLUSH ASDIRECTED PRN PRN Reason: Keep Vein Open Last Admin: 01/20/20 07:51 Dose: 10 ml Documented by: Sodium Chloride (Saline Flush) 10 ml FLUSH Q12HR PRN PRN Reason: Keep Vein Open Last Admin: 01/19/20 08:01 Dose: 10 ml Documented by: Temazepam (Restoril) 15 mg PO BEDTIME PRN PRN Reason: Insomnia Discontinued Medications Famotidine (Pepcid) 40 mg IVPUSH ONETIME ONE Stop: 01/17/20 20:56 Last Admin: 01/17/20 21:06 Dose: 40 mg Documented by: Lactated Ringer's (Ringers, Lactated) 1,000 mls @ 999 mls/hr IV .BOLUS ONE Stop: 01/17/20 23:20 Last Admin: 01/18/20 01:09 Dose: 999 mls/hr Documented by: Ceftriaxone Sodium 1 gm/ (Sodium Chloride) 100 mls @ 200 mls/hr IV Q12H [facility] Last Admin: 01/19/20 13:15 Dose: 200 mls/hr Documented by: Magnesium Sulfate 4 gm/ Premix 100 mls @ 50 mls/hr IV ONETIME ONE Stop: 01/19/20 12:36 Last Admin: 01/19/20 14:36 Dose: 50 mls/hr Documented by: Ketorolac Tromethamine (Toradol) 30 mg IVPUSH ONETIME ONE Stop: 01/17/20 21:04 Last Admin: 01/17/20 21:06 Dose: 30 mg Documented by: Lisinopril (Prinivil) 40 mg PO DAILY [facility] Last Admin: 01/18/20 08:08 Dose: 40 mg Documented by: Magnesium Oxide (Magnesium Oxide) 800 mg PO ONETIME ONE Stop: 01/17/20 23:03 Last Admin: 01/18/20 00:37 Dose: 800 mg Documented by: Magnesium Oxide (Magnesium Oxide) 400 mg PO QPM [facility] Last Admin: 01/18/20 17:46 Dose: 400 mg Documented by: Metoprolol Tartrate (Lopressor) 12.5 mg PO DAILY [facility] Last Admin: 01/19/20 08:00 Dose: 12.5 mg Documented by: - Exam General: Reports: Alert, Oriented, Cooperative, No Acute Distress HEENT: Reports: Pupils Equal, Pupils Reactive, EOMI, Mucous Membr. Moist/[place] Neck: Reports: Supple Lungs: Reports: Clear to Auscultation, Normal Respiratory Effort Cardiovascular: Reports: Regular Rate, Regular Rhythm GI/Abdominal Exam: Normal Bowel Sounds, Soft, Non-Tender, No Distention (Female) Exam: Deferred Rectal (Female) Exam: Deferred Back Exam: Denies: CVA Tenderness (L), CVA Tenderness (R), Muscle Spasm Extremities: Non-Tender, Normal Capillary Refill Skin: Reports: Warm, Dry Neurological: Reports: No New Focal Deficit Psy/Mental Status: Reports: Alert, Normal Affect, Normal Mood
== END 2020-01-20 17:45 | disposition home or self-care (01) | DRG 137 ==
LOC: LL.ED 20:31 → UNDOADMOB 22:43 → LL.MS 22:43 → OBSVTOIN 23:03
PROVIDERS: ADMIT Family Medicine; ATTEND Family Medicine
PROC: 8E0ZXY6 Isolation (ICD-10-PCS; principal; 2020-01-17)
DX: U07.1 COVID-19 (principal); J12.89 Other viral pneumonia; E87.2 Acidosis; E78.5 Hyperlipidemia, unspecified; K76.0 Fatty (change of) liver, not elsewhere classified; E88.09 Other disorders of plasma-protein metabolism, not elsewhere classified; E83.51 Hypocalcemia; E87.1 Hypo-osmolality and hyponatremia; I49.1 Atrial premature depolarization; D69.6 Thrombocytopenia, unspecified; J45.20 Mild intermittent asthma, uncomplicated; D50.8 Other iron deficiency anemias; F41.8 Other specified anxiety disorders; K21.9 Gastro-esophageal reflux disease without esophagitis; E83.42 Hypomagnesemia; J30.9 Allergic rhinitis, unspecified; H54.7 Unspecified visual loss; K59.09 Other constipation; E78.00 Pure hypercholesterolemia, unspecified; I11.0 Hypertensive heart disease with heart failure; I50.9 Heart failure, unspecified; R16.2 Hepatomegaly with splenomegaly, not elsewhere classified; M19.90 Unspecified osteoarthritis, unspecified site; M54.2 Cervicalgia; G89.29 Other chronic pain; G25.81 Restless legs syndrome; F41.0 Panic disorder [episodic paroxysmal anxiety]; F32.9 Major depressive disorder, single episode, unspecified; Z71.6 Tobacco abuse counseling; Z88.0 Allergy status to penicillin; Z88.5 Allergy status to narcotic agent; Z91.041 Radiographic dye allergy status; Z88.8 Allergy status to other drugs, medicaments and biological substances; Z79.899 Other long term (current) drug therapy; Z90.49 Acquired absence of other specified parts of digestive tract; Z90.710 Acquired absence of both cervix and uterus
CPT/HCPCS: 36415; 71045; 80053; 80061; 81001; 82272; 82550; 82553; 82607; 82728; 82962; 83036; 83540; 83550; 83605; 83735; 83880; 84443; 84484; 84550; 85025; 85379; 85610; 85730; 86140; 87040; 87081; 87086; 87430; 87804; 93005; 94640; 96374; 99285-25; A9270-GY; J0696; J1644; J1815-GY; J1885; J2405; J3370; J3475; J3490; J7050; J7120; U0002

== ENCOUNTER 2020-02-21 12:46 | Emergency (ER) | payer BC ==
[2020-02-21 13:33] LABS: CHLORIDE,CL 102 mmol/L (98-107); SODIUM,NA 137 mmol/L (136-145)
[2020-02-21] MEDS ORDERED: Metoprolol Tartrate 50 MG Tab PO ONE (14:02)
[2020-02-21] MEDS ORDERED: Sodium Chloride 0.9% 10 ML Syringe FLUSH PRN (14:03)
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
[2020-02-21 18:13] VITALS: BP 153/94; PULSE 70
== END 2020-02-21 16:35 | disposition home or self-care (01) ==
LOC: LL.ED 12:46
DX: I11.0 Hypertensive heart disease with heart failure (principal); I50.9 Heart failure, unspecified; E83.42 Hypomagnesemia; J45.909 Unspecified asthma, uncomplicated; K21.9 Gastro-esophageal reflux disease without esophagitis; F41.9 Anxiety disorder, unspecified; F32.9 Major depressive disorder, single episode, unspecified; E11.9 Type 2 diabetes mellitus without complications; E66.9 Obesity, unspecified; Z77.22 Contact with and (suspected) exposure to environmental tobacco smoke (acute) (chronic); Z88.8 Allergy status to other drugs, medicaments and biological substances; Z88.1 Allergy status to other antibiotic agents; Z88.5 Allergy status to narcotic agent; Z91.041 Radiographic dye allergy status; Z79.899 Other long term (current) drug therapy
CPT/HCPCS: 36415; 80053; 83735; 85025; 96365; 99283-25; A9270-GY; J3475

== ENCOUNTER 2020-05-04 21:55 | Emergency (ER) | payer BC ==
[2020-05-04 22:02] VITALS: BP 137/86; PULSE 70
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
[2020-05-04 23:07] LABS: CHLORIDE,CL 104 mmol/L (98-107); SODIUM,NA 139 mmol/L (136-145)
== END 2020-05-04 23:35 | disposition home or self-care (01) ==
LOC: LL.ED 21:55
DX: M79.661 Pain in right lower leg (principal); I11.0 Hypertensive heart disease with heart failure; I50.9 Heart failure, unspecified; J45.909 Unspecified asthma, uncomplicated; K21.9 Gastro-esophageal reflux disease without esophagitis; E11.9 Type 2 diabetes mellitus without complications; E66.9 Obesity, unspecified; Z68.28 Body mass index [BMI] 28.0-28.9, adult; Z88.8 Allergy status to other drugs, medicaments and biological substances; Z88.0 Allergy status to penicillin; Z88.1 Allergy status to other antibiotic agents; Z88.5 Allergy status to narcotic agent; Z91.041 Radiographic dye allergy status; Z79.899 Other long term (current) drug therapy
CPT/HCPCS: 36415; 80053; 85025; 85379; 99282; 99283

== ENCOUNTER 2020-06-01 12:44 | Emergency (ER) | payer BC ==
[2020-06-01 12:48] VITALS: PULSE 69
[2020-06-01 12:50] VITALS: BP 148/90
[2020-06-01] MEDS ORDERED: Ibuprofen 600 MG Tab PO ONE (12:55)
[2020-06-01 13:31] LABS: CHLORIDE,CL 104 mmol/L (98-107); SODIUM,NA 138 mmol/L (136-145)
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
== END 2020-06-01 14:21 | disposition home or self-care (01) ==
LOC: LL.ED 12:44
DX: R53.83 Other fatigue (principal); M79.602 Pain in left arm; I11.0 Hypertensive heart disease with heart failure; I50.9 Heart failure, unspecified; J45.909 Unspecified asthma, uncomplicated; K21.9 Gastro-esophageal reflux disease without esophagitis; E11.9 Type 2 diabetes mellitus without complications; E66.9 Obesity, unspecified; Z68.30 Body mass index [BMI] 30.0-30.9, adult; Z88.8 Allergy status to other drugs, medicaments and biological substances; Z88.0 Allergy status to penicillin; Z88.1 Allergy status to other antibiotic agents; Z88.5 Allergy status to narcotic agent; Z91.041 Radiographic dye allergy status; Z79.4 Long term (current) use of insulin; Z79.899 Other long term (current) drug therapy
CPT/HCPCS: 36415; 80053; 83735; 85025; 99282; 99283; A9270-GY

== ENCOUNTER 2020-11-22 19:54 | Emergency (ER) | payer SELFPAY ==
[2020-11-22] MEDS ORDERED: Sodium Chloride 0.9% 10 ML Syringe FLUSH PRN (20:04)
[2020-11-22] MEDS ORDERED: LORazepam 1 MG Tab PO ONE (20:47)
[2020-11-22 20:56] LABS: ANION GAP 11.1 meq/L (7-15)
[2020-11-22] MEDS ORDERED: Lactated Ringers 1,000 ML IV ONE (21:20)
[2020-11-22] MEDS ORDERED: Potassium Chloride 10 MEQ Tab.ER PO ONE (21:21)
[2020-11-22] MEDS ORDERED: Magnesium Sulfate/D5W 1 GM/100 ML Premix Bag IV STA (21:22)
[2020-11-22] MEDS ORDERED: Magnesium Sulfate/D5W 1 GM/100 ML BAG IV ONE (21:30)
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
[2020-11-22 21:56] VITALS: BP 116/65; PULSE 65
== END 2020-11-22 22:55 | disposition home or self-care (01) ==
LOC: LL.ED 19:54
DX: F41.9 Anxiety disorder, unspecified (principal); N28.9 Disorder of kidney and ureter, unspecified; F43.9 Reaction to severe stress, unspecified; E78.00 Pure hypercholesterolemia, unspecified; I11.0 Hypertensive heart disease with heart failure; I50.9 Heart failure, unspecified; E11.9 Type 2 diabetes mellitus without complications; J45.909 Unspecified asthma, uncomplicated; E87.6 Hypokalemia; E66.9 Obesity, unspecified; Z68.30 Body mass index [BMI] 30.0-30.9, adult; Z88.0 Allergy status to penicillin; Z88.8 Allergy status to other drugs, medicaments and biological substances; Z88.5 Allergy status to narcotic agent; Z91.041 Radiographic dye allergy status
CPT/HCPCS: 36415; 80053; 81003; 83735; 84484; 85025; 93005; 93010; 96365; 99284; 99285-25; A9270-GY; J3475; J7120

== ENCOUNTER 2021-01-21 17:39 | Emergency (ER) | payer SELFPAY ==
[2021-01-21] MEDS ORDERED: Ondansetron 4 MG/2 ML SDV IVPUSH ONE (17:50)
[2021-01-21] MEDS ORDERED: Lactated Ringers 1,000 ML IV SCH (18:00)
[2021-01-21 18:23] LABS: CHLORIDE,CL 102 mmol/L (98-107); SODIUM,NA 141 mmol/L (136-145)
[2021-01-21 18:25] LABS: ANION GAP 14.4 meq/L (7-15)
[2021-01-21] MEDS ORDERED: NS + KCl 20mEq/L 1,000 ML IV SCH (18:30)
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
[2021-01-21] MEDS ORDERED: Loperamide 2 MG Tab PO ONE (19:08)
[2021-01-21 19:37] VITALS: BP 106/60; PULSE 93
== END 2021-01-21 20:50 | disposition home or self-care (01) ==
LOC: LL.ED 17:39 → SUPCPDRO 17:39 → LL.ED 20:50
DX: K52.9 Noninfective gastroenteritis and colitis, unspecified (principal); I11.0 Hypertensive heart disease with heart failure; I50.9 Heart failure, unspecified; E78.00 Pure hypercholesterolemia, unspecified; K21.9 Gastro-esophageal reflux disease without esophagitis; M19.90 Unspecified osteoarthritis, unspecified site; Z88.8 Allergy status to other drugs, medicaments and biological substances; Z88.0 Allergy status to penicillin; Z88.5 Allergy status to narcotic agent; Z91.041 Radiographic dye allergy status; Z79.84 Long term (current) use of oral hypoglycemic drugs; Z79.899 Other long term (current) drug therapy
CPT/HCPCS: 36415; 80053; 82150; 83690; 83735; 84100; 85025; 85610; 86140; 96374; 99284; 99284-25; A9270-GY; J2405; J3480; J7120

== ENCOUNTER 2021-06-16 17:32 | Emergency (ER) | payer MEDICAID ==
[2021-06-16 17:50] VITALS: BP 119/69; PULSE 85
[2021-06-16] MEDS ORDERED: Albuterol/Ipratropium 3.0-0.5 MG/3 ML Neb Soln NEB ONE (17:54)
[2021-06-16 18:25] LABS: CORONAVIRUS COVID-19 NAA NEGATIVE (NEGATIVE); RESPIRATORY SYNCYTIAL VIR NAA NEGATIVE (NEGATIVE)
[2021-06-16] MEDS ORDERED: methylPREDNISolone Sodium Succinate 125 MG/2 ML SDV IVPUSH ONE (18:29)
[2021-06-16] MEDS ORDERED: methylPREDNISolone Sodium Succinate 125 MG/2 ML SDV IM ONE (18:32)
== END 2021-06-16 19:05 | disposition home or self-care (01) ==
LOC: LL.ED 17:32 → SUPCPDRO 17:32 → LL.ED 19:05
DX: J45.901 Unspecified asthma with (acute) exacerbation (principal); J20.9 Acute bronchitis, unspecified; E11.9 Type 2 diabetes mellitus without complications; I11.0 Hypertensive heart disease with heart failure; I50.9 Heart failure, unspecified; F41.9 Anxiety disorder, unspecified; Z79.899 Other long term (current) drug therapy; Z79.84 Long term (current) use of oral hypoglycemic drugs; Z88.5 Allergy status to narcotic agent; Z88.8 Allergy status to other drugs, medicaments and biological substances; Z88.1 Allergy status to other antibiotic agents; Z91.041 Radiographic dye allergy status; Z20.822 Contact with and (suspected) exposure to COVID-19
CPT/HCPCS: 0241U; 71046; 94640; 96372; 99284; 99284-25; J2930; J7620-GY

== ENCOUNTER 2021-08-07 20:13 | Emergency (ER) | payer MEDICAID ==
[2021-08-07 20:17] VITALS: BP 139/73; PULSE 106
[2021-08-07 21:11] LABS: CORONAVIRUS COVID-19 NAA NEGATIVE (NEGATIVE); RESPIRATORY SYNCYTIAL VIR NAA NEGATIVE (NEGATIVE)
== END 2021-08-07 22:15 | disposition home or self-care (01) ==
LOC: LL.ED 20:13
DX: J06.9 Acute upper respiratory infection, unspecified (principal); R05.9 Cough, unspecified; I11.0 Hypertensive heart disease with heart failure; I50.9 Heart failure, unspecified; E78.00 Pure hypercholesterolemia, unspecified; E11.9 Type 2 diabetes mellitus without complications; E66.9 Obesity, unspecified; Z68.30 Body mass index [BMI] 30.0-30.9, adult; Z20.822 Contact with and (suspected) exposure to COVID-19; Z79.899 Other long term (current) drug therapy; Z79.84 Long term (current) use of oral hypoglycemic drugs; Z86.16 Personal history of COVID-19; Z90.49 Acquired absence of other specified parts of digestive tract; Z90.710 Acquired absence of both cervix and uterus
CPT/HCPCS: 0241U; 99283

== ENCOUNTER 2021-11-14 20:35 | Emergency (ER) | payer MEDICAID ==
[2021-11-14 20:50] VITALS: BP 174/76; PULSE 71
[2021-11-14 21:29] LABS: ANION GAP 6.2 meq/L (7-15); CHLORIDE,CL 103 mmol/L (98-107); ESTIMATED GFR 71 mL/min (>=60); SODIUM,NA 136 mmol/L (136-145)
== END 2021-11-14 21:45 | disposition home or self-care (01) ==
LOC: LL.ED 20:35
DX: R07.89 Other chest pain (principal); E11.9 Type 2 diabetes mellitus without complications; I11.0 Hypertensive heart disease with heart failure; I50.9 Heart failure, unspecified; F41.9 Anxiety disorder, unspecified; F32.A Depression, unspecified; E78.00 Pure hypercholesterolemia, unspecified; Z79.84 Long term (current) use of oral hypoglycemic drugs; Z79.899 Other long term (current) drug therapy
CPT/HCPCS: 36415; 71046; 80053; 82550; 83735; 84484; 85025; 86140; 93005; 99285

== ENCOUNTER 2021-11-23 21:35 | Emergency (ER) | payer MEDICAID ==
[2021-11-23 22:25] VITALS: BP 135/83; PULSE 73
[2021-11-23] MEDS: Sodium Chloride 0.9% 10 ML Syringe FLUSH PRN ×2 (22:31→23:26)
[2021-11-23 22:49] LABS: PTT,PARTIAL THROMBOPLSTIN TIME 25.2 SEC (23.6-29.8)
[2021-11-23 22:53] LABS: ANION GAP 12.6 meq/L (7-15); CHLORIDE,CL 97 mmol/L (98-107); ESTIMATED GFR 51 mL/min (>=60); SODIUM,NA 136 mmol/L (136-145)
[2021-11-23] MEDS ORDERED: Lactated Ringers 1,000 ML IV SCH (23:00)
[2021-11-23] MEDS ORDERED: LORazepam 2 MG/ML SDV IVPUSH ONE (23:04)
[2021-11-23] MEDS ORDERED: Ketorolac 15 MG/ML SDV IVPUSH ONE (23:04)
[2021-11-23] MEDS ORDERED: methylPREDNISolone Sodium Succinate 125 MG/2 ML SDV IVPUSH ONE (23:05)
[2021-11-23 23:08] LABS: CORONAVIRUS COVID-19 NAA NEGATIVE (NEGATIVE); RESPIRATORY SYNCYTIAL VIR NAA NEGATIVE (NEGATIVE)
== END 2021-11-24 00:43 | disposition home or self-care (01) ==
LOC: LL.ED 21:35
DX: R07.89 Other chest pain (principal); I11.0 Hypertensive heart disease with heart failure; I50.9 Heart failure, unspecified; F41.9 Anxiety disorder, unspecified; E78.00 Pure hypercholesterolemia, unspecified; Z88.5 Allergy status to narcotic agent; Z79.899 Other long term (current) drug therapy; Z79.84 Long term (current) use of oral hypoglycemic drugs; Z90.49 Acquired absence of other specified parts of digestive tract; Z90.710 Acquired absence of both cervix and uterus; Z20.822 Contact with and (suspected) exposure to COVID-19
CPT/HCPCS: 0241U; 36415; 71045; 80053; 83735; 84100; 84484; 85025; 85379; 85610; 85730; 86140; 93005; 93010; 96361; 96374; 96375; 99284; 99285-25; J1885; J2060; J2930; J3490; J7120

== ENCOUNTER 2021-12-05 19:18 | Emergency (ER) | payer MEDICAID ==
[2021-12-05 23:13] VITALS: BP 134/80; PULSE 85
== END 2021-12-05 21:01 | disposition home or self-care (01) ==
LOC: LL.ED 19:18
DX: S92.322A Displaced fracture of second metatarsal bone, left foot, initial encounter for closed fracture (principal); I11.0 Hypertensive heart disease with heart failure; I50.9 Heart failure, unspecified; Z88.5 Allergy status to narcotic agent; Z79.84 Long term (current) use of oral hypoglycemic drugs; Z79.899 Other long term (current) drug therapy; Z86.16 Personal history of COVID-19; Z90.49 Acquired absence of other specified parts of digestive tract; Z90.710 Acquired absence of both cervix and uterus; W01.10XA Fall on same level from slipping, tripping and stumbling with subsequent striking against unspecified object, initial encounter
CPT/HCPCS: 70450; 73630-LT; 99284

== ENCOUNTER 2022-01-22 11:45 | Inpatient (IN) | payer MEDICAID ==
[2022-01-22] MEDS ORDERED: Ondansetron 4 MG/2 ML SDV IVPUSH PRN (12:04)
[2022-01-22] MEDS ORDERED: Sodium Chloride 0.9% 10 ML Syringe FLUSH PRN ×3 (12:04→13:35)
[2022-01-22] MEDS ORDERED: Lactated Ringers 1,000 ML IV SCH ×2 (12:15→15:15)
[2022-01-22 12:43] LABS: CHLORIDE,CL 94 mmol/L (98-107); SODIUM,NA 135 mmol/L (136-145)
[2022-01-22 12:47] LABS: ANION GAP 17.5 meq/L (7-15); ESTIMATED GFR 38 mL/min (>=60)
[2022-01-22] MEDS: Acetaminophen 325 MG Tab PO PRN ×2 (13:31→20:28)
[2022-01-22] MEDS: Potassium Chloride Riders 10 MEQ in Premix Bag 1 BAG IV SCH ×4 (13:34→17:53)
[2022-01-22] MEDS ORDERED: Magnesium Sulfate/Water 2 GM in Premix Bag 1 BAG IV SCH (14:15)
[2022-01-22 14:52] LABS: CORONAVIRUS COVID-19 NAA NEGATIVE (NEGATIVE); RESPIRATORY SYNCYTIAL VIR NAA NEGATIVE (NEGATIVE)
[2022-01-22] MEDS ORDERED: Magnesium Sulfate/Water 2 GM in Premix Bag 1 BAG IV ONE (15:00)
[2022-01-22] MEDS: Heparin Sodium 5,000 Units/ML Vial SUBCUT SCH (15:11)
[2022-01-22] MEDS: Famotidine 20 MG Tab PO SCH (17:53)
[2022-01-22] MEDS: hydrOXYzine HCl 25 MG Tab PO SCH (17:53)
[2022-01-22] MEDS ORDERED: Mirtazapine 30 MG Tab PO SCH (20:00)
[2022-01-22] MEDS ORDERED: atorvaSTATin 20 MG Tab PO SCH (20:00)
[2022-01-22] MEDS: Potassium Chloride 20 MEQ Tab.ER PO ONE ×2 (20:27→20:34)
[2022-01-23] MEDS: Heparin Sodium 5,000 Units/ML Vial SUBCUT SCH ×2 (00:17→07:23)
[2022-01-23 07:22] VITALS: BP 102/59
[2022-01-23] MEDS: Famotidine 20 MG Tab PO SCH (07:28)
[2022-01-23] MEDS ORDERED: Metoprolol Tartrate 50 MG Tab PO SCH (08:00)
[2022-01-23] MEDS ORDERED: QUETIAPINE FUMARATE 50 MG PO SCH (08:00)
[2022-01-23] MEDS ORDERED: Magnesium Chloride 64 MG Tab.ER PO SCH (08:00)
[2022-01-23] MEDS ORDERED: Hydrochlorothiazide 25 MG Tab PO SCH (08:00)
[2022-01-23] MEDS ORDERED: Potassium Chloride 20 MEQ Tab.ER PO ONE (08:27)
[2022-01-23 08:40] LABS: ANION GAP 11.4 meq/L (7-15)
[2022-01-23] MEDS: hydrOXYzine HCl 25 MG Tab PO SCH (10:13)
[2022-01-23] MEDS ORDERED: Potassium Bicarbonate/Cit Ac 20 MEQ Effervescent Tab PO ONE (11:40)
[2022-01-23] MEDS ORDERED: Metoprolol Tartrate 25 MG Tab PO SCH (12:00)
[2022-01-23 12:18] VITALS: PULSE 106
== END 2022-01-23 12:20 | disposition home or self-care (01) | DRG 872 ==
LOC: LL.ED 11:45 → LL.MS 13:33
PROVIDERS: ADMIT Hospitalist; ATTEND Hospitalist
DX: A41.9 Sepsis, unspecified organism (principal); N17.9 Acute kidney failure, unspecified; D69.3 Immune thrombocytopenic purpura; R65.20 Severe sepsis without septic shock; A08.4 Viral intestinal infection, unspecified; E86.0 Dehydration; E83.42 Hypomagnesemia; E87.6 Hypokalemia; R79.89 Other specified abnormal findings of blood chemistry; Z20.822 Contact with and (suspected) exposure to COVID-19; E11.65 Type 2 diabetes mellitus with hyperglycemia; D72.829 Elevated white blood cell count, unspecified; H54.7 Unspecified visual loss; E78.00 Pure hypercholesterolemia, unspecified; I10 Essential (primary) hypertension; K76.0 Fatty (change of) liver, not elsewhere classified; J45.909 Unspecified asthma, uncomplicated; K59.09 Other constipation; K21.9 Gastro-esophageal reflux disease without esophagitis; K44.9 Diaphragmatic hernia without obstruction or gangrene; M19.90 Unspecified osteoarthritis, unspecified site; G89.29 Other chronic pain; M54.9 Dorsalgia, unspecified; G25.81 Restless legs syndrome; F41.9 Anxiety disorder, unspecified; F32.A Depression, unspecified; E11.9 Type 2 diabetes mellitus without complications; D50.9 Iron deficiency anemia, unspecified; Z86.16 Personal history of COVID-19; Z90.49 Acquired absence of other specified parts of digestive tract; Z79.899 Other long term (current) drug therapy; Z88.5 Allergy status to narcotic agent; Z79.52 Long term (current) use of systemic steroids; Z79.84 Long term (current) use of oral hypoglycemic drugs; Z90.710 Acquired absence of both cervix and uterus
CPT/HCPCS: 0241U; 36415; 80048; 80053; 82270; 83605; 83690; 83735; 85025; 85027; 86140; 96374; 99284-25; A9270-GY; J1644; J2405; J3475; J3480; J7120

== ENCOUNTER 2022-02-24 14:58 | Emergency (ER) | payer MEDICAID ==
[2022-02-24] MEDS ORDERED: Sodium Chloride 0.9% 10 ML Syringe FLUSH PRN (15:00)
[2022-02-24] MEDS: Sodium Chloride 0.9% 1,000 ML IV ONE (15:04)
[2022-02-24] MEDS: Ondansetron 4 MG/2 ML SDV IM ONE (15:26)
[2022-02-24] MEDS: Ondansetron 4 MG/2 ML SDV IVPUSH ONE (15:27)
[2022-02-24 16:07] LABS: RESPIRATORY SYNCYTIAL VIR NAA NEGATIVE (NEGATIVE)
[2022-02-24 16:08] LABS: CORONAVIRUS COVID-19 NAA POSITIVE (NEGATIVE)
[2022-02-24 16:20] LABS: ANION GAP 11.5 meq/L (7-15); CHLORIDE,CL 103 mmol/L (98-107); SODIUM,NA 139 mmol/L (136-145)
[2022-02-24 16:21] LABS: ESTIMATED GFR 60 mL/min (>=60)
[2022-02-24] MEDS: Potassium Bicarbonate/Cit Ac 20 MEQ Effervescent Tab PO ONE ×2 (17:39→18:47)
[2022-02-24] MEDS: Acetaminophen 500 MG Tab PO ONE (17:39)
[2022-02-24] MEDS: Magnesium Sulfate/Water 2 GM in Premix Bag 1 BAG IV ONE (17:40)
[2022-02-24 18:51] VITALS: BP 136/68; PULSE 101
== END 2022-02-24 19:20 | disposition home or self-care (01) ==
LOC: LL.ED 14:58
DX: U07.1 COVID-19 (principal); E83.42 Hypomagnesemia; E87.6 Hypokalemia; I11.0 Hypertensive heart disease with heart failure; I50.9 Heart failure, unspecified; E11.9 Type 2 diabetes mellitus without complications; E66.9 Obesity, unspecified; F41.9 Anxiety disorder, unspecified; Z20.822 Contact with and (suspected) exposure to COVID-19; Z79.899 Other long term (current) drug therapy; Z88.8 Allergy status to other drugs, medicaments and biological substances; Z88.5 Allergy status to narcotic agent; Z88.1 Allergy status to other antibiotic agents
CPT/HCPCS: 0241U; 36415; 80053; 83735; 85025; 96361; 96365; 96375; 99284; 99284-25; A9270-GY; J2405; J3475; J7030

== ENCOUNTER 2022-04-03 11:47 | Day surgery (SDC) | payer MEDICAID ==
[~2022-04-03 11:47] MED LIST: Midazolam 1 MG/ML 2 ML SDV ONE; Propofol 200 MG/20 ML SDV ONE; Sodium Chloride 0.9% 10 ML Syringe FLUSH PRN
[2022-04-03] MEDS ORDERED: Midazolam 1 MG/ML 2 ML SDV ONE (12:01)
[2022-04-03] MEDS ORDERED: Ketamine 500 mg/10 ML MDV ONE (12:02)
[2022-04-03] MEDS: Lactated Ringers 1,000 ML IV SCH (12:19)
[2022-04-03] MEDS ORDERED: Lidocaine 2% 5 ML SDV ONE (13:00)
[2022-04-03] MEDS ORDERED: Glycopyrrolate 0.2 MG/ML SDV IVPUSH ONE (13:00)
[2022-04-03 15:57] VITALS: PULSE 88
[2022-04-03 15:58] VITALS: BP 128/90
== END 2022-04-03 14:20 | disposition home or self-care (01) ==
LOC: LL.SDS 11:47
PROVIDERS: ATTEND Surgery
DX: Z12.11 Encounter for screening for malignant neoplasm of colon (principal); K29.50 Unspecified chronic gastritis without bleeding; K21.9 Gastro-esophageal reflux disease without esophagitis; J45.20 Mild intermittent asthma, uncomplicated; E11.9 Type 2 diabetes mellitus without complications; I10 Essential (primary) hypertension; F41.9 Anxiety disorder, unspecified; E83.42 Hypomagnesemia; F32.A Depression, unspecified; Z79.899 Other long term (current) drug therapy; Z79.4 Long term (current) use of insulin; Z79.84 Long term (current) use of oral hypoglycemic drugs; Z88.6 Allergy status to analgesic agent; Z90.49 Acquired absence of other specified parts of digestive tract; Z98.890 Other specified postprocedural states; Z90.710 Acquired absence of both cervix and uterus
CPT/HCPCS: 00812; 82947; J2250; J2704; J3490; J7120

== ENCOUNTER 2022-05-01 11:52 | Emergency (ER) | payer MEDICAID ==
[2022-05-01] MEDS ORDERED: Ondansetron 4 MG/2 ML SDV IVPUSH ONE (12:04)
[2022-05-01] MEDS ORDERED: Sodium Chloride 0.9% 1,000 ML IV ONE (12:04)
[2022-05-01] MEDS ORDERED: Acetaminophen 325 MG Tab PO ONE (12:05)
[2022-05-01 12:33] LABS: ANION GAP 9.6 meq/L (7-15); CHLORIDE,CL 98 mmol/L (98-107); SODIUM,NA 139 mmol/L (136-145)
[2022-05-01 12:34] LABS: ESTIMATED GFR 61 mL/min (>=60)
[2022-05-01] MEDS ORDERED: Iopamidol 612 MG/ML 100 ML Bottle IVPUSH ONE (12:41)
[2022-05-01] MEDS ORDERED: fentaNYL 50 MCG/ML SDV IVPUSH ONE (14:40)
[2022-05-01 15:40] VITALS: BP 132/70; PULSE 91
== END 2022-05-01 15:32 | disposition home or self-care (01) ==
LOC: LL.ED 11:52
DX: R10.31 Right lower quadrant pain (principal); I10 Essential (primary) hypertension; K21.9 Gastro-esophageal reflux disease without esophagitis; E11.9 Type 2 diabetes mellitus without complications; Z88.0 Allergy status to penicillin; Z88.8 Allergy status to other drugs, medicaments and biological substances; Z88.5 Allergy status to narcotic agent; Z91.041 Radiographic dye allergy status; Z79.899 Other long term (current) drug therapy; Z79.4 Long term (current) use of insulin; Z86.16 Personal history of COVID-19
CPT/HCPCS: 36415; 74177; 80053; 81003; 82150; 83690; 83735; 85025; 86140; 96361; 96374; 96375; 99284; 99284-25; A9270-GY; J2405; J3010; J7030; Q9967

== ENCOUNTER 2022-07-08 21:49 | Emergency (ER) | payer MEDICAID ==
[2022-07-08] MEDS ORDERED: Ketorolac 30 MG/ML SDV IVPUSH ONE (22:17)
[2022-07-08] MEDS ORDERED: Sodium Chloride 0.9% 10 ML Syringe FLUSH PRN (22:18)
[2022-07-08] MEDS ORDERED: Sodium Chloride 0.9% 1,000 ML IV ONE (22:18)
[2022-07-08] MEDS ORDERED: Ondansetron 4 MG Tab.DIS PO ONE (22:36)
[2022-07-09 00:39] VITALS: BP 127/66; PULSE 72
== END 2022-07-08 23:08 | disposition home or self-care (01) ==
LOC: LL.ED 21:49
DX: R13.19 Other dysphagia (principal); R07.0 Pain in throat; I10 Essential (primary) hypertension; E78.5 Hyperlipidemia, unspecified; J45.909 Unspecified asthma, uncomplicated; E11.9 Type 2 diabetes mellitus without complications; Z86.16 Personal history of COVID-19; Z88.0 Allergy status to penicillin; Z88.5 Allergy status to narcotic agent; Z88.8 Allergy status to other drugs, medicaments and biological substances; Z91.041 Radiographic dye allergy status; Z79.899 Other long term (current) drug therapy
CPT/HCPCS: 71046; 99283; A9270-GY

== ENCOUNTER 2022-10-06 14:34 | Emergency (ER) | payer MEDICAID ==
[2022-10-06] MEDS ORDERED: Norflurane/HFc 245FA Medium Stream Spray 103.5 ML Can TOP PRN (14:51)
[2022-10-06] MEDS ORDERED: Sodium Chloride 0.9% 10 ML Syringe FLUSH PRN (14:51)
[2022-10-06] MEDS ORDERED: Sodium Chloride 0.9% 1,000 ML IV ONE (14:57)
[2022-10-06 15:14] LABS: BASOPHILS ABSOLUTE AUTO 0.05 K/uL (0.00-0.20); BASOPHILS PERCENT AUTO 0.5 % (0.0-2.0); EOSINOPHILS ABSOLUTE AUTO 0.11 K/uL (0.00-0.50); HEMATOCRIT 40.8 % (34.0-46.0); HEMOGLOBIN 13.3 g/dL (11.7-15.5); LYMPHOCYTES ABSOLUTE AUTO 2.23 K/uL (0.50-3.50); MEAN CORPUSCULAR HEMOGLOBIN 22.8 pg (28.2-33.3); MEAN CORPUSCULAR HGB CONC 32.6 g/dL (31.7-36.0); MONOCYTES ABSOLUTE AUTO 1.12 K/uL (0.00-1.00); MONOCYTES PERCENT AUTO 10.6 % (2.0-14.0); NEUTROPHILS PERCENT AUTO 66.9 % (45.0-80.0); PLATELET COUNT,PLT 444 K/uL (150-350); RED BLOOD CELL COUNT 5.83 M/uL (3.77-5.09); WHITE BLOOD CELL COUNT,WBC 10.6 K/uL (4.0-10.2)
[2022-10-06] MEDS ORDERED: Ondansetron 4 MG/2 ML SDV IVPUSH PRN (15:16)
[2022-10-06 15:17] LABS: APPEARANCE,URINE CLEAR; BILIRUBIN,URINE NEGATIVE (NEGATIVE); COLOR,URINE YELLOW; GLUCOSE,URINE >=1000 mg/dL (NEGATIVE); KETONES,URINE NEGATIVE (NEGATIVE); LEUKOCYTE ESTERASE,URINE NEGATIVE (NEGATIVE); NITRITE,URINE NEGATIVE (NEGATIVE); OCCULT BLOOD,URINE NEGATIVE (NEGATIVE); PROTEIN,URINE NEGATIVE (NEGATIVE); UROBILINOGEN,URINE 0.2 E.U./dL (0.2-1.0)
[2022-10-06 15:20] VITALS: PULSE 113
[2022-10-06 15:23] LABS: ALANINE AMINOTRANSFERASE,ALT 69 U/L (12-78); ALBUMIN 4.4 g/dL (3.4-5.0); ALKALINE PHOSPHATASE 86 IU/L (46-116); ASPARTATE AMNIOTRANSFERASE,AST 62 U/L (15-37); BLOOD UREA NITROGEN,BUN 24 mg/dL (7-18); CALCIUM 9.3 mg/dL (8.5-10.1); CARBON DIOXIDE,CO2 26.5 mmol/L (21.0-32.0); CHLORIDE,CL 94 mmol/L (98-107); CREATININE 1.29 mg/dL (0.51-1.17); GLUCOSE RANDOM 277 mg/dL (70-99); POTASSIUM,K 3.1 mmol/L (3.5-5.1); PROTEIN TOTAL,TP 8.3 g/dL (6.4-8.2); SODIUM,NA 135 mmol/L (136-145)
[2022-10-06 15:26] LABS: ANION GAP 17.6 meq/L (7-15); ESTIMATED GFR 50 mL/min (>=60)
[2022-10-06 15:41] LABS: CREATINE KINASE,CK 47 U/L (26-308); PRO B-TYPE NATRIUR PEPT,BNPPRO 39 pg/mL (0-125)
[2022-10-06 17:03] LABS: CORONAVIRUS COVID-19 NAA NEGATIVE (NEGATIVE); INFLUENZA A NAA NEGATIVE (NEGATIVE); INFLUENZA B NAA NEGATIVE (NEGATIVE); RESPIRATORY SYNCYTIAL VIR NAA NEGATIVE (NEGATIVE)
[2022-10-06 19:21] VITALS: BP 125/88
== END 2022-10-06 18:05 | disposition home or self-care (01) ==
LOC: LL.ED 14:34
DX: F41.9 Anxiety disorder, unspecified (principal); I10 Essential (primary) hypertension; J45.909 Unspecified asthma, uncomplicated; Z88.5 Allergy status to narcotic agent; Z91.041 Radiographic dye allergy status; Z79.899 Other long term (current) drug therapy; Z77.22 Contact with and (suspected) exposure to environmental tobacco smoke (acute) (chronic); Z20.822 Contact with and (suspected) exposure to COVID-19
CPT/HCPCS: 0241U; 36415; 71046; 80053; 81003; 82550; 82947; 83605; 83880; 84484; 85025; 85379; 93005; 93010; 96361; 96374; 99284; 99284-25; J2405; J7030

== ENCOUNTER 2023-01-03 12:34 | Emergency (ER) | payer MEDICAID ==
[2023-01-03 13:17] LABS: BASOPHILS ABSOLUTE AUTO 0.04 K/uL (0.00-0.20); BASOPHILS PERCENT AUTO 0.4 % (0.0-2.0); EOSINOPHILS ABSOLUTE AUTO 0.56 K/uL (0.00-0.50); HEMATOCRIT 37.2 % (34.0-46.0); HEMOGLOBIN 11.7 g/dL (11.7-15.5); LYMPHOCYTES ABSOLUTE AUTO 2.01 K/uL (0.50-3.50); LYMPHOCYTES PERCENT AUTO 21.7 % (10.0-50.0); MEAN CORPUSCULAR HGB CONC 31.5 g/dL (31.7-36.0); MEAN CORPUSCULAR VOLUME 69.9 fL (84.0-98.0); MONOCYTES ABSOLUTE AUTO 0.65 K/uL (0.00-1.00); NEUTROPHILS PERCENT AUTO 64.9 % (45.0-80.0); PLATELET COUNT,PLT 296 K/uL (150-350); RED BLOOD CELL COUNT 5.32 M/uL (3.77-5.09); RED CELL DISTRIBUTION WIDTH 18.5 % (11.2-14.1); WHITE BLOOD CELL COUNT,WBC 9.3 K/uL (4.0-10.2)
[2023-01-03 13:36] LABS: ALANINE AMINOTRANSFERASE,ALT 30 U/L (12-78); ALBUMIN 3.8 g/dL (3.4-5.0); ALKALINE PHOSPHATASE 74 IU/L (46-116); ANION GAP 7.6 meq/L (7-15); ASPARTATE AMNIOTRANSFERASE,AST 22 U/L (15-37); BILIRUBIN TOTAL 0.4 mg/dL (0.2-1.0); BLOOD UREA NITROGEN,BUN 31 mg/dL (7-18); CALCIUM 9.1 mg/dL (8.5-10.1); CARBON DIOXIDE,CO2 28.4 mmol/L (21.0-32.0); CHLORIDE,CL 101 mmol/L (98-107); CREATININE 1.07 mg/dL (0.51-1.17); GLUCOSE RANDOM 216 mg/dL (70-99); MAGNESIUM 2.1 mg/dL (1.8-2.4); POTASSIUM,K 3.6 mmol/L (3.5-5.1); PROTEIN TOTAL,TP 7.1 g/dL (6.4-8.2); SODIUM,NA 137 mmol/L (136-145)
[2023-01-03 13:50] VITALS: BP 133/90; PULSE 86
[2023-01-03 13:50] LABS: ESTIMATED GFR 63 mL/min (>=60)
[2023-01-03] MEDS ORDERED: Take Home: Clindamycin HCl 150 MG, 12 Cap Pack PO ONE ×2 (13:57→14:13)
== END 2023-01-03 14:20 | disposition home or self-care (01) ==
LOC: LL.ED 12:34
DX: K08.89 Other specified disorders of teeth and supporting structures (principal); E11.9 Type 2 diabetes mellitus without complications; I10 Essential (primary) hypertension; J45.909 Unspecified asthma, uncomplicated; Z86.16 Personal history of COVID-19; Z79.84 Long term (current) use of oral hypoglycemic drugs; Z79.899 Other long term (current) drug therapy; Z88.5 Allergy status to narcotic agent; Z88.1 Allergy status to other antibiotic agents; Z88.8 Allergy status to other drugs, medicaments and biological substances
CPT/HCPCS: 36415; 80053; 83735; 85025; 99283; A9270-GY

== ENCOUNTER 2023-02-20 07:41 | Emergency (ER) | payer MEDICAID ==
[2023-02-20] MEDS ORDERED: Sodium Chloride 0.9% 1,000 ML IV ONE (08:00)
[2023-02-20] MEDS ORDERED: Ondansetron 4 MG/2 ML SDV IVPUSH ONE ×2 (08:01→09:33)
[2023-02-20] MEDS: Sodium Chloride 0.9% 10 ML Syringe FLUSH PRN ×3 (08:32→10:00)
[2023-02-20 08:45] LABS: BASOPHILS ABSOLUTE AUTO 0.03 K/uL (0.00-0.20); BASOPHILS PERCENT AUTO 0.1 % (0.0-2.0); HEMATOCRIT 36.9 % (34.0-46.0); HEMOGLOBIN 11.6 g/dL (11.7-15.5); LYMPHOCYTES ABSOLUTE AUTO 0.46 K/uL (0.50-3.50); LYMPHOCYTES PERCENT AUTO 2.3 % (10.0-50.0); MEAN CORPUSCULAR HEMOGLOBIN 21.9 pg (28.2-33.3); MEAN CORPUSCULAR HGB CONC 31.4 g/dL (31.7-36.0); MEAN CORPUSCULAR VOLUME 69.6 fL (84.0-98.0); MONOCYTES ABSOLUTE AUTO 1.52 K/uL (0.00-1.00); MONOCYTES PERCENT AUTO 7.5 % (2.0-14.0); NEUTROPHILS ABSOLUTE AUTO 18.23 K/uL (1.40-7.00); NEUTROPHILS PERCENT AUTO 90.1 % (45.0-80.0); PLATELET COUNT,PLT 381 K/uL (150-350); RED CELL DISTRIBUTION WIDTH 18.7 % (11.2-14.1); WHITE BLOOD CELL COUNT,WBC 20.2 K/uL (4.0-10.2)
[2023-02-20 08:51] LABS: ALBUMIN 3.5 g/dL (3.4-5.0); ANION GAP 13.6 meq/L (7-15); BILIRUBIN TOTAL 0.7 mg/dL (0.2-1.0); CALCIUM 8.3 mg/dL (8.5-10.1); CARBON DIOXIDE,CO2 25.4 mmol/L (21.0-32.0); CREATININE 1.23 mg/dL (0.51-1.17); EST CRCL DRUG DOSING (CG) 41.34 mL/min; POTASSIUM,K 3.6 mmol/L (3.5-5.1)
[2023-02-20 09:12] LABS: CORONAVIRUS COVID-19 NAA NEGATIVE (NEGATIVE); INFLUENZA A NAA NEGATIVE (NEGATIVE); INFLUENZA B NAA NEGATIVE (NEGATIVE); RESPIRATORY SYNCYTIAL VIR NAA NEGATIVE (NEGATIVE)
[2023-02-20 09:30] LABS: PROTHROMBIN TIME 10.4 SEC (9.0-11.1)
[2023-02-20 10:22] VITALS: BP 142/66; PULSE 100
== END 2023-02-20 10:48 | disposition home or self-care (01) ==
LOC: LL.ED 07:41
DX: A08.4 Viral intestinal infection, unspecified (principal); I10 Essential (primary) hypertension; K21.9 Gastro-esophageal reflux disease without esophagitis; J45.909 Unspecified asthma, uncomplicated; E11.9 Type 2 diabetes mellitus without complications; Z86.16 Personal history of COVID-19; Z79.84 Long term (current) use of oral hypoglycemic drugs; Z88.1 Allergy status to other antibiotic agents; Z88.5 Allergy status to narcotic agent; Z88.6 Allergy status to analgesic agent; Z88.8 Allergy status to other drugs, medicaments and biological substances; Z88.0 Allergy status to penicillin; Z91.041 Radiographic dye allergy status; Z79.899 Other long term (current) drug therapy; Z90.710 Acquired absence of both cervix and uterus; Z20.822 Contact with and (suspected) exposure to COVID-19
CPT/HCPCS: 0241U; 36415; 74176; 80053; 85025; 85610; 86140; 96361; 96374; 96376; 99284; 99284-25; J2405; J3490; J7030

== ENCOUNTER 2023-06-26 19:02 | Emergency (ER) | payer SELFPAY ==
[2023-06-26] MEDS: Prochlorperazine 10 MG/2 ML SDV IV ONE (20:23)
[2023-06-26] MEDS: Sodium Chloride 0.9% 10 ML Syringe FLUSH PRN (20:23)
[2023-06-26] MEDS: Take Home: Lisinopril 10 MG, 4 Tab Pack PO ONE (21:28)
[2023-06-26] MEDS: LORazepam 2 MG/ML SDV IVPUSH ONE (21:28)
[2023-06-26 21:55] VITALS: BP 149/73; PULSE 68
== END 2023-06-26 21:35 | disposition home or self-care (01) ==
LOC: LL.ED 19:02
DX: I10 Essential (primary) hypertension (principal); F41.9 Anxiety disorder, unspecified; R11.2 Nausea with vomiting, unspecified; E78.00 Pure hypercholesterolemia, unspecified; J45.909 Unspecified asthma, uncomplicated; K21.9 Gastro-esophageal reflux disease without esophagitis; E11.9 Type 2 diabetes mellitus without complications; Z88.0 Allergy status to penicillin; Z88.8 Allergy status to other drugs, medicaments and biological substances; Z88.5 Allergy status to narcotic agent; Z91.041 Radiographic dye allergy status; Z79.84 Long term (current) use of oral hypoglycemic drugs; Z79.899 Other long term (current) drug therapy; Z86.16 Personal history of COVID-19; Z86.19 Personal history of other infectious and parasitic diseases; Z90.49 Acquired absence of other specified parts of digestive tract
CPT/HCPCS: 96374; 99283-25; 99284; A9270-GY; J0780; J3490

== ENCOUNTER 2023-08-04 13:30 | Emergency (ER) | payer SELFPAY ==
[2023-08-04 13:55] LABS: APPEARANCE,URINE SLIGHTLY CLOUDY; BILIRUBIN,URINE SMALL (NEGATIVE); COLOR,URINE YELLOW; GLUCOSE,URINE 500 mg/dL (NEGATIVE); KETONES,URINE 40 mg/dL (NEGATIVE); LEUKOCYTE ESTERASE,URINE NEGATIVE (NEGATIVE); NITRITE,URINE NEGATIVE (NEGATIVE); OCCULT BLOOD,URINE SMALL (NEGATIVE); PH,URINE 5.5 (5.0-9.0); PROTEIN,URINE TRACE mg/dL (NEGATIVE); UROBILINOGEN,URINE 0.2 E.U./dL (0.2-1.0)
[2023-08-04 14:04] LABS: BACTERIA,URINE FEW /HPF (NONE TO FEW); EPITHELIAL CELLS,URINE MODERATE /LPF; RBC,URINE 0-5 /HPF; WBC,URINE 0-5 /HPF
[2023-08-04 14:10] LABS: BASOPHILS ABSOLUTE AUTO 0.04 K/uL (0.00-0.20); BASOPHILS PERCENT AUTO 0.4 % (0.0-2.0); EOSINOPHILS ABSOLUTE AUTO 0.07 K/uL (0.00-0.50); EOSINOPHILS PERCENT AUTO 0.7 % (0.0-5.0); HEMATOCRIT 40.2 % (34.0-46.0); HEMOGLOBIN 14.2 g/dL (11.7-15.5); LYMPHOCYTES ABSOLUTE AUTO 1.22 K/uL (0.50-3.50); LYMPHOCYTES PERCENT AUTO 11.7 % (10.0-50.0); MEAN CORPUSCULAR HEMOGLOBIN 28.2 pg (28.2-33.3); MEAN CORPUSCULAR HGB CONC 35.3 g/dL (31.7-36.0); MEAN CORPUSCULAR VOLUME 79.8 fL (84.0-98.0); MONOCYTES ABSOLUTE AUTO 0.62 K/uL (0.00-1.00); NEUTROPHILS ABSOLUTE AUTO 8.45 K/uL (1.40-7.00); NEUTROPHILS PERCENT AUTO 81.2 % (45.0-80.0); PLATELET COUNT,PLT 284 K/uL (150-350); RED BLOOD CELL COUNT 5.04 M/uL (3.77-5.09); RED CELL DISTRIBUTION WIDTH 13.9 % (11.2-14.1); WHITE BLOOD CELL COUNT,WBC 10.4 K/uL (4.0-10.2)
[2023-08-04 14:31] LABS: ALBUMIN 3.8 g/dL (3.4-5.0); BILIRUBIN TOTAL 0.8 mg/dL (0.2-1.0); CALCIUM 8.8 mg/dL (8.5-10.1); CARBON DIOXIDE,CO2 26.7 mmol/L (21.0-32.0); CREATININE 0.97 mg/dL (0.51-1.17); EST CRCL DRUG DOSING (CG) 50.61 mL/min; POTASSIUM,K 3.7 mmol/L (3.5-5.1); PROTEIN TOTAL,TP 7.1 g/dL (6.4-8.2)
[2023-08-04] MEDS: Ondansetron 4 MG/2 ML SDV IVPUSH ONE (16:17)
[2023-08-04] MEDS: Sodium Chloride 0.9% 10 ML Syringe FLUSH PRN (16:20)
[2023-08-04] MEDS: Take Home: Ondansetron 4 MG Tab.DIS, 5 Tab Pack PO ONE (17:32)
[2023-08-04 17:35] VITALS: BP 123/74; PULSE 93
== END 2023-08-04 17:40 | disposition home or self-care (01) ==
LOC: LL.ED 13:30
DX: K52.9 Noninfective gastroenteritis and colitis, unspecified (principal); E11.9 Type 2 diabetes mellitus without complications; E66.9 Obesity, unspecified; K21.9 Gastro-esophageal reflux disease without esophagitis; J45.909 Unspecified asthma, uncomplicated; E78.00 Pure hypercholesterolemia, unspecified; I10 Essential (primary) hypertension; Z86.16 Personal history of COVID-19; Z79.84 Long term (current) use of oral hypoglycemic drugs; Z79.899 Other long term (current) drug therapy; Z88.1 Allergy status to other antibiotic agents; Z88.5 Allergy status to narcotic agent; Z88.8 Allergy status to other drugs, medicaments and biological substances; Z91.041 Radiographic dye allergy status
CPT/HCPCS: 36415; 74176; 80053; 81001; 85025; 85610; 96374; 99284; J2405; Q0162; J3490

== ENCOUNTER 2023-08-24 09:49 | Emergency (ER) | payer SELFPAY ==
[2023-08-24] MEDS: Ketorolac 15 MG/ML SDV IVPUSH ONE (11:33)
[2023-08-24] MEDS: Prochlorperazine 10 MG/2 ML SDV IV ONE (11:34)
[2023-08-24] MEDS: diphenhydrAMINE 50 MG/ML SDV IVPUSH ONE (11:34)
[2023-08-24] MEDS: Sodium Chloride 0.9% 10 ML Syringe FLUSH PRN (11:34)
[2023-08-24 11:51] LABS: APPEARANCE,URINE SLIGHTLY CLOUDY; BILIRUBIN,URINE NEGATIVE (NEGATIVE); COLOR,URINE YELLOW; GLUCOSE,URINE NEGATIVE (NEGATIVE); KETONES,URINE TRACE mg/dL (NEGATIVE); LEUKOCYTE ESTERASE,URINE SMALL (NEGATIVE); NITRITE,URINE NEGATIVE (NEGATIVE); OCCULT BLOOD,URINE SMALL (NEGATIVE); PROTEIN,URINE NEGATIVE (NEGATIVE); UROBILINOGEN,URINE 0.2 E.U./dL (0.2-1.0)
[2023-08-24 12:15] LABS: BACTERIA,URINE FEW /HPF (NONE TO FEW); EPITHELIAL CELLS,URINE MANY /LPF; MUCUS,URINE FEW /LPF (NEGATIVE)
[2023-08-24 14:22] VITALS: BP 141/81; PULSE 79
== END 2023-08-24 12:27 | disposition home or self-care (01) ==
LOC: LL.ED 09:49
DX: G43.909 Migraine, unspecified, not intractable, without status migrainosus (principal); R11.2 Nausea with vomiting, unspecified; I10 Essential (primary) hypertension; E78.00 Pure hypercholesterolemia, unspecified; K21.9 Gastro-esophageal reflux disease without esophagitis; E11.618 Type 2 diabetes mellitus with other diabetic arthropathy; E66.9 Obesity, unspecified; Z86.16 Personal history of COVID-19; Z90.49 Acquired absence of other specified parts of digestive tract; Z90.710 Acquired absence of both cervix and uterus; Z79.899 Other long term (current) drug therapy; Z88.0 Allergy status to penicillin; Z88.5 Allergy status to narcotic agent; Z88.8 Allergy status to other drugs, medicaments and biological substances; Z91.041 Radiographic dye allergy status; Z68.29 Body mass index [BMI] 29.0-29.9, adult
CPT/HCPCS: 81001; 87086; 96374; 96375; 99283; 99284; J0780; J1200; J1885; J3490

== ENCOUNTER 2024-04-14 13:54 | Emergency (ER) | payer MEDICAID ==
[2024-04-14 14:28] LABS: BASOPHILS ABSOLUTE AUTO 0.03 K/uL (0.00-0.20); BASOPHILS PERCENT AUTO 0.3 % (0.0-2.0); EOSINOPHILS PERCENT AUTO 2.3 % (0.0-5.0); HEMATOCRIT 38.1 % (34.0-46.0); HEMOGLOBIN 13.2 g/dL (11.7-15.5); IMMATURE GRAN ABSOLUTE AUTO 0.07 10^3/uL (0.00-0.04); IMMATURE GRAN PERCENT AUTO 0.8 % (0.0-0.4); LYMPHOCYTES ABSOLUTE AUTO 1.82 K/uL (0.50-3.50); LYMPHOCYTES PERCENT AUTO 21.2 % (10.0-50.0); MEAN CORPUSCULAR HEMOGLOBIN 28.1 pg (28.2-33.3); MEAN CORPUSCULAR HGB CONC 34.6 g/dL (31.7-36.0); MEAN CORPUSCULAR VOLUME 81.1 fL (84.0-98.0); MONOCYTES ABSOLUTE AUTO 0.53 K/uL (0.00-1.00); MONOCYTES PERCENT AUTO 6.2 % (2.0-14.0); NEUTROPHILS ABSOLUTE AUTO 5.93 K/uL (1.40-7.00); NEUTROPHILS PERCENT AUTO 69.2 % (45.0-80.0); PLATELET COUNT,PLT 220 K/uL (150-350); RED CELL DISTRIBUTION WIDTH 13.1 % (11.2-14.1); WHITE BLOOD CELL COUNT,WBC 8.6 K/uL (4.0-10.2)
[2024-04-14 14:41] LABS: APPEARANCE,URINE CLOUDY; BILIRUBIN,URINE NEGATIVE (NEGATIVE); COLOR,URINE YELLOW; GLUCOSE,URINE 500 mg/dL (NEGATIVE); KETONES,URINE NEGATIVE (NEGATIVE); LEUKOCYTE ESTERASE,URINE SMALL (NEGATIVE); NITRITE,URINE NEGATIVE (NEGATIVE); OCCULT BLOOD,URINE LARGE (NEGATIVE); PH,URINE 5.5 (5.0-9.0); PROTEIN,URINE NEGATIVE (NEGATIVE); UROBILINOGEN,URINE 0.2 E.U./dL (0.2-1.0)
[2024-04-14 14:48] VITALS: BP 151/79; PULSE 65
[2024-04-14 14:52] LABS: BACTERIA,URINE FEW /HPF (NONE TO FEW); RBC,URINE 40-50 /HPF
[2024-04-14] MEDS: Phenazopyridine 95 MG Tab PO ONE (15:10)
== END 2024-04-14 15:15 | disposition home or self-care (01) ==
LOC: LL.ED 13:54
DX: K92.1 Melena (principal); N30.01 Acute cystitis with hematuria; I10 Essential (primary) hypertension; E78.00 Pure hypercholesterolemia, unspecified; J45.909 Unspecified asthma, uncomplicated; K21.9 Gastro-esophageal reflux disease without esophagitis; E11.9 Type 2 diabetes mellitus without complications; E66.9 Obesity, unspecified; Z87.19 Personal history of other diseases of the digestive system; Z86.16 Personal history of COVID-19; Z90.49 Acquired absence of other specified parts of digestive tract; Z90.710 Acquired absence of both cervix and uterus; Z88.0 Allergy status to penicillin; Z88.5 Allergy status to narcotic agent; Z88.8 Allergy status to other drugs, medicaments and biological substances; Z91.041 Radiographic dye allergy status; Z79.4 Long term (current) use of insulin; Z79.899 Other long term (current) drug therapy
CPT/HCPCS: 36415; 81001; 85025; 87086; 99284; A9270-GY

== ENCOUNTER 2024-05-09 14:38 | Emergency (ER) | payer MEDICAID ==
[2024-05-09 14:49] VITALS: PULSE 99
[2024-05-09] MEDS: Sodium Chloride 0.9% 10 ML Syringe FLUSH PRN (14:50)
[2024-05-09] MEDS: Ondansetron 4 MG/2 ML SDV IVPUSH ONE (14:50)
[2024-05-09] MEDS ORDERED: Sodium Chloride 0.9% 10 ML Syringe FLUSH PRN (14:52)
[2024-05-09 15:19] LABS: BASOPHILS ABSOLUTE AUTO 0.03 K/uL (0.00-0.20); BASOPHILS PERCENT AUTO 0.3 % (0.0-2.0); EOSINOPHILS ABSOLUTE AUTO 0.11 K/uL (0.00-0.50); HEMATOCRIT 43.9 % (34.0-46.0); HEMOGLOBIN 15.1 g/dL (11.7-15.5); IMMATURE GRAN ABSOLUTE AUTO 0.02 10^3/uL (0.00-0.04); IMMATURE GRAN PERCENT AUTO 0.2 % (0.0-0.4); LYMPHOCYTES ABSOLUTE AUTO 0.82 K/uL (0.50-3.50); LYMPHOCYTES PERCENT AUTO 7.7 % (10.0-50.0); MEAN CORPUSCULAR HEMOGLOBIN 27.5 pg (28.2-33.3); MEAN CORPUSCULAR HGB CONC 34.4 g/dL (31.7-36.0); MONOCYTES ABSOLUTE AUTO 0.74 K/uL (0.00-1.00); MONOCYTES PERCENT AUTO 6.9 % (2.0-14.0); NEUTROPHILS ABSOLUTE AUTO 8.99 K/uL (1.40-7.00); NEUTROPHILS PERCENT AUTO 83.9 % (45.0-80.0); PLATELET COUNT,PLT 259 K/uL (150-350); RED BLOOD CELL COUNT 5.49 M/uL (3.77-5.09); RED CELL DISTRIBUTION WIDTH 12.8 % (11.2-14.1); WHITE BLOOD CELL COUNT,WBC 10.7 K/uL (4.0-10.2)
[2024-05-09 15:43] LABS: ALANINE AMINOTRANSFERASE,ALT 31 U/L (12-78); ALBUMIN 3.7 g/dL (3.4-5.0); ALKALINE PHOSPHATASE 100 IU/L (46-116); AMYLASE 29 U/L (25-115); ASPARTATE AMNIOTRANSFERASE,AST 16 U/L (15-37); BILIRUBIN TOTAL 1.4 mg/dL (0.2-1.0); BLOOD UREA NITROGEN,BUN 26 mg/dL (7-18); CALCIUM 8.4 mg/dL (8.5-10.1); CARBON DIOXIDE,CO2 31.4 mmol/L (21.0-32.0); CHLORIDE,CL 102 mmol/L (98-107); CREATININE 0.95 mg/dL (0.51-1.17); EST CRCL DRUG DOSING (CG) 51.08 mL/min; GLUCOSE RANDOM 213 mg/dL (70-99); LIPASE 42 U/L (16-77); MAGNESIUM 1.5 mg/dL (1.8-2.4); POTASSIUM,K 3.2 mmol/L (3.5-5.1); PROTEIN TOTAL,TP 6.9 g/dL (6.4-8.2); SODIUM,NA 142 mmol/L (136-145)
[2024-05-09 15:46] LABS: ANION GAP 11.8 meq/L (7-15); ESTIMATED GFR 71 mL/min (>=60)
[2024-05-09 16:03] VITALS: BP 122/74
[2024-05-09] MEDS: Magnesium Sulfat/D5W 1GM/100ML 1 GM in Premix Bag 1 BAG IV ONE (16:06)
[2024-05-09] MEDS: Potassium Bicarbonate/Cit Ac 20 MEQ Effervescent Tab PO ONE ×2 (16:06→17:00)
[2024-05-09] MEDS: Sodium Chloride 0.9% 1,000 ML IV ONE (16:09)
[2024-05-09 16:51] LABS: BILIRUBIN,URINE NEGATIVE (NEGATIVE); COLOR,URINE YELLOW; GLUCOSE,URINE 100 mg/dL (NEGATIVE); KETONES,URINE NEGATIVE (NEGATIVE); LEUKOCYTE ESTERASE,URINE NEGATIVE (NEGATIVE); NITRITE,URINE NEGATIVE (NEGATIVE); OCCULT BLOOD,URINE TRACE-LYSED (NEGATIVE); PH,URINE 5.5 (5.0-9.0); PROTEIN,URINE NEGATIVE (NEGATIVE); UROBILINOGEN,URINE 0.2 E.U./dL (0.2-1.0)
[2024-05-09 16:59] LABS: APPEARANCE,URINE SLIGHTLY CLOUDY
[2024-05-09 17:00] LABS: BACTERIA,URINE FEW /HPF (NONE TO FEW); EPITHELIAL CELLS,URINE MODERATE /LPF; MUCUS,URINE FEW /LPF (NEGATIVE); RBC,URINE 0-5 /HPF; WBC,URINE 0-5 /HPF
[2024-05-09] MEDS ORDERED: Metoclopramide 10 MG Tab PO ONE (17:31)
== END 2024-05-09 18:00 | disposition home or self-care (01) ==
LOC: LL.ED 14:38
DX: R10.84 Generalized abdominal pain (principal); R11.2 Nausea with vomiting, unspecified; I10 Essential (primary) hypertension; E78.00 Pure hypercholesterolemia, unspecified; K21.9 Gastro-esophageal reflux disease without esophagitis; E11.9 Type 2 diabetes mellitus without complications; J45.909 Unspecified asthma, uncomplicated; Z79.899 Other long term (current) drug therapy; Z79.84 Long term (current) use of oral hypoglycemic drugs; E66.9 Obesity, unspecified; Z86.16 Personal history of COVID-19; Z88.8 Allergy status to other drugs, medicaments and biological substances; Z88.5 Allergy status to narcotic agent; Z88.1 Allergy status to other antibiotic agents; Z91.041 Radiographic dye allergy status; Z68.28 Body mass index [BMI] 28.0-28.9, adult
CPT/HCPCS: 36415; 74022; 80053; 81001; 82150; 83605; 83690; 83735; 84484; 85025; 85379; 87428-QW; 93005; 96365; 96375; 99285-25; A9270-GY; J2405; J3475

== ENCOUNTER 2024-06-11 13:00 | Emergency (ER) | payer MEDICAID ==
[2024-06-11 13:07] VITALS: BP 150/93; PULSE 82
[2024-06-11] MEDS: Ketorolac 30 MG/ML SDV IM ONE (13:45)
[2024-06-11] MEDS: Take Home: Cefuroxime 500 MG Tab, 6 Tab Pack PO ONE (13:45)
[2024-06-11] MEDS: Take Home: traMADol 50 MG, 4 Tab Pack PO ONE (13:45)
== END 2024-06-11 14:02 | disposition home or self-care (01) ==
LOC: LL.ED 13:00
DX: H66.91 Otitis media, unspecified, right ear (principal); I10 Essential (primary) hypertension; E78.00 Pure hypercholesterolemia, unspecified; K21.9 Gastro-esophageal reflux disease without esophagitis; E11.9 Type 2 diabetes mellitus without complications; Z86.16 Personal history of COVID-19; Z88.5 Allergy status to narcotic agent; Z88.8 Allergy status to other drugs, medicaments and biological substances; Z91.041 Radiographic dye allergy status; Z79.899 Other long term (current) drug therapy; Z79.4 Long term (current) use of insulin
CPT/HCPCS: 96372; 99283; A9270; J1885

== ENCOUNTER 2024-06-13 21:58 | Emergency (ER) | payer BC, MEDICAID ==
[2024-06-13] MEDS: LORazepam 2 MG/ML SDV IVPUSH ONE (22:17)
[2024-06-13] MEDS: Ketorolac 15 MG/ML SDV IVPUSH PRN (22:17)
[2024-06-13] MEDS: Sodium Chloride 0.9% 10 ML Syringe FLUSH PRN (22:18)
[2024-06-13 22:53] VITALS: BP 130/77; PULSE 84
== END 2024-06-13 23:05 | disposition home or self-care (01) ==
LOC: LL.ED 21:58
DX: R51.9 Headache, unspecified (principal); F41.9 Anxiety disorder, unspecified; I10 Essential (primary) hypertension; E78.00 Pure hypercholesterolemia, unspecified; J45.909 Unspecified asthma, uncomplicated; K21.9 Gastro-esophageal reflux disease without esophagitis; E11.9 Type 2 diabetes mellitus without complications; Z90.49 Acquired absence of other specified parts of digestive tract; Z90.710 Acquired absence of both cervix and uterus; Z86.16 Personal history of COVID-19; Z88.1 Allergy status to other antibiotic agents; Z88.5 Allergy status to narcotic agent; Z88.8 Allergy status to other drugs, medicaments and biological substances; Z91.041 Radiographic dye allergy status; Z79.4 Long term (current) use of insulin; Z79.899 Other long term (current) drug therapy
CPT/HCPCS: 96374; 96375; 99283; J1885; J2060

== ENCOUNTER 2024-06-14 14:32 | Emergency (ER) | payer SELFPAY ==
[2024-06-14 16:00] LABS: ALANINE AMINOTRANSFERASE,ALT 31 U/L (12-78); ALBUMIN 3.6 g/dL (3.4-5.0); ALKALINE PHOSPHATASE 108 IU/L (46-116); ASPARTATE AMNIOTRANSFERASE,AST 24 U/L (15-37); BILIRUBIN TOTAL 0.8 mg/dL (0.2-1.0); BLOOD UREA NITROGEN,BUN 25 mg/dL (7-18); CALCIUM 9.1 mg/dL (8.5-10.1); CHLORIDE,CL 103 mmol/L (98-107); CREATININE 1.04 mg/dL (0.51-1.17); GLUCOSE RANDOM 271 mg/dL (70-99); POTASSIUM,K 3.3 mmol/L (3.5-5.1); PRO B-TYPE NATRIUR PEPT,BNPPRO 253 pg/mL (0-125); PROTEIN TOTAL,TP 7.1 g/dL (6.4-8.2); SODIUM,NA 140 mmol/L (136-145); TSH ULTRASENSITIVE 1.752 mIU/mL (0.358-3.740)
[2024-06-14 16:13] LABS: ANION GAP 7.3 meq/L (7-15); ESTIMATED GFR 64 mL/min (>=60)
[2024-06-14 17:09] VITALS: BP 133/84; PULSE 82
== END 2024-06-14 16:48 | disposition home or self-care (01) ==
LOC: SUPCPDRO 14:32 → LL.ED 14:32
DX: I10 Essential (primary) hypertension (principal); J45.909 Unspecified asthma, uncomplicated; E78.00 Pure hypercholesterolemia, unspecified; K21.9 Gastro-esophageal reflux disease without esophagitis; E11.9 Type 2 diabetes mellitus without complications; Z86.16 Personal history of COVID-19; Z88.1 Allergy status to other antibiotic agents; Z91.041 Radiographic dye allergy status; Z88.8 Allergy status to other drugs, medicaments and biological substances; Z79.4 Long term (current) use of insulin; Z79.899 Other long term (current) drug therapy; Z90.49 Acquired absence of other specified parts of digestive tract; Z90.710 Acquired absence of both cervix and uterus
CPT/HCPCS: 36415; 80053; 83880; 84443; 84484; 99284

== ENCOUNTER 2024-10-28 13:02 | Emergency (ER) | payer SELFPAY ==
[2024-10-28] MEDS: Ketorolac 30 MG/ML SDV IM ONE (14:56)
[2024-10-28] MEDS: Orphenadrine 60 MG/2 ML Inj IM ONE (14:56)
[2024-10-28 15:19] VITALS: BP 153/67; PULSE 68
== END 2024-10-28 15:00 | disposition home or self-care (01) ==
LOC: LL.ED 13:02
DX: M25.512 Pain in left shoulder (principal); E78.00 Pure hypercholesterolemia, unspecified; I10 Essential (primary) hypertension; J45.909 Unspecified asthma, uncomplicated; K21.9 Gastro-esophageal reflux disease without esophagitis; E11.9 Type 2 diabetes mellitus without complications; Z88.0 Allergy status to penicillin; Z88.1 Allergy status to other antibiotic agents; Z88.8 Allergy status to other drugs, medicaments and biological substances; Z88.5 Allergy status to narcotic agent; Z79.899 Other long term (current) drug therapy; Z79.4 Long term (current) use of insulin
CPT/HCPCS: 73030-LT; 96372; 99283; J1885

== ENCOUNTER 2024-11-14 05:02 | Emergency (ER) | payer SELFPAY ==
[2024-11-14 06:15] LABS: BASOPHILS ABSOLUTE AUTO 0.02 K/uL (0.00-0.20); BASOPHILS PERCENT AUTO 0.3 % (0.0-2.0); EOSINOPHILS ABSOLUTE AUTO 0.27 K/uL (0.00-0.50); EOSINOPHILS PERCENT AUTO 3.5 % (0.0-5.0); IMMATURE GRAN ABSOLUTE AUTO 0.01 10^3/uL (0.00-0.04); IMMATURE GRAN PERCENT AUTO 0.1 % (0.0-0.4); LYMPHOCYTES ABSOLUTE AUTO 1.65 K/uL (0.50-3.50); LYMPHOCYTES PERCENT AUTO 21.4 % (10.0-50.0); MONOCYTES ABSOLUTE AUTO 0.55 K/uL (0.00-1.00); MONOCYTES PERCENT AUTO 7.1 % (2.0-14.0); NEUTROPHILS ABSOLUTE AUTO 5.20 K/uL (1.40-7.00); NEUTROPHILS PERCENT AUTO 67.6 % (45.0-80.0); PLATELET COUNT,PLT 214 K/uL (150-350); RED BLOOD CELL COUNT 4.78 M/uL (3.77-5.09); RED CELL DISTRIBUTION WIDTH 14.3 % (11.2-14.1); WHITE BLOOD CELL COUNT,WBC 7.7 K/uL (4.0-10.2)
[2024-11-14 06:20] VITALS: BP 165/84; PULSE 75
[2024-11-14 06:29] LABS: ALANINE AMINOTRANSFERASE,ALT 30 U/L (12-78); ASPARTATE AMNIOTRANSFERASE,AST 14 U/L (15-37); BILIRUBIN TOTAL 0.5 mg/dL (0.2-1.0); BLOOD UREA NITROGEN,BUN 27 mg/dL (7-18); CARBON DIOXIDE,CO2 28.0 mmol/L (21.0-32.0); CHLORIDE,CL 107 mmol/L (98-107); CREATININE 0.93 mg/dL (0.51-1.17); GLUCOSE RANDOM 262 mg/dL (70-99); POTASSIUM,K 4.3 mmol/L (3.5-5.1); PROTEIN TOTAL,TP 6.2 g/dL (6.4-8.2); SODIUM,NA 143 mmol/L (136-145)
[2024-11-14 06:31] LABS: INR 1.0 (0.9-1.1); PTT,PARTIAL THROMBOPLSTIN TIME 23.3 SEC (23.8-34.4)
[2024-11-14 06:32] LABS: ESTIMATED GFR 73 mL/min (>=60)
[2024-11-14] MEDS: Dexamethasone 10 MG/ML SDV IM ONE (06:39)
== END 2024-11-14 07:00 | disposition home or self-care (01) ==
LOC: LL.ED 05:02
DX: G89.29 Other chronic pain (principal); M25.512 Pain in left shoulder; R07.89 Other chest pain; I10 Essential (primary) hypertension; K21.9 Gastro-esophageal reflux disease without esophagitis; E78.00 Pure hypercholesterolemia, unspecified; E66.9 Obesity, unspecified; E11.9 Type 2 diabetes mellitus without complications; Z88.0 Allergy status to penicillin; Z88.8 Allergy status to other drugs, medicaments and biological substances; Z88.5 Allergy status to narcotic agent; Z79.4 Long term (current) use of insulin; Z79.899 Other long term (current) drug therapy; Z86.16 Personal history of COVID-19; Z90.49 Acquired absence of other specified parts of digestive tract; Z90.710 Acquired absence of both cervix and uterus
CPT/HCPCS: 36415; 71045; 80053; 83735; 84484; 85025; 85610; 85730; 93005; 93010; 96372; 99284; 99285; J1100

== ENCOUNTER 2024-11-21 00:42 | Emergency (ER) | payer SELFPAY ==
[2024-11-21 00:45] VITALS: BP 172/90; PULSE 73
[2024-11-21] MEDS: Take Home: traMADol 50 MG, 4 Tab Pack PO ONE (01:26)
[2024-11-21] MEDS: Ketorolac 30 MG/ML SDV IM ONE (01:26)
[2024-11-21] MEDS: Dexamethasone 10 MG/ML SDV IM ONE (01:26)
== END 2024-11-21 01:35 | disposition home or self-care (01) ==
LOC: LL.ED 00:42
DX: M77.8 Other enthesopathies, not elsewhere classified (principal); I10 Essential (primary) hypertension; E78.00 Pure hypercholesterolemia, unspecified; J45.909 Unspecified asthma, uncomplicated; K21.9 Gastro-esophageal reflux disease without esophagitis; E11.9 Type 2 diabetes mellitus without complications; Z86.16 Personal history of COVID-19; Z90.49 Acquired absence of other specified parts of digestive tract; Z90.710 Acquired absence of both cervix and uterus; Z88.0 Allergy status to penicillin; Z88.8 Allergy status to other drugs, medicaments and biological substances; Z91.041 Radiographic dye allergy status; Z79.4 Long term (current) use of insulin; Z79.899 Other long term (current) drug therapy
CPT/HCPCS: 96372; 99283; A9270; J1100; J1885